=== PATIENT | female | born 1975 ===

== ENCOUNTER → 2020-03-25 13:59 | Outpatient (BNVA) | payer OTHER, SELFPAY | PROVIDERS: Visit Provider Internal Medicine Cardiovascular Disease | DX: R00.2 Palpitations (principal); I10 Essential (primary) hypertension | CPT/HCPCS: 99213 ==

== ENCOUNTER 2020-04-13 11:16 | Outpatient (REF) | payer OTHER, SELFPAY ==
[2020-04-13 13:43] LABS: Basophils Percent Auto 0.3 % (0-2); Eosinophils Absolute Auto 0.1 X10*3/uL (0.0-0.4); Eosinophils Percent Auto 1.7 % (0-4); Hematocrit 38.3 % (37-47); Hemoglobin 11.5 g/dl (12.0-16.0); Imm Gran Abs Auto 0.02 X10*3/uL (0.00-0.03); Imm Gran Pct Auto 0.3 % (0.0-0.4); Lymphocytes Absolute Auto 1.7 X10*3/uL (1.2-4.9); Lymphocytes Percent Auto 23.4 % (20-40); MANUAL DIFF FLAG NO; Mean Corpuscular Hemoglobin 23.3 pg (27.0-33.0); Mean Corpuscular Volume 77.7 fL (80-98); Mean Platelet Volume 9.8 fL (9.4-12.3); Monocytes Absolute Auto 0.5 X10*3/uL (0.1-1.2); Monocytes Percent Auto 7.3 % (2-11); Platelet Count 339 X10*3/uL (160-400); Red Blood Count 4.93 X10*6/uL (4.20-5.50); Red Cell Distribution Width 15.3 % (11.0-16.0); White Blood Count 7.4 X10*3/uL (4.8-10.8)
[2020-04-13 14:41] LABS: Alanine Aminotransferase 10 U/L (0-31); Albumin Level 4.2 g/dL (3.5-5.0); Alkaline Phosphatase 87 U/L (39-117); Anion Gap 13 (12-20); Aspartate Amino Transferase 11 U/L (5-31); Bilirubin Total 0.3 mg/dL (0.0-1.0); Blood Urea Nitrogen 10 mg/dL (9-16); C Reactive Protein 3.16 mg/dL (< or = 0.50); Calcium 9.6 mg/dL (8.4-10.2); Carbon Dioxide 28 mmol/L (22-29); Chloride 101 mmol/L (96-108); Estimated Glomerular Filt Rate > 60; Glucose Random 88 mg/dL (60-115); Potassium 4.6 mmol/l (3.3-5.1); Sodium 137 mmol/L (135-145); Total Protein 8.4 g/dL (6.5-8.0)
[2020-04-13 14:58] LABS: Erythrocyte Sedimentation Rate 43 MM/HR (0-20)
== END 2020-04-13 11:17 | disposition home or self-care (01) ==
LOC: HO.LAB 11:16
PROVIDERS: PCP Internal Medicine; Referring Provider Internal Medicine; Visit Provider Student in an Organized Health Care Education/Training Program
DX: M06.00 Rheumatoid arthritis without rheumatoid factor, unspecified site (principal); M17.0 Bilateral primary osteoarthritis of knee; Z79.899 Other long term (current) drug therapy; Z79.52 Long term (current) use of systemic steroids
CPT/HCPCS: 36415; 80053; 85025; 85652; 86140; 99214

== ENCOUNTER → 2020-04-30 14:30 | Outpatient (BNVA) | payer OTHER, SELFPAY | PROVIDERS: Visit Provider Internal Medicine Pulmonary Disease | DX: G47.33 Obstructive sleep apnea (adult) (pediatric) (principal); Z99.89 Dependence on other enabling machines and devices; E66.01 Morbid (severe) obesity due to excess calories; Z68.43 Body mass index [BMI] 50.0-59.9, adult | CPT/HCPCS: 99212 ==

== ENCOUNTER → 2020-07-02 11:15 | Outpatient (BNVA) | payer OTHER, SELFPAY | PROVIDERS: PCP Internal Medicine; Visit Provider Student in an Organized Health Care Education/Training Program | DX: Z76.89 Persons encountering health services in other specified circumstances (principal) ==

== ENCOUNTER 2020-07-12 13:52 | Outpatient (REF) | payer OTHER, SELFPAY ==
[2020-07-12 14:50] LABS: MANUAL DIFF FLAG NO
[2020-07-12 14:51] LABS: Basophils Percent Auto 0.2 % (0-2); Eosinophils Absolute Auto 0.2 X10*3/uL (0.0-0.4); Eosinophils Percent Auto 2.3 % (0-4); Hematocrit 39.2 % (37-47); Hemoglobin 12.1 g/dl (12.0-16.0); Imm Gran Abs Auto 0.04 X10*3/uL (0.00-0.03); Imm Gran Pct Auto 0.5 % (0.0-0.4); Lymphocytes Absolute Auto 2.4 X10*3/uL (1.2-4.9); Lymphocytes Percent Auto 29.5 % (20-40); Mean Corpuscular HGB Conc 30.9 g/dl (31.0-35.0); Mean Corpuscular Hemoglobin 24.4 pg (27.0-33.0); Mean Platelet Volume 9.8 fL (9.4-12.3); Monocytes Absolute Auto 0.7 X10*3/uL (0.1-1.2); Monocytes Percent Auto 8.2 % (2-11); Neutrophils Absolute Auto 4.9 X10*3/uL (2.0-8.3); Neutrophils Percent Auto 59.3 % (45-73); Platelet Count 355 X10*3/uL (160-400); Red Blood Count 4.96 X10*6/uL (4.20-5.50); Red Cell Distribution Width 15.2 % (11.0-16.0); White Blood Count 8.2 X10*3/uL (4.8-10.8)
[2020-07-12 15:12] LABS: Alanine Aminotransferase 11 U/L (0-31); Albumin Level 4.2 g/dL (3.5-5.0); Alkaline Phosphatase 101 U/L (39-117); Anion Gap 15 (12-20); Aspartate Amino Transferase 10 U/L (5-31); Bilirubin Total 0.3 mg/dL (0.0-1.0); Blood Urea Nitrogen 10 mg/dL (9-16); Calcium 9.3 mg/dL (8.4-10.2); Carbon Dioxide 28 mmol/L (22-29); Chloride 100 mmol/L (96-108); Estimated Glomerular Filt Rate > 60; Glucose Random 134 mg/dL (60-115); Potassium 4.6 mmol/l (3.3-5.1); Sodium 138 mmol/L (135-145); Total Protein 8.4 g/dL (6.5-8.0)
[2020-07-12 15:46] LABS: Erythrocyte Sedimentation Rate 39 MM/HR (0-20)
== END 2020-07-12 13:53 | disposition home or self-care (01) ==
LOC: HO.LAB 13:52
PROVIDERS: PCP Internal Medicine; Visit Provider Student in an Organized Health Care Education/Training Program
DX: M06.00 Rheumatoid arthritis without rheumatoid factor, unspecified site (principal)
CPT/HCPCS: 36415; 80053; 85025; 85652; 86140

== ENCOUNTER 2020-08-31 14:49 | Outpatient (REF) | payer OTHER, SELFPAY ==
[2020-08-31 15:57] LABS: MANUAL DIFF FLAG NO
[2020-08-31 16:07] LABS: Basophils Percent Auto 0.2 % (0-2); Eosinophils Absolute Auto 0.2 X10*3/uL (0.0-0.4); Eosinophils Percent Auto 1.9 % (0-4); Hematocrit 39.1 % (37-47); Imm Gran Abs Auto 0.03 X10*3/uL (0.00-0.03); Imm Gran Pct Auto 0.4 % (0.0-0.4); Lymphocytes Absolute Auto 2.1 X10*3/uL (1.2-4.9); Lymphocytes Percent Auto 25.9 % (20-40); Mean Corpuscular HGB Conc 30.7 g/dl (31.0-35.0); Mean Corpuscular Hemoglobin 24.3 pg (27.0-33.0); Mean Corpuscular Volume 79.3 fL (80-98); Mean Platelet Volume 9.5 fL (9.4-12.3); Monocytes Absolute Auto 0.7 X10*3/uL (0.1-1.2); Monocytes Percent Auto 7.9 % (2-11); Neutrophils Absolute Auto 5.2 X10*3/uL (2.0-8.3); Neutrophils Percent Auto 63.7 % (45-73); Platelet Count 314 X10*3/uL (160-400); Red Blood Count 4.93 X10*6/uL (4.20-5.50); Red Cell Distribution Width 15.2 % (11.0-16.0); White Blood Count 8.2 X10*3/uL (4.8-10.8)
[2020-08-31 16:21] LABS: Alanine Aminotransferase 14 U/L (0-31); Albumin Level 4.1 g/dL (3.5-5.0); Alkaline Phosphatase 86 U/L (39-117); Anion Gap 12 (12-20); Aspartate Amino Transferase 15 U/L (5-31); Bilirubin Total 0.2 mg/dL (0.0-1.0); Blood Urea Nitrogen 13 mg/dL (9-16); C Reactive Protein 2.82 mg/dL (< or = 0.50); Calcium 9.4 mg/dL (8.4-10.2); Carbon Dioxide 27 mmol/L (22-29); Chloride 102 mmol/L (96-108); Estimated Glomerular Filt Rate > 60; Glucose Random 99 mg/dL (60-115); Potassium 4.3 mmol/L (3.3-5.1); Sodium 137 mmol/L (135-145); Total Protein 8.2 g/dL (6.5-8.0)
[2020-08-31 16:54] LABS: Erythrocyte Sedimentation Rate 40 MM/HR (0-20)
[2020-09-01 07:31] LABS: Hepatitis A Antibody IgM 0.13 Index (0-0.79); ~Hepatitis A Antibody IgM Nonreactive (Nonreactive)
[2020-09-02 04:53] LABS: HBS Num1 0.33 mIU/mL (0-7.99); HBc Num1 0.07 S/CO (0.00-0.79); Hepatitis B Core Antibody Nonreactive (Nonreactive); ~Hepatitis B Surface Antibody NONREACTIVE (Nonreactive)
[2020-09-02 05:04] LABS: HBsAGNum1 0.17 S/CO (0.00-0.99); Hepatitis B Surface Antigen Negative (Negative); ~Hepatitis C Antibody Nonreactive (Nonreactive)
[2020-09-02 22:02] LABS: TS Negative Control Passed; TS Panel A 0; TS Panel B 0; TS Positive Control Passed; TSpotTB Negative (SeeBelow)
== END 2020-08-31 14:50 | disposition home or self-care (01) ==
LOC: HO.LAB 14:49
PROVIDERS: PCP Internal Medicine; Visit Provider Student in an Organized Health Care Education/Training Program
DX: M06.00 Rheumatoid arthritis without rheumatoid factor, unspecified site (principal); M17.0 Bilateral primary osteoarthritis of knee; Z79.52 Long term (current) use of systemic steroids; Z79.899 Other long term (current) drug therapy
CPT/HCPCS: 36415; 80053; 85025; 85652; 86140; 86481; 86704; 86706; 86709; 86803; 87340; 99212

== ENCOUNTER 2020-09-08 08:45 | Outpatient (REF) | payer OTHER, SELFPAY ==
[2020-09-08 09:47] LABS: MANUAL DIFF FLAG NO
[2020-09-08 09:53] LABS: Basophils Percent Auto 0.4 % (0-2); Eosinophils Absolute Auto 0.2 X10*3/uL (0.0-0.4); Eosinophils Percent Auto 3.3 % (0-4); Hematocrit 39.6 % (37-47); Hemoglobin 11.9 g/dl (12.0-16.0); Imm Gran Abs Auto 0.02 X10*3/uL (0.00-0.03); Imm Gran Pct Auto 0.4 % (0.0-0.4); Lymphocytes Absolute Auto 1.9 X10*3/uL (1.2-4.9); Lymphocytes Percent Auto 33.1 % (20-40); Mean Corpuscular HGB Conc 30.1 g/dl (31.0-35.0); Mean Corpuscular Hemoglobin 24.2 pg (27.0-33.0); Mean Corpuscular Volume 80.5 fL (80-98); Mean Platelet Volume 9.7 fL (9.4-12.3); Monocytes Absolute Auto 0.5 X10*3/uL (0.1-1.2); Monocytes Percent Auto 8.2 % (2-11); Neutrophils Absolute Auto 3.1 X10*3/uL (2.0-8.3); Neutrophils Percent Auto 54.6 % (45-73); Platelet Count 321 X10*3/uL (160-400); Red Blood Count 4.92 X10*6/uL (4.20-5.50); Red Cell Distribution Width 15.1 % (11.0-16.0); White Blood Count 5.7 X10*3/uL (4.8-10.8)
[2020-09-08 10:16] LABS: Estimated Average Glucose 128 mg/dL; Hemoglobin A1c % 6.1 %
[2020-09-08 10:24] LABS: Alanine Aminotransferase 14 U/L (0-31); Albumin Level 4.3 g/dL (3.5-5.0); Alkaline Phosphatase 82 U/L (39-117); Anion Gap 13 (12-20); Aspartate Amino Transferase 15 U/L (5-31); Bilirubin Total 0.5 mg/dL (0.0-1.0); Blood Urea Nitrogen 15 mg/dL (9-16); Carbon Dioxide 27 mmol/L (22-29); Chloride 100 mmol/L (96-108); Cholesterol 162 mg/dL; Estimated Glomerular Filt Rate > 60; Glucose Fasting 109 mg/dL (60-99); HDL Cholesterol 50 mg/dL; LDL Cholesterol Calculated 102 mg/dl; Potassium 4.1 mmol/L (3.3-5.1); Sodium 136 mmol/L (135-145); Total Protein 8.2 g/dL (6.5-8.0); Triglycerides 50 mg/dL
[2020-09-08 10:27] LABS: Creatinine Urine 138.06 mg/dL; Microalbum/Creatinine Ratio Ur 15.9 ug/mg cr
== END 2020-09-08 08:46 | disposition home or self-care (01) ==
LOC: HO.LAB 08:45
PROVIDERS: PCP Internal Medicine; Visit Provider Internal Medicine
DX: I10 Essential (primary) hypertension (principal); E11.40 Type 2 diabetes mellitus with diabetic neuropathy, unspecified; G47.33 Obstructive sleep apnea (adult) (pediatric)
CPT/HCPCS: 36415; 80053; 80061; 82043; 83036; 85025

== ENCOUNTER 2020-10-25 12:00 | Outpatient (RCR) | payer OTHER, SELFPAY ==
[2020-10-20 11:08] VITALS: BP 135/79
--- NOTE | 2020-10-20 11:55 | MHC.PT.EP ---
[facility] [place] Office [place] Office [place] Office [address] Madhuri Alvarez [address] [phone] F: [phone] F: [phone] F: [phone] F: [phone] Physical Therapy Plan of Care Date of Evaluation: Date of Surgery: NA Diagnosis: B knee OA Assessment: 45 year old female referred for B knee OA . Pt reports of having sudden onset of knee pain about 8-9 months back. On PT examination pt presented 8/10 pain in B knee, altered knee posture, impaired gait, significantly decreased B knee and hip ROM, and decreased muscle strength. She would benefit from PT to address the aforementioned impairments so as to enable her tolerance to sitting, walking and stair negotiation. Her prognosis may be limited by her body weight and B knee posture. Frequency and Duration: The patient will be seen 2/week for 5 weeks Short Term Goals: 1. Pt will have 50% decrease in pain which will enable her to sit for 30 minutes in 2 weeks. 2. Pt will demonstrate increase in B knee ROM by 20 degrees which will enable her to negotiate 1 flight of stairs in 3 weeks. 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 2.Pt will return to PLOF in 5 weeks. Treatment Plan: Modalities to reduce pain, spasms and effusion. Manual therapy to restore motion and function. Therapeutic exercise to improve strength and flexibility. Neuromuscular re-education for posture and balance. Therapeutic activities to return to functional activities of daily living. Electronically signed by: Eugenia Burks, PT, DPT Please sign and return to therapist. Thank you for your referral.
--- NOTE | 2020-11-24 15:31 | MHC.PT.DC ---
[facility] [place] Office [place] Office [place] Office [address] Madhuri Alvarez [address] [phone] F: [phone] F: [phone] F: [phone] F: [phone] Physical Therapy Discharge Report Diagnosis: B knee OA Date of Surgery: NA Date of Evaluation: 10/20/20 Date of Discharge: 11/24/20 Treatments to Date: 2 Cancellations to Date: 1 No Shows to Date: 3 Discharge Status: Visit Non-compliance Discharge Summary: Sol has cancelled 1 appointment and no showed 3. She has therefore been d/c from therapy for non compliance. Electronically signed by: Eugenia Burks PT DPT Please sign and return to therapist. Thank you for your referral.
== END 2020-11-24 15:32 | disposition other institution (70) ==
LOC: HO.PT 12:00
PROVIDERS: PCP Internal Medicine; Visit Provider Student in an Organized Health Care Education/Training Program
DX: M17.0 Bilateral primary osteoarthritis of knee (principal)
CPT/HCPCS: 97110; 97112; 97162

== ENCOUNTER → 2020-11-10 10:43 | Outpatient (BNVA) | payer OTHER, SELFPAY | PROVIDERS: PCP Internal Medicine; Visit Provider Internal Medicine Pulmonary Disease | DX: G47.33 Obstructive sleep apnea (adult) (pediatric) (principal); Z99.89 Dependence on other enabling machines and devices | CPT/HCPCS: 99212 ==

== ENCOUNTER 2021-01-08 08:01 | Outpatient (REF) | payer OTHER, SELFPAY ==
[2021-01-08 09:04] LABS: MANUAL DIFF FLAG NO
[2021-01-08 09:35] LABS: Basophils Percent Auto 0.3 % (0-2); Eosinophils Absolute Auto 0.3 X10*3/uL (0.0-0.4); Eosinophils Percent Auto 4.4 % (0-4); Hematocrit 38.1 % (37-47); Hemoglobin 11.5 g/dl (12.0-16.0); Imm Gran Abs Auto 0.02 X10*3/uL (0.00-0.03); Imm Gran Pct Auto 0.3 % (0.0-0.4); Lymphocytes Absolute Auto 1.9 X10*3/uL (1.2-4.9); Lymphocytes Percent Auto 29.9 % (20-40); Mean Corpuscular HGB Conc 30.2 g/dl (31.0-35.0); Mean Corpuscular Hemoglobin 24.7 pg (27.0-33.0); Mean Corpuscular Volume 81.9 fL (80-98); Monocytes Absolute Auto 0.6 X10*3/uL (0.1-1.2); Monocytes Percent Auto 9.5 % (2-11); Neutrophils Absolute Auto 3.6 X10*3/uL (2.0-8.3); Neutrophils Percent Auto 55.6 % (45-73); Platelet Count 296 X10*3/uL (160-400); Red Blood Count 4.65 X10*6/uL (4.20-5.50); Red Cell Distribution Width 14.9 % (11.0-16.0); White Blood Count 6.4 X10*3/uL (4.8-10.8)
[2021-01-08 10:15] LABS: Creatinine Urine 112.56 mg/dL; Microalbum/Creatinine Ratio Ur 29.3 ug/mg cr
[2021-01-08 10:30] LABS: Alanine Aminotransferase 20 U/L (0-31); Alkaline Phosphatase 83 U/L (39-117); Anion Gap 11 (12-20); Aspartate Amino Transferase 15 U/L (5-31); Bilirubin Total 0.4 mg/dL (0.0-1.0); Blood Urea Nitrogen 13 mg/dL (9-16); Calcium 9.4 mg/dL (8.4-10.2); Carbon Dioxide 26 mmol/L (22-29); Chloride 106 mmol/L (96-108); Cholesterol 162 mg/dL; Estimated Glomerular Filt Rate > 60; Glucose Fasting 117 mg/dL (60-99); HDL Cholesterol 42 mg/dL; LDL Cholesterol Calculated 109 mg/dl; Potassium 4.6 mmol/L (3.3-5.1); Sodium 138 mmol/L (135-145); Total Protein 7.9 g/dL (6.5-8.0); Triglycerides 58 mg/dL
[2021-01-12 18:12] LABS: Vitamin D 25-OH, D2 <4 ng/mL; Vitamin D 25-OH, D3 16 ng/mL; Vitamin D 25-OH, Total 16 ng/mL (30-100)
== END 2021-01-08 08:02 | disposition home or self-care (01) ==
LOC: HO.LAB 08:01
PROVIDERS: PCP Internal Medicine; Visit Provider Internal Medicine
DX: E11.9 Type 2 diabetes mellitus without complications (principal); D64.9 Anemia, unspecified; I10 Essential (primary) hypertension; E55.9 Vitamin D deficiency, unspecified
CPT/HCPCS: 36415; 80053; 80061; 82043; 82306; 85025

== ENCOUNTER → 2021-04-27 15:37 | Outpatient (BNVA) | payer OTHER, SELFPAY | PROVIDERS: PCP Internal Medicine; Referring Provider Internal Medicine; Visit Provider Internal Medicine Cardiovascular Disease ==

== ENCOUNTER 2021-04-30 09:49 | Outpatient (REF) | payer OTHER, SELFPAY ==
--- NOTE | ~2021-04-30 | MM_ITS ---
EXAMINATION: MM SCREENING DIGITAL BREAST TOMOSYNTHESIS, BILATERAL CLINICAL INFORMATION: Screening. Asymptomatic. Age 46. No prior breast imaging. The lifetime risk of breast cancer based on the Tyrer-Cuzick Model is 8%. COMPARISON: None (current study represents initial baseline exam). TECHNIQUE: Digital breast tomosynthesis is performed in both the craniocaudal and mediolateral oblique views along with computer-aided detection (CAD). Synthesized 2D images are generated from the tomosynthesis. Additional bilateral MLO views are provided. FINDINGS: There are scattered areas of fibroglandular density (ACR BI-RADS breast composition Category b). There are no significant masses, abnormal calcifications, or other abnormalities. The axilla and skin contours are unremarkable. MM/MM tomosynthesis screening BI IMPRESSION: No mammographic evidence of malignancy. ASSESSMENT: BI-RADS 2: Benign RECOMMENDATION: Routine annual mammography screening. This patient's information was entered into a reminder system with a target due date for their next mammogram.
== END 2021-04-30 09:50 | disposition home or self-care (01) ==
LOC: HO.MAMMO 09:49
PROVIDERS: Visit Provider Internal Medicine
DX: Z12.31 Encounter for screening mammogram for malignant neoplasm of breast (principal)
CPT/HCPCS: 77063; 77067

== ENCOUNTER → 2021-05-04 13:52 | Outpatient (BNVA) | payer OTHER, SELFPAY | PROVIDERS: PCP Internal Medicine; Visit Provider Internal Medicine Pulmonary Disease | DX: G47.33 Obstructive sleep apnea (adult) (pediatric) (principal); R06.00 Dyspnea, unspecified; M06.9 Rheumatoid arthritis, unspecified; Z99.89 Dependence on other enabling machines and devices | CPT/HCPCS: 99212 ==

== ENCOUNTER 2021-05-16 14:46 | Outpatient (REF) | payer OTHER, SELFPAY ==
--- NOTE | 2021-05-16 17:07 | PFT_ITS ---
INDICATION: Dyspnea. SPIROMETRY: FEV1 to FVC 94% with an FEV1 of 2.3 L which is 76% predicted and FVC of 2.44 L, which is 66% predicted. No significant response to bronchodilators noted. Maximum voluntary ventilation 76% predicted. LUNG VOLUMES: Total lung capacity 67% predicted with an expiratory reserve volume of 34% predicted. DIFFUSION CAPACITY: DLCO 80% predicted. COMPARISONS: None. INTERPRETATION: No obstructive ventilatory defect. No significant response to bronchodilators noted. There is a mild decrease in maximum voluntary ventilation secondary to likely deconditioning. Lung volumes demonstrate a mild to moderate restrictive ventilatory defect likely to do with an elevated BMI although interstitial lung conditions cannot be ruled out. The expiratory reserve volume is significantly decreased due to the elevated BMI. Diffusion capacity is within normal limits. If asthma is in the differential, methacholine challenge may be helpful in assessing for hyper-reactive airways, otherwise clinical correlation warranted. Rio Orellana MD MR/MODL / [id number]
== END 2021-05-16 14:47 | disposition home or self-care (01) ==
LOC: HO.RESP 14:46
PROVIDERS: PCP Internal Medicine; Visit Provider Internal Medicine Pulmonary Disease
DX: R60.0 Localized edema (principal)
CPT/HCPCS: 94060; 94727; 94729

== ENCOUNTER → 2021-05-26 14:55 | Outpatient (BNVA) | payer OTHER, SELFPAY | PROVIDERS: PCP Internal Medicine; Visit Provider Internal Medicine Pulmonary Disease ==

== ENCOUNTER 2021-07-16 09:14 | Outpatient (REF) | payer OTHER, SELFPAY ==
[2021-07-16 09:33] LABS: MANUAL DIFF FLAG NO
[2021-07-16 10:43] LABS: Basophils Percent Auto 0.4 % (0-2); Eosinophils Absolute Auto 0.3 X10*3/uL (0.0-0.4); Eosinophils Percent Auto 3.7 % (0-4); Hematocrit 39.1 % (37.0-47.0); Imm Gran Abs Auto 0.01 X10*3/uL (0.00-0.03); Imm Gran Pct Auto 0.1 % (0.0-0.4); Lymphocytes Absolute Auto 2.1 X10*3/uL (1.2-4.9); Lymphocytes Percent Auto 27.3 % (20-40); Mean Corpuscular HGB Conc 30.7 g/dl (31.0-35.0); Mean Corpuscular Hemoglobin 25.5 pg (27.0-33.0); Mean Platelet Volume 10.1 fL (9.4-12.3); Monocytes Absolute Auto 0.6 X10*3/uL (0.1-1.2); Neutrophils Absolute Auto 4.7 x10*3/uL (2.0-8.3); Neutrophils Percent Auto 60.5 % (45-73); Platelet Count 293 X10*3/uL (160-400); Red Blood Count 4.71 X10*6/uL (4.20-5.50); Red Cell Distribution Width 13.9 % (11.0-16.0); White Blood Count 7.8 X10*3/uL (4.8-10.8)
[2021-07-16 10:55] LABS: Alanine Aminotransferase 13 U/L (0-31); Alkaline Phosphatase 81 U/L (39-117); Anion Gap 11 (12-20); Aspartate Amino Transferase 13 U/L (5-31); Bilirubin Total 0.2 mg/dL (0.0-1.0); Blood Urea Nitrogen 12 mg/dL (9-16); Calcium 9.2 mg/dL (8.4-10.2); Carbon Dioxide 27 mmol/L (22-29); Chloride 102 mmol/L (96-108); Cholesterol 167 mg/dL; Estimated Glomerular Filt Rate > 60; Glucose Fasting 116 mg/dL (60-99); HDL Cholesterol 40 mg/dL; Iron 52 mcg/dL (30-160); LDL Cholesterol Calculated 108 mg/dl; Percent Iron Saturation 15 % (15-50); Potassium 4.3 mmol/L (3.3-5.1); Sodium 136 mmol/L (135-145); Total Iron Binding Capacity 349 mcg/dL (228-428); Triglycerides 97 mg/dL; Unsaturated Iron Binding 297 ug/dL
[2021-07-16 10:58] LABS: Microalbum/Creatinine Ratio Ur 13.2 ug/mg cr
[2021-07-20 16:21] LABS: Vitamin D 25-OH, D2 <4 ng/mL; Vitamin D 25-OH, D3 30 ng/mL; Vitamin D 25-OH, Total 30 ng/mL (30-100)
== END 2021-07-16 09:15 | disposition home or self-care (01) ==
LOC: HO.LAB 09:14
PROVIDERS: Visit Provider Internal Medicine
DX: E55.9 Vitamin D deficiency, unspecified (principal); I10 Essential (primary) hypertension; E78.5 Hyperlipidemia, unspecified; E11.9 Type 2 diabetes mellitus without complications; D64.9 Anemia, unspecified
CPT/HCPCS: 36415; 80053; 80061; 82043; 82306; 83540; 85025

== ENCOUNTER → 2021-08-09 13:17 | Outpatient (BNVA) | payer OTHER, SELFPAY | PROVIDERS: PCP Internal Medicine; Visit Provider Internal Medicine Pulmonary Disease | DX: G47.33 Obstructive sleep apnea (adult) (pediatric) (principal); J32.9 Chronic sinusitis, unspecified; J40 Bronchitis, not specified as acute or chronic; Z99.89 Dependence on other enabling machines and devices | CPT/HCPCS: 99212 ==

== ENCOUNTER 2021-09-14 09:37 | Outpatient (REF) | payer OTHER, SELFPAY ==
[2021-09-14 10:34] LABS: Appearance Urine HAZY; Color Urine YELLOW; Glucose Urine UA NEG (NEG); Leukocyte Esterase Urine 2+ (NEG); Nitrite Urine NEG (NEG); Specific Gravity - Urine 1.025 (1.005-1.025); UACC Culture Trigger YES; Urine Blood TRACE (NEG); Urine Ketones NEG (NEG); Urine Protein NEG (NEG-TRACE)
[2021-09-14 11:02] LABS: Creatinine Urine 180.31 mg/dL; Microalbum/Creatinine Ratio Ur 30.5 ug/mg cr
[2021-09-14 11:04] LABS: RBC Urine 0-2 /HPF (0); Squamous Epithelial Cell Urine 2+ /LPF; WBC Urine TNTC /HPF (0-4)
[2021-09-14 11:06] LABS: Bacteria Urine 2+ /LPF; Mucus Urine 1+ /LPF
[2021-09-14 11:07] LABS: WBC Clumps Urine NOTED
== END 2021-09-14 09:38 | disposition home or self-care (01) ==
LOC: HO.LAB 09:37
PROVIDERS: PCP Internal Medicine; Visit Provider Internal Medicine
DX: M06.00 Rheumatoid arthritis without rheumatoid factor, unspecified site (principal); M17.0 Bilateral primary osteoarthritis of knee; M25.511 Pain in right shoulder; E11.9 Type 2 diabetes mellitus without complications; Z79.899 Other long term (current) drug therapy; Z79.52 Long term (current) use of systemic steroids
CPT/HCPCS: 81001; 82043; 87086; 87088; 87186; 99212

== ENCOUNTER 2021-09-16 13:33 | Outpatient (REF) | payer OTHER, SELFPAY ==
--- NOTE | ~2021-09-16 | XR_ITS ---
EXAMINATION: XR SHOULDER, RIGHT CLINICAL INFORMATION: Rheumatoid arthritis COMPARISON: None TECHNIQUE: AP external rotation, Grashey, scapular Y, and axillary views of the right shoulder. FINDINGS: Bone alignment is normal. No fracture or dislocation is seen. The glenohumeral joint is normal. There are small osteophytes at the acromioclavicular joint. There is soft tissue calcification adjacent to the greater tuberosity. XR/XR shoulder RT min 2V IMPRESSION: Small osteophytes at the acromioclavicular joint and soft tissue calcification adjacent to the greater tuberosity.
[2021-09-16 14:29] LABS: MANUAL DIFF FLAG NO
[2021-09-16 15:01] LABS: Basophils Percent Auto 0.2 % (0-2); Eosinophils Absolute Auto 0.2 X10*3/uL (0.0-0.4); Eosinophils Percent Auto 2.4 % (0-4); Hematocrit 40.8 % (37.0-47.0); Hemoglobin 12.2 g/dl (12.0-16.0); Imm Gran Abs Auto 0.02 X10*3/uL (0.00-0.03); Imm Gran Pct Auto 0.2 % (0.0-0.4); Lymphocytes Absolute Auto 1.8 X10*3/uL (1.2-4.9); Lymphocytes Percent Auto 21.9 % (20-40); Mean Corpuscular HGB Conc 29.9 g/dl (31.0-35.0); Mean Corpuscular Hemoglobin 24.6 pg (27.0-33.0); Mean Corpuscular Volume 82.4 fL (80.0-98.0); Mean Platelet Volume 9.5 fL (9.4-12.3); Monocytes Absolute Auto 0.5 X10*3/uL (0.1-1.2); Monocytes Percent Auto 6.4 % (2-11); Neutrophils Absolute Auto 5.7 x10*3/uL (2.0-8.3); Neutrophils Percent Auto 68.9 % (45-73); Platelet Count 330 X10*3/uL (160-400); Red Blood Count 4.95 X10*6/uL (4.20-5.50); Red Cell Distribution Width 14.5 % (11.0-16.0); White Blood Count 8.3 X10*3/uL (4.8-10.8)
[2021-09-16 15:19] LABS: Alanine Aminotransferase 23 U/L (0-31); Albumin Level 4.2 g/dL (3.5-5.0); Alkaline Phosphatase 93 U/L (39-117); Anion Gap 13 (12-20); Aspartate Amino Transferase 20 U/L (5-31); Bilirubin Total 0.4 mg/dL (0.0-1.0); Blood Urea Nitrogen 11 mg/dL (9-16); C Reactive Protein 2.62 mg/dL (< or = 0.50); Calcium 9.6 mg/dL (8.4-10.2); Carbon Dioxide 28 mmol/L (22-29); Chloride 101 mmol/L (96-108); Cholesterol 151 mg/dL; Estimated Glomerular Filt Rate > 60; Glucose Random 151 mg/dL (60-115); HDL Cholesterol 46 mg/dL; Iron 40 mcg/dL (30-160); LDL Cholesterol Calculated 81 mg/dl; Percent Iron Saturation 11 % (15-50); Potassium 4.6 mmol/L (3.3-5.1); Sodium 137 mmol/L (135-145); Total Iron Binding Capacity 354 mcg/dL (228-428); Total Protein 8.4 g/dL (6.5-8.0); Triglycerides 120 mg/dL; Unsaturated Iron Binding 314 ug/dL
[2021-09-16 15:43] LABS: Erythrocyte Sedimentation Rate 34 MM/HR (0-20)
[2021-09-16 16:17] LABS: Appearance Urine CLEAR; Color Urine YELLOW; Glucose Urine UA NEG (NEG); Leukocyte Esterase Urine TRACE (NEG); Nitrite Urine NEG (NEG); Specific Gravity - Urine 1.025 (1.005-1.025); UACC Culture Trigger YES; Urine Blood NEG (NEG); Urine Ketones NEG (NEG); Urine Protein NEG (NEG-TRACE)
[2021-09-16 16:24] LABS: RBC Urine 0 /HPF (0)
[2021-09-16 16:25] LABS: Bacteria Urine 4+ /LPF; Squamous Epithelial Cell Urine 3+ /LPF
[2021-09-18 18:45] LABS: TS Negative Control Passed; TS Panel A 0; TS Panel B 4; TS Positive Control Passed; TSpotTB Negative (Negative)
[2021-09-19 04:13] LABS: HBc Num1 0.09 S/CO (0.00-0.79); HBsAGNum1 0.21 S/CO (0.00-0.99); Hepatitis B Core Antibody Nonreactive (Nonreactive); Hepatitis B Surface Antigen Negative (Negative); ~Hepatitis B Surface Antibody NONREACTIVE (Nonreactive)
[2021-09-19 04:21] LABS: ~Hepatitis C Antibody Nonreactive (Nonreactive)
[2021-09-21 05:11] LABS: Hepatitis A Antibody IgM 0.18 Index (0-0.79); ~Hepatitis A Antibody IgM Nonreactive (Nonreactive)
[2021-09-21 13:41] LABS: Vitamin D 25-OH, D2 <4 ng/mL; Vitamin D 25-OH, D3 32 ng/mL; Vitamin D 25-OH, Total 32 ng/mL (30-100)
== END 2021-09-16 13:34 | disposition home or self-care (01) ==
LOC: HO.LAB 13:33
PROVIDERS: PCP Internal Medicine; Visit Provider Nurse Practitioner Family
DX: M06.00 Rheumatoid arthritis without rheumatoid factor, unspecified site (principal); M25.511 Pain in right shoulder; D64.9 Anemia, unspecified; E55.9 Vitamin D deficiency, unspecified; E78.5 Hyperlipidemia, unspecified; E11.9 Type 2 diabetes mellitus without complications
CPT/HCPCS: 36415; 73030; 80053; 80061; 81001; 82306; 83540; 85025; 85652; 86140; 86481; 86704; 86706; 86709; 86803; 87086; 87088; 87186; 87340

== ENCOUNTER → 2021-09-22 13:55 | Outpatient (BNVA) | payer OTHER, SELFPAY | PROVIDERS: PCP Internal Medicine; Visit Provider Internal Medicine Pulmonary Disease | DX: G47.33 Obstructive sleep apnea (adult) (pediatric) (principal); Z99.89 Dependence on other enabling machines and devices; Z79.899 Other long term (current) drug therapy | CPT/HCPCS: 99212 ==

== ENCOUNTER 2021-09-27 07:48 | Outpatient (REF) | payer OTHER, SELFPAY ==
[2021-09-27 08:22] LABS: MANUAL DIFF FLAG NO
[2021-09-27 08:45] LABS: Basophils Percent Auto 0.3 % (0-2); Eosinophils Absolute Auto 0.2 X10*3/uL (0.0-0.4); Eosinophils Percent Auto 3.7 % (0-4); Hematocrit 39.2 % (37.0-47.0); Hemoglobin 12.1 g/dl (12.0-16.0); Imm Gran Abs Auto 0.02 X10*3/uL (0.00-0.03); Imm Gran Pct Auto 0.3 % (0.0-0.4); Lymphocytes Absolute Auto 1.9 X10*3/uL (1.2-4.9); Lymphocytes Percent Auto 29.9 % (20-40); Mean Corpuscular HGB Conc 30.9 g/dl (31.0-35.0); Mean Corpuscular Hemoglobin 24.9 pg (27.0-33.0); Mean Corpuscular Volume 80.8 fL (80.0-98.0); Mean Platelet Volume 9.5 fL (9.4-12.3); Monocytes Absolute Auto 0.5 X10*3/uL (0.1-1.2); Neutrophils Absolute Auto 3.6 x10*3/uL (2.0-8.3); Neutrophils Percent Auto 57.8 % (45-73); Platelet Count 295 X10*3/uL (160-400); Red Blood Count 4.85 X10*6/uL (4.20-5.50); Red Cell Distribution Width 14.6 % (11.0-16.0); White Blood Count 6.2 X10*3/uL (4.8-10.8)
[2021-09-27 09:04] LABS: Appearance Urine HAZY; Color Urine YELLOW; Glucose Urine UA NEG (NEG); Leukocyte Esterase Urine NEG (NEG); Nitrite Urine NEG (NEG); UACC Culture Trigger NO; Urine Blood TRACE (NEG); Urine Ketones NEG (NEG); Urine Protein NEG (NEG-TRACE)
[2021-09-27 09:06] LABS: Alanine Aminotransferase 20 U/L (0-31); Alkaline Phosphatase 83 U/L (39-117); Anion Gap 11 (12-20); Aspartate Amino Transferase 16 U/L (5-31); Bilirubin Total 0.4 mg/dL (0.0-1.0); Blood Urea Nitrogen 11 mg/dL (9-16); C Reactive Protein 2.61 mg/dL (< or = 0.50); Calcium 9.6 mg/dL (8.4-10.2); Carbon Dioxide 28 mmol/L (22-29); Chloride 102 mmol/L (96-108); Estimated Glomerular Filt Rate > 60; Glucose Random 132 mg/dL (60-115); Potassium 4.8 mmol/L (3.3-5.1); Sodium 136 mmol/L (135-145)
[2021-09-27 09:17] LABS: Bacteria Urine 1+ /LPF; Mucus Urine 1+ /LPF; RBC Urine 0-2 /HPF (0); Squamous Epithelial Cell Urine 2+ /LPF
[2021-09-27 09:24] LABS: Erythrocyte Sedimentation Rate 34 MM/HR (0-20)
== END 2021-09-27 07:49 | disposition home or self-care (01) ==
LOC: HO.LAB 07:48
PROVIDERS: Nurse Practitioner Family; PCP Internal Medicine; Visit Provider Internal Medicine
DX: M06.9 Rheumatoid arthritis, unspecified (principal); R30.0 Dysuria
CPT/HCPCS: 36415; 80053; 81001; 81003; 85025; 85652; 86140

== ENCOUNTER → 2021-10-04 13:27 | Outpatient (BNVA) | payer OTHER, SELFPAY | PROVIDERS: PCP Internal Medicine; Visit Provider Nurse Practitioner Family | DX: Z13.89 Encounter for screening for other disorder (principal) ==

== ENCOUNTER 2021-10-14 08:39 | Outpatient (REF) | payer OTHER, SELFPAY ==
[2021-10-14 10:24] LABS: TSH reflex Free T4 1.72 uIU/mL (0.32-4.0)
== END 2021-10-14 08:40 | disposition home or self-care (01) ==
LOC: HO.LAB 08:39
PROVIDERS: Nurse Practitioner Family; PCP Internal Medicine; Visit Provider Internal Medicine
DX: Z13.29 Encounter for screening for other suspected endocrine disorder (principal)
CPT/HCPCS: 36415; 84443

== ENCOUNTER → 2021-10-28 09:48 | Outpatient (BNVA) | payer OTHER, SELFPAY | PROVIDERS: PCP Internal Medicine; Visit Provider Nurse Practitioner Family | DX: M75.31 Calcific tendinitis of right shoulder (principal); M06.00 Rheumatoid arthritis without rheumatoid factor, unspecified site; M25.511 Pain in right shoulder; M17.0 Bilateral primary osteoarthritis of knee | CPT/HCPCS: 99202; 99212 ==

== ENCOUNTER → 2021-11-03 13:32 | Outpatient (BNVA) | payer OTHER, SELFPAY | PROVIDERS: PCP Internal Medicine; Referring Provider Internal Medicine; Visit Provider Internal Medicine Cardiovascular Disease | DX: R00.2 Palpitations (principal); I10 Essential (primary) hypertension | CPT/HCPCS: 93005; 99212 ==

== ENCOUNTER 2021-11-16 14:46 | Outpatient (REF) | payer OTHER, SELFPAY ==
--- NOTE | ~2021-11-16 | US_ITS ---
EXAMINATION: US SOFT TISSUE NECK CLINICAL INFORMATION: Localized swelling, mass and lump, neck. COMPARISON: None. TECHNIQUE: Limited imaging of the right anterior mid neck level 1-2 was performed. FINDINGS: Imaging through the right neck level 1-2 space reveals multiple small lymph nodes. The largest lymph node measures 1.1 x 1.3 x 0.6 cm and has typical appearance of a lymph node. US/US soft tiss head and/or neck IMPRESSION: Typical-appearing lymph node on ultrasound in right neck , level 1-2 space.
[2021-11-16 15:08] LABS: MANUAL DIFF FLAG NO
[2021-11-16 16:08] LABS: Basophils Percent Auto 0.3 % (0-2); Eosinophils Absolute Auto 0.2 X10*3/uL (0.0-0.4); Eosinophils Percent Auto 2.2 % (0-4); Hematocrit 42.3 % (37.0-47.0); Hemoglobin 13.1 g/dl (12.0-16.0); Imm Gran Abs Auto 0.02 X10*3/uL (0.00-0.03); Imm Gran Pct Auto 0.2 % (0.0-0.4); Lymphocytes Absolute Auto 3.3 X10*3/uL (1.2-4.9); Lymphocytes Percent Auto 36.5 % (20-40); Mean Corpuscular Hemoglobin 25.2 pg (27.0-33.0); Mean Corpuscular Volume 81.5 fL (80.0-98.0); Mean Platelet Volume 10.1 fL (9.4-12.3); Monocytes Absolute Auto 0.8 X10*3/uL (0.1-1.2); Monocytes Percent Auto 8.5 % (2-11); Neutrophils Absolute Auto 4.6 x10*3/uL (2.0-8.3); Neutrophils Percent Auto 52.3 % (45-73); Platelet Count 324 X10*3/uL (160-400); Red Blood Count 5.19 X10*6/uL (4.20-5.50); Red Cell Distribution Width 14.6 % (11.0-16.0); White Blood Count 8.9 X10*3/uL (4.8-10.8)
[2021-11-16 16:37] LABS: Alanine Aminotransferase 27 U/L (0-31); Albumin Level 4.2 g/dL (3.5-5.0); Alkaline Phosphatase 83 U/L (39-117); Anion Gap 13 (12-20); Aspartate Amino Transferase 25 U/L (5-31); Bilirubin Total 0.4 mg/dL (0.0-1.0); Blood Urea Nitrogen 9 mg/dL (9-16); C Reactive Protein 1.64 mg/dL (< or = 0.50); Calcium 9.6 mg/dL (8.4-10.2); Carbon Dioxide 25 mmol/L (22-29); Chloride 104 mmol/L (96-108); Estimated Glomerular Filt Rate > 60; Glucose Random 141 mg/dL (60-115); Potassium 4.6 mmol/L (3.3-5.1); Sodium 137 mmol/L (135-145); Total Protein 8.6 g/dL (6.5-8.0)
[2021-11-16 16:56] LABS: Erythrocyte Sedimentation Rate 21 MM/HR (0-20)
== END 2021-11-16 14:47 | disposition home or self-care (01) ==
LOC: HO.US 14:46
PROVIDERS: Absent Provider Nurse Practitioner Family; PCP Internal Medicine; Visit Provider Nurse Practitioner Family
DX: R10.2 Pelvic and perineal pain (principal)
CPT/HCPCS: 36415; 76536; 80053; 85025; 85652; 86140

== ENCOUNTER → 2021-11-29 11:28 | Outpatient (REF) | payer OTHER, SELFPAY ==
--- NOTE | 2021-11-29 11:32 | HM_ITS ---
Conclusion: 1. Patient was monitored for total of 14 days 2. Baseline was normal sinus rhythm with average heart of 84 beats per minute 3. Very rare ectopy noted 4. One hundred ten beat run of SVT, irregular, at 154 beats per minute 5. No patient reported events MTDD
== END ==
LOC: HO.CARD 11:28
PROVIDERS: Visit Provider Internal Medicine Cardiovascular Disease
DX: R00.2 Palpitations (principal)
CPT/HCPCS: 93246

== ENCOUNTER → 2021-12-09 13:45 | Outpatient (BNVA) | payer OTHER, SELFPAY | PROVIDERS: PCP Internal Medicine; Visit Provider Physician Assistant | DX: M75.31 Calcific tendinitis of right shoulder (principal) | CPT/HCPCS: 99212 ==

== ENCOUNTER 2022-01-30 08:46 | Outpatient (REF) | payer OTHER, SELFPAY ==
--- NOTE | ~2022-01-30 | XR_ITS ---
EXAMINATION: BILATERAL KNEE X-RAY CLINICAL INFORMATION: Bilateral osteoarthritis COMPARISON: Previous x-ray January 2020 TECHNIQUE: 3 views of each knee FINDINGS: Right: There is valgus angulation. There is high position of the patella and lateral tilt of patella on the sunrise view. There is severe arthritis at the lateral femoral tibial and patellofemoral joints with joint space narrowing and osteophyte formation. There is no joint effusion. Left: There is high position of the patella. Bone alignment is otherwise normal. No fracture or dislocation is seen. There is arthritis at the medial femoral tibial and patellofemoral joints with joint space narrowing and osteophyte formation. There is no joint effusion. XR/XR knee RT 3V IMPRESSION: Bilateral arthritis not appreciably changed from 2019 exam.
--- NOTE | ~2022-01-30 | XR_ITS ---
EXAMINATION: BILATERAL KNEE X-RAY CLINICAL INFORMATION: Bilateral osteoarthritis COMPARISON: Previous x-ray January 2020 TECHNIQUE: 3 views of each knee FINDINGS: Right: There is valgus angulation. There is high position of the patella and lateral tilt of patella on the sunrise view. There is severe arthritis at the lateral femoral tibial and patellofemoral joints with joint space narrowing and osteophyte formation. There is no joint effusion. Left: There is high position of the patella. Bone alignment is otherwise normal. No fracture or dislocation is seen. There is arthritis at the medial femoral tibial and patellofemoral joints with joint space narrowing and osteophyte formation. There is no joint effusion. XR/XR knee LT 3V IMPRESSION: Bilateral arthritis not appreciably changed from 2019 exam.
[2022-01-30 09:07] LABS: MANUAL DIFF FLAG NO
[2022-01-30 09:24] LABS: Basophils Percent Auto 0.4 % (0-2); Eosinophils Absolute Auto 0.2 X10*3/uL (0.0-0.4); Eosinophils Percent Auto 3.2 % (0-4); Hematocrit 39.7 % (37.0-47.0); Hemoglobin 12.3 g/dl (12.0-16.0); Imm Gran Abs Auto 0.02 X10*3/uL (0.00-0.03); Imm Gran Pct Auto 0.3 % (0.0-0.4); Lymphocytes Absolute Auto 2.2 X10*3/uL (1.2-4.9); Lymphocytes Percent Auto 31.9 % (20-40); Mean Corpuscular Hemoglobin 24.9 pg (27.0-33.0); Mean Corpuscular Volume 80.4 fL (80.0-98.0); Mean Platelet Volume 9.2 fL (9.4-12.3); Monocytes Absolute Auto 0.6 X10*3/uL (0.1-1.2); Monocytes Percent Auto 9.3 % (2-11); Neutrophils Absolute Auto 3.7 x10*3/uL (2.0-8.3); Neutrophils Percent Auto 54.9 % (45-73); Platelet Count 266 X10*3/uL (160-400); Red Blood Count 4.94 X10*6/uL (4.20-5.50); Red Cell Distribution Width 14.6 % (11.0-16.0); White Blood Count 6.8 X10*3/uL (4.8-10.8)
[2022-01-30 09:51] LABS: Alanine Aminotransferase 23 U/L (0-31); Aspartate Amino Transferase 23 U/L (5-31)
[2022-01-30 09:53] LABS: Alanine Aminotransferase 23 U/L (0-31); Alkaline Phosphatase 79 U/L (39-117); Anion Gap 15 (12-20); Aspartate Amino Transferase 24 U/L (5-31); Bilirubin Total 0.4 mg/dL (0.0-1.0); Blood Urea Nitrogen 10 mg/dL (9-16); C Reactive Protein 1.83 mg/dL (< or = 0.50); Carbon Dioxide 22 mmol/L (22-29); Chloride 104 mmol/L (96-108); Cholesterol 133 mg/dL; Estimated Glomerular Filt Rate > 60; Glucose Fasting 141 mg/dL (60-99); HDL Cholesterol 45 mg/dL; Iron 47 mcg/dL (30-160); LDL Cholesterol Calculated 69 mg/dl; Percent Iron Saturation 13 % (15-50); Potassium 4.4 mmol/L (3.3-5.1); Sodium 137 mmol/L (135-145); Total Iron Binding Capacity 355 mcg/dL (228-428); Triglycerides 96 mg/dL; Unsaturated Iron Binding 308 ug/dL
[2022-01-30 10:05] LABS: Erythrocyte Sedimentation Rate 34 MM/HR (0-20)
== END 2022-01-30 08:47 | disposition home or self-care (01) ==
LOC: HO.XRAY 08:46
PROVIDERS: Absent Provider Nurse Practitioner Family; PCP Internal Medicine; Visit Provider Internal Medicine
DX: D64.9 Anemia, unspecified (principal); E66.01 Morbid (severe) obesity due to excess calories; E78.5 Hyperlipidemia, unspecified; E55.9 Vitamin D deficiency, unspecified; M06.00 Rheumatoid arthritis without rheumatoid factor, unspecified site; M17.0 Bilateral primary osteoarthritis of knee; Z79.899 Other long term (current) drug therapy
CPT/HCPCS: 36415; 73562; 80053; 80061; 82306; 83540; 84450; 84460; 85025; 85652; 86140

== ENCOUNTER → 2022-03-03 12:29 | Outpatient (BNVA) | payer OTHER, SELFPAY | PROVIDERS: PCP Internal Medicine; Visit Provider Nurse Practitioner Family | DX: M06.00 Rheumatoid arthritis without rheumatoid factor, unspecified site (principal); R20.0 Anesthesia of skin; R20.2 Paresthesia of skin; M17.0 Bilateral primary osteoarthritis of knee; M75.31 Calcific tendinitis of right shoulder | CPT/HCPCS: 99212 ==

== ENCOUNTER 2022-03-11 17:23 | Emergency (ER) | payer OTHER, SELFPAY ==
[2022-03-11 17:36] VITALS: BP 145/85; PULSE 108; RESP 16; TEMP 36.6; O2SAT 96; BMI 54.9
--- NOTE | 2022-03-11 17:38 | ECG_ITS ---
Test Reason : ARRTHMIA Blood Pressure : / mmHG Vent. Rate : 097 BPM Atrial Rate : 097 BPM P-R Int : 164 ms QRS Dur : 076 ms QT Int : 318 ms P-R-T Axes : 019 -24 069 degrees QTc Int : 403 ms Normal sinus rhythm Nonspecific T wave abnormality Abnormal ECG No previous ECGs available Referred By: Generic ED Physician Electronically Signed By:ALEKS HANKINS
[2022-03-11 18:10] LABS: Hemoglobin 12.6 g/dl (12.0-16.0); Mean Corpuscular HGB Conc 30.7 g/dl (31.0-35.0); Mean Corpuscular Hemoglobin 24.5 pg (27.0-33.0); Mean Corpuscular Volume 79.8 fL (80.0-98.0); Mean Platelet Volume 9.5 fL (9.4-12.3); Platelet Count 298 X10*3/uL (160-400); Red Blood Count 5.14 X10*6/uL (4.20-5.50); Red Cell Distribution Width 14.4 % (11.0-16.0); White Blood Count 9.4 X10*3/uL (4.8-10.8)
[2022-03-11 18:18] LABS: D Dimer High Sensitivity 259 NG/ML
[2022-03-11 18:33] LABS: Alanine Aminotransferase 25 U/L (0-31); Albumin Level 4.1 g/dL (3.5-5.0); Alkaline Phosphatase 99 U/L (39-117); Anion Gap 17 (12-20); Aspartate Amino Transferase 34 U/L (5-31); Bilirubin Total 0.3 mg/dL (0.0-1.0); Blood Urea Nitrogen 13 mg/dL (9-16); Calcium 9.6 mg/dL (8.4-10.2); Carbon Dioxide 23 mmol/L (22-29); Chloride 101 mmol/L (96-108); Estimated Glomerular Filt Rate > 60; Glucose Random 191 mg/dL (60-115); Magnesium 1.7 mg/dL (1.6-2.6); Potassium 3.8 mmol/L (3.3-5.1); Sodium 137 mmol/L (135-145); Total Protein 8.4 g/dL (6.5-8.0)
[2022-03-11 18:40] LABS: Troponin-I High Sensitivity < 3.5 ng/L (<3.5-17.0)
== END 2022-03-11 21:44 | disposition left against medical advice (07) ==
PROVIDERS: Emergency Provider Emergency Medicine; PCP Internal Medicine
DX: R00.2 Palpitations (principal); I10 Essential (primary) hypertension; E11.9 Type 2 diabetes mellitus without complications; Z79.899 Other long term (current) drug therapy
CPT/HCPCS: 36415; 80053; 83735; 84484; 85027; 85379; 93005; 99283

== ENCOUNTER → 2022-03-23 13:00 | Outpatient (REF) | payer OTHER, SELFPAY ==
--- NOTE | 2022-03-23 13:03 | CA_ITS ---
Transthoracic Echocardiogram Patient (Last, First, Middle): Sol Brown, Gender: Female Date of : 1975 Age: 47 Procedure Date: 03/23/2022 Procedure Type: Transthoracic Echocardiogram Location: OP Height: 165.1 cm Weight: 137.44 kg BSA: 2.36 m2 Heart Rate: bpm BP: 125 / 76 mmHg Derrick Hand: TO Referring MD: Ivette CALDERON Pig Furnace Operator: Valentino Villagomez MD Symptoms: I47.1 - Supraventricular tachycardia Study Quality: Technically Difficult/Declined Contrast ECG Rhythm: Sinus Conclusions: - 1. Technically limited study 2. LV systolic function appears preserved with LVEF of greater than 50% on some views. Findings Procedure Information The quality of the study was technically difficult. The study quality is limited by patients body habitus. The patient declines contrast. Left Ventricle The left ventricle was not well visualized. Regional wall motion abnormalities can not be excluded due to suboptimal endocardial definition. Spectral Doppler is indicative of an impaired relaxation filling pattern. On some views LV systolic function appears to be greater than 50%. Wall motion abnormality cannot be ruled out Right Ventricle The right ventricle was not well visualized. Atria The left atrium was not well visualized. Interatrial shunt cannot be excluded. The right atrium was not well visualized. Aortic Valve The aortic valve was not well visualized. There is no aortic valve stenosis. Mitral Valve The mitral valve was not well visualized. There is no mitral valve stenosis. Pulmonic Valve The pulmonic valve was not well visualized. Tricuspid Valve The tricuspid valve was not well visualized. Great Vessels The aorta was not well visualized. The pulmonary artery was not well visualized. Venous The inferior vena cava was not well visualized. Pericardium/Pleural The pericardium was not well visualized. Prior Study Comparison cannot do comparison due to limited quality of the study. Measurements 2D Linear Measurements IVSd: 0.91 0.6-0.9/0.6-1.0 cm LVIDd: 3.76 3.9-5.3/4.2-5.9 cm LVIDd Index: 1.59 2.4-3.2/2.2-3.1 cm/m2 LVIDs: 2.77 2.0-3.6 cm LVPWd: 0.80 0.7-1.1 cm LA Diam: 3.60 2.7-3.8/3.0-4.0 cm LAIDs Index: 1.53 1.5-2.3 cm/m2 LV Mass: 115.30 67-162/88-224 g LV Mass Index: 48.86 43-95/49-115 g/m2 LVOT Diam: 2.10 3.0+(-)1.3 cm Mitral Valve MV Pk E: 0.97 MV PK A: 1.03 MV Decel Time: 193.00 E/A: 0.90 E'Lateral: 15.30 E'Medial: 11.50 E/E' Med: 8.50 E/E' Lat: 6.40 PHT: 56.00 MVA PHT: 3.93 Decel Baraga: 5.05 Aortic Valve AoV Pk Jose: 1.85 AoV Mn Jose: 1.13 AoV VTI: 0.34 AoV Pk Grad: 14.00 Aov Mn Grad: 6.00 ABHISHEK Cont.VTI: 2.23 LVOT LVOT Pk Jose: 1.17 LVOT Mn Jose: 0.67 LVOT VTI: 0.22 LVOT Pk Grad: 5.00 LVOT Mn Grad: 2.00 LVOT Diam: 2.10 LVOT Area: 3.46 Diastolic Function MV Pk E: 0.97 MV Pk A: 1.03 E/A: 0.90 E'Medial: 11.50 E/E' Med: 8.50 E' Laterial: 15.30 E/E' Lat: 6.40 Right Ventricle TAPSE (mm): 30.40 TVS' Jose: 15.10 Tricuspid Valve TR Pk Jose: 2.39 TR Pk Grad: 23.00 Great Vessels Aorta Sinus of Valsalva: 3.00 2.0-3.5 cm Ao Asc: 2.60 2.1-3.4 cm Updated in Other Vendor System with Status of Final Valentino Villagomez MD electronically signed on 03/24/2022 11:50:13 AM with status of Final
== END ==
LOC: HO.CARD 13:00
PROVIDERS: PCP Internal Medicine; Visit Provider Nurse Practitioner Family
DX: I47.1 Supraventricular tachycardia (principal)
CPT/HCPCS: 93306

== ENCOUNTER 2022-04-13 10:38 | Outpatient (REF) | payer OTHER, SELFPAY ==
[2022-04-13 15:34] LABS: Appearance Urine Cloudy; Color Urine Yellow; Glucose Urine UA Negative (Negative); Leukocyte Esterase Urine Moderate (2+) (Negative); Nitrite Urine Positive (Negative); PH 5.5 (5.0-9.0); Specific Gravity - Urine >= 1.030 (1.005-1.025); UMIC TRIGGER UACC YES; Urine Blood Trace (Negative); Urine Ketones Trace mg/dL (Negative); Urine Protein Trace mg/dL (Neg-Trace)
[2022-04-13 15:38] LABS: Bacteria Urine 4+ (None Seen); Hyaline Casts Urine 0-2 /LPF (0-2); UACC Culture Trigger YES; WBC Urine >50 /HPF (0-5)
[2022-04-13 16:03] LABS: Iron 52 mcg/dL (30-160); Percent Iron Saturation 15 % (15-50); Total Iron Binding Capacity 358 mcg/dL (228-428); Unsaturated Iron Binding 306 ug/dL
[2022-04-13 16:23] LABS: Ferritin 103 ng/mL (10-250)
== END 2022-04-13 10:39 | disposition home or self-care (01) ==
LOC: HO.HOSX 10:38
PROVIDERS: Absent Provider Internal Medicine; PCP Internal Medicine; Referring Provider Internal Medicine Cardiovascular Disease; Visit Provider Orthopaedic Surgery
DX: R00.2 Palpitations (principal); I10 Essential (primary) hypertension; Z79.899 Other long term (current) drug therapy; Z86.16 Personal history of COVID-19
CPT/HCPCS: 36415; 81001; 82728; 83540; 87086; 93005; 99212

== ENCOUNTER 2022-05-05 10:57 | Outpatient (REF) | payer OTHER, SELFPAY ==
--- NOTE | ~2022-05-05 | MM_ITS ---
EXAMINATION: MM SCREENING DIGITAL BREAST TOMOSYNTHESIS, BILATERAL CLINICAL INFORMATION: Screening. Asymptomatic. COMPARISON: Mammography: 04/30/2021 (baseline) TECHNIQUE: Digital breast tomosynthesis is performed in both the craniocaudal and mediolateral oblique views along with computer-aided detection (CAD). Synthesized 2D images are generated from the tomosynthesis. Additional left cleavage view and left MLO view are provided. FINDINGS: There are scattered areas of fibroglandular density (ACR BI-RADS breast composition Category b). There are no significant masses, abnormal calcifications, or other abnormalities. Parenchymal pattern is similar to baseline exam. No architectural abnormality. The axilla and skin contours are unremarkable. No significant changes. MM/MM tomosynthesis screening BI IMPRESSION: No mammographic evidence of malignancy. ASSESSMENT: BI-RADS 1: Negative RECOMMENDATION: Routine annual mammography screening. This patient's information was entered into a reminder system with a target due date for their next mammogram.
== END 2022-05-05 10:58 | disposition home or self-care (01) ==
LOC: HO.MAMMO 10:57
PROVIDERS: PCP Internal Medicine; Visit Provider Internal Medicine
DX: Z12.31 Encounter for screening mammogram for malignant neoplasm of breast (principal)
CPT/HCPCS: 77063; 77067

== ENCOUNTER 2022-05-27 10:05 | Outpatient (REF) | payer OTHER, SELFPAY ==
[2022-05-27 10:53] LABS: Appearance Urine Cloudy; Color Urine Yellow; Glucose Urine UA Negative (Negative); Leukocyte Esterase Urine Moderate (2+) (Negative); Nitrite Urine Positive (Negative); Specific Gravity - Urine 1.025 (1.005-1.025); UMIC TRIGGER UACC YES; Urine Blood Moderate (2+) (Negative); Urine Ketones Negative (Negative); Urine Protein 30 (1+) mg/dL (Neg-Trace)
[2022-05-27 10:55] LABS: Bacteria Urine 4+ (None Seen); Hyaline Casts Urine 0-2 /LPF (0-2); RBC Urine >20 /HPF (0-2); UACC Culture Trigger YES; WBC Urine >50 /HPF (0-5)
[2022-05-27 11:30] LABS: Creatinine Urine 162.23 mg/dL; Microalbum/Creatinine Ratio Ur 37.6 ug/mg cr
[2022-05-27 11:34] LABS: Alanine Aminotransferase 27 U/L (0-31); Alkaline Phosphatase 88 U/L (39-117); Anion Gap 14 (12-20); Aspartate Amino Transferase 38 U/L (5-31); Blood Urea Nitrogen 12 mg/dL (9-16); Calcium 9.3 mg/dL (8.4-10.2); Carbon Dioxide 26 mmol/L (22-29); Chloride 101 mmol/L (96-108); Cholesterol 146 mg/dL; Estimated Glomerular Filt Rate > 60; Glucose Fasting 144 mg/dL (60-99); HDL Cholesterol 44 mg/dL; LDL Cholesterol Calculated 88 mg/dl; Potassium 4.2 mmol/L (3.3-5.1); Sodium 137 mmol/L (135-145); Total Protein 8.3 g/dL (6.5-8.0); Triglycerides 70 mg/dL; Vitamin D 25-OH Total 32.9 ng/mL (>30)
[2022-05-27 11:57] LABS: Bilirubin Total 0.4 mg/dL (0.0-1.0)
== END 2022-05-27 10:06 | disposition home or self-care (01) ==
LOC: HO.LAB 10:05
PROVIDERS: Absent Provider Internal Medicine; PCP Internal Medicine; Visit Provider Nurse Practitioner Family
DX: E78.5 Hyperlipidemia, unspecified (principal); E55.9 Vitamin D deficiency, unspecified; E11.9 Type 2 diabetes mellitus without complications; I47.1 Supraventricular tachycardia
CPT/HCPCS: 36415; 80053; 80061; 81001; 82043; 82306; 87086

== ENCOUNTER → 2022-06-02 13:24 | Outpatient (BNVA) | payer OTHER, SELFPAY | PROVIDERS: PCP Internal Medicine; Visit Provider Nurse Practitioner Family | DX: M06.00 Rheumatoid arthritis without rheumatoid factor, unspecified site (principal); M17.0 Bilateral primary osteoarthritis of knee; M75.31 Calcific tendinitis of right shoulder; M79.642 Pain in left hand; M25.512 Pain in left shoulder; R20.0 Anesthesia of skin; R20.2 Paresthesia of skin | CPT/HCPCS: 99212 ==

== ENCOUNTER 2022-08-29 08:35 | Outpatient (REF) | payer OTHER, SELFPAY ==
--- NOTE | ~2022-08-29 | XR_ITS ---
EXAMINATION: XR SHOULDER, LEFT CLINICAL INFORMATION: Pain. COMPARISON: None. TECHNIQUE: AP external rotation, Grashey, scapular Y, and axillary views of the left shoulder. FINDINGS: Bony alignment and mineralization are normal. The glenohumeral joint is intact and shows minimal osteoarthritic change. The acromioclavicular and coracoclavicular intervals are normal. There is cortical irregularity of the greater tuberosity of the proximal right humerus, and a distal acromial osteophyte is seen. No abnormal soft tissue calcification or foreign body is seen. There is no left pneumothorax. XR/XR shoulder LT min 2V IMPRESSION: 1. No fracture or dislocation is seen. 2. There is minimal osteoarthritic change of the left glenohumeral joint. 3. Findings suggest possible left rotator cuff impingement; no andrea calcific tendinitis is noted.
--- NOTE | ~2022-08-29 | XR_ITS ---
EXAMINATION: XR HAND, LEFT CLINICAL INFORMATION: Pain. COMPARISON: Radiographs dated 01/29/2020. TECHNIQUE: PA, lateral, and oblique views of the left hand. FINDINGS: The bones and soft tissues are normal. No fracture. Alignment is anatomic. Joint spaces are maintained. No erosions or soft tissue calcifications. XR/XR hand LT min 3V IMPRESSION: Normal left hand.
[2022-08-29 08:57] LABS: MANUAL DIFF FLAG NO
[2022-08-29 09:39] LABS: Basophils Percent Auto 0.3 % (0-2); Eosinophils Absolute Auto 0.2 X10*3/uL (0.0-0.4); Eosinophils Percent Auto 2.5 % (0-4); Hematocrit 38.4 % (37.0-47.0); Imm Gran Abs Auto 0.02 X10*3/uL (0.00-0.03); Imm Gran Pct Auto 0.3 % (0.0-0.4); Lymphocytes Absolute Auto 2.7 X10*3/uL (1.2-4.9); Mean Corpuscular HGB Conc 31.3 g/dl (31.0-35.0); Mean Corpuscular Hemoglobin 25.5 pg (27.0-33.0); Mean Corpuscular Volume 81.5 fL (80.0-98.0); Mean Platelet Volume 9.9 fL (9.4-12.3); Monocytes Absolute Auto 0.6 X10*3/uL (0.1-1.2); Monocytes Percent Auto 8.7 % (2-11); Neutrophils Absolute Auto 3.7 x10*3/uL (2.0-8.3); Neutrophils Percent Auto 51.2 % (45-73); Platelet Count 296 X10*3/uL (160-400); Red Blood Count 4.71 X10*6/uL (4.20-5.50); Red Cell Distribution Width 15.3 % (11.0-16.0); White Blood Count 7.3 X10*3/uL (4.8-10.8)
[2022-08-29 10:08] LABS: Alanine Aminotransferase 21 U/L (0-31); Aspartate Amino Transferase 22 U/L (5-31); C Reactive Protein 2.04 mg/dL (< or = 0.50); Estimated Glomerular Filt Rate > 60
[2022-08-29 10:21] LABS: Erythrocyte Sedimentation Rate 34 MM/HR (0-20)
[2022-08-29 10:49] LABS: Appearance Urine Cloudy; Color Urine Yellow; Glucose Urine UA Negative (Negative); Leukocyte Esterase Urine Small (1+) (Negative); Nitrite Urine Positive (Negative); PH 6.5 (5.0-9.0); Specific Gravity - Urine >= 1.030 (1.005-1.025); UMIC TRIGGER UACC YES; Urine Blood Trace (Negative); Urine Ketones Negative (Negative); Urine Protein Negative (Neg-Trace)
[2022-08-29 10:55] LABS: Bacteria Urine 4+ (None Seen); Hyaline Casts Urine 0-2 /LPF (0-2); UACC Culture Trigger YES
== END 2022-08-29 08:36 | disposition home or self-care (01) ==
LOC: HO.LAB 08:35
PROVIDERS: Absent Provider Nurse Practitioner Family; PCP Internal Medicine; Visit Provider Internal Medicine
DX: M25.512 Pain in left shoulder (principal); M79.642 Pain in left hand; M06.00 Rheumatoid arthritis without rheumatoid factor, unspecified site; R30.0 Dysuria; Z79.899 Other long term (current) drug therapy
CPT/HCPCS: 36415; 73030; 73130; 81001; 82565; 84450; 84460; 85025; 85652; 86140; 87086; 87088; 87186

== ENCOUNTER → 2022-08-31 14:50 | Outpatient (BNVA) | payer OTHER, SELFPAY | PROVIDERS: PCP Internal Medicine; Referring Provider Internal Medicine; Visit Provider Internal Medicine Cardiovascular Disease | DX: R00.2 Palpitations (principal); I10 Essential (primary) hypertension; M06.00 Rheumatoid arthritis without rheumatoid factor, unspecified site; D50.9 Iron deficiency anemia, unspecified; E66.01 Morbid (severe) obesity due to excess calories; Z68.43 Body mass index [BMI] 50.0-59.9, adult; Z86.16 Personal history of COVID-19; Z79.82 Long term (current) use of aspirin; Z79.4 Long term (current) use of insulin; Z79.631 Long term (current) use of antimetabolite agent; Z79.899 Other long term (current) drug therapy | CPT/HCPCS: 99212 ==

== ENCOUNTER 2022-09-21 15:00 | Outpatient (REF) | payer OTHER, SELFPAY ==
--- NOTE | 2022-09-21 16:39 | PFT_ITS ---
Forced vital capacity 60%, FEV1 67%, FEV1/FVC ratio is 112. VHT46-74 126% and MVV is 83%. Post bronchodilator therapy, there is no change. LUNG VOLUMES: Total lung capacity 54% and residual volume 49%. Diffusion capacity 78%. CONCLUSION: The results are consistent with moderately severe restrictive pulmonary disorder. No evidence of obstructive airway disorder and no response to bronchodilator therapy. MD ALEJANDRO Mata/LITO / [id number]
== END 2022-09-21 15:01 | disposition home or self-care (01) ==
LOC: HO.RESP 15:00
PROVIDERS: Visit Provider Internal Medicine Pulmonary Disease
DX: J84.9 Interstitial pulmonary disease, unspecified (principal); M06.9 Rheumatoid arthritis, unspecified
CPT/HCPCS: 94060; 94727; 94729

== ENCOUNTER → 2022-09-22 12:55 | Outpatient (BNVA) | payer OTHER, SELFPAY | PROVIDERS: PCP Internal Medicine; Visit Provider Internal Medicine Pulmonary Disease | DX: G47.33 Obstructive sleep apnea (adult) (pediatric) (principal); E66.9 Obesity, unspecified; Z68.43 Body mass index [BMI] 50.0-59.9, adult; Z99.89 Dependence on other enabling machines and devices | CPT/HCPCS: 99212 ==

== ENCOUNTER → 2022-11-10 08:58 | Outpatient (BNVA) | payer OTHER, SELFPAY | PROVIDERS: PCP Internal Medicine; Visit Provider Nurse Practitioner Family | DX: M06.00 Rheumatoid arthritis without rheumatoid factor, unspecified site (principal); M17.0 Bilateral primary osteoarthritis of knee; M19.012 Primary osteoarthritis, left shoulder; R20.0 Anesthesia of skin; R20.2 Paresthesia of skin | CPT/HCPCS: 99212 ==

== ENCOUNTER 2022-11-17 09:24 | Outpatient (REF) | payer OTHER, SELFPAY ==
--- NOTE | ~2022-11-17 | XR_ITS ---
EXAMINATION: XR KNEES, STANDING AP BILATERAL XR KNEE, RIGHT XR KNEE, LEFT CLINICAL INFORMATION: Knee pain. COMPARISON: Bilateral knee radiographs 01/30/2022 TECHNIQUE: Technologist notes technically challenging exam tailored to patient capabilities. Bilateral standing AP view of the knees is performed. Additional views of the right knee x3 and left knee x2 and also provided. FINDINGS: Right: There is tricompartment osteoarthritis, increased medial compartment since prior imaging 2021. No appreciable suprapatellar effusion on the slightly oblique views. No lateralization patella. No bony destructive process or visible erosive changes. Left: There is tricompartment osteoarthritis greatest medial compartment, narrowing slightly increased since 2021. No erosive change or chondrocalcinosis. No visible suprapatellar effusion. No destructive process. XR/XR knee standing BI IMPRESSION: -Bilateral: Patient study limitations. Exam tailored to patient capabilities. - Right: Tricompartment osteoarthritis, increased medial compartment since prior imaging 2021. - Left: Tricompartment osteoarthritis greatest medial compartment, narrowing slightly increased since 2021.
--- NOTE | ~2022-11-17 | XR_ITS ---
EXAMINATION: XR KNEES, STANDING AP BILATERAL XR KNEE, RIGHT XR KNEE, LEFT CLINICAL INFORMATION: Knee pain. COMPARISON: Bilateral knee radiographs 01/30/2022 TECHNIQUE: Technologist notes technically challenging exam tailored to patient capabilities. Bilateral standing AP view of the knees is performed. Additional views of the right knee x3 and left knee x2 and also provided. FINDINGS: Right: There is tricompartment osteoarthritis, increased medial compartment since prior imaging 2021. No appreciable suprapatellar effusion on the slightly oblique views. No lateralization patella. No bony destructive process or visible erosive changes. Left: There is tricompartment osteoarthritis greatest medial compartment, narrowing slightly increased since 2021. No erosive change or chondrocalcinosis. No visible suprapatellar effusion. No destructive process. XR/XR knee LT 2V IMPRESSION: -Bilateral: Patient study limitations. Exam tailored to patient capabilities. - Right: Tricompartment osteoarthritis, increased medial compartment since prior imaging 2021. - Left: Tricompartment osteoarthritis greatest medial compartment, narrowing slightly increased since 2021.
--- NOTE | ~2022-11-17 | XR_ITS ---
EXAMINATION: XR KNEES, STANDING AP BILATERAL XR KNEE, RIGHT XR KNEE, LEFT CLINICAL INFORMATION: Knee pain. COMPARISON: Bilateral knee radiographs 01/30/2022 TECHNIQUE: Technologist notes technically challenging exam tailored to patient capabilities. Bilateral standing AP view of the knees is performed. Additional views of the right knee x3 and left knee x2 and also provided. FINDINGS: Right: There is tricompartment osteoarthritis, increased medial compartment since prior imaging 2021. No appreciable suprapatellar effusion on the slightly oblique views. No lateralization patella. No bony destructive process or visible erosive changes. Left: There is tricompartment osteoarthritis greatest medial compartment, narrowing slightly increased since 2021. No erosive change or chondrocalcinosis. No visible suprapatellar effusion. No destructive process. XR/XR knee RT 2V IMPRESSION: -Bilateral: Patient study limitations. Exam tailored to patient capabilities. - Right: Tricompartment osteoarthritis, increased medial compartment since prior imaging 2021. - Left: Tricompartment osteoarthritis greatest medial compartment, narrowing slightly increased since 2021.
== END 2022-11-17 09:25 | disposition home or self-care (01) ==
LOC: HO.HOSX 09:24
PROVIDERS: Visit Provider Orthopaedic Surgery
DX: M17.0 Bilateral primary osteoarthritis of knee (principal); E66.01 Morbid (severe) obesity due to excess calories; E11.9 Type 2 diabetes mellitus without complications
CPT/HCPCS: 73560; 73565; 99202

== ENCOUNTER 2022-12-05 13:00 | Outpatient (RCR) | payer OTHER, SELFPAY ==
--- NOTE | 2022-11-15 14:59 | MHC.PT.EP ---
[facility] [place] Office [place] Office [place] Office [address] Alvarez [address] [phone] F: [phone] F: [phone] F: [phone] F: [phone] Physical Therapy Plan of Care Date of Evaluation: Date of Surgery: none Diagnosis: pain in L shoulder Assessment: Patient is a 47 year old R handed female who presents with s/s consistent with L shoulder pain. She does not work and lives a fairly sedentary life watching TV. Patient past medical history includes obesity, fibromyalgia, HTN, DM, and rheumatoid arthritis. Current impairments include pain, posture, ROM, strength, activity tolerance and functional mobility. 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 Patient is motivated with good rehab potential. Skilled PT will address impairments and functional limitations in order to achieve goals. Frequency and Duration: The patient will be seen 2x/week for 5 weeks Short Term Goals: I with HEP - 2 weeks AROM flexion and scaption to 120 - 3 weeks Strenght 4-/5 grossly - 3 weeks Prison Goals: Able to lift 10# pain free - 5 weeks Strength 4/5 grossly - 5 weeks ER 60, flexion, scaption 140 AROM - 5 weeks SPADI 50/130 or better - 5 weeks Treatment Plan: Modalities to reduce pain, spasms and effusion. Manual therapy to restore motion and function. Therapeutic exercise to improve strength and flexibility. Neuromuscular re-education for posture and balance. Therapeutic activities to return to functional activities of daily living. Electronically signed by: Geovany Martinez, PT Please sign and return to therapist. Thank you for your referral.
--- NOTE | 2022-12-29 08:22 | MHC.PT.DC ---
[facility] [place] Office [place] Office [place] Office [address] Madhuri Alvarez [address] [phone] F: [phone] F: [phone] F: [phone] F: [phone] Physical Therapy Discharge Report Diagnosis: pain in L shoulder Date of Surgery: none Date of Evaluation: 11/15/22 Date of Discharge: 12/29/22 Treatments to Date: 3 Cancellations to Date: No Shows to Date: Discharge Status: Visit Non-compliance Discharge Summary: Patient came to eval and 2 follow up visits. She had multiple no shows and cancellations, DC'd due to poor compliance with facility attendance policy. Patient has an HEP to continue on own. Electronically signed by: Ava Issa PT Please sign and return to therapist. Thank you for your referral.
== END 2022-12-29 08:22 | disposition home or self-care (01) ==
LOC: HO.PTCHIC 13:00
PROVIDERS: PCP Internal Medicine; Visit Provider Nurse Practitioner Family
DX: M25.512 Pain in left shoulder (principal)
CPT/HCPCS: 97110; 97140; 97163

== ENCOUNTER 2022-12-25 08:49 | Outpatient (REF) | payer OTHER, SELFPAY | END 2022-12-25 08:50 | disposition home or self-care (01) | LOC: HO.LAB 08:49 | PROVIDERS: Absent Provider Nurse Practitioner Family; PCP Internal Medicine; Visit Provider Internal Medicine | DX: D64.9 Anemia, unspecified (principal); E78.5 Hyperlipidemia, unspecified; E11.9 Type 2 diabetes mellitus without complications; E55.9 Vitamin D deficiency, unspecified; I47.1 Supraventricular tachycardia; M06.00 Rheumatoid arthritis without rheumatoid factor, unspecified site | CPT/HCPCS: 36415; 80053; 80061; 81001; 81003; 82043; 82306; 83540; 85025; 85652; 86140; 87086; 87088; 87147; 87186 ==

== ENCOUNTER 2023-01-10 14:25 | Outpatient (AMB) | payer OTHER, SELFPAY ==
--- NOTE | 2023-01-10 14:29 | MHC.PC.OV ---
Vital Signs 01/10/23 14:33 Height 5 ft 5 in Weight 323 lb BMI 53.7 BP 130/86 Blood Pressure Location Lt brachial Position Sitting Intake Visit Reasons: Annual Exam Intake Note: Patient here for physical exam Battery Tester Field Required: No Accompanied by: Son Allergies No Known Allergies Allergy (Verified 01/10/23 14:40) Medication List - Last Reconciled 01/10/23 by Ryann Angel MD acetaminophen (Tylenol Extra Strength) 500 mg PO BID PRN adalimumab (Humira(CF) Pen) inject one - 40 mg/0.4 mL pen every 2 weeks subcut aspirin 81 mg PO DAILY 30 days blood sugar diagnostic (FreeStyle Lite Strips) Use 1 test strip once a day blood-glucose meter (FreeStyle Lite Meter kit) As directed cane As directed cholecalciferol (vitamin D3) 25 mcg PO DAILY 90 days [cock up splint wear on each wrist at night. ] diltiazem HCl 240 mg PO DAILY ferrous sulfate 325 mg PO DAILY fluticasone propionate 50 mcg/actuation (Flonase Allergy Relief) 1 spray intranasal DAILY 30 days folic acid 1 mg PO DAILY [grab bars As directed] hydrochlorothiazide 12.5 mg PO QAM 90 days hydrocortisone 1% (Anti-Itch (hydrocortisone)) 1 appl topical TID PRN 2 weeks lancets (FreeStyle Lancets) Use 1 lancet once a day losartan 100 mg PO DAILY 90 days meclizine 25 mg PO TID PRN 30 days metformin 500 mg PO BID 90 days rosuvastatin 10 mg PO BEDTIME 90 days semaglutide (Ozempic) 0.125 mg (0.2 mL) subcut QWEEK 30 days Shower Chair As directed Tobacco use date assessed: 08/29/22 Dental Screening Dental Screen Date: 01/10/23 Did you have a dental visit in the last 12 months?: Yes Did you have a dental problem in the last 6 months where you did not have access to dental care?: No Was dental information given to patient?: Patient has dentist HPI HPI Comments History of Present Illness Details This is a 47-year-old female with diabetes mellitus type 2, seronegative rheumatoid arthritis and morbid obesity that comes today accompanied by BRIDGE INSPECTOR which is her son for her physical exam. A1c within goal. Rheumatoid arthritis follow by Rheumatology and has been somewhat stable medications. She is morbidly obese with a BMI of 53.7 and would like weight management referral for weight loss surgery. Last mammogram was April 2022. Last Pap smear was over 5 years ago. Has never had a colonoscopy and is willing to do Cologuard. Needs diabetic eye exam and will be referred to Ophthalmology. [facility] Medical History (Updated 01/10/23 @ 14:54 by Ryann Angel MD) Anxiety Diabetes Fibromyalgia LARRY (generalized anxiety disorder) Hypertension Hypovitaminosis D Iron deficiency anemia [facility] methotrexate user Morbid obesity Morbid obesity due to excess calories MAXIMINO (obstructive sleep apnea) Osteoarthritis of knees, bilateral Pure hypercholesterolemia Rheumatoid arthritis Seronegative rheumatoid arthritis Super obese Thrombophlebitis Vertigo Surgical History History of History of hip surgery History of tubal ligation Family History Father Prostate cancer Mother Uterine cancer Social History Housing: Apartment Alcohol intake: never Patient Tobacco Use Status: Never used Tobacco e-Cigarette/Vaping Use: Never Used Second Hand Smoke Exposure: No service: No Current occupational status: disabled 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 Stephen French, Nai Suarez, Jayson Barajas and colleagues, with an educational tiera from [employer]. Review of Systems Const All systems reviewed & are unremarkable except as noted in HPI and below Eyes Reports no additional complaints, Denies change in vision and Denies other visual disturbances Card Denies chest pain at rest, Denies chest pain with activity, Denies edema, Denies irregular heart rhythm, Denies claudication, Denies dyspnea, Denies dyspnea on exertion, Denies orthopnea, Denies paroxysmal nocturnal dyspnea and Denies slow heart rate Resp Denies cough, Denies dyspnea and Denies dyspnea on exertion GI Denies abdominal pain, Denies change in bowel habits, Denies excessive flatus, Denies nausea and Denies vomiting Denies urinary incontinence, Denies urinary hesitancy and Denies urinary urgency Musc Denies atrophy, Denies deformity and Denies limited range of motion Physical exam (Primary Care) Vital Signs: Last Vital Signs BP 130/86 01/10/23 14:33 BMI result Body Mass Index 53.7 Tobacco/Smoking Status: Tobacco use Status Tobacco use date assessed 08/29/22 01/10/23 14:31 Patient Tobacco Use Status Never used Tobacco 01/10/23 14:31 e-Cigarette/Vaping Use Never Used 01/10/23 14:31 Thrive Assessment: Date of Thrive Assessment Date Thrive assessed 08/29/22 01/10/23 14:31 Const Orientation/consciousness: patient oriented x3 HENMT Head: Yes normal to inspection, Yes normocephalic and Yes atraumatic Ears: external ears normal Eyes General: appearance normal, both eyes and all related structures Eyelids: Yes eyelids normal Conjunctivae: conjunctivae normal Neck Neck: Yes normal visual inspection and Yes supple Resp Effort & Inspection: normal respiratory effort Auscultation: clear to auscultation bilaterally Cardio Jugular venous distension: no JVD Rate: regular rate Rhythm: regular rhythm Heart sounds: S1 normal heart sound present and S2 normal heart sound present GI Inspection: Yes normal to inspection Palpation (GI): Soft to palpation and nontender Auscultation: normal bowel sounds Skin General skin exam: no rashes or lesions noted Neuro General: patient oriented x3 and no focal motor deficits Extrem General: Yes full ROM Psych Appearance: grossly normal Results AMB Hemoglobin A1c AMB Hemoglobin A1c 6.5 % Last Edit by HEATH Evans on 01/10/23 14:40 Results Reviewed Results Reviewed: Laboratory Last Values Hgb A1c (Clinic) 6.5 % (4.0-6.0) H 01/10/23 14:28 Assessment and Plan Assessment & Plan (1) Physical exam: Code(s): Z00.00 - Encounter for general adult medical examination without abnormal findings Plan: Repeat in a year (2) Diabetes: Code(s): E11.9 - Type 2 diabetes mellitus without complications Qualifiers: Diabetes mellitus type: type 2 Diabetes mellitus emulsion coater insulin use: without [facility] use Diabetes mellitus complication status: without complication Qualified Code(s): E11.9 - Type 2 diabetes mellitus without complications Plan: Continue metformin and Ozempic. A1c goal is equal or less than 7% (3) Seronegative rheumatoid arthritis: Comment: methotrexate: 08/2019- 08/2021 dyspnea Prednisone Humira: September 2021- present Code(s): M06.00 - Rheumatoid arthritis without rheumatoid factor, unspecified site Plan: Continue Humira. Follow-up with rheumatology. (4) Morbid obesity with BMI of 50.0-59.9, adult: Code(s): E66.01 - Morbid (severe) obesity due to excess calories; Z68.43 - Body mass index [BMI] 50.0-59.9, adult Plan: Referred to weight management. BMI goal is less than 30. Orders: Orders Lipid Panel 4 Months E78.5 - Hyperlipidemia, unspecified Vitamin D 25-OH Total 4 Months E55.9 - Vitamin D deficiency, unspecified Microalbumin, Random (w Creat) 4 Months E11.9 - Type 2 diabetes mellitus without complications Comprehensive [place]. Panel Fast 4 Months E78.5 - Hyperlipidemia, unspecified AMB Hemoglobin A1c Today E11.9 - Type 2 diabetes mellitus without complications Referrals Cologuard Test Z12.11 - Encounter for screening for malignant neoplasm of colon, Z12.12 - Encounter for screening for malignant neoplasm of rectum Cologuard Test Z12.11 - Encounter for screening for malignant neoplasm of colon, Z12.12 - Encounter for screening for malignant neoplasm of rectum Medical Weight Management Referral E66.01 - Morbid (severe) obesity due to excess calories, Z68.43 - Body mass index [BMI] 50.0-59.9, adult [facility] Referral Z12.4 - Encounter for screening for malignant neoplasm of cervix Ophthalmology Referral H53.8 - Other visual disturbances Urology Referral N39.0 - Urinary tract infection, site not specified Medications: New atorvastatin 10 mg PO BEDTIME 90 tabs 1RF 90 days E78.5 - Hyperlipidemia, unspecified Discontinued rosuvastatin Discontinued Reason: Patient Completed Course 10 mg PO BEDTIME 90 days 90 tabs 1RF Coding Level of Care Code Est Pt Prev Care 40-64y(75457) Diagnoses Physical exam Z00.00 Diabetes E11.9 Diabetes mellitus type: type 2 Diabetes mellitus [facility] insulin use: without [facility] use Diabetes mellitus complication status: without complication Seronegative rheumatoid arthritis M06.00 Morbid obesity with BMI of 50.0-59.9, adult E66.01; Z68.43 Time Spent (min) 35
[2023-01-10 14:33] VITALS: BP 130/86; BMI 53.7
== END 2023-01-10 14:51 | disposition home or self-care (01) ==
PROVIDERS: PCP Internal Medicine; Visit Provider Internal Medicine
DX: Z00.00 Encounter for general adult medical examination without abnormal findings (principal); E11.9 Type 2 diabetes mellitus without complications; E66.01 Morbid (severe) obesity due to excess calories; Z68.43 Body mass index [BMI] 50.0-59.9, adult; M06.00 Rheumatoid arthritis without rheumatoid factor, unspecified site
CPT/HCPCS: 83036; 99396

== ENCOUNTER 2023-01-18 11:11 | Outpatient (AMB) | payer OTHER, SELFPAY ==
--- NOTE | 2023-01-18 11:15 | A.OFFVIS_ITS ---
Intake Vital Signs 01/18/23 11:16 Height 5 ft 5 in Weight 325 lb BMI 54.1 BP 126/86 Blood Pressure Location Rt brachial Position Sitting Respiration 16 Pulse 84 Pulse Source Pulse Oximeter Temp 97.1 F Temp Source Temporal Artery Scan Pulse Oximetry (%) 96 Oxygen Delivery Method Room Air Intake Visit Reasons: RA Iron Erector Required: Yes Iron Erector Name: simona Aparicio Allergies No Known Allergies Allergy (Verified 01/18/23 11:21) Medication List - Last Reconciled 01/18/23 by Nivia Linn MD acetaminophen (Tylenol Extra Strength) 500 mg PO BID PRN adalimumab (Humira(CF) Pen) inject one - 40 mg/0.4 mL pen every 2 weeks subcut aspirin 81 mg PO DAILY 30 days atorvastatin 10 mg PO BEDTIME 90 days blood sugar diagnostic (FreeStyle Lite Strips) Use 1 test strip once a day blood-glucose meter (FreeStyle Lite Meter kit) As directed cane As directed cholecalciferol (vitamin D3) 25 mcg PO DAILY 90 days [cock up splint wear on each wrist at night. ] diltiazem HCl 240 mg PO DAILY ferrous sulfate 325 mg PO DAILY fluticasone propionate 50 mcg/actuation (Flonase Allergy Relief) 1 spray intranasal DAILY 30 days folic acid 1 mg PO DAILY [grab bars As directed] hydrochlorothiazide 12.5 mg PO QAM 90 days hydrocortisone 1% (Anti-Itch (hydrocortisone)) 1 appl topical TID PRN 2 weeks lancets (FreeStyle Lancets) Use 1 lancet once a day losartan 100 mg PO DAILY 90 days meclizine 25 mg PO TID PRN 30 days metformin 500 mg PO BID 90 days semaglutide (Ozempic) 0.125 mg (0.2 mL) subcut QWEEK 30 days Shower Chair As directed HPI HPI Comments History of Present Illness Details 48yoF presents for follow-up of seronegative rheumatoid arthritis. Last seen by Vicky Schmid 11/14 Patient states that she feels about the same. She states that she has week and bilateral purchasing/receiving strength. She has tingling and numbness of her fingers, usually worse at night and wears bilateral wrist splints. EMG was scheduled to evaluate for carpal tunnel and this has not been completed. [facility] Medical History (Updated 01/18/23 @ 12:04 by Nivia Linn MD) Anxiety Diabetes Fibromyalgia LARRY (generalized anxiety disorder) Hypertension Hypovitaminosis D Iron deficiency anemia Morbid obesity Morbid obesity due to excess calories MAXIMINO (obstructive sleep apnea) Osteoarthritis of knees, bilateral Pure hypercholesterolemia Seronegative rheumatoid arthritis Super obese Thrombophlebitis Vertigo Surgical History History of History of hip surgery History of tubal ligation Family History Father Prostate cancer Mother Uterine cancer Social History Housing: Apartment Alcohol intake: never Patient Tobacco Use Status: Never used Tobacco e-Cigarette/Vaping Use: Never Used Second Hand Smoke Exposure: No service: No Current occupational status: disabled 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 Cognitive needs: Yes Hearing needs: No Vision needs: No Review of Systems Musc Reports numbness, Reports stiffness and Reports tingling Neuro Reports numbness and Reports tingling Physical Exam Vital Signs: Last Vital Signs Temp 97.1 F 01/18/23 11:16 Pulse 84 01/18/23 11:16 Resp 16 01/18/23 11:16 BP 126/86 01/18/23 11:16 Pulse Ox 96 01/18/23 11:16 Oxygen Delivery Method Room Air 01/18/23 11:16 BMI result Body Mass Index 54.1 Const General: cooperative, healthy appearing and comfortable Nutritional Appearance: obese morbidly obese Orientation/consciousness: patient oriented x3 Limitations: ambulation with cane HEENT Head: Yes normocephalic and Yes atraumatic Mouth: moist mucous membranes Resp Effort & Inspection: normal respiratory effort and able to speak in complete sentences Neuro General: patient oriented x3 Extrem Other: Left wrist pain with full flexion and extension Left 2nd MCP tenderness on the flexor aspect. No swelling or tenderness otherwise left hand Weak left hand purchasing/receiving strength Right wrist tenderness and pain with full flexion and extension Right hand swollen and tender 2nd through 5th MCPs. Weak purchasing/receiving strength Right elbow warmth and tenderness to palpation and pain with full flexion and extension Right 4th MTP tenderness Results Reviewed Results Reviewed: Laboratory Tests 01/30/22 08/29/22 08/29/22 09: Date of Service: 08/29/22 Procedure(s): XR shoulder LT min 2V EXAMINATION: XR SHOULDER, LEFT CLINICAL INFORMATION: Pain.? COMPARISON: None.? TECHNIQUE: AP external rotation, Grashey, scapular Y, and axillary views of the left shoulder. FINDINGS: Bony alignment and mineralization are normal. The glenohumeral joint is intact and shows minimal osteoarthritic change. The acromioclavicular and coracoclavicular intervals are normal. There is cortical irregularity of the greater tuberosity of the proximal right humerus, and a distal acromial osteophyte is seen. No abnormal soft tissue calcification or foreign body is seen. There is no left pneumothorax.? XR/XR shoulder LT min 2V IMPRESSION: ? 1. No fracture or dislocation is seen. ? 2. There is minimal osteoarthritic change of the left glenohumeral joint. ? 3. Findings suggest possible left rotator cuff impingement; no andrea calcific tendinitis is noted. Date of Service: 08/29/22 Procedure(s): XR hand LT min 3V Accession Number(s): [id number] EXAMINATION: XR HAND, LEFT CLINICAL INFORMATION: Pain.? COMPARISON: Radiographs dated 01/29/2020.? TECHNIQUE: PA, lateral, and oblique views of the left hand. FINDINGS: The bones and soft tissues are normal. No fracture. Alignment is anatomic. Joint spaces are maintained. No erosions or soft tissue calcifications.? XR/XR hand LT min 3V IMPRESSION: Normal left hand. Date of Service: 01/30/22 Procedure(s): XR knee RT 3V Accession Number(s): [id number] EXAMINATION: BILATERAL KNEE X-RAY CLINICAL INFORMATION: Bilateral osteoarthritis? COMPARISON: Previous x-ray January 2020? TECHNIQUE: 3 views of each knee? FINDINGS: Right: There is valgus angulation. There is high position of the patella and lateral tilt of patella on the sunrise view. There is severe arthritis at the lateral femoral tibial and patellofemoral joints with joint space narrowing and osteophyte formation. There is no joint effusion. Left: There is high position of the patella. Bone alignment is otherwise normal. No fracture or dislocation is seen. There is arthritis at the medial femoral tibial and patellofemoral joints with joint space narrowing and osteophyte formation. There is no joint effusion. XR/XR knee RT 3V IMPRESSION: Bilateral arthritis not appreciably changed from 2020 exam.? Assessment & Plan Assessment & Plan (1) Seronegative rheumatoid arthritis: Comment: Seronegative dx 03/2019 in [place]: 08/2019- 08/2021 dyspnea Prednisone Humira: September 2021- present Code(s): M06.00 - Rheumatoid arthritis without rheumatoid factor, unspecified site Plan: This is a 48-year-old female with seronegative rheumatoid arthritis who presents for follow-up. On exam patient has multiple swollen and tender joints. She had chronically elevated inflammatory markers. Will need to change DMARDs. Discussed risks and benefits of Actemra. Patient agreed to proceed. Will start prior authorization for Actemra (2) Numbness and tingling in both hands: Code(s): R20.0 - Anesthesia of skin; R20.2 - Paresthesia of skin Plan: Reordered nerve conduction studies to evaluate for bilateral carpal tunnel syndrome. Can continue to use bilateral wrist splints Plan I spent 26 minutes reviewing patient's chart, evaluating patient, ordering diagnostic workup, counseling patient and documenting in the chart Orders: Orders NE nerve conduction velocity Today R20.0 - Anesthesia of skin, R20.2 - Paresthesia of skin Comprehensive Met. Panel 10 Weeks M06.00 - Rheumatoid arthritis without rheumatoid factor, unspecified site C Reactive Protein 10 Weeks M06.00 - Rheumatoid arthritis without rheumatoid factor, unspecified site Complete Blood Count Auto Diff 10 Weeks M06.00 - Rheumatoid arthritis without rheumatoid factor, unspecified site Erythrocyte Sedimentation Rate 10 Weeks M06.00 - Rheumatoid arthritis without rheumatoid factor, unspecified site Hepatitis A,B,C Profile 10 Weeks Z11.59 - Encounter for screening for other viral diseases T Spot TB 10 Weeks Z11.7 - Encounter for testing for latent tuberculosis infection Coding Level of Care Code Est Pt Level 4 (58739) Diagnoses Seronegative rheumatoid arthritis M06.00 Numbness and tingling in both hands R20.0; R20.2
[2023-01-18 11:16] VITALS: BP 126/86; PULSE 84; RESP 16; TEMP 36.2; O2SAT 96; BMI 54.1
== END 2023-01-18 11:57 | disposition home or self-care (01) ==
PROVIDERS: PCP Internal Medicine; Visit Provider Student in an Organized Health Care Education/Training Program
DX: M06.00 Rheumatoid arthritis without rheumatoid factor, unspecified site (principal); R20.0 Anesthesia of skin; R20.2 Paresthesia of skin
CPT/HCPCS: 99214

== ENCOUNTER → 2023-01-18 11:11 | Outpatient (BNVA) | payer OTHER, SELFPAY | PROVIDERS: PCP Internal Medicine; Visit Provider Student in an Organized Health Care Education/Training Program | DX: M06.00 Rheumatoid arthritis without rheumatoid factor, unspecified site (principal); R20.0 Anesthesia of skin; R20.2 Paresthesia of skin; Z79.82 Long term (current) use of aspirin; Z79.899 Other long term (current) drug therapy | CPT/HCPCS: 99212 ==

== ENCOUNTER → 2023-02-01 12:54 | Outpatient (BNVA) | payer OTHER, SELFPAY | PROVIDERS: PCP Internal Medicine; Visit Provider Student in an Organized Health Care Education/Training Program ==

== ENCOUNTER 2023-02-23 13:57 | Outpatient (REF) | payer OTHER, SELFPAY | END 2023-02-23 13:58 | disposition home or self-care (01) | LOC: HO.LNP 13:57 | PROVIDERS: PCP Internal Medicine; Referring Provider Internal Medicine; Visit Provider Nurse Practitioner Family | DX: N39.0 Urinary tract infection, site not specified (principal); R30.0 Dysuria; R35.0 Frequency of micturition | CPT/HCPCS: 51798; 81003; 87086; 87147; 99202 ==

== ENCOUNTER 2023-02-23 13:57 | Outpatient (AMB) | payer OTHER, SELFPAY ==
--- NOTE | 2023-02-23 14:13 | A.OFFVIS_ITS ---
Intake Intake Visit Reasons: Urinary tract infection Intake Note: New Patient presents for initial visit urinary tract infection Urology Medication: none Blood Thinner: none PVR: 14ml's Case Reviewer Required: Yes Accompanied by: Son Allergies No Known Allergies Allergy (Verified 02/24/23 14:54) Medication List - Last Reconciled 02/24/23 by JAZMIN Castro acetaminophen (Tylenol Extra Strength) 500 mg PO BID PRN aspirin 81 mg PO DAILY 30 days atorvastatin 10 mg PO BEDTIME 90 days blood pressure monitor As directed blood sugar diagnostic (FreeStyle Lite Strips) Use 1 test strip once a day blood-glucose meter (FreeStyle Lite Meter kit) As directed cane As directed cephalexin 500 mg PO BID 10 days cholecalciferol (vitamin D3) 25 mcg PO DAILY 90 days [cock up splint wear on each wrist at night. ] diltiazem HCl 240 mg PO DAILY ferrous sulfate 325 mg PO DAILY fluticasone propionate 50 mcg/actuation (Flonase Allergy Relief) 1 spray intranasal DAILY 30 days folic acid 1 mg PO DAILY [grab bars As directed] hydrochlorothiazide 12.5 mg PO QAM 90 days hydrocortisone 1% (Anti-Itch (hydrocortisone)) 1 appl topical TID PRN 2 weeks lancets (FreeStyle Lancets) Use 1 lancet once a day losartan 100 mg PO DAILY 90 days meclizine 25 mg PO TID PRN 30 days metformin 500 mg PO BID 90 days semaglutide (Ozempic) 0.125 mg (0.184 mL) subcut QWEEK 30 days Shower Chair As directed tocilizumab (Actemra ACTPen) 162 mg (0.9 mL) subcut Q2W HPI HPI Comments History of Present Illness Details Sol is a very pleasant 48-year-old Lithuanian-speaking female patient of Dr. Madrid. She has a past medical history of anxiety, diabetes, fibromyalgia, anxiety, hypertension, iron deficiency anemia, morbid obesity, obstructive sleep apnea, hypercholesteremia, rheumatoid arthritis and vertigo. She presents to the office today as a new patient for recurrent urinary tract infections. In discussion with the patient today she reports having had over 3 urinary tract infections in over the last 6 months. She reports having had previous urinary tract infection treatment with primary care at which time referral was made to Urology for further assessment evaluation. In office urinalysis results reviewed with the patient today. PVR 14 mL. When asked she does report continuing to have her menses. Discussed at length potential causes for recurrent urinary tract infections. Discussed obtaining retroperitoneal ultrasound for further assessment evaluation. When asked she does report to be drinking plenty of water daily and denies any issues with her bowels. She currently reports dysuria and urinary frequency. However, she denies incontinence, nocturia, hematuria, foul smelling urine, changes to urinary stream, flank pain, fever, and or chills. She otherwise offers no other issues or concerns at this time. [facility] Medical History (Updated 02/24/23 @ 15:02 by Aundrea Ellison [facility]) Anxiety Diabetes Fibromyalgia LARRY (generalized anxiety disorder) Hypertension Hypovitaminosis D Iron deficiency anemia Morbid obesity Morbid obesity due to excess calories MAXIMINO (obstructive sleep apnea) Osteoarthritis of knees, bilateral Pure hypercholesterolemia Seronegative rheumatoid arthritis Super obese Thrombophlebitis Vertigo Surgical History History of History of hip surgery History of tubal ligation Family History Father Prostate cancer Mother Uterine cancer Social History Housing: Apartment Alcohol intake: never Patient Tobacco Use Status: Never used Tobacco e-Cigarette/Vaping Use: Never Used Second Hand Smoke Exposure: No service: No Current occupational status: disabled 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 Cognitive needs: Yes Hearing needs: No Vision needs: No Review of Systems Const Reports as per HPI Eyes Reports no additional complaints ENT Reports no additional complaints Card Reports as per HPI Resp Reports as per HPI GI Reports no additional complaints Reports as per HPI Musc Reports as per HPI Neuro Reports as per HPI Psych Reports as per HPI Endo Reports as per HPI Physical Exam Const General: cooperative, healthy appearing, comfortable, no acute distress, well developed, alert and awake Nutritional Appearance: obese Orientation/consciousness: patient oriented x3 Limitations: no limitations HEENT Head: Yes normal to inspection, Yes normocephalic and Yes atraumatic Ears: hearing grossly normal bilaterally Eyes General: appearance normal, both eyes and all related structures Neck Neck: Yes normal visual inspection and Yes trachea midline Chest Chest palpation & inspection: normal inspection of the chest Resp Effort & Inspection: normal respiratory effort and able to speak in complete sentences Cardio Rate: regular rate GI Inspection: Yes normal to inspection General: Yes no CVA tenderness Back/Spine/Pelvis Back: no CVA tenderness Skin General skin exam: no rashes or lesions noted Neuro General: patient oriented x3 Extrem General: Yes normal to inspection Psych Appearance: grossly normal and well kempt Mental Status: mental status grossly normal Speech and movement: Normal speech and movement present and Clear speech present Affect: normal affect Attitude: cooperative Thought process: Normal thought process present Thought content: Normal thought content present Insight: Fair insight present (Psych) Judgement: Fair judgement present (Psych) Office Procedures Post Void Residual Post Residual Void Post Void Residual (PVR): 14 [id number] Void Residual by ultrasound Results AMB Urinalysis, Automated UA Leukoctes 125 Mauro/uL Last Edit by [employer] on 02/23/23 14:33 UA Nitrite Last Edit by [employer] on 02/23/23 14:33 UA Urobilinogen 0.2 mg/dL Last Edit by [employer] on 02/23/23 14:33 UA Protein 15 mg/dL Last Edit by [email or web address] on 02/23/23 14:33 UA pH 6.0 Last Edit by [email or web address] on 02/23/23 14:33 UA Blood 200 Robert/uL Last Edit by [employer] on 02/23/23 14:33 UA Specific Mammoth 1.025 Last Edit by [email or web address] on 02/23/23 14:33 UA Ketone Last Edit by [employer] on 02/23/23 14:33 UA Bilirubin 0 mg/dL Last Edit by [email or web address] on 02/23/23 14:33 UA Glucose 0 mg/dL Last Edit by [email or web address] on 02/23/23 14:33 Results Reviewed Results Reviewed: Laboratory Last Values Urine pH (Auto) 6.0 02/23/23 14:31 Specific Mammoth (Auto) 1.025 02/23/23 14:31 Urine Protein (Auto) 15 mg/dL 02/23/23 14:31 Glucose (UA)(Auto) 0 mg/dL 02/23/23 14:31 Urine Blood (Auto) 200 Robert/uL 02/23/23 14:31 Urine Bilirubin (Auto) 0 mg/dL 02/23/23 14:31 Urine Urobilinogen (Auto) 0.2 mg/dL 02/23/23 14:31 Leukocyte Esterase (Auto) 125 Mauro/uL 02/23/23 14:31 Assessment & Plan Assessment & Plan (1) Frequent UTI: Code(s): N39.0 - Urinary tract infection, site not specified (2) Dysuria: Code(s): R30.0 - Dysuria (3) Urinary frequency: Code(s): R35.0 - Frequency of micturition Plan In office urinalysis results reviewed with the patient today; as noted above; will send for urine culture. PVR 14 mL Discussed at length potential causes for recurrent urinary tract infections. Discussed importance of managing diabetes for improvement in urinary tract infections as well as overall health and well-being. Will obtain retroperitoneal ultrasound for further assessment evaluation. Discussed near future in office cystoscopy if symptoms persist and/or worsen. Discussed UTI prevention with D mannose supplement, vitamin-C, increasing fluid intake, behavioral therapy with timed voiding, perineal hygiene and postcoital voiding, and management of constipation with stool softeners and increased fiber intake. Follow-up in 6-8 weeks with imaging to be completed prior; or sooner with any issues, concerns, and or questions. Orders: Orders US retroperitoneal comp 02/23/23 N39.0 - Urinary tract infection, site not specified Urine Culture 02/23/23 N39.0 - Urinary tract infection, site not specified AMB Urinalysis Automated 02/23/23 Z13.9 - Encounter for screening, unspecified AMB Post Void Residual by ultrasound 02/23/23 N39.0 - Urinary tract infection, site not specified Medications: New nitrofurantoin macrocrystal 100 mg PO BID 10 days 20 caps 0RF N39.0 - Urinary tract infection, site not specified Patient Instructions: The patient had an opportunity to ask questions regarding the treatment plan. All questions were answered. Physical exam, labs, and imaging were discussed and reviewed in detail. As well as risks, benefits, and discussion of treatment choices. No major barriers to understanding were identified. The patient expressed understanding and agreement with the above treatment plan. The patient was made aware they should contact our office by phone for worsening of their current condition, the appearance of new symptoms, or with any questions or concerns. Compliance is encouraged with any medications and follow up testing that is ordered. It is a privilege to be allowed the opportunity to participate in? your urological care.? Again, if you have any questions or concerns If you have any questions or concerns please do not hesitate to contact me. The office is [phone]. This note is constructed using voice recognition software. While every effort has been made to ensure accuracy local company hazmat driver errors may have been included. Yours sincerely, THEO Castro-ERNIE Coding Level of Care Code New Pt Level 4 (18703) Diagnoses Frequent UTI N39.0 Dysuria R30.0 Urinary frequency R35.0 CPT Codes Post Residual Void - PVR CPT Code: 38237-[id number] Void Residual by ultrasound ([id number])
== END 2023-02-23 15:02 | disposition home or self-care (01) ==
PROVIDERS: PCP Internal Medicine; Referring Provider Internal Medicine; Visit Provider Nurse Practitioner Family
DX: N39.0 Urinary tract infection, site not specified (principal); R30.0 Dysuria; R35.0 Frequency of micturition
CPT/HCPCS: 99204

== ENCOUNTER 2023-03-21 07:48 | Outpatient (REF) | payer OTHER, SELFPAY ==
[2023-03-21 08:03] LABS: MANUAL DIFF FLAG NO
[2023-03-21 08:45] LABS: Basophils Percent Auto 0.2 % (0-2); Eosinophils Absolute Auto 0.3 X10*3/uL (0.0-0.4); Eosinophils Percent Auto 3.1 % (0-4); Hemoglobin 11.8 g/dl (12.0-16.0); Imm Gran Abs Auto 0.02 X10*3/uL (0.00-0.03); Imm Gran Pct Auto 0.2 % (0.0-0.4); Lymphocytes Absolute Auto 2.8 X10*3/uL (1.2-4.9); Lymphocytes Percent Auto 34.9 % (20-40); Mean Corpuscular HGB Conc 31.1 g/dl (31.0-35.0); Mean Corpuscular Hemoglobin 25.2 pg (27.0-33.0); Mean Platelet Volume 9.9 fL (9.4-12.3); Monocytes Absolute Auto 0.7 X10*3/uL (0.1-1.2); Monocytes Percent Auto 8.1 % (2-11); Neutrophils Absolute Auto 4.3 x10*3/uL (2.0-8.3); Neutrophils Percent Auto 53.5 % (45-73); Platelet Count 288 X10*3/uL (160-400); Red Blood Count 4.69 X10*6/uL (4.20-5.50); Red Cell Distribution Width 15.6 % (11.0-16.0)
[2023-03-21 09:13] LABS: Alanine Aminotransferase 12 U/L (0-31); Albumin Level 3.7 g/dL (3.5-5.0); Alkaline Phosphatase 82 U/L (39-117); Anion Gap 12 (12-20); Aspartate Amino Transferase 15 U/L (5-31); Bilirubin Total 0.3 mg/dL (0.0-1.0); Blood Urea Nitrogen 11 mg/dL (9-16); C Reactive Protein 3.23 mg/dL (< or = 0.50); Calcium 9.3 mg/dL (8.4-10.2); Carbon Dioxide 25 mmol/L (22-29); Chloride 104 mmol/L (96-108); Estimated Glomerular Filt Rate > 60; Glucose Random 140 mg/dL (60-115); Potassium 4.2 mmol/L (3.3-5.1); Sodium 137 mmol/L (135-145); Total Protein 7.9 g/dL (6.5-8.0)
[2023-03-21 09:31] LABS: Erythrocyte Sedimentation Rate 34 MM/HR (0-20)
[2023-03-21 09:34] LABS: HBS Num1 0.21 mIU/mL (0-7.99); HBsAGNum1 0.34 S/CO (0.00-0.99); Hepatitis A Antibody IgM 0.16 Index (0-0.79); Hepatitis B Core Antibody Nonreactive (Nonreactive); Hepatitis B Surface Antigen Negative (Negative); ~HepC Num1 0.07 S/CO (0.00-0.79); ~Hepatitis A Antibody IgM Nonreactive (Nonreactive); ~Hepatitis B Surface Antibody NONREACTIVE (Nonreactive); ~Hepatitis C Antibody Nonreactive (Nonreactive)
[2023-03-23 16:43] LABS: TS Negative Control Passed; TS Panel A 0; TS Panel B 0; TS Positive Control Passed; TSpotTB Negative (Negative)
== END 2023-03-21 07:49 | disposition home or self-care (01) ==
LOC: HO.LAB 07:48
PROVIDERS: Absent Provider Internal Medicine; PCP Internal Medicine; Visit Provider Student in an Organized Health Care Education/Training Program
DX: M06.00 Rheumatoid arthritis without rheumatoid factor, unspecified site (principal); Z11.7 Encounter for testing for latent tuberculosis infection; Z11.59 Encounter for screening for other viral diseases
CPT/HCPCS: 36415; 80053; 85025; 85652; 86140; 86481; 86704; 86706; 86709; 86803; 87340

== ENCOUNTER 2023-03-22 13:18 | Outpatient (REF) | payer OTHER, SELFPAY ==
--- NOTE | ~2023-03-22 | US_ITS ---
EXAMINATION: US RETROPERITONEAL COMPLETE (RENAL) CLINICAL INFORMATION: Urinary tract infection, site not specified. COMPARISON: None available. TECHNIQUE: Real-time imaging of the kidneys and bladder. FINDINGS: RIGHT KIDNEY: 11.9 x 4.3 x 5.9 cm (SAG x AP x TRV). The kidney is normal in size, contour, and echogenicity. Renal cortical thickness is normal. No calculi or focal parenchymal lesions. No hydronephrosis. LEFT KIDNEY: 11.9 x 6.2 x 4.7 cm (SAG x AP x TRV). The kidney is normal in size, contour, and echogenicity. Renal cortical thickness is normal. No calculi or focal parenchymal lesions. No hydronephrosis. BLADDER: Well distended and normal. Bilateral ureteral jets are demonstrated. Prevoid bladder volume is 280 mL. Postvoid bladder volume is 20 mL. US/US retroperitoneal comp IMPRESSION: Unremarkable renal ultrasound.
== END 2023-03-22 13:19 | disposition home or self-care (01) ==
LOC: HO.US 13:18
PROVIDERS: PCP Internal Medicine; Visit Provider Nurse Practitioner Family
DX: N39.0 Urinary tract infection, site not specified (principal)
CPT/HCPCS: 76770

== ENCOUNTER 2023-03-27 14:14 | Outpatient (AMB) | payer OTHER, SELFPAY ==
--- NOTE | 2023-03-27 14:20 | MHC.OFFVIS ---
Intake Vital Signs 03/27/23 14:24 Height 5 ft 5 in Weight 321 lb 10.471 oz BMI 53.5 BP 126/64 Pulse 82 Pulse Source Pulse Oximeter Temp 97.9 F Temp Source Skin Pulse Oximetry (%) 97 Intake Visit Reasons: RA Intake Note: Pt seen today for RA follow up and test results. She was last seen on 01/18/23. Vinyl Top Installer Required: Yes Vinyl Top Installer Name: Ryann [email or web address] Accompanied by: Son Allergies No Known Allergies Allergy (Verified 03/27/23 14:33) Medication List - Last Reconciled 03/27/23 by Nivia Linn MD acetaminophen (Tylenol Extra Strength) 500 mg PO BID PRN amoxicillin 500 mg PO BID aspirin 81 mg PO DAILY 30 days atorvastatin 10 mg PO BEDTIME 90 days blood pressure monitor As directed blood sugar diagnostic (FreeStyle Lite Strips) Use 1 test strip once a day blood-glucose meter (FreeStyle Lite Meter kit) As directed cane As directed cholecalciferol (vitamin D3) 25 mcg PO DAILY 90 days [cock up splint wear on each wrist at night. ] diltiazem HCl 240 mg PO DAILY ferrous sulfate 325 mg PO DAILY fluticasone propionate 50 mcg/actuation (Flonase Allergy Relief) 1 spray intranasal DAILY 30 days folic acid 1 mg PO DAILY [grab bars As directed] hydrochlorothiazide 12.5 mg PO QAM 90 days hydrocortisone 1% (Anti-Itch (hydrocortisone)) 1 appl topical TID PRN 2 weeks lancets (FreeStyle Lancets) Use 1 lancet once a day losartan 100 mg PO DAILY 90 days meclizine 25 mg PO TID PRN 30 days metformin 500 mg PO BID 90 days semaglutide (Ozempic) 0.125 mg (0.184 mL) subcut QWEEK 30 days Shower Chair As directed tocilizumab (Actemra ACTPen) 162 mg (0.9 mL) subcut Q2W HPI HPI Comments History of Present Illness Details 48yoF presents for follow-up of seronegative rheumatoid arthritis. On Actemra 162 mg every other week Patient has been using Actemra for the last 2 months. Continues to have pain in her knees as well as her fingers and wrists. [facility] Medical History Osteoarthritis of knees, bilateral LARRY (generalized anxiety disorder) Hypovitaminosis D Pure hypercholesterolemia Morbid obesity due to excess calories Iron deficiency anemia Anxiety Super obese Vertigo Morbid obesity Seronegative rheumatoid arthritis Thrombophlebitis Fibromyalgia MAXIMINO (obstructive sleep apnea) Hypertension Diabetes Surgical History History of tubal ligation History of History of hip surgery Family History Father Prostate cancer Mother Uterine cancer Social History Housing: Apartment Alcohol intake: never Patient Tobacco Use Status: Never used Tobacco e-Cigarette/Vaping Use: Never Used Second Hand Smoke Exposure: No service: No Current occupational status: disabled 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 Cognitive needs: Yes Hearing needs: No Vision needs: No Review of Systems Musc Reports arthralgias, Reports limited range of motion, Reports numbness, Reports stiffness and Reports tingling Neuro Reports numbness and Reports tingling Physical Exam Vital Signs: Last Vital Signs Temp 97.9 F 03/27/23 14:24 Pulse 82 03/27/23 14:24 BP 126/64 03/27/23 14:24 Pulse Ox 97 03/27/23 14:24 BMI result Body Mass Index 53.5 Const General: cooperative, healthy appearing and comfortable Nutritional Appearance: obese morbidly obese Orientation/consciousness: patient oriented x3 Limitations: ambulation with cane HEENT Head: Yes normocephalic and Yes atraumatic Mouth: moist mucous membranes Resp Effort & Inspection: normal respiratory effort and able to speak in complete sentences Neuro General: patient oriented x3 Extrem Other: No left wrist tenderness, swelling or pain with flexion and extension Left 3rd MCP tenderness Weak left hand customs and border protection inspector strength Right wrist tenderness and pain with full flexion and extension Right hand swollen and tender 3rd & 5th MCPs. Weak customs and border protection inspector strength Tenderness to palpation of the 2nd and 3rd MCPs on the flexor aspect tenderness of right 3rd and 4th PIP No right elbow tenderness, swelling, warmth or pain with flexion and extension No MTP tenderness today Negative MTP squeeze test Results Reviewed Results Reviewed: Laboratory Tests Date of Service: 08/29/22 Procedure(s): XR shoulder LT min 2V EXAMINATION: XR SHOULDER, LEFT CLINICAL INFORMATION: Pain.? COMPARISON: None.? TECHNIQUE: AP external rotation, Grashey, scapular Y, and axillary views of the left shoulder. FINDINGS: Bony alignment and mineralization are normal. The glenohumeral joint is intact and shows minimal osteoarthritic change. The acromioclavicular and coracoclavicular intervals are normal. There is cortical irregularity of the greater tuberosity of the proximal right humerus, and a distal acromial osteophyte is seen. No abnormal soft tissue calcification or foreign body is seen. There is no left pneumothorax.? XR/XR shoulder LT min 2V IMPRESSION: ? 1. No fracture or dislocation is seen. ? 2. There is minimal osteoarthritic change of the left glenohumeral joint. ? 3. Findings suggest possible left rotator cuff impingement; no andrea calcific tendinitis is noted. Date of Service: 08/29/22 Procedure(s): XR hand LT min 3V Accession Number(s): [id number] EXAMINATION: XR HAND, LEFT CLINICAL INFORMATION: Pain.? COMPARISON: Radiographs dated 01/29/2020.? TECHNIQUE: PA, lateral, and oblique views of the left hand. FINDINGS: The bones and soft tissues are normal. No fracture. Alignment is anatomic. Joint spaces are maintained. No erosions or soft tissue calcifications.? XR/XR hand LT min 3V IMPRESSION: Normal left hand. Date of Service: 01/30/22 Procedure(s): XR knee RT 3V Accession Number(s): [id number] EXAMINATION: BILATERAL KNEE X-RAY CLINICAL INFORMATION: Bilateral osteoarthritis? COMPARISON: Previous x-ray January 2020? TECHNIQUE: 3 views of each knee? FINDINGS: Right: There is valgus angulation. There is high position of the patella and lateral tilt of patella on the sunrise view. There is severe arthritis at the lateral femoral tibial and patellofemoral joints with joint space narrowing and osteophyte formation. There is no joint effusion. Left: There is high position of the patella. Bone alignment is otherwise normal. No fracture or dislocation is seen. There is arthritis at the medial femoral tibial and patellofemoral joints with joint space narrowing and osteophyte formation. There is no joint effusion. XR/XR knee RT 3V IMPRESSION: Bilateral arthritis not appreciably changed from 2020 exam.? Assessment & Plan Assessment & Plan (1) Seronegative rheumatoid arthritis: Comment: Seronegative dx 03/2019 in [place]: 08/2019- 08/2021 dyspnea Prednisone Humira: September 2021- 12/2022 incomplete response Code(s): M06.00 - Rheumatoid arthritis without rheumatoid factor, unspecified site Plan: This is a 48-year-old female with seronegative rheumatoid arthritis who presents for follow-up. On Actemra 162 mg every other week. Continues to have multiple swollen and tender joints. Continues to have significantly elevated inflammatory markers. Advanced Actemra to 162 mg every week. Patient is 147 kg and qualifies for once weekly dosing Labs before next visit in 10 weeks (2) Numbness and tingling in both hands: Code(s): R20.0 - Anesthesia of skin; R20.2 - Paresthesia of skin Plan: EMG/NCV scheduled for April 12. Can continue to use bilateral wrist splints Plan I spent 26 minutes reviewing patient's chart, evaluating patient, ordering diagnostic workup, counseling patient and documenting in the chart Orders: Orders C Reactive Protein 10 Weeks M06.00 - Rheumatoid arthritis without rheumatoid factor, unspecified site Erythrocyte Sedimentation Rate 10 Weeks M06.00 - Rheumatoid arthritis without rheumatoid factor, unspecified site Complete Blood Count Auto Diff 10 Weeks M06.00 - Rheumatoid arthritis without rheumatoid factor, unspecified site Comprehensive Met. Panel 10 Weeks M06.00 - Rheumatoid arthritis without rheumatoid factor, unspecified site Medications: Changed From tocilizumab (Actemra ACTPen) 162 mg (0.9 mL) subcut Q2W 1.8 mL 2RF To Actemra ACTPen (tocilizumab) 162 mg (0.9 mL) subcut QWEEK 3.6 mL 2RF NS Coding Level of Care Code Est Pt Level 4 (58009) Diagnoses Seronegative rheumatoid arthritis M06.00 Numbness and tingling in both hands R20.0; R20.2
[2023-03-27 14:24] VITALS: BP 126/64; PULSE 82; TEMP 36.6; O2SAT 97; BMI 53.5
== END 2023-03-27 14:48 | disposition home or self-care (01) ==
PROVIDERS: PCP Internal Medicine; Visit Provider Student in an Organized Health Care Education/Training Program
DX: M06.00 Rheumatoid arthritis without rheumatoid factor, unspecified site (principal); R20.0 Anesthesia of skin; R20.2 Paresthesia of skin
CPT/HCPCS: 99214

== ENCOUNTER → 2023-03-27 14:14 | Outpatient (BNVA) | payer OTHER, SELFPAY | PROVIDERS: PCP Internal Medicine; Visit Provider Student in an Organized Health Care Education/Training Program | DX: M06.00 Rheumatoid arthritis without rheumatoid factor, unspecified site (principal); R20.0 Anesthesia of skin; R20.2 Paresthesia of skin; Z79.899 Other long term (current) drug therapy | CPT/HCPCS: 99212 ==

== ENCOUNTER 2023-04-04 11:57 | Outpatient (AMB) | payer OTHER, SELFPAY ==
--- NOTE | 2023-04-04 12:17 | MHC.OFFVIS ---
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 Accompanied by: Son Allergies No Known Allergies Allergy (Verified 04/04/23 14:24) Medication List - Last Reconciled 04/04/23 by THEO Castro-ERNIE acetaminophen (Tylenol Extra Strength) 500 mg PO BID PRN Actemra ACTPen (tocilizumab) 162 mg (0.9 mL) subcut QWEEK NS amoxicillin 500 mg PO BID aspirin 81 mg PO DAILY 30 days atorvastatin 10 mg PO BEDTIME 90 days blood pressure monitor As directed blood sugar diagnostic (FreeStyle Lite Strips) Use 1 test strip once a day blood-glucose meter (FreeStyle Lite Meter kit) As directed cane As directed cholecalciferol (vitamin D3) 25 mcg PO DAILY 90 days [cock up splint wear on each wrist at night. ] diltiazem HCl 240 mg PO DAILY ferrous sulfate 325 mg PO DAILY fluticasone propionate 50 mcg/actuation (Flonase Allergy Relief) 1 spray intranasal DAILY 30 days folic acid 1 mg PO DAILY [grab bars As directed] hydrochlorothiazide 12.5 mg PO QAM 90 days hydrocortisone 1% (Anti-Itch (hydrocortisone)) 1 appl topical TID PRN 2 weeks lancets (FreeStyle Lancets) Use 1 lancet once a day losartan 100 mg PO DAILY 90 days meclizine 25 mg PO TID PRN 30 days metformin 500 mg PO BID 90 days mirabegron ER (Myrbetriq) 25 mg PO DAILY 30 days semaglutide (Ozempic) 0.125 mg (0.184 mL) subcut QWEEK 30 days Shower Chair As directed HPI HPI Comments History of Present Illness Details Sol is a very pleasant 48-year-old Czech-speaking female patient of Dr. Madrid. She has a past medical history of anxiety, diabetes, fibromyalgia, anxiety, hypertension, iron deficiency anemia, morbid obesity, obstructive sleep apnea, hypercholesteremia, rheumatoid arthritis and vertigo. She presents to the office today for a follow up. Of note, patient was seen approximately 1 month ago as a new patient for recurrent urinary tract infections at which time a retroperitoneal ultrasound was ordered for further assessment evaluation. These results were reviewed with the patient today. Bilateral kidneys with no calculi, lesions, and or hydronephrosis noted. The bladder is well distended and normal. Bilateral ureteral jets are demonstrated. Pre void bladder room is approximately 280 mL. Postvoid bladder volume is approximately 20 mL. In discussion with the patient today she reports having finished antibiotic therapy since her last office visit. She reports dysuria has since subsided. She does however continue to report urinary frequency and urgency with episodes of incontinence if not near a bathroom. In office urinalysis results reviewed with the patient today. PVR 14 mL. She otherwise denies nocturia, hematuria, foul smelling urine, changes to urinary stream, flank pain, fever, and or chills. She otherwise offers no other issues or concerns at this time. [facility] Medical History Osteoarthritis of knees, bilateral LARRY (generalized anxiety disorder) Hypovitaminosis D Pure hypercholesterolemia Morbid obesity due to excess calories Iron deficiency anemia Anxiety Super obese Vertigo Morbid obesity Seronegative rheumatoid arthritis Thrombophlebitis Fibromyalgia MAXIMINO (obstructive sleep apnea) Hypertension Diabetes Surgical History History of tubal ligation History of History of hip surgery Family History Father Prostate cancer Mother Uterine cancer Social History Housing: Apartment Alcohol intake: never Patient Tobacco Use Status: Never used Tobacco e-Cigarette/Vaping Use: Never Used Second Hand Smoke Exposure: No service: No Current occupational status: disabled 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 Cognitive needs: Yes Hearing needs: No Vision needs: No Review of Systems Const Reports as per HPI Eyes Reports no additional complaints ENT Reports no additional complaints Card Reports as per HPI Resp Reports as per HPI GI Reports no additional complaints Reports as per HPI Musc Reports as per HPI Neuro Reports as per HPI Psych Reports as per HPI Endo Reports as per HPI Physical Exam Const General: cooperative, healthy appearing, comfortable, no acute distress, well developed, alert and awake Nutritional Appearance: obese Orientation/consciousness: patient oriented x3 Limitations: no limitations HEENT Head: Yes normal to inspection, Yes normocephalic and Yes atraumatic Ears: hearing grossly normal bilaterally Eyes General: appearance normal, both eyes and all related structures Neck Neck: Yes normal visual inspection and Yes trachea midline Chest Chest palpation & inspection: normal inspection of the chest Resp Effort & Inspection: normal respiratory effort and able to speak in complete sentences Cardio Rate: regular rate GI Inspection: Yes normal to inspection General: Yes no CVA tenderness Back/Spine/Pelvis Back: no CVA tenderness Skin General skin exam: no rashes or lesions noted Neuro General: patient oriented x3 Extrem General: Yes normal to inspection Psych Appearance: grossly normal and well kempt Mental Status: mental status grossly normal Speech and movement: Normal speech and movement present and Clear speech present Affect: normal affect Attitude: cooperative Thought process: Normal thought process present Thought content: Normal thought content present Insight: Fair insight present (Psych) Judgement: Fair judgement present (Psych) Office Procedures Post Void Residual Post Residual Void Post Void Residual (PVR): 14 [id number] Void Residual by ultrasound Results AMB Urinalysis, Automated UA Leukoctes 70 Mauro/uL Last Edit by [facility] on 04/04/23 12:28 UA Nitrite Negative Last Edit by [facility] on 04/04/23 12:28 UA Urobilinogen 0.2 mg/dL Last Edit by [facility] on 04/04/23 12:28 UA Protein 0 mg/dL Last Edit by [facility] on 04/04/23 12:28 UA pH 6.0 Last Edit by [facility] on 04/04/23 12:28 UA Blood 10 Robert/uL Last Edit by [facility] on 04/04/23 12:28 UA Specific [place] 1.015 Last Edit by [facility] on 04/04/23 12:28 UA Ketone Negative Last Edit by [facility] on 04/04/23 12:28 UA Bilirubin 0 mg/dL Last Edit by [facility] on 04/04/23 12:28 UA Glucose 0 mg/dL Last Edit by [facility] on 04/04/23 12:28 Results Reviewed Results Reviewed: Laboratory Last Values Urine pH (Auto) 6.0 04/04/23 12:20 Specific [place] (Auto) 1.015 04/04/23 12:20 Urine Protein (Auto) 0 mg/dL 04/04/23 12:20 Glucose (UA)(Auto) 0 mg/dL 04/04/23 12:20 Urine Ketones (Auto) Negative 04/04/23 12:20 Urine Blood (Auto) 10 Robert/uL 04/04/23 12:20 Urine Nitrite (Auto) Negative 04/04/23 12:20 Urine Bilirubin (Auto) 0 mg/dL 04/04/23 12:20 Urine Urobilinogen (Auto) 0.2 mg/dL 04/04/23 12:20 Leukocyte Esterase (Auto) 70 Mauro/uL 04/04/23 12:20 Date of Service: 03/22/23 EXAMINATION: US RETROPERITONEAL COMPLETE (RENAL) FINDINGS: RIGHT KIDNEY: 11.9 x 4.3 x 5.9 cm (SAG x AP x TRV). The kidney is normal in size, contour, and echogenicity. Renal cortical thickness is normal. No calculi or focal parenchymal lesions. No hydronephrosis. LEFT KIDNEY: 11.9 x 6.2 x 4.7 cm (SAG x AP x TRV). The kidney is normal in size, contour, and echogenicity. Renal cortical thickness is normal. No calculi or focal parenchymal lesions. No hydronephrosis. BLADDER: Well distended and normal. Bilateral ureteral jets are demonstrated. Prevoid bladder volume is 280 mL. Postvoid bladder volume is 20 mL. IMPRESSION: Unremarkable renal ultrasound. Assessment & Plan Assessment & Plan (1) Urinary frequency: Code(s): R35.0 - Frequency of micturition (2) Dysuria: Code(s): R30.0 - Dysuria (3) Mixed incontinence urge and stress: Code(s): N39.46 - Mixed incontinence Plan In office urinalysis results reviewed with the patient today; as noted above. PVR 14 mL. Recent retroperitoneal ultrasound results reviewed with the patient; as noted above. Discussed at length potential causes for urinary frequency and mixed incontinence that the patient is experiencing. Discussed importance of managing diabetes and sleep apnea for improvement in lower urinary tract symptoms as well as overall health and well-being. Start Myrbetriq 25 mg daily as discussed and prescribed. Discussed pelvic floor therapy. Discussed bladder triggers/irritants. Discussed UTI prevention with D mannose supplement, vitamin-C, increasing fluid intake, behavioral therapy with timed voiding, perineal hygiene and postcoital voiding, and management of constipation with stool softeners and increased fiber intake. Follow-up in 6 weeks with PVR; or sooner with any issues, concerns, and or questions. Orders: Orders AMB Post Void Residual by ultrasound Today N39.0 - Urinary tract infection, site not specified AMB Urinalysis Automated Today Z13.9 - Encounter for screening, unspecified Medications: New mirabegron ER (Myrbetriq) 25 mg PO DAILY 30 days 30 tabs 1RF N30.10 - Interstitial cystitis (chronic) without hematuria, N32.81 - Overactive bladder, R35.1 - Nocturia, R39.15 - Urgency of urination Patient Instructions: The patient had an opportunity to ask questions regarding the treatment plan. All questions were answered. Physical exam, labs, and imaging were discussed and reviewed in detail. As well as risks, benefits, and discussion of treatment choices. No major barriers to understanding were identified. The patient expressed understanding and agreement with the above treatment plan. The patient was made aware they should contact our office by phone for worsening of their current condition, the appearance of new symptoms, or with any questions or concerns. Compliance is encouraged with any medications and follow up testing that is ordered. It is a privilege to be allowed the opportunity to participate in? your urological care.? Again, if you have any questions or concerns If you have any questions or concerns please do not hesitate to contact me. The office is [phone]. This note is constructed using voice recognition software. While every effort has been made to ensure accuracy aquatics manager errors may have been included. Yours sincerely, JAZMIN Castro Coding Level of Care Code Est Pt Level 4 (78037) Diagnoses Urinary frequency R35.0 Dysuria R30.0 Mixed incontinence urge and stress N39.46 CPT Codes Post Residual Void - PVR CPT Code: 26433-Gqqi Void Residual by ultrasound ([id number])
== END 2023-04-04 12:42 | disposition home or self-care (01) ==
PROVIDERS: PCP Internal Medicine; Visit Provider Nurse Practitioner Family
DX: R35.0 Frequency of micturition (principal); R30.0 Dysuria; N39.46 Mixed incontinence; Z13.9 Encounter for screening, unspecified
CPT/HCPCS: 99214

== ENCOUNTER → 2023-04-04 11:57 | Outpatient (BNVA) | payer OTHER, SELFPAY | PROVIDERS: PCP Internal Medicine; Visit Provider Nurse Practitioner Family | DX: N39.0 Urinary tract infection, site not specified (principal); R30.0 Dysuria; N39.46 Mixed incontinence | CPT/HCPCS: 51798; 81003; 99212 ==

== ENCOUNTER 2023-04-09 08:41 | Outpatient (AMB) | payer OTHER, SELFPAY ==
[2023-04-09 08:57] VITALS: BP 126/80; PULSE 74; BMI 53.9
--- NOTE | 2023-04-09 08:57 | A.OFFVIS_ITS ---
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 Tool Repair Technician Name: Steve house Therapy Teacher: Therapy Teacher Present Accompanied by: Spouse Allergies No Known Allergies Allergy (Verified 04/04/23 14:24) Medication List - Last Reconciled 04/09/23 by Dane Coates MD acetaminophen (Tylenol Extra Strength) 500 mg PO BID PRN Actemra ACTPen (tocilizumab) 162 mg (0.9 mL) subcut QWEEK NS amoxicillin 500 mg PO BID aspirin 81 mg PO DAILY 30 days atorvastatin 10 mg PO BEDTIME 90 days blood pressure monitor As directed blood sugar diagnostic (FreeStyle Lite Strips) Use 1 test strip once a day blood-glucose meter (FreeStyle Lite Meter kit) As directed cane As directed cholecalciferol (vitamin D3) 25 mcg PO DAILY 90 days [cock up splint wear on each wrist at night. ] diltiazem HCl 240 mg PO DAILY ferrous sulfate 325 mg PO DAILY fluticasone propionate 50 mcg/actuation (Flonase Allergy Relief) 1 spray intranasal DAILY 30 days folic acid 1 mg PO DAILY [grab bars As directed] hydrochlorothiazide 12.5 mg PO QAM 90 days hydrocortisone 1% (Anti-Itch (hydrocortisone)) 1 appl topical TID PRN 2 weeks lancets (FreeStyle Lancets) Use 1 lancet once a day losartan 100 mg PO DAILY 90 days meclizine 25 mg PO TID PRN 30 days metformin 500 mg PO BID 90 days mirabegron ER (Myrbetriq) 25 mg PO DAILY 30 days semaglutide (Ozempic) 0.125 mg (0.184 mL) subcut QWEEK 30 days Shower Chair As directed HPI HPI Comments History of Present Illness Details Pleasant 48 year female who is here for follow-up. She has background history of hypertension and palpitations. Previously she had Holter monitoring which showed 1 run of SVT. She has been on diltiazem knee, hydrochlorothiazide and losartan. Blood pressure control is good. She is returning and is complaining of palpitations. These episodes are happening once a week at least. She is saying she gets palpitations and gets dizzy and these episodes can last all day. She is saying usually this happens on days when she is very anxious. [facility] Medical History Osteoarthritis of knees, bilateral LARRY (generalized anxiety disorder) Hypovitaminosis D Pure hypercholesterolemia Morbid obesity due to excess calories Iron deficiency anemia Anxiety Super obese Vertigo Morbid obesity Seronegative rheumatoid arthritis Thrombophlebitis Fibromyalgia MAXIMINO (obstructive sleep apnea) Hypertension Diabetes Surgical History History of tubal ligation History of History of hip surgery Family History Father Prostate cancer Mother Uterine cancer Social History Housing: Apartment Alcohol intake: never Patient Tobacco Use Status: Never used Tobacco e-Cigarette/Vaping Use: Never Used Second Hand Smoke Exposure: No service: No Current occupational status: disabled 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 Cognitive needs: Yes Hearing needs: No Vision needs: No Review of Systems Const Denies chills, Denies fatigue, Denies fever(s), Denies frequent falls, Denies weakness, Denies weight gain and Denies weight loss ENT Denies dizziness Card Denies chest pain, Denies leg edema, Denies lightheadedness, Denies palpitations, Denies dyspnea, Denies dyspnea on exertion, Denies orthopnea and Denies other (loss of consciousness) Resp Denies cough, Denies dyspnea and Denies dyspnea on exertion GI Denies hematochezia and Denies change in stool character Musc Denies abnormal gait, Denies muscle weakness, Denies numbness, Denies radiating pain into limb and Denies tingling Neuro Denies abnormal gait, Denies dizziness, Denies frequent falls, Denies numbness, Denies tingling and Denies weakness Endo Denies fatigue and Denies palpitations Physical Exam Vital Signs: Last Vital Signs Pulse 74 04/09/23 08:57 BP 126/80 04/09/23 08:57 BMI result Body Mass Index 53.9 GENERAL APPEARANCE: in no acute distress, overweight. NECK/THYROID: no carotid bruit, no jugular venous distention. SKIN: no suspicious lesions, warm and dry. HEART: no murmurs, regular rate and rhythm, S1, S2 normal. LUNGS: clear to auscultation bilaterally. ABDOMEN: normal, bowel sounds present, soft, nontender, nondistended. EXTREMITIES: no clubbing, cyanosis, or edema. PERIPHERAL PULSES: equal. NEUROLOGIC: nonfocal, alert and oriented. PSYCH: mood/affect full range. Office Procedures EKG Details: Normal sinus rhythm 74 beats per minute, normal ECG, QTC 397. [id number], Complete Assessment & Plan Assessment & Plan (1) Palpitations: Code(s): R00.2 - Palpitations (2) Hypertension: Code(s): I10 - Essential (primary) hypertension Qualifiers: Hypertension type: essential hypertension Qualified Code(s): I10 - Essential (primary) hypertension Plan Pleasant 48 year female who is here for follow-up. She has hypertension and blood pressure is well controlled on the current regimen. She should continue same medications. She is complaining of palpitations. Previously she had Holter monitoring which showed 1 run of SVT. She is complaining of more frequent episodes up to once a week. We will do a 2 week Holter monitor. Follow-up in 3 months. Thank you for allowing me to participate in the care of your patient. Please feel free to contact me if you have any questions. Orders: Orders ECG 14 day holter monitor Today R00.2 - Palpitations Coding Level of Care Code Est Pt Level 3 (17781) Diagnoses Palpitations R00.2 Essential hypertension I10 Hypertension type: essential hypertension CPT Codes EKG - CPT: 02194-[id number], Complete ([id number])
== END 2023-04-09 09:20 | disposition home or self-care (01) ==
PROVIDERS: PCP Internal Medicine; Visit Provider Internal Medicine Cardiovascular Disease
DX: R00.2 Palpitations (principal); I10 Essential (primary) hypertension
CPT/HCPCS: 93010; 99213

== ENCOUNTER → 2023-04-09 08:41 | Outpatient (BNVA) | payer OTHER, SELFPAY | PROVIDERS: PCP Internal Medicine; Visit Provider Internal Medicine Cardiovascular Disease | DX: R00.2 Palpitations (principal); I10 Essential (primary) hypertension | CPT/HCPCS: 93005; 99212 ==

== ENCOUNTER 2023-04-12 13:34 | Outpatient (REF) | payer OTHER, SELFPAY ==
--- NOTE | 2023-04-12 13:36 | EMG_ITS ---
Chief complaint: Bilateral hand numbness Reason for referral: Evaluate for Carpal Tunnel Syndrome Referred by: Dr. Linn Procedure done: Bilateral upper extremities NCS Precautions and/or limitations: None The limb temperature was monitored continuously and remained between 32-36 degrees C during the performance of the NCS. Nerve Conduction Studies Anti Sensory Summary Table ?Stim Site NR Onset (ms) Norm Onset (ms) Peak (ms) Norm Peak (ms) O-P Amp (?V) Norm O-P Amp Site1 Site2 Delta-0 (ms) Dist (cm) Jose (m/s) Norm Jose (m/s) Left Median Anti Sensory (2nd Digit) Wrist ? 4.3 5.0 <3.6 14.2 >10 Wrist 2nd Digit 4.3 14.0 33 Right Median Anti Sensory (2nd Digit) Wrist NR <3.6 >10 Wrist 2nd Digit 14.0 Right Radial Anti Sensory (Thumb) Forearm ? 1.7 2.1 <3.1 15.0 Forearm Thumb 1.7 0.0 Left Ulnar Anti Sensory (5th Digit) Wrist ? 1.8 3.0 <3.7 16.2 >15.0 Wrist 5th Digit 1.8 14.0 78 Right Ulnar Anti Sensory (5th Digit) Wrist ? 0.5 3.2 <3.7 35.3 >15.0 Wrist 5th Digit 0.5 14.0 280 Motor Summary Table ?Stim Site NR Onset (ms) Norm Onset (ms) O-P Amp (mV) Norm O-P Amp iAmp (mV) Amp (1st) (%) Site1 Site2 Delta-0 (ms) Dist (cm) Jose (m/s) Norm Jose (m/s) Left Median Motor (Abd Poll Brev) Wrist ? 4.8 <3.9 9.5 >4.5 11.5 100.0 Elbow Wrist 3.7 21.0 57 >45 Elbow ? 8.5 8.8 10.6 92.6 Right Median Motor (Abd Poll Brev) Wrist ? 5.2 <3.9 6.6 >4.5 7.6 100.0 Elbow Wrist 3.2 20.0 63 >45 Elbow ? 8.4 6.4 7.5 97.0 Left Ulnar Motor (Abd Dig Minimi) Wrist ? 2.6 <3.0 7.3 >5 9.4 100.0 B Elbow Wrist 2.6 17.0 65 >45 B Elbow ? 5.2 8.4 10.5 115.1 A Elbow B Elbow 1.5 10.0 67 >45 A Elbow ? 6.7 7.2 9.5 98.6 Right Ulnar Motor (Abd Dig Minimi) Wrist ? 2.5 <3.0 5.1 >5 6.0 100.0 B Elbow Wrist 2.7 18.5 69 >45 B Elbow ? 5.2 8.2 9.8 160.8 A Elbow B Elbow 1.2 10.0 83 >45 A Elbow ? 6.4 8.2 9.9 160.8 EMG ?Side Muscle Nerve Root Ins Act Fibs Psw Amp Dur Poly Recrt Int Pat Comment Right 1stDorInt Ulnar C8-T1 Nml Nml Nml Nml Nml 0 Nml Complete Right FlexCarRad Median C6-7 Nml Nml Nml Nml Nml 0 Nml Complete Right Biceps Musculocut C5-6 Nml Nml Nml Nml Nml 0 Nml Complete Right Triceps Radial C6-7-8 Nml Nml Nml Nml Nml 0 Nml Complete Right Deltoid Axillary C5-6 Nml Nml Nml Nml Nml 0 Nml Complete Left 1stDorInt Ulnar C8-T1 Nml Nml Nml Nml Nml 0 Nml Complete Left FlexCarRad Median C6-7 Nml Nml Nml Nml Nml 0 Nml Complete Left Biceps Musculocut C5-6 Nml Nml Nml Nml Nml 0 Nml Complete Left Triceps Radial C6-7-8 Nml Nml Nml Nml Nml 0 Nml Complete Left Deltoid Axillary C5-6 Nml Nml Nml Nml Nml 0 Nml Complete FINDINGS: Bilateral median motor nerves showed prolonged distal latency, normal amplitude and normal conduction velocity. Right median sensory nerve showed absent response. Left median sensory nerve showed prolonged peak latency. All other nerves tested were within normal. Concentric needle EMG was performed in selected muscles of the bilateral upper extremities. Study did not reveal signs of electric abnormalities as shown in the table below. IMPRESSION: 1. This is an abnormal study. 2. There is electrodiagnostic evidence for bilateral moderate-severe median neuropathy at the wrist, consistent with carpal tunnel syndrome. 3. There is no electrodiagnostic evidence for ulnar neuropathy, brachial plexopathy, or cervical radiculopathy. Thank you for your kind referral. Caryl Calloway MD, ARLENE Board Certified, [place] [employer] and [employer] (ABPMR) Board Certified, [place] [employer] Electrodiagnostic [employer] (ABEM) CODIN 64097 x 2 MTDD
== END 2023-04-12 13:35 | disposition home or self-care (01) ==
LOC: HO.NEURO 13:34
PROVIDERS: PCP Internal Medicine; Visit Provider Student in an Organized Health Care Education/Training Program
DX: R20.0 Anesthesia of skin (principal); R20.2 Paresthesia of skin
CPT/HCPCS: 95886; 95911

== ENCOUNTER → 2023-04-12 13:36 | Outpatient (BNV) | payer OTHER, SELFPAY | PROVIDERS: PCP Internal Medicine; Visit Provider Physical Medicine & Rehabilitation | DX: G56.13 Other lesions of median nerve, bilateral upper limbs (principal); G56.03 Carpal tunnel syndrome, bilateral upper limbs | CPT/HCPCS: 95886; 95911 ==

== ENCOUNTER → 2023-05-10 15:45 | Outpatient (BNV) | payer OTHER, SELFPAY | PROVIDERS: PCP Internal Medicine; Visit Provider Radiology Diagnostic Radiology | DX: Z12.31 Encounter for screening mammogram for malignant neoplasm of breast (principal) | CPT/HCPCS: 77063; 77067 ==

== ENCOUNTER 2023-05-10 15:49 | Outpatient (REF) | payer OTHER, SELFPAY | END 2023-05-10 15:50 | disposition home or self-care (01) | LOC: HO.MAMMO 15:49 | PROVIDERS: PCP Internal Medicine; Visit Provider Internal Medicine | DX: Z12.31 Encounter for screening mammogram for malignant neoplasm of breast (principal) | CPT/HCPCS: 77063; 77067 ==

== ENCOUNTER 2023-05-14 09:24 | Outpatient (AMB) | payer OTHER, SELFPAY ==
--- NOTE | 2023-05-14 09:40 | MHC.OFFVIS ---
Intake Intake Visit Reasons: 6 weeks/ PVR Intake Note: Patient presents for follow up visit urinary tract infection Urology Medication: myrbetriq Blood Thinner: aspirin PVR: 45ml's Track Service Person Required: Yes Accompanied by: Son Allergies No Known Allergies Allergy (Verified 05/14/23 20:01) Medication List - Last Reconciled 05/14/23 by THEO Castro-ERNIE acetaminophen (Tylenol Extra Strength) 500 mg PO BID PRN Actemra ACTPen (tocilizumab) 162 mg (0.9 mL) subcut QWEEK NS aspirin 81 mg PO DAILY 30 days atorvastatin 10 mg PO BEDTIME 90 days blood pressure monitor As directed blood sugar diagnostic (FreeStyle Lite Strips) Use 1 test strip once a day blood-glucose meter (FreeStyle Lite Meter kit) As directed cane As directed cholecalciferol (vitamin D3) 25 mcg PO DAILY 90 days [cock up splint wear on each wrist at night. ] diltiazem HCl 240 mg PO DAILY ferrous sulfate 325 mg PO DAILY fluticasone propionate 50 mcg/actuation (Flonase Allergy Relief) 1 spray intranasal DAILY 30 days folic acid 1 mg PO DAILY [grab bars As directed] hydrochlorothiazide 12.5 mg PO QAM 90 days hydrocortisone 1% (Anti-Itch (hydrocortisone)) 1 appl topical TID PRN 2 weeks lancets (FreeStyle Lancets) Use 1 lancet once a day losartan 100 mg PO DAILY 90 days meclizine 25 mg PO TID PRN 30 days metformin 500 mg PO BID 90 days semaglutide (Ozempic) 0.125 mg (0.184 mL) subcut QWEEK 30 days Shower Chair As directed solifenacin (Vesicare) 5 mg PO DAILY 30 days HPI HPI Comments History of Present Illness Details Sol is a very pleasant 48-year-old Portuguese-speaking female patient of Dr. Madrid. She has a past medical history of anxiety, diabetes, fibromyalgia, anxiety, hypertension, iron deficiency anemia, morbid obesity, obstructive sleep apnea, hypercholesteremia, rheumatoid arthritis and vertigo. She presents to the office today for a follow up of her lower urinary tract symptoms. Of note, patient was seen approximately 6 weeks ago at which time she was started on Myrbetriq 25 mg daily. In discussion with the patient today she reports noting improvement in lower urinary tract symptoms however feels it causes abdominal pain so she had been taking every other day. Discussed, stress, and educated on importance of taking medications as prescribed. Previous workup has included a retroperitoneal ultrasound that noted bilateral kidneys with no calculi, lesions, and or hydronephrosis noted. The bladder is well distended and normal. Bilateral ureteral jets are demonstrated. Pre void bladder room is approximately 280 mL. Postvoid bladder volume is approximately 20 mL. She does however continue to report urinary frequency and urgency with episodes of incontinence if not near a bathroom. In office urinalysis results reviewed with the patient today. PVR 45 mL. She otherwise denies nocturia, hematuria, foul smelling urine, changes to urinary stream, flank pain, fever, and or chills. She otherwise offers no other issues or concerns at this time. [facility] Medical History Osteoarthritis of knees, bilateral LARRY (generalized anxiety disorder) Hypovitaminosis D Pure hypercholesterolemia Morbid obesity due to excess calories Iron deficiency anemia Anxiety Super obese Vertigo Morbid obesity Seronegative rheumatoid arthritis Thrombophlebitis Fibromyalgia MAXIMINO (obstructive sleep apnea) Hypertension Diabetes Surgical History History of tubal ligation History of History of hip surgery Family History Father Prostate cancer Mother Uterine cancer Social History Housing: Apartment Alcohol intake: never Patient Tobacco Use Status: Never used Tobacco e-Cigarette/Vaping Use: Never Used Second Hand Smoke Exposure: No service: No Current occupational status: disabled 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 Cognitive needs: Yes Hearing needs: No Vision needs: No Review of Systems Const Reports as per HPI Eyes Reports no additional complaints ENT Reports no additional complaints Card Reports as per HPI Resp Reports as per HPI GI Reports no additional complaints Reports as per HPI Musc Reports as per HPI Neuro Reports as per HPI Psych Reports as per HPI Endo Reports as per HPI Physical Exam Const General: cooperative, healthy appearing, comfortable, no acute distress, well developed, alert and awake Nutritional Appearance: obese Orientation/consciousness: patient oriented x3 Limitations: no limitations HEENT Head: Yes normal to inspection, Yes normocephalic and Yes atraumatic Ears: hearing grossly normal bilaterally Eyes General: appearance normal, both eyes and all related structures Neck Neck: Yes normal visual inspection and Yes trachea midline Chest Chest palpation & inspection: normal inspection of the chest Resp Effort & Inspection: normal respiratory effort and able to speak in complete sentences Cardio Rate: regular rate GI Inspection: Yes normal to inspection General: Yes no CVA tenderness Back/Spine/Pelvis Back: no CVA tenderness Skin General skin exam: no rashes or lesions noted Neuro General: patient oriented x3 Extrem General: Yes normal to inspection Psych Appearance: grossly normal and well kempt Mental Status: mental status grossly normal Speech and movement: Normal speech and movement present and Clear speech present Affect: normal affect Attitude: cooperative Thought process: Normal thought process present Thought content: Normal thought content present Insight: Fair insight present (Psych) Judgement: Fair judgement present (Psych) Office Procedures Post Void Residual Post Residual Void Post Void Residual (PVR): 45 [id number] Void Residual by ultrasound Results AMB Urinalysis, Automated UA Leukoctes 125 Mauro/uL Last Edit by [employer] on 05/14/23 09:58 UA Nitrite Negative Last Edit by [employer] on 05/14/23 09:58 UA Urobilinogen 0.2 mg/dL Last Edit by [employer] on 05/14/23 09:58 UA Protein 15 mg/dL Last Edit by [employer] on 05/14/23 09:58 UA pH 6.0 Last Edit by [employer] on 05/14/23 09:58 UA Blood 25 Robert/uL Last Edit by [employer] on 05/14/23 09:58 UA Specific [place] 1.030 Last Edit by [employer] on 05/14/23 09:58 UA Ketone Negative Last Edit by [employer] on 05/14/23 09:58 UA Bilirubin 0 mg/dL Last Edit by [employer] on 05/14/23 09:58 UA Glucose 0 mg/dL Last Edit by [employer] on 05/14/23 09:58 Results Reviewed Results Reviewed: Laboratory Last Values Urine pH (Auto) 6.0 05/14/23 09:47 Specific [place] (Auto) 1.030 05/14/23 09:47 Urine Protein (Auto) 15 mg/dL 05/14/23 09:47 Glucose (UA)(Auto) 0 mg/dL 05/14/23 09:47 Urine Ketones (Auto) Negative 05/14/23 09:47 Urine Blood (Auto) 25 Robert/uL 05/14/23 09:47 Urine Nitrite (Auto) Negative 05/14/23 09:47 Urine Bilirubin (Auto) 0 mg/dL 05/14/23 09:47 Urine Urobilinogen (Auto) 0.2 mg/dL 05/14/23 09:47 Leukocyte Esterase (Auto) 125 Mauro/uL 05/14/23 09:47 Assessment & Plan Assessment & Plan (1) Urinary frequency: Code(s): R35.0 - Frequency of micturition (2) Mixed incontinence urge and stress: Code(s): N39.46 - Mixed incontinence (3) Dysuria: Code(s): R30.0 - Dysuria Plan In office urinalysis results reviewed with the patient today; as noted above. PVR 45 mLs. Discussed at length potential causes for urinary frequency and mixed incontinence that the patient is experiencing. Discussed importance of managing diabetes and sleep apnea for improvement in lower urinary tract symptoms as well as overall health and well-being. Stop Myrbetriq 25 mg daily Start Vesicare 5mg daily as discussed and prescribed. Discussed pelvic floor therapy. Discussed bladder triggers/irritants. Discussed UTI prevention with D mannose supplement, vitamin-C, increasing fluid intake, behavioral therapy with timed voiding, perineal hygiene and postcoital voiding, and management of constipation with stool softeners and increased fiber intake. Follow-up in 6 weeks with PVR; or sooner with any issues, concerns, and or questions. Orders: Orders AMB Urinalysis Automated Today Z13.9 - Encounter for screening, unspecified AMB Post Void Residual by ultrasound Today N39.0 - Urinary tract infection, site not specified Medications: New solifenacin (Vesicare) 5 mg PO DAILY 30 days 30 tabs 2RF Discontinued mirabegron ER (Myrbetriq) Discontinued Reason: Doctor's Order 25 mg PO DAILY 30 days 30 tabs 1RF N30.10 - Interstitial cystitis (chronic) without hematuria, N32.81 - Overactive bladder, R35.1 - Nocturia, R39.15 - Urgency of urination Coding Level of Care Code Est Pt Level 4 (58124) Diagnoses Urinary frequency R35.0 Mixed incontinence urge and stress N39.46 Dysuria R30.0 CPT Codes Post Residual Void - PVR CPT Code: [id number] Void Residual by ultrasound ([id number])
== END 2023-05-14 10:07 | disposition home or self-care (01) ==
PROVIDERS: PCP Internal Medicine; Visit Provider Nurse Practitioner Family
DX: R35.0 Frequency of micturition (principal); N39.46 Mixed incontinence; R30.0 Dysuria; Z13.9 Encounter for screening, unspecified
CPT/HCPCS: 99214

== ENCOUNTER → 2023-05-14 09:24 | Outpatient (BNVA) | payer OTHER, SELFPAY | PROVIDERS: PCP Internal Medicine; Visit Provider Nurse Practitioner Family | DX: R30.0 Dysuria (principal); R35.0 Frequency of micturition; N39.46 Mixed incontinence | CPT/HCPCS: 51798; 81003; 99212 ==

== ENCOUNTER → 2023-05-25 13:35 | Outpatient (REF) | payer OTHER, SELFPAY ==
--- NOTE | 2023-05-25 13:37 | HM_ITS ---
Conclusion: 1. Patient was monitored for total period of 14 days 2. Baseline was normal sinus rhythm with average heart of 76 beats per minute 3. No significant pauses or arrhythmias noted 4. Patient reported multiple events with symptoms of palpitations that correlated with either normal sinus rhythm with sinus tachycardia. MTDD
== END ==
LOC: HO.CARD 13:35
PROVIDERS: PCP Internal Medicine; Visit Provider Internal Medicine Cardiovascular Disease
DX: R00.2 Palpitations (principal)
CPT/HCPCS: 93246

== ENCOUNTER → 2023-05-25 13:37 | Outpatient (BNV) | payer OTHER, SELFPAY | PROVIDERS: PCP Internal Medicine; Visit Provider Internal Medicine Cardiovascular Disease | DX: R00.2 Palpitations (principal) | CPT/HCPCS: 93248 ==

== ENCOUNTER 2023-06-09 08:34 | Outpatient (REF) | payer OTHER, SELFPAY ==
[2023-06-09 09:17] LABS: MANUAL DIFF FLAG NO
[2023-06-09 10:19] LABS: Basophils Percent Auto 0.3 % (0-2); Eosinophils Absolute Auto 0.3 X10*3/uL (0.0-0.4); Eosinophils Percent Auto 3.7 % (0-4); Hematocrit 41.3 % (37.0-47.0); Imm Gran Abs Auto 0.02 X10*3/uL (0.00-0.03); Imm Gran Pct Auto 0.3 % (0.0-0.4); Lymphocytes Absolute Auto 2.7 X10*3/uL (1.2-4.9); Lymphocytes Percent Auto 36.7 % (20-40); Mean Corpuscular HGB Conc 31.5 g/dl (31.0-35.0); Mean Corpuscular Hemoglobin 25.9 pg (27.0-33.0); Mean Corpuscular Volume 82.3 fL (80.0-98.0); Mean Platelet Volume 10.1 fL (9.4-12.3); Monocytes Absolute Auto 0.6 X10*3/uL (0.1-1.2); Monocytes Percent Auto 8.3 % (2-11); Neutrophils Absolute Auto 3.7 x10*3/uL (2.0-8.3); Neutrophils Percent Auto 50.7 % (45-73); Platelet Count 268 X10*3/uL (160-400); Red Blood Count 5.02 X10*6/uL (4.20-5.50); Red Cell Distribution Width 15.4 % (11.0-16.0); White Blood Count 7.3 X10*3/uL (4.8-10.8)
[2023-06-09 10:51] LABS: Alanine Aminotransferase 24 U/L (0-31); Albumin Level 4.1 g/dL (3.5-5.0); Alkaline Phosphatase 55 U/L (39-117); Anion Gap 12 (12-20); Aspartate Amino Transferase 19 U/L (5-31); Bilirubin Total 0.4 mg/dL (0.0-1.0); Blood Urea Nitrogen 16 mg/dL (9-16); C Reactive Protein 0.12 mg/dL (< or = 0.50); Calcium 9.1 mg/dL (8.4-10.2); Carbon Dioxide 23 mmol/L (22-29); Chloride 108 mmol/L (96-108); Cholesterol 165 mg/dL (<200); Estimated Glomerular Filt Rate > 60; Glucose Fasting 103 mg/dL (60-99); Glucose Random 103 mg/dL (60-115); HDL Cholesterol 45 mg/dL (>40); LDL Cholesterol Calculated 105 mg/dL (<100); Potassium 4.2 mmol/L (3.3-5.1); Sodium 139 mmol/L (135-145); Total Protein 7.9 g/dL (6.5-8.0); Triglycerides 75 mg/dL (<150)
[2023-06-09 10:57] LABS: Erythrocyte Sedimentation Rate 3 MM/HR (0-20)
[2023-06-09 11:48] LABS: Appearance Urine Cloudy; Color Urine Yellow; Glucose Urine UA Negative (Negative); Leukocyte Esterase Urine Moderate (2+) (Negative); Nitrite Urine Positive (Negative); PH 5.5 (5.0-9.0); Specific Gravity - Urine 1.025 (1.005-1.025); UMIC TRIGGER UACC YES; Urine Blood Large (3+) (Negative); Urine Ketones Negative (Negative); Urine Protein Trace mg/dL (Neg-Trace)
[2023-06-09 11:52] LABS: Bacteria Urine 4+ (None Seen); Hyaline Casts Urine 0-2 /LPF (0-2); RBC Urine >20 /HPF (0-2); UACC Culture Trigger YES; WBC Urine >50 /HPF (0-5)
[2023-06-09 12:07] LABS: Creatinine Urine 181.21 mg/dL; Microalbum/Creatinine Ratio Ur 33.1 ug/mg cr (<30)
== END 2023-06-09 08:35 | disposition home or self-care (01) ==
LOC: HO.LAB 08:34
PROVIDERS: Absent Provider Internal Medicine; PCP Internal Medicine; Visit Provider Student in an Organized Health Care Education/Training Program
DX: E11.9 Type 2 diabetes mellitus without complications (principal); D64.9 Anemia, unspecified; E78.5 Hyperlipidemia, unspecified; E55.9 Vitamin D deficiency, unspecified; M06.00 Rheumatoid arthritis without rheumatoid factor, unspecified site; R30.0 Dysuria
CPT/HCPCS: 36415; 80053; 80061; 81001; 82043; 82306; 82570; 85025; 85652; 86140; 87086; 87088; 87186

== ENCOUNTER 2023-06-12 13:39 | Outpatient (AMB) | payer OTHER, SELFPAY ==
--- NOTE | 2023-06-12 13:39 | A.OFFVIS_ITS ---
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 Irregular Bleeding Information Interpreted: clinical only Drying Machine Tender: Drying Machine Tender Present Allergies No Known Allergies Allergy (Verified 06/12/23 13:53) Medication List - Last Reconciled 06/12/23 by Imani Harris CNM acetaminophen (Tylenol Extra Strength) 500 mg PO BID PRN Actemra ACTPen (tocilizumab) 162 mg (0.9 mL) subcut QWEEK NS aspirin 81 mg PO DAILY 30 days atorvastatin 10 mg PO BEDTIME 90 days blood pressure monitor As directed blood sugar diagnostic (FreeStyle Lite Strips) Use 1 test strip once a day blood-glucose meter (FreeStyle Lite Meter kit) As directed cane As directed cholecalciferol (vitamin D3) 25 mcg PO DAILY 90 days [cock up splint wear on each wrist at night. ] diltiazem HCl 240 mg PO DAILY ferrous sulfate 325 mg PO DAILY fluticasone propionate 50 mcg/actuation (Flonase Allergy Relief) 1 spray intranasal DAILY 30 days folic acid 1 mg PO DAILY [grab bars As directed] hydrochlorothiazide 12.5 mg PO QAM 90 days hydrocortisone 1% (Anti-Itch (hydrocortisone)) 1 appl topical TID PRN 2 weeks lancets (FreeStyle Lancets) Use 1 lancet once a day losartan 100 mg PO DAILY 90 days meclizine 25 mg PO TID PRN 30 days nitrofurantoin macrocrystal 100 mg PO BID 7 days semaglutide (Ozempic) 0.125 mg (0.184 mL) subcut QWEEK 30 days Shower Chair As directed solifenacin (Vesicare) 5 mg PO DAILY 30 days Is last menstrual period known: Yes Last menstrual period: 06/10/23 Do you need a note to return to daycare/school/sports/work: No HPI 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 She also has had several referrals for Pap smears / annual exams. She tells me she has lots of health problems including diabetes high blood pressure and rheumatoid arthritis. She had a broken hip 15 years ago and has had pins placed in it and she cannot move her right hip because of that she has not had a pelvic exam since way before then she says her last pelvic exam and Pap smear was over 20 years ago when she had her youngest son and that was in [place]. She says that her periods have become heavier in the last year and last year she had 1 period where she did not have a period with 3 months and thought she was in menopause but then they started coming back sometimes to come at the beginning of the month and sometimes at the end of the month for the most part they come every month she gave me the dates of the last few menstrual periods they typically last 5-6 days in our heaviest on the and 3rd day she had periods as follows 02/03/2023, 03/01/2023, 04/02/2023, and then she skipped all of April and did not get a period until this past Sunday06/10/2023 and it is very heavy today and she does not want to have a pelvic exam because she is uncomfortable with having an exam with her. Additionally she does not actually think that she can have a pelvic exam because of her hip problems she has not been able to open her legs it is her right leg out to the side since she fell and broke it.. She states she never had an abnormal Pap smear in her years of having Pap smears before that. She also tells me she had her for her son because she could not open her legs at delivery either.. She said she has not been sexually active for about 4 years. She was accompanied to the office by her son who is her [employer] but who waited outside the room for the discussion of periods She says she recently started on a new medication per urology to help her with her urination which was very small amounts and it does seem to be helping her. She says she is on multiple medications for all her medical problems and including 8 different pills a day and 2 injections 1 of which chooses Ozempic which she says is helping her more than the metformin ever did and she is trying to get her diabetes under control. [facility] Medical History (Updated 06/12/23 @ 14:48 by Imani Harris CNM) Osteoarthritis of knees, bilateral LARRY (generalized anxiety disorder) Hypovitaminosis D Pure hypercholesterolemia Morbid obesity due to excess calories Iron deficiency anemia Anxiety Super obese Vertigo Morbid obesity Seronegative rheumatoid arthritis Thrombophlebitis Fibromyalgia MAXIMINO (obstructive sleep apnea) Hypertension Diabetes Surgical History (Updated 06/12/23 @ 14:41 by Imani Harris CNM) History of tubal ligation History of History of hip surgery Family History Father Prostate cancer Mother Uterine cancer Social History Housing: Apartment Alcohol intake: never Patient Tobacco Use Status: Never used Tobacco e-Cigarette/Vaping Use: Never Used Second Hand Smoke Exposure: No service: No Current occupational status: disabled 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 Assessment & Plan Assessment & Plan (1) Morbid obesity with BMI of 50.0-59.9, adult: Code(s): E66.01 - Morbid (severe) obesity due to excess calories; Z68.43 - Body mass index [BMI] 50.0-59.9, adult (2) Diabetes: Code(s): E11.9 - Type 2 diabetes mellitus without complications Qualifiers: Diabetes mellitus type: type 2 Diabetes mellitus termite control representative insulin use: without termite control representative use Diabetes mellitus complication status: without complication Qualified Code(s): E11.9 - Type 2 diabetes mellitus without complications (3) Screening for cervical cancer: Comment: Patient informs me she has not had a Pap for 20 years and does not think she will be able to open her legs for a pelvic exam. Discussed and will schedule annual exam and attempt Pap after pelvic ultrasound, will need large exam table Code(s): Z12.4 - Encounter for screening for malignant neoplasm of cervix (4) History of hip surgery: Code(s): Z98.890 - Other specified postprocedural states (5) History of irregular menstrual cycles: Code(s): Z87.42 - Personal history of other diseases of the female genital tract Plan Discussed her history so far as she shared as above. I recommend that she really does need to try an help with the exam as far as she is able and we will schedule a pelvic ultrasound to check the lining of her uterus just because of her missed menses in April and the previous missed menses last year. We will schedule a pelvic exam and annual exam after that and review all and attempt to do a Pap smear and pelvic exam it will need to be scheduled in her room that has flexibility and a large exam table. We will review all and take it from there after the attempt at the exam. I suggested she try in also work at home on trying to relax her muscles a little bit so she has improved mobility and baby able to tolerate a pelvic exam better than she fears. Feels she is doing very well on the Ozempic and that that is helping her to lose some weight finally. Orders: Orders US pelvic and transvaginal Today E11.9 - Type 2 diabetes mellitus without complications, E66.01 - Morbid (severe) obesity due to excess calories, Z12.4 - Encounter for screening for malignant neoplasm of cervix, Z68.43 - Body mass index [BMI] 50.0-59.9, adult, Z87.42 - Personal history of other diseases of the female genital tract, Z98.890 - Other specified postprocedural states Coding Level of Care Code New Pt Level 3 (07925) Diagnoses Morbid obesity with BMI of 50.0-59.9, adult E66.01; Z68.43 Type 2 diabetes mellitus without complication, without long-term current use of insulin E11.9 Diabetes mellitus type: type 2 Diabetes mellitus alf insulin use: without termite control representative use Diabetes mellitus complication status: without complication Screening for cervical cancer Z12.4 History of hip surgery Z98.890 History of irregular menstrual cycles Z87.42
[2023-06-12 13:50] VITALS: BP 136/78; BMI 53.9
== END 2023-06-12 14:33 | disposition home or self-care (01) ==
LOC: HO.HWSM 13:39
PROVIDERS: PCP Internal Medicine; Visit Provider Advanced Practice Midwife
DX: E66.01 Morbid (severe) obesity due to excess calories (principal); Z68.43 Body mass index [BMI] 50.0-59.9, adult; E11.9 Type 2 diabetes mellitus without complications; Z12.4 Encounter for screening for malignant neoplasm of cervix; Z98.890 Other specified postprocedural states; Z87.42 Personal history of other diseases of the female genital tract
CPT/HCPCS: 99203

== ENCOUNTER → 2023-06-12 13:39 | Outpatient (BNVA) | payer OTHER, SELFPAY | PROVIDERS: PCP Internal Medicine; Visit Provider Advanced Practice Midwife | DX: Z12.4 Encounter for screening for malignant neoplasm of cervix (principal); E11.9 Type 2 diabetes mellitus without complications; E66.01 Morbid (severe) obesity due to excess calories; Z98.890 Other specified postprocedural states; Z87.42 Personal history of other diseases of the female genital tract; Z68.43 Body mass index [BMI] 50.0-59.9, adult | CPT/HCPCS: 99202 ==

== ENCOUNTER 2023-06-14 13:48 | Outpatient (AMB) | payer OTHER, SELFPAY ==
--- NOTE | 2023-06-14 13:55 | A.OFFVIS_ITS ---
Intake Vital Signs 06/14/23 14:01 Height 5 ft 5 in Weight 319 lb 14.252 oz BMI 53.2 BP 128/72 Blood Pressure Location Rt radial Position Sitting Pulse 88 Pulse Source Pulse Oximeter Temp 97.4 F Temp Source Skin Pulse Oximetry (%) 96 Oxygen Delivery Method Room Air Intake Visit Reasons: RA Intake Note: Pt last seen 03/27/23 presents today for follow up and test results. 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 Drum Drier Operator Name: gerda [id number] Information Interpreted: clinical only Accompanied by: Significant Other Allergies No Known Allergies Allergy (Verified 06/14/23 13:55) Medication List - Last Reconciled 06/14/23 by Nivia Linn MD acetaminophen (Tylenol Extra Strength) 500 mg PO BID PRN Actemra ACTPen (tocilizumab) 162 mg (0.9 mL) subcut QWEEK NS aspirin 81 mg PO DAILY 30 days atorvastatin 10 mg PO BEDTIME 90 days blood pressure monitor As directed blood sugar diagnostic (FreeStyle Lite Strips) Use 1 test strip once a day blood-glucose meter (FreeStyle Lite Meter kit) As directed cane As directed cholecalciferol (vitamin D3) 25 mcg PO DAILY 90 days [cock up splint wear on each wrist at night. ] diltiazem HCl 240 mg PO DAILY ferrous sulfate 325 mg PO DAILY fluticasone propionate 50 mcg/actuation (Flonase Allergy Relief) 1 spray intranasal DAILY 30 days folic acid 1 mg PO DAILY [grab bars As directed] hydrochlorothiazide 12.5 mg PO QAM 90 days hydrocortisone 1% (Anti-Itch (hydrocortisone)) 1 appl topical TID PRN 2 weeks lancets (FreeStyle Lancets) Use 1 lancet once a day losartan 100 mg PO DAILY 90 days meclizine 25 mg PO TID PRN 30 days nitrofurantoin macrocrystal 100 mg PO BID 7 days semaglutide (Ozempic) 0.125 mg (0.184 mL) subcut QWEEK 30 days Shower Chair As directed solifenacin (Vesicare) 5 mg PO DAILY 30 days HPI HPI Comments History of Present Illness Details 48yoF presents for follow-up of seronega tive rheumatoid arthritis. On Actemra 162 mg every week Patient states that she was doing well overall until about 3 days ago when she started having severe left wrist pain radiating towards her left forearm, elbow all the way to her shoulder. She denies any trauma or overuse. She has not been sick recently. [facility] Medical History Osteoarthritis of knees, bilateral LARRY (generalized anxiety disorder) Hypovitaminosis D Pure hypercholesterolemia Morbid obesity due to excess calories Iron deficiency anemia Anxiety Super obese Vertigo Morbid obesity Seronegative rheumatoid arthritis Thrombophlebitis Fibromyalgia MAXIMINO (obstructive sleep apnea) Hypertension Diabetes Surgical History History of tubal ligation History of History of hip surgery Family History Father Prostate cancer Mother Uterine cancer Social History Housing: Apartment Alcohol intake: never Patient Tobacco Use Status: Never used Tobacco e-Cigarette/Vaping Use: Never Used Second Hand Smoke Exposure: No service: No Current occupational status: disabled 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 Cognitive needs: Yes Hearing needs: No Vision needs: No Female Reproductive History Menstrual Age of Menarche: 16 Review of Systems [facility] Reports arthralgias, Reports limited range of motion and Reports stiffness Physical Exam Vital Signs: Last Vital Signs Temp 97.4 F 06/14/23 14:01 Pulse 88 06/14/23 14:01 BP 128/72 06/14/23 14:01 Pulse Ox 96 06/14/23 14:01 Oxygen Delivery Method Room Air 06/14/23 14:01 BMI result Body Mass Index 53.2 Const General: cooperative, healthy appearing and comfortable Nutritional Appearance: obese morbidly obese Orientation/consciousness: patient oriented x3 Limitations: ambulation with cane HEENT Head: Yes normocephalic and Yes atraumatic Mouth: moist mucous membranes Resp Effort & Inspection: normal respiratory effort and able to speak in complete sentences Neuro General: patient oriented x3 Extrem Other: No active synovitis right upper extremity No swollen joints, much improved 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 COMPARISON: None.? TECHNIQUE: AP external rotation, Grashey, scapular Y, and axillary views of the left shoulder. FINDINGS: Bony alignment and mineralization are normal. The glenohumeral joint is intact and shows minimal osteoarthritic change. The acromioclavicular and coracoclavicular intervals are normal. There is cortical irregularity of the greater tuberosity of the proximal right humerus, and a distal acromial osteophyte is seen. No abnormal soft tissue calcification or foreign body is seen. There is no left pneumothorax.? XR/XR shoulder LT min 2V IMPRESSION: ? 1. No fracture or dislocation is seen. ? 2. There is minimal osteoarthritic change of the left glenohumeral joint. ? 3. Findings suggest possible left rotator cuff impingement; no andrea calcific tendinitis is noted. Date of Service: 08/29/22 Procedure(s): XR hand LT min 3V Accession Number(s): [id number] EXAMINATION: XR HAND, LEFT CLINICAL INFORMATION: Pain.? COMPARISON: Radiographs dated 01/29/2020.? TECHNIQUE: PA, lateral, and oblique views of the left hand. FINDINGS: The bones and soft tissues are normal. No fracture. Alignment is anatomic. Joint spaces are maintained. No erosions or soft tissue calcifications.? XR/XR hand LT min 3V IMPRESSION: Normal left hand. Date of Service: 01/30/22 Procedure(s): XR knee RT 3V Accession Number(s): [id number] EXAMINATION: BILATERAL KNEE X-RAY CLINICAL INFORMATION: Bilateral osteoarthritis? COMPARISON: Previous x-ray January 2020? TECHNIQUE: 3 views of each knee? FINDINGS: Right: There is valgus angulation. There is high position of the patella and lateral tilt of patella on the sunrise view. There is severe arthritis at the lateral femoral tibial and patellofemoral joints with joint space narrowing and osteophyte formation. There is no joint effusion. Left: There is high position of the patella. Bone alignment is otherwise normal. No fracture or dislocation is seen. There is arthritis at the medial femoral tibial and patellofemoral joints with joint space narrowing and osteophyte formation. There is no joint effusion. XR/XR knee RT 3V IMPRESSION: Bilateral arthritis not appreciably changed from 2020 exam.? Assessment & Plan Assessment & Plan (1) Seronegative rheumatoid arthritis: Comment: Seronegative dx 03/2019 in [place] MTX: 08/2019- 08/2021 dyspnea Prednisone Humira: September 2021- 12/2022 incomplete response Actemra 01/2023 partially effective advanced to weekly 03/2023 effective Code(s): M06.00 - Rheumatoid arthritis without rheumatoid factor, unspecified site Plan: This is a 48-year-old female with seronegative rheumatoid arthritis who presents for follow-up. On Actemra 162 mg weekly. Patient is doing much better overall with normalization of inflammatory markers however 3 days ago she started having a flare-up affecting her left wrist and the entire left upper extremity. Will start prednisone taper for relief Continue Actemra 162 mg weekly Labs before next visit in 3 months (2) Numbness and tingling in both hands: Code(s): R20.0 - Anesthesia of skin; R20.2 - Paresthesia of skin Plan: EMG/NCV show bilateral moderate to severe carpal tunnel syndrome. Continue wearing wrist splints. She has an appointment with hand surgeon soon Plan I spent 26 minutes reviewing patient's chart, evaluating patient, ordering diagnostic workup, counseling patient and documenting in the chart Orders: Orders Complete Blood Count Auto Diff 3 Months M06.00 - Rheumatoid arthritis without rheumatoid factor, unspecified site Comprehensive Met. Panel 3 Months M06.00 - Rheumatoid arthritis without rheumatoid factor, unspecified site C Reactive Protein 3 Months M06.00 - Rheumatoid arthritis without rheumatoid factor, unspecified site Erythrocyte Sedimentation Rate 3 Months M06.00 - Rheumatoid arthritis without rheumatoid factor, unspecified site Medications: New prednisone Take 3 tabs daily for 1 week then 2 tabs daily for 1 week then 1 tab daily for 1 week then stop 42 tabs 0RF Coding Level of Care Code Est Pt Level 4 (86413) Diagnoses Seronegative rheumatoid arthritis M06.00 Numbness and tingling in both hands R20.0; R20.2
[2023-06-14 14:01] VITALS: BP 128/72; PULSE 88; TEMP 36.3; O2SAT 96; BMI 53.2
== END 2023-06-14 14:35 | disposition home or self-care (01) ==
PROVIDERS: PCP Internal Medicine; Visit Provider Student in an Organized Health Care Education/Training Program
DX: M06.00 Rheumatoid arthritis without rheumatoid factor, unspecified site (principal); R20.0 Anesthesia of skin; R20.2 Paresthesia of skin
CPT/HCPCS: 99214

== ENCOUNTER → 2023-06-14 13:48 | Outpatient (BNVA) | payer OTHER, SELFPAY | PROVIDERS: PCP Internal Medicine; Visit Provider Student in an Organized Health Care Education/Training Program | DX: M06.00 Rheumatoid arthritis without rheumatoid factor, unspecified site (principal); R20.0 Anesthesia of skin; R20.2 Paresthesia of skin | CPT/HCPCS: 99212 ==

== ENCOUNTER 2023-06-20 13:56 | Outpatient (AMB) | payer OTHER, SELFPAY ==
--- NOTE | 2023-06-20 06:35 | MHC.OFFVIS ---
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 EMG done with Dr. Mathias showed bilateral moderate-severe median neuropathy at the wrist, consistent with carpal tunnel syndrome Allergies No Known Allergies Allergy (Verified 06/20/23 14:04) Medication List - Last Reconciled 06/20/23 by Perfecto Castaneda PA-C acetaminophen (Tylenol Extra Strength) 500 mg PO BID PRN Actemra ACTPen (tocilizumab) 162 mg (0.9 mL) subcut QWEEK NS aspirin 81 mg PO DAILY 30 days atorvastatin 10 mg PO BEDTIME 90 days blood pressure monitor As directed blood sugar diagnostic (FreeStyle Lite Strips) Use 1 test strip once a day blood-glucose meter (FreeStyle Lite Meter kit) As directed cane As directed cholecalciferol (vitamin D3) 25 mcg PO DAILY 90 days [cock up splint wear on each wrist at night. ] diltiazem HCl 240 mg PO DAILY ferrous sulfate 325 mg PO DAILY fluticasone propionate 50 mcg/actuation (Flonase Allergy Relief) 1 spray intranasal DAILY 30 days folic acid 1 mg PO DAILY [grab bars As directed] hydrochlorothiazide 12.5 mg PO QAM 90 days hydrocortisone 1% (Anti-Itch (hydrocortisone)) 1 appl topical TID PRN 2 weeks lancets (FreeStyle Lancets) Use 1 lancet once a day losartan 100 mg PO DAILY 90 days meclizine 25 mg PO TID PRN 30 days nitrofurantoin macrocrystal 100 mg PO BID 7 days prednisone Take 3 tabs daily for 1 week then 2 tabs daily for 1 week then 1 tab daily for 1 week then stop semaglutide (Ozempic) 0.125 mg (0.184 mL) subcut QWEEK 30 days Shower Chair As directed solifenacin (Vesicare) 5 mg PO DAILY 30 days HPI BLUE PRINTS TRIMMER- B/L CTS EMG Done HPI Details 48-year-old female who presents to the office today for evaluation of bilateral hand 7 months. She states she has pain, numbness and tingling in her bilateral wrist which is worse on her right hand. Her pain is aggravated at night. She also c/o frequently dropping objects and she has difficulty with grabbing items. She was seen by Dr. Mathias where an EMG study was performed. [facility] Medical History Osteoarthritis of knees, bilateral LARRY (generalized anxiety disorder) Hypovitaminosis D Pure hypercholesterolemia Morbid obesity due to excess calories Iron deficiency anemia Anxiety Super obese Vertigo Morbid obesity Seronegative rheumatoid arthritis Thrombophlebitis Fibromyalgia MAXIMINO (obstructive sleep apnea) Hypertension Diabetes Surgical History History of tubal ligation History of History of hip surgery Family History Father Prostate cancer Mother Uterine cancer Social History Housing: Apartment Alcohol intake: never Patient Tobacco Use Status: Never used Tobacco e-Cigarette/Vaping Use: Never Used Second Hand Smoke Exposure: No service: No Current occupational status: disabled 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 Cognitive needs: Yes Hearing needs: No Vision needs: No Female Reproductive History Menstrual Age of Menarche: 16 Review of Systems Const All systems reviewed & are unremarkable except as noted in HPI and below Physical Exam Vital Signs: BMI result Body Mass Index 53.1 Const General: cooperative, healthy appearing, comfortable, no acute distress, well developed and alert Orientation/consciousness: patient oriented x3 HEENT Head: Yes normal to inspection, Yes normocephalic and Yes atraumatic Eyes General: appearance normal, both eyes and all related structures Resp Effort & Inspection: normal respiratory effort and able to speak in complete sentences Cardio Rate: regular rate Peripheral pulses: Peripheral pulses 2+ throughout GI Palpation (GI): Soft to palpation Skin Lesions: no lesions Rashes: no rashes Neuro General: patient oriented x3 Extrem Other: Bilateral wrist: Normal to inspection. Tenderness over the carpal canal. Numbness and tingling over the median nerve distribution of the right hand. Able to make a full fist and fully extend all fingers. Positive Tinel's on the right . Results Reviewed Results Reviewed: EMG 04/12/23 IMPRESSION: 1. This is an abnormal study. 2. There is electrodiagnostic evidence for bilateral moderate-severe median neuropathy at the wrist, consistent with carpal tunnel syndrome. 3. There is no electrodiagnostic evidence for ulnar neuropathy, brachial plexopathy, or cervical radiculopathy. Assessment & Plan Assessment & Plan (1) Carpal tunnel syndrome, bilateral: Code(s): G56.03 - Carpal tunnel syndrome, bilateral upper limbs Plan She was fit a for bilateral Velcro wrist splint which she will wear at night. I did explain the extent of her EMG findings with her and the options available which include surgical intervention. She is going to discuss this with her family and contact the office if she would like to proceed with CTR with Dr. Vazquez. She would like to perform the surgery on the right hand before the left. Patient Instructions: Scribed for Perfecto Castaneda PA-C, by Nir Ulrich medical device assembler, on 06/20/2023 at 2:00 PM EST. I, Perfecto Castaneda PA-C, have personally reviewed and agree with the information entered by the scribe. Coding Level of Care Code Est Pt Level 3 (72118) Diagnoses Carpal tunnel syndrome, bilateral G56.03
[2023-06-20 14:02] VITALS: BMI 53.1
== END 2023-06-20 14:38 | disposition home or self-care (01) ==
PROVIDERS: PCP Internal Medicine; Visit Provider Physician Assistant
DX: G56.03 Carpal tunnel syndrome, bilateral upper limbs (principal)
CPT/HCPCS: 99213

== ENCOUNTER → 2023-06-20 13:56 | Outpatient (BNVA) | payer OTHER, SELFPAY | PROVIDERS: PCP Internal Medicine; Visit Provider Physician Assistant | DX: G56.03 Carpal tunnel syndrome, bilateral upper limbs (principal) | CPT/HCPCS: 99212 ==

== ENCOUNTER 2023-06-28 13:38 | Outpatient (AMB) | payer OTHER, SELFPAY ==
--- NOTE | 2023-06-28 13:49 | MHC.OFFVIS ---
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 Required: Yes Accompanied by: Son Allergies No Known Allergies Allergy (Verified 06/28/23 14:38) Medication List - Last Reconciled 06/28/23 by THEO Castro-ERNIE acetaminophen (Tylenol Extra Strength) 500 mg PO BID PRN Actemra ACTPen (tocilizumab) 162 mg (0.9 mL) subcut QWEEK NS aspirin 81 mg PO DAILY 30 days atorvastatin 10 mg PO BEDTIME 90 days blood pressure monitor As directed blood sugar diagnostic (FreeStyle Lite Strips) Use 1 test strip once a day blood-glucose meter (FreeStyle Lite Meter kit) As directed cane As directed cholecalciferol (vitamin D3) 25 mcg PO DAILY 90 days [cock up splint wear on each wrist at night. ] diltiazem HCl 240 mg PO DAILY ferrous sulfate 325 mg PO DAILY fluticasone propionate 50 mcg/actuation (Flonase Allergy Relief) 1 spray intranasal DAILY 30 days folic acid 1 mg PO DAILY [grab bars As directed] hydrochlorothiazide 12.5 mg PO QAM 90 days hydrocortisone 1% (Anti-Itch (hydrocortisone)) 1 appl topical TID PRN 2 weeks lancets (FreeStyle Lancets) Use 1 lancet once a day losartan 100 mg PO DAILY 90 days meclizine 25 mg PO TID PRN 30 days nitrofurantoin macrocrystal 100 mg PO BID 7 days prednisone Take 3 tabs daily for 1 week then 2 tabs daily for 1 week then 1 tab daily for 1 week then stop semaglutide (Ozempic) 0.125 mg (0.184 mL) subcut QWEEK 30 days Shower Chair As directed solifenacin (Vesicare) 5 mg PO DAILY 30 days HPI HPI Comments History of Present Illness Details Sol is a very pleasant 48-year-old Nigerien-speaking female patient of Dr. Madrid who was accompanied by her child at today's office visit. She has a past medical history of anxiety, diabetes, fibromyalgia, anxiety, hypertension, iron deficiency anemia, morbid obesity, obstructive sleep apnea, hypercholesteremia, rheumatoid arthritis and vertigo. She presents to the office today for a follow up of her lower urinary tract symptoms. Of note, patient was seen approximately 6 weeks ago at which time she was started on low-dose VESIcare 5 mg daily for mixed urinary incontinence she has been experiencing. In discussion with the patient today she reports having follow-up with her PCP for UTI like symptoms at which time she was noted to have a urinary tract infection and has since completed antibiotic therapy. In office urinalysis results today with 2+ leukocytes positive nitrates. When asked patient reports to have been compliant and completed antibiotic therapy as prescribed by PCP. Discussed further workup with microgen testing. When asked she does report noting dysuria and at times foul-smelling urine. She had previously trialed Myrbetriq however did not find this helpful as she had been experiencing abdominal pain when taking Myrbetriq. Previous workup has included a retroperitoneal ultrasound noting bilateral kidneys with no calculi, lesions, and or hydronephrosis noted. The bladder is well distended and normal. Bilateral ureteral jets are demonstrated. Pre void bladder room is approximately 280 mL. Postvoid bladder volume is approximately 20 mL. She does however continue to report urinary frequency and urgency with episodes of incontinence if not near a bathroom. PVR 0 mL. She otherwise denies nocturia, hematuria, foul smelling urine, changes to urinary stream, flank pain, fever, and or chills. She otherwise offers no other issues or concerns at this time. [facility] Medical History (Reviewed 06/28/23 @ 20:50 by Aundrea Ellison [facility]) Osteoarthritis of knees, bilateral LARRY (generalized anxiety disorder) Hypovitaminosis D Pure hypercholesterolemia Morbid obesity due to excess calories Iron deficiency anemia Anxiety Super obese Vertigo Morbid obesity Seronegative rheumatoid arthritis Thrombophlebitis Fibromyalgia MAXIMINO (obstructive sleep apnea) Hypertension Diabetes Surgical History History of tubal ligation History of History of hip surgery Family History Father Prostate cancer Mother Uterine cancer Social History Housing: Apartment Alcohol intake: never Patient Tobacco Use Status: Never used Tobacco e-Cigarette/Vaping Use: Never Used Second Hand Smoke Exposure: No service: No Current occupational status: disabled 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 Cognitive needs: Yes Hearing needs: No Vision needs: No Female Reproductive History Menstrual Age of Menarche: 16 Review of Systems Const Reports as per HPI Eyes Reports no additional complaints ENT Reports no additional complaints Card Reports as per HPI Resp Reports as per HPI GI Reports no additional complaints Reports as per HPI Musc Reports as per HPI Neuro Reports as per HPI Psych Reports as per HPI Endo Reports as per HPI Physical Exam Const General: cooperative, healthy appearing, comfortable, no acute distress, well developed, alert and awake Nutritional Appearance: obese Orientation/consciousness: patient oriented x3 Limitations: no limitations HEENT Head: Yes normal to inspection, Yes normocephalic and Yes atraumatic Ears: hearing grossly normal bilaterally Eyes General: appearance normal, both eyes and all related structures Neck Neck: Yes normal visual inspection and Yes trachea midline Chest Chest palpation & inspection: normal inspection of the chest Resp Effort & Inspection: normal respiratory effort and able to speak in complete sentences Cardio Rate: regular rate GI Inspection: Yes normal to inspection General: Yes no CVA tenderness Back/Spine/Pelvis Back: no CVA tenderness Skin General skin exam: no rashes or lesions noted Neuro General: patient oriented x3 Extrem General: Yes normal to inspection Psych Appearance: grossly normal and well kempt Mental Status: mental status grossly normal Speech and movement: Normal speech and movement present and Clear speech present Affect: normal affect Attitude: cooperative Thought process: Normal thought process present Thought content: Normal thought content present Insight: Fair insight present (Psych) Judgement: Fair judgement present (Psych) Office Procedures Post Void Residual Post Residual Void Post Void Residual (PVR): 0 [id number] Void Residual by ultrasound Results AMB Urinalysis, Automated UA Leukoctes 125 Mauro/uL Last Edit by Heaven Ware on 06/28/23 14:13 UA Nitrite Positive Last Edit by Entelosalbina Ware on 06/28/23 14:13 UA Urobilinogen 0.2 mg/dL Last Edit by Entelosalbina Ware on 06/28/23 14:13 UA Protein 0 mg/dL Last Edit by Entelosalbina Ware on 06/28/23 14:13 UA pH 6.0 Last Edit by [email or web address] Second Showcasealbina Ware on 06/28/23 14:13 UA Blood 25 Robert/uL Last Edit by [email or web address] Second Showcasealbina Ware on 06/28/23 14:13 UA Specific Sherwood 1.020 Last Edit by Heaven Ware on 06/28/23 14:13 UA Ketone Negative Last Edit by Heaven Ware on 06/28/23 14:13 UA Bilirubin 0 mg/dL Last Edit by Heaven Ware on 06/28/23 14:13 UA Glucose 0 mg/dL Last Edit by Heaven Ware on 06/28/23 14:13 Results Reviewed Results Reviewed: Laboratory Last Values Urine pH (Auto) 6.0 06/28/23 14:05 Specific Sherwood (Auto) 1.020 06/28/23 14:05 Urine Protein (Auto) 0 mg/dL 06/28/23 14:05 Glucose (UA)(Auto) 0 mg/dL 06/28/23 14:05 Urine Ketones (Auto) Negative 06/28/23 14:05 Urine Blood (Auto) 25 Robert/uL 06/28/23 14:05 Urine Nitrite (Auto) Positive 06/28/23 14:05 Urine Bilirubin (Auto) 0 mg/dL 06/28/23 14:05 Urine Urobilinogen (Auto) 0.2 mg/dL 06/28/23 14:05 Leukocyte Esterase (Auto) 125 Mauro/uL 06/28/23 14:05 Assessment & Plan Assessment & Plan (1) Urinary frequency: Code(s): R35.0 - Frequency of micturition (2) Mixed incontinence urge and stress: Code(s): N39.46 - Mixed incontinence (3) Dysuria: Code(s): R30.0 - Dysuria Plan In office urinalysis results reviewed with the patient today; as noted above; will send for microgen testing;will treat once results are received. PVR 0 mLs. Discussed at length potential causes for urinary frequency and mixed incontinence that the patient is experiencing. Discussed importance of managing diabetes and sleep apnea for improvement in lower urinary tract symptoms as well as overall health and well-being. Continue Vesicare 5mg daily as discussed and prescribed. Discussed pelvic floor therapy. Discussed bladder triggers/irritants. Discussed possible near future in office cystoscopy and or urodynamics for further assessment evaluation Discussed UTI prevention with D mannose supplement, vitamin-C, increasing fluid intake, behavioral therapy with timed voiding, perineal hygiene and postcoital voiding, and management of constipation with stool softeners and increased fiber intake. Follow-up in one month with PVR; or sooner with any issues, concerns, and or questions. Orders: Orders AMB Urinalysis Automated Today Z13.9 - Encounter for screening, unspecified AMB Post Void Residual by ultrasound Today N39.0 - Urinary tract infection, site not specified Patient Instructions: The patient had an opportunity to ask questions regarding the treatment plan. All questions were answered. Physical exam, labs, and imaging were discussed and reviewed in detail. As well as risks, benefits, and discussion of treatment choices. No major barriers to understanding were identified. The patient expressed understanding and agreement with the above treatment plan. The patient was made aware they should contact our office by phone for worsening of their current condition, the appearance of new symptoms, or with any questions or concerns. Compliance is encouraged with any medications and follow up testing that is ordered. It is a privilege to be allowed the opportunity to participate in? your urological care.? Again, if you have any questions or concerns If you have any questions or concerns please do not hesitate to contact me. The office is [phone]. This note is constructed using voice recognition software. While every effort has been made to ensure accuracy room designer errors may have been included. Yours sincerely, JAZMIN Castro Coding Level of Care Code Est Pt Level 4 (02830) Diagnoses Urinary frequency R35.0 Mixed incontinence urge and stress N39.46 Dysuria R30.0 CPT Codes Post Residual Void - PVR CPT Code: 84156-Opct Void Residual by ultrasound ([id number])
== END 2023-06-28 14:37 | disposition home or self-care (01) ==
PROVIDERS: PCP Internal Medicine; Visit Provider Nurse Practitioner Family
DX: R35.0 Frequency of micturition (principal); N39.46 Mixed incontinence; R30.0 Dysuria
CPT/HCPCS: 99214

== ENCOUNTER → 2023-06-28 13:38 | Outpatient (BNVA) | payer OTHER, SELFPAY | PROVIDERS: PCP Internal Medicine; Visit Provider Nurse Practitioner Family | DX: R35.0 Frequency of micturition (principal); N39.46 Mixed incontinence; R30.0 Dysuria | CPT/HCPCS: 51798; 81003; 99212 ==

== ENCOUNTER 2023-07-07 11:05 | Emergency (ER) | payer OTHER, SELFPAY ==
--- NOTE | ~2023-07-07 | XR_ITS ---
EXAMINATION: XR CHEST CLINICAL INFORMATION: Cough COMPARISON: None available. TECHNIQUE: 2 views of the chest were obtained. FINDINGS: Bilateral low lung volumes. Streaky opacities of the bilateral lung bases, left greater than right may reflect atelectasis versus evolving infectious/inflammatory etiology. No pneumothorax. Trachea is midline. Cardiac mediastinal silhouette is not enlarged. No large pleural effusion. Osseous structures are intact. Soft tissues are unremarkable. XR/XR chest 2V IMPRESSION: 1. Bilateral low lung volumes. 2. Streaky opacities of the bilateral lung bases, left greater than right may reflect atelectasis versus evolving infectious/inflammatory etiology.
[2023-07-07 11:36] VITALS: BP 150/67; PULSE 91; RESP 22; TEMP 36.8; O2SAT 94; BMI 53.9
--- NOTE | 2023-07-07 11:38 | ED.GENADULT ---
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 No fevers, chills, chest pain, shortness of breath, vomiting, diarrhea, abdominal pain, skin rash. and son have similar symptoms. Negative COVID test at home. Related Data Home Medications Medication Instructions Recorded Confirmed acetaminophen 500 mg tablet 500 mg PO BID PRN 09/14/21 06/20/23 (Tylenol Extra Strength) Previous Rx's Medication Instructions Recorded cane #1 ea 07/02/20 grab bars #1 ea 11/29/20 Shower Chair #1 ea 12/07/20 blood-glucose meter (FreeStyle #1 ea 12/08/21 Lite Meter kit) hydrocortisone 1 % topical cream 1 appl topical TID PRN skin 12/08/21 (Anti-Itch (hydrocortisone)) irritation 2 weeks #28.4 grams lancets 28 gauge (FreeStyle #100 ea 12/08/21 Lancets) cock up splint #2 ea 01/12/22 diltiazem HCl 240 mg 240 mg PO DAILY #90 caps 08/23/22 capsule,extended release 24 hr hydrochlorothiazide 12.5 mg tablet 12.5 mg PO QAM 90 days #90 tabs 09/13/22 blood sugar diagnostic (FreeStyle #100 ea 10/18/22 Lite Strips) semaglutide 0.25 mg or 0.5 mg (2 0.125 mg (0.184 mL) subcut QWEEK 11/24/22 mg/3 mL) subcutaneous pen injector 30 days #1 mL (Ozempic) folic acid 1 mg tablet 1 mg PO DAILY #90 tabs 01/26/23 atorvastatin 10 mg tablet 10 mg PO BEDTIME 90 days #90 tabs 02/19/23 blood pressure monitor #1 ea 02/19/23 meclizine 25 mg tablet 25 mg PO TID PRN dizziness 30 days 05/12/23 #90 tabs solifenacin 5 mg tablet (Vesicare) 5 mg PO DAILY 30 days #30 tabs 05/14/23 ferrous sulfate 325 mg (65 mg 325 mg PO DAILY #30 tabs 05/29/23 iron) tablet nitrofurantoin macrocrystal 100 mg 100 mg PO BID 7 days #14 caps 06/10/23 capsule prednisone 5 mg tablet See Rx Instructions PO .COMPLEX 06/14/23 #42 tabs Actemra ACTPen 162 mg/0.9 mL 162 mg (0.9 mL) subcut QWEEK #3.6 06/20/23 subcutaneous pen injector mL (tocilizumab) cholecalciferol (vitamin D3) 25 25 mcg PO DAILY 90 days #90 caps 06/26/23 mcg (1,000 unit) capsule fluticasone propionate 50 1 spray intranasal DAILY 30 days 06/26/23 mcg/actuation nasal #16 grams spray,suspension (Flonase Allergy Relief) losartan 100 mg tablet 100 mg PO DAILY 90 days #90 tabs 06/26/23 aspirin 81 mg tablet,delayed 81 mg PO DAILY 30 days #30 tabs 07/02/23 release sulfamethoxazole 800 1 tab PO BID 10 days #20 tabs 07/03/23 mg-trimethoprim 160 mg tablet (Bactrim DS) levofloxacin 750 mg tablet 750 mg PO DAILY 10 days #10 tabs 07/04/23 azithromycin 250 mg tablet See Rx Instructions PO .COMPLEX #6 07/07/23 tabs benzonatate 200 mg capsule 200 mg PO TID PRN cough #20 caps 07/07/23 Allergies Allergy/AdvReac Type Severity Reaction Status Date / Time No Known Allergies Allergy Verified 07/07/23 11:35 Review of Systems Review of Systems: Yes all other systems are reviewed and are negative Constitutional: Constitutional: Reports no additional constitutional complaints, Denies body ache(s), Denies chills, Denies fever(s), Denies headache(s) and Denies weakness Eyes: Eyes: Reports no additional eye complaints and Denies change in vision ENT: Reports system reviewed and no additional complaints, except as documented, Denies dizziness, Reports otalgia, Denies headache(s), Denies nasal congestion, Denies nasal discharge, Denies neck pain and Reports sinus pressure Cardiovascular: Cardiovascular: Reports no additional cardiovascular complaints, Denies chest pain, Denies leg edema and Denies dyspnea Respiratory: Respiratory: Reports no additional respiratory complaints, Reports cough and Denies dyspnea Gastrointestinal: Gastrointestinal: Reports no additional gastrointestinal complaints, Denies abdominal pain, Denies diarrhea, Denies nausea and Denies vomiting Genitourinary: Genitourinary: Reports no additional female genitourinary complaints and Denies urinary incontinence Musculoskeletal: Musculoskeletal: Reports no additional musculoskeletal complaints, Denies back pain, Denies arthralgias, Denies joint swelling, Denies neck pain, Denies numbness and Denies tingling Integumentary/Breasts: Skin/Breast: Reports system reviewed and no additional complaints, except as docu and Denies rash Neurologic: Reports system reviewed and no additional complaints, except as documented, Denies Abnormal speech present, Denies dizziness, Denies headache(s), Denies numbness, Denies tingling and Denies weakness PMFSH Past Medical History Attestation statement: The following information was validated with the patient. Source: old records reviewed and nursing notes reviewed Onset Date is defined in the Problem List Problems that require an onset date and time if occurred within 24 hrs of arrival to the ED Aortic Dissection and Rupture; Neurologic impairment; Cardiopulmonary Arrest; Endotracheal Intubation; Insertion or Replacement of Mechanical Circulatory Assist Device Medical History Osteoarthritis of knees, bilateral LARRY (generalized anxiety disorder) Hypovitaminosis D Pure hypercholesterolemia Morbid obesity due to excess calories Iron deficiency anemia Anxiety Super obese Vertigo Morbid obesity Seronegative rheumatoid arthritis Thrombophlebitis Fibromyalgia MAXIMINO (obstructive sleep apnea) Hypertension Diabetes Surgical History History of tubal ligation History of History of hip surgery Family History Family History Father Prostate cancer Mother Uterine cancer Social History Social History Housing: Apartment Alcohol intake: never Patient Tobacco Use Status: Never used Tobacco e-Cigarette/Vaping Use: Never Used Second Hand Smoke Exposure: No Advance Directives: No Advance Directives Information Provided: No service: No Current occupational status: disabled 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 Cognitive needs: Yes Hearing needs: No Vision needs: No Physical Exam ED Vital Signs: Vital Signs - 24 hr 07/07/23 11:36 Temperature 98.2 F Pulse Rate 91 Respiratory Rate 22 H Blood Pressure 150/67 H Pulse Oximetry 94 Oxygen Delivery Method Room Air BMI result Body Mass Index 53.9 Const General: cooperative, healthy appearing, comfortable and no acute distress Orientation/consciousness: patient oriented x3 Limitations: no limitations HENMT Head: Yes normal to inspection Ears: hearing grossly normal bilaterally and TM's normal bilaterally General nose exam: Normal external nose present Face and sinus: Yes normal facial exam Mouth: Normal oral and palatal mucosa present Throat: Yes posterior oropharynx normal, Yes tonsils normal and Yes uvula midline Eyes General: appearance normal, both eyes and all related structures Pupils: Equal, round and reactive pupils present Neck Neck: Yes normal visual inspection, Yes full ROM, Yes no lymphadenopathy and Yes no meningeal signs Chest Chest palpation & inspection: normal inspection of the chest Resp Effort & Inspection: normal respiratory effort Auscultation: clear to auscultation bilaterally Cardio Rate: regular rate Rhythm: regular rhythm Peripheral pulses: Peripheral pulses 2+ throughout GI Inspection: Yes normal to inspection Palpation (GI): Soft to palpation and nontender Auscultation: normal bowel sounds Back/Spine/Pelvis Thoracic/Lumbar Spine: thoracic and lumbar spine normal to inspection Skin General skin exam: no rashes or lesions noted Neuro General: patient oriented x3, no meningeal signs, no focal motor deficits and normal sensation to monofilament Cranial nerves: Yes Equal, round and reactive pupils present Cognition (Neuro): normal cognition Speech: No Abnormal speech present Gait exam (Neuro): Normal gait present Motor exam (neuro): 5/5 motor strength present throughout Extrem General: Yes normal to inspection, Yes no pedal edema and Yes no calf tenderness Course Course Course Narrative: This is an RME: Additional HPI, ROS, PE not included below will be deferred to primary provider. This is a 48-year-old female, with a hx of HLD, diabetes, MAXIMINO, HTN, cardiac arrythmia, presenting to the ER with complaints of body aches, sore throat, BNL ear pain, cough, chest pain which only occurs with cough. Also diagnosed with UTI yesterday, did not start ABX. Plan: Viral swabs, CXR Reevaluation(s) Reevaluation #1: COVID screen is positive. Chest x-ray shows potentially evolving pneumonia. Patient is not hypoxic. We did ambulate her around the department with oxygen saturations greater than 95%. I will initiate her on oral antibiotic and prescribe a cough suppressant. Reviewed worrisome signs and symptoms of when to return to the emergency room. Comfortable plan for discharge home. Medical Decision Making Medical Decision Making [facility] Narrative: 48 yo female with history of HTN, DM, asthma here with complaints of sore throat, bilateral ear pain, cough with white sputum and chest tightness since yesterday. No fevers, chills, chest pain, shortness of breath, vomiting, diarrhea, abdominal pain, skin rash. and son have similar symptoms. Negative COVID test at home. Exam benign. LS CTA. VSS Will send viral testing, obtain CXR Differential Diagnosis Differential Diagnoses: The differential diagnosis associated with the presentation includes viral syndrome, influenza low concern for PNA/PE Admission/Observation Consideration of admission/observation: Escalation of care including admission/observation considered Covid +. no hypoxia or tachypnea to suggest need for supplemental oxygen and or admission Lab Data [facility] Lab Attestation statement: I reviewed the patient's lab results. Labs: Lab Results 07/07/23 Range/Units 12:10 COVID-19 (MAE) Positive A (Negative) COVID-19 Clin Com See Note Influenza Type A (EMILE) Negative (Negative) Influenza Type B (EMILE) Negative (Negative) Influenza A & B Note See Note S. pyogenes GrpA EMILE Negative (Negative) Independent Interpretation I performed an independent interpretation of an: Plain X-Ray Interpretation: I independently reviewed the x-ray and agree with the rad report Radiology Impression Discussion of test interpretation with radiology: I have reviewed the radiologist's reading. Radiologist Impression: [address] [address] XRay Report Signed Patient: Sol Brown MR#: [id number] : 1975 Acct:[id number] Age/Sex: 48 / F ADM Date: 07/07/23 Loc: HO.ED Attending Dr: Ordering Physician: Marylou South Date of Service: 07/07/23 Procedure(s): XR chest 2V Accession Number(s): [id number] cc: Marylou South; Ryann Guzmán MD~ EXAMINATION: XR CHEST CLINICAL INFORMATION: Cough COMPARISON: None available. TECHNIQUE: 2 views of the chest were obtained. FINDINGS: Bilateral low lung volumes. Streaky opacities of the bilateral lung bases, left greater than right may reflect atelectasis versus evolving infectious/inflammatory etiology. No pneumothorax. Trachea is midline. Cardiac mediastinal silhouette is not enlarged. No large pleural effusion. Osseous structures are intact. Soft tissues are unremarkable. XR/XR chest 2V IMPRESSION: 1. Bilateral low lung volumes. 2. Streaky opacities of the bilateral lung bases, left greater than right may reflect atelectasis versus evolving infectious/inflammatory etiology. Independent Historian Clinical information obtained from an independent historian. History obtained from or confirmed by: Spouse Prescription Management I considered prescription management with: Antiviral and Antibiotic +med interactions with paxlovid-discussed this with potential side effects and patient and decided to hold Discharge Plan Discharge Clinical Impression: COVID-19 Patient Disposition: Home, Self-Care Instructions: COVID-19 (Coronavirus Disease 2019) (ED) Additional Instructions: Testing for flu is negative. Alternate motrin and tylenol for pain or fever. Increase fluids, rest. Return for worsening symptoms. Chest x-ray shows an early pneumonia so we are starting you on an antibiotic. Quarantine for 5 days then mask up for an additional 5 days. Las pruebas de gripe son negativas. Alterne motrin y tylenol para el dolor o la fiebre. Aumentar l?quidos, descansar. Regrese si los s?ntomas empeoran. La radiograf?a de t?rax muestra robbin neumon?a temprana, por lo que comenzaremos con un antibi?stas. Ponga en cuarentena brent 5 d?as y luego use mascarilla brent 5 d?as m?s. Prescriptions: New azithromycin 250 mg tablet See Rx Instructions .ROUTE .COMPLEX Qty: 6 0RF Rx Instructions: For 250 mg dose pack: take 500 mg today (day 1), then 250 mg for 4 days (days 2-5) benzonatate 200 mg capsule 200 mg PO TID PRN (Reason: cough) Qty: 20 0RF No Action (DME) grab bars See Rx Instructions .Route .MEDSUPPLY Qty: 1 0RF Rx Instructions: As directed (DME) Shower Chair Misc See Rx Instructions .ROUTE .MEDSUPPLY Qty: 1 0RF Rx Instructions: As directed diltiazem HCl 240 mg capsule,extended release 24hr 240 mg PO DAILY Qty: 90 1RF hydrochlorothiazide 12.5 mg tablet 12.5 mg PO QAM 90 Days Qty: 90 3RF (DME) FreeStyle Lite Strips Strip See Rx Instructions .Route Qty: 100 3RF Rx Instructions: Use 1 test strip once a day Ozempic 0.25 mg or 0.5 mg (2 mg/3 mL) pen injector 0.125 mg subcut QWEEK 30 Days Qty: 1 6RF folic acid 1 mg tablet 1 mg PO DAILY Qty: 90 1RF atorvastatin 10 mg tablet 10 mg PO BEDTIME 90 Days Qty: 90 1RF (DME) blood pressure monitor Kit See Rx Instructions .Route Qty: 1 0RF Rx Instructions: As directed meclizine 25 mg tablet 25 mg PO TID PRN (Reason: dizziness) 30 Days Qty: 90 1RF ferrous sulfate 325 mg (65 mg iron) tablet 325 mg PO DAILY Qty: 30 3RF nitrofurantoin macrocrystal 100 mg capsule 100 mg PO BID 7 Days Qty: 14 0RF Rx Instructions: must administer with a meal/food Actemra ACTPen 162 mg/0.9 mL pen injector 162 mg subcut QWEEK Qty: 3.6 2RF cholecalciferol (vitamin D3) 25 mcg (1,000 unit) capsule 25 mcg PO DAILY 90 Days Qty: 90 1RF losartan 100 mg tablet 100 mg PO DAILY 90 Days Qty: 90 3RF fluticasone propionate [Flonase Allergy Relief] 50 mcg/actuation spray,suspension 1 spray intranasal DAILY 30 Days Qty: 16 3RF Rx Instructions: administer into each nostril aspirin 81 mg tablet,delayed release (DR/EC) 81 mg PO DAILY 30 Days Qty: 30 11RF sulfamethoxazole-trimethoprim [Bactrim DS] 800-160 mg tablet 1 tab PO BID 10 Days Qty: 20 0RF levofloxacin 750 mg tablet 750 mg PO DAILY 10 Days Qty: 10 0RF (DME) blood-glucose meter [FreeStyle Lite Meter] Kit See Rx Instructions .Route Qty: 1 0RF Rx Instructions: As directed (DME) lancets [FreeStyle Lancets] 28 gauge misc See Rx Instructions .Route Qty: 100 3RF Rx Instructions: Use 1 lancet once a day hydrocortisone [Anti-Itch (HC)] 1 % cream 1 appl topical TID PRN (Reason: skin irritation) 14 Days Qty: 28.4 1RF (DME) cane Device See Rx Instructions .ROUTE .MEDSUPPLY Qty: 1 0RF Rx Instructions: As directed acetaminophen [Tylenol Extra Strength] 500 mg tablet 500 mg PO BID PRN (DME) cock up splint See Rx Instructions .Route .MEDSUPPLY Qty: 2 0RF Rx Instructions: wear on each wrist at night. prednisone 5 mg tablet See Rx Instructions PO .COMPLEX Qty: 42 0RF Rx Instructions: Take 3 tabs daily for 1 week then 2 tabs daily for 1 week then 1 tab daily for 1 week then stop solifenacin [Vesicare] 5 mg tablet 5 mg PO DAILY 30 Days Qty: 30 2RF Referrals: Ryann Guzmán MD [Primary Care Provider] - 1 week Print Language: German
[2023-07-07 12:25] LABS: COVID-19 Test Positive (Negative); IDNOW Serial# 152EDE1D
[2023-07-07 12:27] LABS: IDNOW Serial# 08D9AD1C; Strep A Nucleic Acid Negative (Negative)
[2023-07-07 12:36] LABS: IDNOW Serial# 9DB6401D; Influenza A Negative (Negative); Influenza B2 Negative (Negative)
--- NOTE | 2023-07-07 13:09 | PC.NURSE ---
this nurse ambulated pt through department pt SpO2 95-98% [employer] Pascucci aware.
== END 2023-07-07 14:01 | disposition home or self-care (01) ==
PROVIDERS: Physician Assistant Medical; Emergency Provider Emergency Medicine; PCP Internal Medicine
DX: U07.1 COVID-19 (principal); J02.9 Acute pharyngitis, unspecified
CPT/HCPCS: 71046; 87502; 87635; 87651; 99283

== ENCOUNTER 2023-07-16 15:04 | Outpatient (AMB) | payer OTHER, SELFPAY ==
[2023-07-16 15:12] VITALS: BP 120/72; BMI 52.7
--- NOTE | 2023-07-16 15:12 | MHC.PC.OV ---
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 Required: No Accompanied by: Son Allergies No Known Allergies Allergy (Verified 07/16/23 15:39) Medication List - Last Reconciled 07/16/23 by Ryann Angel MD acetaminophen (Tylenol Extra Strength) 500 mg PO BID PRN Actemra ACTPen (tocilizumab) 162 mg (0.9 mL) subcut QWEEK NS aspirin 81 mg PO DAILY 30 days atorvastatin 10 mg PO BEDTIME 90 days blood pressure monitor As directed blood sugar diagnostic (FreeStyle Lite Strips) Use 1 test strip once a day blood-glucose meter (FreeStyle Lite Meter kit) As directed cane As directed cholecalciferol (vitamin D3) 25 mcg PO DAILY 90 days [cock up splint wear on each wrist at night. ] diltiazem HCl 240 mg PO DAILY ferrous sulfate 325 mg PO DAILY fluticasone propionate 50 mcg/actuation (Flonase Allergy Relief) 1 spray intranasal DAILY 30 days folic acid 1 mg PO DAILY [grab bars As directed] hydrochlorothiazide 12.5 mg PO QAM 90 days hydrocortisone 1% (Anti-Itch (hydrocortisone)) 1 appl topical TID PRN 2 weeks lancets (FreeStyle Lancets) Use 1 lancet once a day levofloxacin 750 mg PO DAILY 10 days losartan 100 mg PO DAILY 90 days meclizine 25 mg PO TID PRN 30 days semaglutide (Ozempic) 0.125 mg (0.184 mL) subcut QWEEK 30 days Shower Chair As directed solifenacin (Vesicare) 5 mg PO DAILY 30 days sulfamethoxazole-trimethoprim 800-160 mg (Bactrim DS) 1 tab PO BID 10 days Tobacco use date assessed: 07/16/23 Dental Screening Dental Screen Date: 07/16/23 Did you have a dental visit in the last 12 months?: Yes Did you have a dental problem in the last 6 months where you did not have access to dental care?: No Was dental information given to patient?: Patient has dentist HPI HPI Comments History of Present Illness Details This is a 48-year-old female with diabetes mellitus type 2, hypertension, hyperlipidemia, morbid obesity with BMI of 52.8 and rheumatoid arthritis comes today for follow-up on her conditions. A1c within goal. Blood pressure stable. LDL not on goal and I will increase statin. She is morbidly obese with a BMI of 52.8 and has lost weight with Ozempic. Rheumatoid arthritis is follow by Rheumatology and has been stable with medications. No chest pain or shortness of breath. [facility] Medical History (Updated 07/16/23 @ 16:36 by Ryann Angel MD) SVT (supraventricular tachycardia) Osteoarthritis of knees, bilateral LARRY (generalized anxiety disorder) Hypovitaminosis D Pure hypercholesterolemia Morbid obesity due to excess calories Iron deficiency anemia Anxiety Super obese Vertigo Morbid obesity Seronegative rheumatoid arthritis Thrombophlebitis Fibromyalgia MAXIMINO (obstructive sleep apnea) Hypertension Diabetes Surgical History History of tubal ligation History of History of hip surgery Family History Father Prostate cancer Mother Uterine cancer Social History Housing: Apartment Alcohol intake: never Patient Tobacco Use Status: Never used Tobacco e-Cigarette/Vaping Use: Never Used Second Hand Smoke Exposure: No service: No Current occupational status: disabled 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 1. Little interest or pleasure in doing things: nearly every day 2. Feeling down, depressed, or hopeless: several days 3. Trouble falling or staying asleep, or sleeping too much: nearly every day 4. Feeling tired or having little energy: more than half the days 5. Poor appetite or overeating: several days 6. Feeling bad about yourself - or that you are a failure or have let yourself or your family down: several days 7. Trouble concentrating on things, such as reading the newspaper or watching television: several days 8. Moving or speaking so slowly that other people could have noticed. Or the opposite - being so fidgety or restless that you have been moving around a lot more than usual: more than half the days 9. Thoughts that you would be better off or of hurting yourself in some way: not at all Total score: 14 Depression Screening Interpretation: Positive (no suicidal thoughts) Depression Screening Follow-up: Existing condition and In treatment Depression Screening Done: Yes 07719 - PHQ-9 Billing: Yes Source: Developed by Drs. Stephen French, Nai Suarez, Jayson Barajas and colleagues, with an educational tiera from [employer]. Thrive Questionnaire Date Thrive assessed: 07/16/23 I am a: Patient What is your living situation today?: I have a steady place to live Within the past 12 months, did the food you bought not last and you didn't have the money to get more?: Never true Within the past 12 months, did you worry whether your food would run out before you got money to buy more?: Never true Do you have trouble paying for medicines?: No Do you have trouble getting transportation to medical appointments?: No Do you have trouble paying your heating and electricity bill?: No Do you have trouble taking care of your child, family member or friend?: No Do you have trouble with day-to-day activities such as bathing, preparing meals, shopping, managing finances, etc.?: No Are you currently unemployed and looking for a job?: No Are you interested in more education?: No Please select the resources that you would like help with: None Currently or been in a relationship where the following occur: no concerns reported THRIVE Score: 0 AUDIT C Alcohol Use Questionnaire (AUDIT-C) 1. How often do you have a drink containing alcohol?: Never Total Score: 0 LARRY-7 AMB Questionnaire LARRY-7 Date LARRY - 7 assessed: 07/16/23 Feeling nervous, anxious, or on edge: 3 = Nearly every day Not being able to stop or control worryin = Several days Worrying too much about different things: 2 = More than half the days Trouble relaxin = Nearly every day Being so restless that it is hard to sit still: 2 = More than half the days Becoming easily annoyed or irritable: 2 = More than half the days Feeling afraid as if something awful might happen: 2 = More than half the days Total LARRY-7 score (0-4 normal; 5-9 mild; 10-14 moderate; 15-21 severe): 15 Source: Developed by Drs. Stephen French, Nai Suarez, Jayson Barajas and colleagues, with an educational tiera from [employer]. LARRY-7 Assessment Billing LARRY-7 Assessment Tool: LARRY-7 Assessment 22423 Review of Systems Const All systems reviewed & are unremarkable except as noted in HPI and below Eyes Reports no additional complaints, Denies change in vision and Denies other visual disturbances Card Denies chest pain at rest, Denies chest pain with activity, Denies edema, Denies irregular heart rhythm, Denies claudication, Denies dyspnea, Denies dyspnea on exertion, Denies orthopnea, Denies paroxysmal nocturnal dyspnea and Denies slow heart rate Resp Denies cough, Denies dyspnea and Denies dyspnea on exertion GI Denies abdominal pain, Denies change in bowel habits, Denies excessive flatus, Denies nausea and Denies vomiting Denies urinary incontinence, Denies urinary hesitancy and Denies urinary urgency Musc Denies abnormal gait, Denies atrophy, Denies deformity and Denies limited range of motion Skin/Breast Denies bleeding lesions, Denies changing lesions and Denies rash Neuro Denies abnormal gait, Denies behavioral changes and Denies lack of coordination Psych Denies behavioral changes Physical exam (Primary Care) Vital Signs: Last Vital Signs BP 120/72 07/16/23 15:12 BMI result Body Mass Index 52.7 Tobacco/Smoking Status: Tobacco use Status Tobacco use date assessed 07/16/23 07/16/23 15:23 Patient Tobacco Use Status Never used Tobacco 07/16/23 15:23 e-Cigarette/Vaping Use Never Used 07/16/23 15:23 PHQ-9: PHQ-9 Score PHQ-9: Total score 14 07/16/23 15:56 Depression Screening Interpretation: Positive (no suicidal thoughts) Depression Screening Follow-up: Existing condition and In treatment Thrive Assessment: Date of Thrive Assessment Date Thrive assessed 07/16/23 07/16/23 15:23 Currently or been in a relationship where the following occur: no concerns reported Eyes General: appearance normal, both eyes and all related structures Eyelids: Yes eyelids normal Conjunctivae: conjunctivae normal Neck Neck: Yes normal visual inspection and Yes supple Resp Effort & Inspection: normal respiratory effort Auscultation: clear to auscultation bilaterally Cardio Jugular venous distension: no JVD Rate: regular rate Rhythm: regular rhythm Heart sounds: S1 normal heart sound present and S2 normal heart sound present Extrem General: Yes full ROM Office Procedures Flu Questionnaire Does the patient have a severe egg allergy?: No Results AMB Hemoglobin A1c AMB Hemoglobin A1c 6.3 % Last Edit by HEATH Evans on 07/16/23 15:25 Immunizations flu vacc [id number] 6mos up(PF) 60 mcg(15 mcgx4)/0.5 mL IM syringe Performing Provider: Ryann Angel MD [facility] Documented (not given) by: HEATH Evans on 07/16/23 15:24 Reason Not Given: Patient Refused Results Reviewed Results Reviewed: Laboratory Last Values Hgb A1c (Clinic) 6.3 % (4.0-6.0) H 07/16/23 15:23 Assessment and Plan Assessment & Plan (1) Pneumonia: Code(s): J18.9 - Pneumonia, unspecified organism (2) Seronegative rheumatoid arthritis: Comment: Seronegative dx 03/2019 in [place]: 08/2019- 08/2021 dyspnea Prednisone Humira: September 2021- 12/2022 incomplete response Actemra 01/2023 partially effective advanced to weekly 03/2023 effective Code(s): M06.00 - Rheumatoid arthritis without rheumatoid factor, unspecified site Plan: Continue Actemra. Follow-up with rheumatology. 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 A1c goal is equal or less than 7%. (4) Hypertension: Code(s): I10 - Essential (primary) hypertension Qualifiers: Hypertension type: essential hypertension Qualified Code(s): I10 - Essential (primary) hypertension Plan: Continue hydrochlorothiazide and losartan. Blood pressure goal is equal or less than 130/80. (5) Morbid obesity with BMI of 50.0-59.9, adult: Code(s): E66.01 - Morbid (severe) obesity due to excess calories; Z68.43 - Body mass index [BMI] 50.0-59.9, adult Plan: Advised to diet and exercise. BMI goal is less than 30. (6) Hyperlipidemia LDL goal <70: Code(s): E78.5 - Hyperlipidemia, unspecified Plan: Increase statins. LDL goal is less than 70. Orders: Orders AMB Hemoglobin A1c Today E11.9 - Type 2 diabetes mellitus without complications Influenza [id number] Immunization Today Z23 - Encounter for immunization XR chest 2V Today J18.9 - Pneumonia, unspecified organism Referrals Ophthalmology Referral E11.9 - Type 2 diabetes mellitus without complications Medications: New atorvastatin 20 mg PO BEDTIME 90 days 90 tabs 1RF Discontinued atorvastatin Discontinued Reason: Patient Completed Course 10 mg PO BEDTIME 90 days 90 tabs 1RF E78.5 - Hyperlipidemia, unspecified cholecalciferol (vitamin D3) Discontinued Reason: Patient Completed Course 25 mcg PO DAILY 90 days 90 caps 1RF Coding Level of Care Code Est Pt Level 4 (40366) Diagnoses Pneumonia J18.9 Seronegative rheumatoid arthritis M06.00 Type 2 diabetes mellitus without complication, without long-term current use of insulin E11.9 Diabetes mellitus type: type 2 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
== END 2023-07-16 15:51 | disposition home or self-care (01) ==
PROVIDERS: PCP Internal Medicine; Visit Provider Internal Medicine
DX: E11.9 Type 2 diabetes mellitus without complications (principal); M06.00 Rheumatoid arthritis without rheumatoid factor, unspecified site; E66.01 Morbid (severe) obesity due to excess calories; Z68.43 Body mass index [BMI] 50.0-59.9, adult; E78.5 Hyperlipidemia, unspecified; Z23 Encounter for immunization
CPT/HCPCS: 83036; 99214

== ENCOUNTER 2023-08-01 13:38 | Outpatient (AMB) | payer OTHER, SELFPAY ==
--- NOTE | 2023-08-01 13:44 | A.OFFVIS_ITS ---
Intake Intake Visit Reasons: 1m/PVR Intake Note: Patient presents for follow up Dysuria, Frequency, Incontinence Urology Medications: Vesicare Blood Thinner: Aspirin PVR: 0ml's Sandwich Machine Operator Required: Yes Sandwich Machine Operator Name: RUPALI GALVANGAYATRIJunito Accompanied by: Son Allergies No Known Allergies Allergy (Verified 08/01/23 14:15) Medication List - Last Reconciled 08/01/23 by THEO Castro-ERNIE acetaminophen (Tylenol Extra Strength) 500 mg PO BID PRN Actemra ACTPen (tocilizumab) 162 mg (0.9 mL) subcut QWEEK NS aspirin 81 mg PO DAILY 30 days atorvastatin 20 mg PO BEDTIME 90 days blood pressure monitor As directed blood sugar diagnostic (FreeStyle Lite Strips) Use 1 test strip once a day blood-glucose meter (FreeStyle Lite Meter kit) As directed cane As directed [cock up splint wear on each wrist at night. ] diltiazem HCl 240 mg PO DAILY ferrous sulfate 325 mg PO DAILY fluticasone propionate 50 mcg/actuation (Flonase Allergy Relief) 1 spray intranasal DAILY 30 days folic acid 1 mg PO DAILY [grab bars As directed] hydrochlorothiazide 12.5 mg PO QAM 90 days hydrocortisone 1% (Anti-Itch (hydrocortisone)) 1 appl topical TID PRN 2 weeks lancets (FreeStyle Lancets) Use 1 lancet once a day losartan 100 mg PO DAILY 90 days meclizine 25 mg PO TID PRN 30 days semaglutide (Ozempic) 0.125 mg (0.184 mL) subcut QWEEK 30 days Shower Chair As directed solifenacin (Vesicare) 5 mg PO DAILY 30 days HPI HPI Comments History of Present Illness Details Sol is a very pleasant 48-year-old Portuguese-speaking female patient of Dr. Madrid who was accompanied by her child at today's office visit. She has a past medical history of anxiety, diabetes, fibromyalgia, anxiety, hypertension, iron deficiency anemia, morbid obesity, obstructive sleep apnea, hypercholesteremia, rheumatoid arthritis and vertigo. She presents to the office today for a follow up of her lower urinary tract symptoms and recent urinary tract infection. Of note, patient was seen approximately 1 month ago at which time she has since completed treatment for a urinary tract infection noted on microgen. In discussion with the patient today she reports significant improvement in lower urinary tract symptoms. She reports feeling VESIcare has been helpful however has been experiencing dry mouth. She discusses recently having COVID. Discussed trial of different medication given patient is reporting dry mouth. However, she does not feel dry mouth is bothersome and would like to continue with VESIcare. Discussed common side effects of urological medications. She discusses her upcoming trip to [place] and following up with orthopedics in September for upcoming carpal tunnel surgery. In office urinalysis results reviewed with the patient today. PVR 0 mL. When asked she denies any bothersome urinary issues or concerns. She denies any UTI like symptoms. Previous workup has included a retroperitoneal ultrasound noting bilateral kidneys with no calculi, lesions, and or hydronephrosis noted. The bladder is well distended and normal. Bilateral ureteral jets are demonstrated. Pre void bladder room is approximately 280 mL. Postvoid bladder volume is approximately 20 mL. Of note, patient has previously trialed Myrbetriq however felt this caused her GI upset. She otherwise offers no other issues or concerns at this time. [facility] Medical History SVT (supraventricular tachycardia) Osteoarthritis of knees, bilateral LARRY (generalized anxiety disorder) Hypovitaminosis D Pure hypercholesterolemia Morbid obesity due to excess calories Iron deficiency anemia Anxiety Super obese Vertigo Morbid obesity Seronegative rheumatoid arthritis Thrombophlebitis Fibromyalgia MAXIMINO (obstructive sleep apnea) Hypertension Diabetes Surgical History History of tubal ligation History of History of hip surgery Family History Father Prostate cancer Mother Uterine cancer Social History Housing: Apartment Alcohol intake: never Patient Tobacco Use Status: Never used Tobacco e-Cigarette/Vaping Use: Never Used Second Hand Smoke Exposure: No service: No Current occupational status: disabled 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 Cognitive needs: Yes Hearing needs: No Vision needs: No Female Reproductive History Menstrual Age of Menarche: 16 Review of Systems Const Reports as per HPI Eyes Reports no additional complaints ENT Reports no additional complaints Card Reports as per HPI Resp Reports as per HPI GI Reports no additional complaints Reports as per HPI Musc Reports as per HPI Neuro Reports as per HPI Psych Reports as per HPI Endo Reports as per HPI Physical Exam Const General: cooperative, healthy appearing, comfortable, no acute distress, well developed, alert and awake Nutritional Appearance: obese Orientation/consciousness: patient oriented x3 Limitations: no limitations HEENT Head: Yes normal to inspection, Yes normocephalic and Yes atraumatic Ears: hearing grossly normal bilaterally Eyes General: appearance normal, both eyes and all related structures Neck Neck: Yes normal visual inspection and Yes trachea midline Chest Chest palpation & inspection: normal inspection of the chest Resp Effort & Inspection: normal respiratory effort and able to speak in complete sentences Cardio Rate: regular rate GI Inspection: Yes normal to inspection General: Yes no CVA tenderness Back/Spine/Pelvis Back: no CVA tenderness Skin General skin exam: no rashes or lesions noted Neuro General: patient oriented x3 Extrem General: Yes normal to inspection Psych Appearance: grossly normal and well kempt Mental Status: mental status grossly normal Speech and movement: Normal speech and movement present and Clear speech present Affect: normal affect Attitude: cooperative Thought process: Normal thought process present Thought content: Normal thought content present Insight: Fair insight present (Psych) Judgement: Fair judgement present (Psych) Office Procedures Post Void Residual Post Residual Void Post Void Residual (PVR): 0 27760-[id number] Void Residual by ultrasound Results AMB Urinalysis, Automated UA Leukoctes 15 Mauro/uL Last Edit by [employer] Chaz on 08/01/23 14:01 UA Nitrite Negative Last Edit by [employer] Chaz on 08/01/23 14:01 UA Urobilinogen 0.2 mg/dL Last Edit by [employer] Chaz on 08/01/23 14:01 UA Protein 15 mg/dL Last Edit by [employer] on 08/01/23 14:01 UA pH 6.0 Last Edit by [employer] Chaz on 08/01/23 14:01 UA Blood 10 Robert/uL Last Edit by [employer] Ware on 08/01/23 14:01 UA Specific [place] 1.030 Last Edit by [employer] on 08/01/23 14:01 UA Ketone Negative Last Edit by [employer] Chaz on 08/01/23 14:01 UA Bilirubin 0 mg/dL Last Edit by Heaven Ware on 08/01/23 14:01 UA Glucose 0 mg/dL Last Edit by Heaven Ware on 08/01/23 14:01 Results Reviewed Results Reviewed: Laboratory Last Values Urine pH (Auto) 6.0 08/01/23 13:50 Specific [place] (Auto) 1.030 08/01/23 13:50 Urine Protein (Auto) 15 mg/dL 08/01/23 13:50 Glucose (UA)(Auto) 0 mg/dL 08/01/23 13:50 Urine Ketones (Auto) Negative 08/01/23 13:50 Urine Blood (Auto) 10 Robert/uL 08/01/23 13:50 Urine Nitrite (Auto) Negative 08/01/23 13:50 Urine Bilirubin (Auto) 0 mg/dL 08/01/23 13:50 Urine Urobilinogen (Auto) 0.2 mg/dL 08/01/23 13:50 Leukocyte Esterase (Auto) 15 Mauro/uL 08/01/23 13:50 Assessment & Plan Assessment & Plan (1) Mixed incontinence urge and stress: Code(s): N39.46 - Mixed incontinence (2) Urinary frequency: Code(s): R35.0 - Frequency of micturition Plan In office urinalysis results reviewed with the patient today; as noted above. PVR 0 mL. Patient reports be happy with current voiding parameters on 5 mg of VESIcare; will continue. Discussed further treatment options given patient reporting dry mouth with VESIcare however she does not find this bothersome. She currently denies any bothersome urinary issues or concerns. Discussed UTI prevention with D mannose supplement, vitamin-C, increasing fluid intake, behavioral therapy with timed voiding, perineal hygiene and postcoital voiding, and management of constipation with stool softeners and increased fiber intake. Follow-up in 3 months with PVR; or sooner with any issues, concerns, and or questions. Orders: Orders AMB Urinalysis Automated Today Z13.9 - Encounter for screening, unspecified AMB Post Void Residual by ultrasound Today R35.0 - Frequency of micturition Patient Instructions: The patient had an opportunity to ask questions regarding the treatment plan. All questions were answered. Physical exam, labs, and imaging were discussed and reviewed in detail. As well as risks, benefits, and discussion of treatment choices. No major barriers to understanding were identified. The patient expressed understanding and agreement with the above treatment plan. The patient was made aware they should contact our office by phone for worsening of their current condition, the appearance of new symptoms, or with any questions or concerns. Compliance is encouraged with any medications and follow up testing that is ordered. It is a privilege to be allowed the opportunity to participate in? your urological care.? Again, if you have any questions or concerns If you have any questions or concerns please do not hesitate to contact me. The office is [phone]. This note is constructed using voice recognition software. While every effort has been made to ensure accuracy plant sprayer errors may have been included. Yours sincerely, THEO Castro-ERNIE Coding Level of Care Code Est Pt Level 3 (97068) Diagnoses Mixed incontinence urge and stress N39.46 Urinary frequency R35.0 CPT Codes Post Residual Void - PVR CPT Code: 71103-Dspk Void Residual by ultrasound ([id number])
== END 2023-08-01 14:24 | disposition home or self-care (01) ==
PROVIDERS: PCP Internal Medicine; Visit Provider Nurse Practitioner Family
DX: N39.46 Mixed incontinence (principal); R35.0 Frequency of micturition; Z13.9 Encounter for screening, unspecified
CPT/HCPCS: 99213

== ENCOUNTER → 2023-08-01 13:38 | Outpatient (BNVA) | payer OTHER, SELFPAY | PROVIDERS: PCP Internal Medicine; Visit Provider Nurse Practitioner Family | DX: N39.46 Mixed incontinence (principal); R35.0 Frequency of micturition | CPT/HCPCS: 51798; 81003; 99212 ==

== ENCOUNTER 2023-08-08 13:14 | Outpatient (AMB) | payer OTHER, SELFPAY ==
--- NOTE | 2023-08-08 13:18 | MHC.OFFVIS ---
Intake Vital Signs 08/08/23 13:20 Height 5 ft 5 in Weight 329 lb 9.457 oz BMI 54.8 BP 138/77 Blood Pressure Location Rt radial Position Sitting Pulse 84 Pulse Source Doppler Pulse Oximetry (%) 97 Oxygen Delivery Method Room Air Intake Visit Reasons: maximino Lining Maker Hand Required: Yes Lining Maker Hand Name: Jeaneth Milton Rojas Allergies No Known Allergies Allergy (Verified 08/08/23 13:22) HPI maximino HPI Details 48-year-old lady with underlying morbid obesity followed for severe obstructive sleep apnea.? She continues to CPAP with excellent control of her underlying sleep apnea symptoms.? Patient is no longer on methotrexate for underlying rheumatoid arthritis.? She did have COVID approximately 1 months prior and after that she complains of sinusitis and feeling like phlegm gets stuck in her throat. [facility] Medical History SVT (supraventricular tachycardia) Osteoarthritis of knees, bilateral LARRY (generalized anxiety disorder) Hypovitaminosis D Pure hypercholesterolemia Morbid obesity due to excess calories Iron deficiency anemia Anxiety Super obese Vertigo Morbid obesity Seronegative rheumatoid arthritis Thrombophlebitis Fibromyalgia MAXIMINO (obstructive sleep apnea) Hypertension Diabetes Surgical History History of tubal ligation History of History of hip surgery Family History Father Prostate cancer Mother Uterine cancer Social History Housing: Apartment Alcohol intake: never Patient Tobacco Use Status: Never used Tobacco e-Cigarette/Vaping Use: Never Used Second Hand Smoke Exposure: No service: No Current occupational status: disabled 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 Cognitive needs: Yes Hearing needs: No Vision needs: No Female Reproductive History Menstrual Age of Menarche: 16 Review of Systems Const Denies daytime sleepiness, Denies excessive sweating, Denies fatigue, Denies fever(s), Denies lethargy, Denies malaise, Denies night sweats, Denies snoring and Denies weight loss Eyes Denies blurry vision and Denies itchy eyes ENT Reports nasal congestion, Reports post nasal drip, Denies sinus pain, Denies sinus pressure and Denies other ( Thrush) Card Denies chest pain, Denies pedal edema, Denies dyspnea, Denies orthopnea and Denies paroxysmal nocturnal dyspnea Resp Denies cough, Denies hemoptysis, Denies excessive phlegm production, Denies dyspnea, Denies snoring and Denies wheezing GI Denies abdominal pain and Denies heartburn Musc Denies myalgias, Denies arthralgias and Denies joint swelling Skin/Breast Denies rash Neuro Denies memory loss and Denies seizure-like activity Psych Denies abnormal sleep pattern, Denies anxiety and Denies memory loss Endo Denies excessive sweating, Denies fatigue and Denies heat intolerance Boni/Lymph Denies easy bruising Aller/Immun Denies itchy eyes, Denies seasonal rhinorrhea and Denies wheezing Physical Exam Vital Signs: Last Vital Signs Pulse 84 08/08/23 13:20 BP 138/77 08/08/23 13:20 Pulse Ox 97 08/08/23 13:20 Oxygen Delivery Method Room Air 08/08/23 13:20 BMI result Body Mass Index 54.8 Const General: no acute distress and alert Nutritional Appearance: obese Orientation/consciousness: Other orientation findings ( oriented) HEENT Head: Yes atraumatic Eyes General: appearance normal, both eyes and all related structures Sclerae: sclerae normal EOM: EOMs intact bilaterally Neck Neck: Yes supple Lymphatic: no lymphadenopathy noted Resp Effort & Inspection: normal respiratory effort and no use of accessory muscles Auscultation: clear to auscultation bilaterally Cardio Rate: regular rate Rhythm: regular rhythm Heart sounds: no gallops, no murmurs and no rubs Skin General skin exam: other ( warm) Extrem General: No clubbing, No cyanosis and No edema Assessment & Plan Assessment & Plan (1) MAXIMINO on CPAP: Code(s): G47.33 - Obstructive sleep apnea (adult) (pediatric); Z99.89 - Dependence on other enabling machines and devices Plan: Therapy and compliance report reviewed - patient is benefitting from and is compliant with noninvasive positive pressure ventilation treatment, using it greater than 70% of the time, more than 4 hours per night. Continue current CPAP therapy. (2) Sinusitis: Code(s): J32.9 - Chronic sinusitis, unspecified Plan: Subacute sinusitis, will with a course of doxycycline. Medications: New doxycycline monohydrate 100 mg PO BID 20 caps 0RF guaifenesin ER 600 mg PO BID 10 days 20 tabs 0RF Coding Level of Care Code Est Pt Level 4 (92163) Diagnoses MAXIMINO on CPAP G47.33; Z99.89 Sinusitis J32.9
[2023-08-08 13:20] VITALS: BP 138/77; PULSE 84; O2SAT 97; BMI 54.8
== END 2023-08-08 13:42 | disposition home or self-care (01) ==
PROVIDERS: PCP Internal Medicine; Visit Provider Internal Medicine Pulmonary Disease
DX: G47.33 Obstructive sleep apnea (adult) (pediatric) (principal); Z99.89 Dependence on other enabling machines and devices; J32.9 Chronic sinusitis, unspecified
CPT/HCPCS: 99214

== ENCOUNTER → 2023-08-08 13:14 | Outpatient (BNVA) | payer OTHER, SELFPAY | PROVIDERS: PCP Internal Medicine; Visit Provider Internal Medicine Pulmonary Disease | DX: G47.33 Obstructive sleep apnea (adult) (pediatric) (principal); J32.9 Chronic sinusitis, unspecified; Z99.89 Dependence on other enabling machines and devices | CPT/HCPCS: 99212 ==

== ENCOUNTER 2023-08-17 12:44 | Outpatient (REF) | payer OTHER, SELFPAY ==
--- NOTE | ~2023-08-17 | XR_ITS ---
EXAMINATION: XR CHEST CLINICAL INFORMATION: Pneumonia of unspecified organism. COMPARISON: Chest radiograph of 07/07/2023. TECHNIQUE: 2 views of the chest were obtained. FINDINGS: Lung volumes are low. There is no gross pneumothorax. Heart size is normal. No gross pleural effusion. Interval decrease of previously identified bilateral bibasilar streaky opacities felt to represent atelectasis versus developing inflammatory/infectious process. Mild degenerative changes in the thoracic spine. XR/XR chest 2V IMPRESSION: Interval decrease of previously identified bilateral bibasilar streaky opacities felt to represent atelectasis versus developing inflammatory/infectious process.
--- NOTE | ~2023-08-17 | US_ITS ---
EXAMINATION: US PELVIS CLINICAL INFORMATION: Last menstrual period 08/15/2023, irregular menses. COMPARISON: None available. TECHNIQUE: Limited visualization due to bowel gas and body habitus. Per police or patrol park officer, the patient stated that she has a overactive bladder and was unable to optimally fill her bladder. Patient declined transvaginal ultrasound images. Transabdominal ultrasound images of the pelvis were obtained, limited due to underfilled bladder. FINDINGS: The uterus measures 9.8 x 4.7 x 5.8 cm. No discrete fibroids. No significant free fluid. The endometrium is poorly visualized, but imaged short segment of endometrium may measure approximately 6 mm. Bilateral ovaries were poorly visualized. Right ovary measures 2.4 x 1.9 x 1.7 cm, volume 3.9 mL. Left ovary measures 2.0 x 1.8 x 1.2 cm, volume 2.3 mL. US/US pelvic complete IMPRESSION: No discrete fibroids. No significant free fluid. The endometrium is poorly visualized, but imaged short segment of endometrium may measure approximately 6 mm. Bilateral ovaries were poorly visualized. Severely limited visualization as detailed above. Correlation with clinical exam recommended to determine further management.
== END 2023-08-17 12:45 | disposition home or self-care (01) ==
LOC: HO.US 12:44
PROVIDERS: Absent Provider Internal Medicine; PCP Internal Medicine; Visit Provider Advanced Practice Midwife
DX: J18.9 Pneumonia, unspecified organism (principal); Z12.4 Encounter for screening for malignant neoplasm of cervix; N92.6 Irregular menstruation, unspecified; E11.9 Type 2 diabetes mellitus without complications; E66.01 Morbid (severe) obesity due to excess calories; Z68.43 Body mass index [BMI] 50.0-59.9, adult; Z87.42 Personal history of other diseases of the female genital tract; Z98.890 Other specified postprocedural states
CPT/HCPCS: 71046; 76856

== ENCOUNTER 2023-08-29 13:55 | Outpatient (AMB) | payer OTHER, SELFPAY ==
[2023-08-29 13:56] VITALS: BP 122/74; PULSE 96; O2SAT 96; BMI 54.7
--- NOTE | 2023-08-29 13:56 | A.OFFVIS_ITS ---
Intake Vital Signs 08/29/23 13:56 Height 5 ft 5 in Weight 328 lb 7.82 oz BMI 54.7 BP 122/74 Blood Pressure Location Rt radial Position Sitting Pulse 96 Pulse Source Doppler Pulse Oximetry (%) 96 Oxygen Delivery Method Room Air Intake Visit Reasons: MAXIMINO/sick Spiral Tube Winder Helper Required: Yes Spiral Tube Winder Helper Name: Jeaneth Rojas Allergies doxycycline Adverse Reaction (Mild, Verified 08/29/23 14:28) Palpitations HPI MAXIMINO/sick HPI Details 48-year-old lady with underlying morbid obesity followed for severe obstructive sleep apnea.? She continues to CPAP with excellent control of her underlying sleep apnea symptoms.? Patient is no longer on methotrexate for underlying rheumatoid arthritis.? Patient had a recent x-ray but primary care that is essentially normal. She able to take doxycycline as it gave her palpitations. She does complain of dry cough. [facility] Medical History SVT (supraventricular tachycardia) Osteoarthritis of knees, bilateral LARRY (generalized anxiety disorder) Hypovitaminosis D Pure hypercholesterolemia Morbid obesity due to excess calories Iron deficiency anemia Anxiety Super obese Vertigo Morbid obesity Seronegative rheumatoid arthritis Thrombophlebitis Fibromyalgia MAXIMINO (obstructive sleep apnea) Hypertension Diabetes Surgical History History of tubal ligation History of History of hip surgery Family History Father Prostate cancer Mother Uterine cancer Social History Housing: Apartment Alcohol intake: never Patient Tobacco Use Status: Never used Tobacco e-Cigarette/Vaping Use: Never Used Second Hand Smoke Exposure: No service: No Current occupational status: disabled 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 Cognitive needs: Yes Hearing needs: No Vision needs: No Female Reproductive History Menstrual Age of Menarche: 16 Review of Systems Const Denies daytime sleepiness, Denies excessive sweating, Denies fatigue, Denies fever(s), Denies lethargy, Denies malaise, Denies night sweats, Denies snoring and Denies weight loss Eyes Denies blurry vision and Denies itchy eyes ENT Denies nasal congestion, Denies post nasal drip, Denies sinus pain, Denies sinus pressure and Denies other ( Thrush) Card Denies chest pain, Denies pedal edema, Denies dyspnea, Denies orthopnea and Denies paroxysmal nocturnal dyspnea Resp Reports cough, Denies hemoptysis, Denies excessive phlegm production, Denies dyspnea, Denies snoring and Denies wheezing GI Denies abdominal pain and Denies heartburn Musc Denies myalgias, Denies arthralgias and Denies joint swelling Skin/Breast Denies rash Neuro Denies memory loss and Denies seizure-like activity Psych Denies abnormal sleep pattern, Denies anxiety and Denies memory loss Endo Denies excessive sweating, Denies fatigue and Denies heat intolerance Boni/Lymph Denies easy bruising Aller/Immun Denies itchy eyes, Denies seasonal rhinorrhea and Denies wheezing Physical Exam Vital Signs: Last Vital Signs Pulse 96 08/29/23 13:56 BP 122/74 08/29/23 13:56 Pulse Ox 96 08/29/23 13:56 Oxygen Delivery Method Room Air 08/29/23 13:56 BMI result Body Mass Index 54.7 Const General: no acute distress and alert Nutritional Appearance: not obese Orientation/consciousness: Other orientation findings ( oriented) HEENT Head: Yes atraumatic Eyes General: appearance normal, both eyes and all related structures Sclerae: sclerae normal EOM: EOMs intact bilaterally Neck Neck: Yes supple Lymphatic: no lymphadenopathy noted Resp Effort & Inspection: normal respiratory effort and no use of accessory muscles Auscultation: clear to auscultation bilaterally Cardio Rate: regular rate Rhythm: regular rhythm Heart sounds: no gallops, no murmurs and no rubs Skin General skin exam: other ( warm) Extrem General: No clubbing, No cyanosis and No edema Assessment & Plan Assessment & Plan (1) Bronchitis: Code(s): J40 - Bronchitis, not specified as acute or chronic Plan: Chest x-ray reviewed, no evidence of underlying pneumonia. Will treat bronchitic symptoms with a course of azithromycin. (2) MAXIMINO on CPAP: Code(s): G47.33 - Obstructive sleep apnea (adult) (pediatric); Z99.89 - Dependence on other enabling machines and devices Plan: Well controlled on CPAP therapy. Continue CPAP therapy. Medications: New azithromycin For 250 mg dose pack: take 500 mg today (day 1), then 250 mg for 4 days (days 2-5) PO 6 tabs 0RF Discontinued doxycycline monohydrate Discontinued Reason: Doctor's Order 100 mg PO BID 20 caps 0RF Coding Level of Care Code Est Pt Level 4 (43132) Diagnoses Bronchitis J40 MAXIMINO on CPAP G47.33; Z99.89
== END 2023-08-29 14:11 | disposition home or self-care (01) ==
PROVIDERS: PCP Internal Medicine; Visit Provider Internal Medicine Pulmonary Disease
DX: J40 Bronchitis, not specified as acute or chronic (principal); G47.33 Obstructive sleep apnea (adult) (pediatric); Z99.89 Dependence on other enabling machines and devices
CPT/HCPCS: 99214

== ENCOUNTER → 2023-08-29 13:55 | Outpatient (BNVA) | payer OTHER, SELFPAY | PROVIDERS: PCP Internal Medicine; Visit Provider Internal Medicine Pulmonary Disease | DX: G47.33 Obstructive sleep apnea (adult) (pediatric) (principal); J40 Bronchitis, not specified as acute or chronic; Z99.89 Dependence on other enabling machines and devices | CPT/HCPCS: 99212 ==

== ENCOUNTER 2023-09-05 10:42 | Outpatient (AMB) | payer OTHER, SELFPAY ==
[2023-09-05 10:55] VITALS: BP 120/70; PULSE 84; BMI 54.5
--- NOTE | 2023-09-05 10:55 | MHC.OFFVIS ---
Intake Vital Signs 09/05/23 10:55 Height 5 ft 5 in Weight 327 lb 9.71 oz BMI 54.5 BP 120/70 Blood Pressure Location Lt radial Position Sitting Pulse 84 Pulse Source Pulse Oximeter Intake Visit Reasons: r/s 3 mos f/u holter Intake Note: pt its her for a f/up Holter/ pt states that she its doing fine. Professor Of Theatre Required: Yes Professor Of Theatre Name: [id number] Accompanied by: Significant Other Allergies doxycycline Adverse Reaction (Mild, Verified 08/29/23 14:28) Palpitations Medication List - Last Reconciled 09/05/23 by Dane Coates MD acetaminophen (Tylenol Extra Strength) 500 mg PO BID PRN Actemra ACTPen (tocilizumab) 162 mg (0.9 mL) subcut QWEEK NS aspirin 81 mg PO DAILY 30 days atorvastatin 20 mg PO BEDTIME 90 days azithromycin For 250 mg dose pack: take 500 mg today (day 1), then 250 mg for 4 days (days 2-5) PO blood pressure monitor As directed blood sugar diagnostic (FreeStyle Lite Strips) Use 1 test strip once a day blood-glucose meter (FreeStyle Lite Meter kit) As directed cane As directed cholecalciferol (vitamin D3) 25 mcg PO DAILY [cock up splint wear on each wrist at night. ] diltiazem HCl 240 mg PO DAILY ferrous sulfate 325 mg PO DAILY fluticasone propionate 50 mcg/actuation (Flonase Allergy Relief) 1 spray intranasal DAILY 30 days folic acid 1 mg PO DAILY [grab bars As directed] guaifenesin ER 600 mg PO BID 10 days hydrochlorothiazide 12.5 mg PO QAM 90 days lancets (FreeStyle Lancets) Use 1 lancet once a day losartan 100 mg PO DAILY 90 days meclizine 25 mg PO TID PRN 30 days semaglutide (Ozempic) 0.125 mg (0.184 mL) subcut QWEEK 30 days Shower Chair As directed solifenacin (Vesicare) 5 mg PO DAILY 90 days HPI HPI Comments History of Present Illness Details Pleasant 48 year female who is here for follow-up. She has background history of hypertension and palpitations. Previously she had Holter monitoring which showed 1 run of SVT. She has been on diltiazem, hydrochlorothiazide and losartan. Blood pressure control is good. She is returning and is complaining of palpitations. These episodes are happening once a week at least. She is saying she gets palpitations and gets dizzy and these episodes can last all day. She is saying usually this happens on days when she is very anxious. 09/22/2023: She returns for follow-up. She was seen in March 2023 and was referred for Holter monitoring because she was again complaining of significant palpitations. She wore Holter monitor for 2 weeks and no significant arrhythmia was noticed. She documented symptoms and was in sinus rhythm/sinus tachycardia when she has symptoms. She is saying she had pneumonia recently and had palpitations during treatment. I have reassured her that it is quite normal to develop palpitations/tachycardia during infections. [facility] Medical History SVT (supraventricular tachycardia) Osteoarthritis of knees, bilateral LARRY (generalized anxiety disorder) Hypovitaminosis D Pure hypercholesterolemia Morbid obesity due to excess calories Iron deficiency anemia Anxiety Super obese Vertigo Morbid obesity Seronegative rheumatoid arthritis Thrombophlebitis Fibromyalgia MAXIMINO (obstructive sleep apnea) Hypertension Diabetes Surgical History History of tubal ligation History of History of hip surgery Family History Father Prostate cancer Mother Uterine cancer Social History Housing: Apartment Alcohol intake: never Patient Tobacco Use Status: Never used Tobacco e-Cigarette/Vaping Use: Never Used Second Hand Smoke Exposure: No service: No Current occupational status: disabled 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 Cognitive needs: Yes Hearing needs: No Vision needs: No Female Reproductive History Menstrual Age of Menarche: 16 Review of Systems Const Denies chills, Denies fatigue, Denies fever(s), Denies frequent falls, Denies weakness, Denies weight gain and Denies weight loss ENT Denies dizziness Card Denies chest pain, Denies leg edema, Denies lightheadedness, Denies palpitations, Denies dyspnea and Denies dyspnea on exertion Resp Denies cough, Denies dyspnea and Denies dyspnea on exertion GI Denies hematochezia Musc Denies abnormal gait, Denies muscle weakness, Denies numbness, Denies radiating pain into limb and Denies tingling Neuro Denies abnormal gait, Denies dizziness, Denies frequent falls, Denies numbness, Denies tingling and Denies weakness Endo Denies fatigue and Denies palpitations Physical Exam Vital Signs: Last Vital Signs Pulse 84 09/05/23 10:55 BP 120/70 09/05/23 10:55 BMI result Body Mass Index 54.5 GENERAL APPEARANCE: in no acute distress, overweight. NECK/THYROID: no carotid bruit, no jugular venous distention. SKIN: no suspicious lesions, warm and dry. HEART: no murmurs, regular rate and rhythm, S1, S2 normal. LUNGS: clear to auscultation bilaterally. ABDOMEN: normal, bowel sounds present, soft, nontender, nondistended. EXTREMITIES: no clubbing, cyanosis, or edema. PERIPHERAL PULSES: equal. NEUROLOGIC: nonfocal, alert and oriented. PSYCH: mood/affect full range. Assessment & Plan Assessment & Plan (1) Hypertension: Code(s): I10 - Essential (primary) hypertension Qualifiers: Hypertension type: essential hypertension Qualified Code(s): I10 - Essential (primary) hypertension (2) Palpitations: Code(s): R00.2 - Palpitations Plan Pleasant 48-year-old female who is here for follow-up. She has morbid obesity. She also has sleep apnea and uses CPAP. She has been seen for hypertension and palpitations. Blood pressure is well controlled. For palpitations she had Holter monitoring in the past and has not shown any significant arrhythmia. She is in sinus rhythm when she gets symptoms. Symptoms are likely due to anxiety/stress. Other possibility can be that she had history of iron-deficiency anemia. Hemoglobin should be monitor closely. She is stable from cardiovascular point of view currently. She will see us back in 6-9 months. Thank you for allowing me to participate in the care of your patient. Please feel free to contact me if you have any questions. Coding Level of Care Code Est Pt Level 4 (68140) Diagnoses Essential hypertension I10 Hypertension type: essential hypertension Palpitations R00.2
== END 2023-09-05 11:22 | disposition home or self-care (01) ==
PROVIDERS: PCP Internal Medicine; Visit Provider Internal Medicine Cardiovascular Disease
DX: I10 Essential (primary) hypertension (principal); R00.2 Palpitations
CPT/HCPCS: 99214

== ENCOUNTER → 2023-09-05 10:42 | Outpatient (BNVA) | payer OTHER, SELFPAY | PROVIDERS: PCP Internal Medicine; Visit Provider Internal Medicine Cardiovascular Disease | DX: I10 Essential (primary) hypertension (principal); R00.2 Palpitations | CPT/HCPCS: 99212 ==

== ENCOUNTER 2023-09-14 14:17 | Outpatient (AMB) | payer OTHER, SELFPAY ==
--- NOTE | 2023-09-14 14:26 | MHC.OFFWIV ---
Intake Vital Signs 09/14/23 14:33 Height 5 ft 5 in BP 122/74 Blood Pressure Location Rt brachial Position Sitting Pulse 82 Pulse Source Pulse Oximeter Temp 97.9 F Temp Source Oral Pulse Oximetry (%) 98 Oxygen Delivery Method Room Air Intake Visit Reasons: EP LT eye Itchy, swelling Intake Note: pt is here for left eye itchy and swelling Patient Tobacco Use Status: Never used Tobacco Allergies doxycycline Adverse Reaction (Mild, Verified 09/14/23 14:34) Palpitations HPI EP LT eye Itchy, swelling HPI Details This is a 48 year old patient who presents today with left upper and lower eyelid swelling since this morning. States she woke up with crusty eye discharge and swollen lids. Denies any trauma or irritation to eye. Denies any vision changes or photophobia. Denies known exposure to contacts with similar symptoms. [facility] Medical History SVT (supraventricular tachycardia) Osteoarthritis of knees, bilateral LARRY (generalized anxiety disorder) Hypovitaminosis D Pure hypercholesterolemia Morbid obesity due to excess calories Iron deficiency anemia Anxiety Super obese Vertigo Morbid obesity Seronegative rheumatoid arthritis Thrombophlebitis Fibromyalgia MAXIMINO (obstructive sleep apnea) Hypertension Diabetes Surgical History History of tubal ligation History of History of hip surgery Family History Father Prostate cancer Mother Uterine cancer Social History Housing: Apartment Alcohol intake: never Patient Tobacco Use Status: Never used Tobacco e-Cigarette/Vaping Use: Never Used Second Hand Smoke Exposure: No service: No Current occupational status: disabled 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 Cognitive needs: Yes Hearing needs: No Vision needs: No Female Reproductive History Menstrual Age of Menarche: 16 Review of Systems Const All systems reviewed & are unremarkable except as noted in HPI and below Physical Exam Vital Signs: Last Vital Signs Temp 97.9 F 09/14/23 14:33 Pulse 82 09/14/23 14:33 BP 122/74 09/14/23 14:33 Pulse Ox 98 09/14/23 14:33 Oxygen Delivery Method Room Air 09/14/23 14:33 Const General: cooperative and no acute distress Nutritional Appearance: obese HEENT Head: Yes normal to inspection Ears: hearing grossly normal bilaterally Eyes Alignment and Position: alignment normal Eyelids: Yes eyelid abnormality (left lid swelling upper>lower) Conjunctivae: conjunctival abnormal left conjunctival injection diffuse Pupils: Equal, round and reactive pupils present and Pupil accommodation reflex normal EOM: EOMs intact bilaterally Direct Ophthalmoscopy: normal light reflex and no photophobia Resp Effort & Inspection: normal respiratory effort Auscultation: clear to auscultation bilaterally Cardio Palpation: normal PMI Rate: regular rate Rhythm: regular rhythm Skin General skin exam: no rashes or lesions noted Neuro Cranial nerves: Yes Equal, round and reactive pupils present Extrem General: Yes capillary refill normal Psych Appearance: grossly normal Mental Status: mental status grossly normal Speech and movement: Normal speech and movement present Assessment & Plan Assessment & Plan (1) Blepharitis of both upper and lower eyelid of left eye: Code(s): H01.00B - Unspecified blepharitis left eye, upper and lower eyelids Qualifiers: Blepharitis type: unspecified type Qualified Code(s): H01.00B - Unspecified blepharitis left eye, upper and lower eyelids Plan: Will start on erythromycin ointment. Reviewed proper use of this as well as indications and possible s/e. Advised good hand hygeine and also using warm compresses as needed for comfort and discharge removal. If she develops any worsening symptoms or does not improve with treatment she should return to the clinic for further evaluation. She and son present at visit verbalize understanding and agrees to plan. Medications: New erythromycin Apply 0.5 inch to lower lid of left eye 4 times daily for 5 days 1 appl ophthalmic (eye) QID 5 days 3.5 grams 1RF H01.00B - Unspecified blepharitis left eye, upper and lower eyelids Coding Level of Care Code Est Pt Level 3 (40643) Diagnoses Blepharitis of both upper and lower eyelid of left eye, unspecified type H01.00B Blepharitis type: unspecified type
[2023-09-14 14:33] VITALS: BP 122/74; PULSE 82; TEMP 36.6; O2SAT 98
== END 2023-09-14 15:00 | disposition home or self-care (01) ==
PROVIDERS: PCP Internal Medicine; Visit Provider Nurse Practitioner Family
DX: H01.00B Unspecified blepharitis left eye, upper and lower eyelids (principal)
CPT/HCPCS: 99213

== ENCOUNTER 2023-09-17 08:09 | Outpatient (REF) | payer OTHER, SELFPAY ==
[2023-09-17 08:20] LABS: MANUAL DIFF FLAG NO
[2023-09-17 09:20] LABS: Basophils Percent Auto 0.3 % (0-2); Eosinophils Absolute Auto 0.3 X10*3/uL (0.0-0.4); Eosinophils Percent Auto 4.1 % (0-4); Hemoglobin 12.8 g/dl (12.0-16.0); Imm Gran Abs Auto 0.02 X10*3/uL (0.00-0.03); Imm Gran Pct Auto 0.3 % (0.0-0.4); Lymphocytes Absolute Auto 2.6 X10*3/uL (1.2-4.9); Lymphocytes Percent Auto 36.4 % (20-40); Mean Corpuscular HGB Conc 31.2 g/dl (31.0-35.0); Mean Corpuscular Hemoglobin 26.8 pg (27.0-33.0); Mean Platelet Volume 10.1 fL (9.4-12.3); Monocytes Absolute Auto 0.5 X10*3/uL (0.1-1.2); Monocytes Percent Auto 7.4 % (2-11); Neutrophils Absolute Auto 3.7 x10*3/uL (2.0-8.3); Neutrophils Percent Auto 51.5 % (45-73); Platelet Count 260 X10*3/uL (160-400); Red Blood Count 4.77 X10*6/uL (4.20-5.50); Red Cell Distribution Width 13.3 % (11.0-16.0); White Blood Count 7.2 X10*3/uL (4.8-10.8)
[2023-09-17 10:03] LABS: Erythrocyte Sedimentation Rate 7 MM/HR (0-20)
[2023-09-17 10:08] LABS: Alanine Aminotransferase 23 U/L (0-31); Albumin Level 4.1 g/dL (3.5-5.0); Alkaline Phosphatase 66 U/L (39-117); Anion Gap 10 (12-20); Aspartate Amino Transferase 18 U/L (5-31); Bilirubin Total 0.4 mg/dL (0.0-1.0); Blood Urea Nitrogen 12 mg/dL (9-16); C Reactive Protein 0.63 mg/dL (< or = 0.50); Calcium 9.2 mg/dL (8.4-10.2); Carbon Dioxide 26 mmol/L (22-29); Chloride 105 mmol/L (96-108); Estimated Glomerular Filt Rate > 60; Glucose Random 133 mg/dL (60-115); Potassium 3.9 mmol/L (3.3-5.1); Sodium 137 mmol/L (135-145); Total Protein 7.9 g/dL (6.5-8.0)
== END 2023-09-17 08:10 | disposition home or self-care (01) ==
LOC: HO.LAB 08:09
PROVIDERS: Visit Provider Student in an Organized Health Care Education/Training Program
DX: M06.00 Rheumatoid arthritis without rheumatoid factor, unspecified site (principal); M25.511 Pain in right shoulder
CPT/HCPCS: 36415; 80053; 85025; 85652; 86140

== ENCOUNTER 2023-09-18 13:37 | Outpatient (AMB) | payer OTHER, SELFPAY ==
[2023-09-18 13:42] VITALS: BP 128/62; PULSE 76; O2SAT 98; BMI 54.4
--- NOTE | 2023-09-18 13:42 | MHC.OFFVIS ---
Intake Vital Signs 09/18/23 13:42 Height 5 ft 5 in Weight 326 lb 15.128 oz BMI 54.4 BP 128/62 Blood Pressure Location Rt radial Position Sitting Pulse 76 Pulse Source Pulse Oximeter Pulse Oximetry (%) 98 Oxygen Delivery Method Room Air Intake Visit Reasons: RA/CM Intake Note: Patient last seen 06/14/23 presents today for follow up and test results. Pharmaceutical Plant Operator Required: Yes Pharmaceutical Plant Operator Name: Sylvain [id number] Information Interpreted: clinical only Accompanied by: Son Allergies doxycycline Adverse Reaction (Mild, Verified 09/18/23 13:46) Palpitations Medication List - Last Reconciled 09/18/23 by Nivia Linn MD acetaminophen (Tylenol Extra Strength) 500 mg PO BID PRN Actemra ACTPen (tocilizumab) 162 mg (0.9 mL) subcut QWEEK NS aspirin 81 mg PO DAILY 30 days atorvastatin 20 mg PO BEDTIME 90 days blood pressure monitor As directed blood sugar diagnostic (FreeStyle Lite Strips) Use 1 test strip once a day blood-glucose meter (FreeStyle Lite Meter kit) As directed cane As directed cholecalciferol (vitamin D3) 25 mcg PO DAILY [cock up splint wear on each wrist at night. ] diltiazem HCl 240 mg PO DAILY erythromycin 1 appl ophthalmic (eye) QID 5 days ferrous sulfate 325 mg PO DAILY fluticasone propionate 50 mcg/actuation (Flonase Allergy Relief) 1 spray intranasal DAILY 30 days folic acid 1 mg PO DAILY [grab bars As directed] hydrochlorothiazide 12.5 mg PO QAM 90 days lancets (FreeStyle Lancets) Use 1 lancet once a day losartan 100 mg PO DAILY 90 days meclizine 25 mg PO TID PRN 30 days semaglutide (Ozempic) 0.125 mg (0.184 mL) subcut QWEEK 30 days Shower Chair As directed solifenacin (Vesicare) 5 mg PO DAILY 90 days HPI HPI Comments History of Present Illness Details 48yoF presents for follow-up of seronegative rheumatoid arthritis. On Actemra 162 mg every week She is doing fairly well. She continues to have bilateral knee pain. She also has pain in her left elbow. She denies any pain or swelling in her hands. She was evaluated by hand surgery and carpal tunnel release was discussed. She will be going to [place] soon, when she is back, she will contact Hand surgery. [facility] Medical History SVT (supraventricular tachycardia) Osteoarthritis of knees, bilateral LARRY (generalized anxiety disorder) Hypovitaminosis D Pure hypercholesterolemia Morbid obesity due to excess calories Iron deficiency anemia Anxiety Super obese Vertigo Morbid obesity Seronegative rheumatoid arthritis Thrombophlebitis Fibromyalgia MAXIMINO (obstructive sleep apnea) Hypertension Diabetes Surgical History History of tubal ligation History of History of hip surgery Family History Father Prostate cancer Mother Uterine cancer Social History Housing: Apartment Alcohol intake: never Patient Tobacco Use Status: Never used Tobacco e-Cigarette/Vaping Use: Never Used Second Hand Smoke Exposure: No service: No Current occupational status: disabled 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 Cognitive needs: Yes Hearing needs: No Vision needs: No Female Reproductive History Menstrual Age of Menarche: 16 Review of Systems Musc Reports arthralgias, Reports limited range of motion and Reports stiffness Physical Exam Vital Signs: Last Vital Signs Pulse 76 09/18/23 13:42 BP 128/62 09/18/23 13:42 Pulse Ox 98 09/18/23 13:42 Oxygen Delivery Method Room Air 09/18/23 13:42 BMI result Body Mass Index 54.4 Const General: cooperative, healthy appearing and comfortable Nutritional Appearance: obese morbidly obese Orientation/consciousness: patient oriented x3 Limitations: ambulation with cane HEENT Head: Yes normocephalic and Yes atraumatic Resp Effort & Inspection: normal respiratory effort and able to speak in complete sentences Neuro General: patient oriented x3 Extrem Other: No active synovitis right upper extremity No swollen joints, 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 COMPARISON: None.? TECHNIQUE: AP external rotation, Grashey, scapular Y, and axillary views of the left shoulder. FINDINGS: Bony alignment and mineralization are normal. The glenohumeral joint is intact and shows minimal osteoarthritic change. The acromioclavicular and coracoclavicular intervals are normal. There is cortical irregularity of the greater tuberosity of the proximal right humerus, and a distal acromial osteophyte is seen. No abnormal soft tissue calcification or foreign body is seen. There is no left pneumothorax.? XR/XR shoulder LT min 2V IMPRESSION: ? 1. No fracture or dislocation is seen. ? 2. There is minimal osteoarthritic change of the left glenohumeral joint. ? 3. Findings suggest possible left rotator cuff impingement; no andrea calcific tendinitis is noted. Date of Service: 08/29/22 Procedure(s): XR hand LT min 3V Accession Number(s): [id number] EXAMINATION: XR HAND, LEFT CLINICAL INFORMATION: Pain.? COMPARISON: Radiographs dated 01/29/2020.? TECHNIQUE: PA, lateral, and oblique views of the left hand. FINDINGS: The bones and soft tissues are normal. No fracture. Alignment is anatomic. Joint spaces are maintained. No erosions or soft tissue calcifications.? XR/XR hand LT min 3V IMPRESSION: Normal left hand. Date of Service: 01/30/22 Procedure(s): XR knee RT 3V Accession Number(s): [id number] EXAMINATION: BILATERAL KNEE X-RAY CLINICAL INFORMATION: Bilateral osteoarthritis? COMPARISON: Previous x-ray January 2020? TECHNIQUE: 3 views of each knee? FINDINGS: Right: There is valgus angulation. There is high position of the patella and lateral tilt of patella on the sunrise view. There is severe arthritis at the lateral femoral tibial and patellofemoral joints with joint space narrowing and osteophyte formation. There is no joint effusion. Left: There is high position of the patella. Bone alignment is otherwise normal. No fracture or dislocation is seen. There is arthritis at the medial femoral tibial and patellofemoral joints with joint space narrowing and osteophyte formation. There is no joint effusion. XR/XR knee RT 3V IMPRESSION: Bilateral arthritis not appreciably changed from 2020 exam.? Assessment & Plan Assessment & Plan (1) Seronegative rheumatoid arthritis: Comment: Seronegative dx 03/2019 in [place] MTX: 08/2019- 08/2021 dyspnea Prednisone Humira: September 2021- 12/2022 incomplete response Actemra 01/2023 partially effective advanced to weekly 03/2023 effective Code(s): M06.00 - Rheumatoid arthritis without rheumatoid factor, unspecified site Plan: This is a 48-year-old female with seronegative rheumatoid arthritis who presents for follow-up. On Actemra 162 mg weekly. Doing very well overall. There are no swollen joints on exam. Inflammatory markers significantly improved overall. Her symptoms today are likely due to left tennis elbow. I provided patient with a printout of home exercises Continue Actemra 162 mg weekly Labs before next visit in 3 months (2) Numbness and tingling in both hands: Code(s): R20.0 - Anesthesia of skin; R20.2 - Paresthesia of skin Plan: EMG/NCV show bilateral moderate to severe carpal tunnel syndrome. Continue wearing wrist splints. Evaluated by hand surgery, she is considering doing right carpal tunnel release, followed by left Plan I spent 26 minutes reviewing patient's chart, evaluating patient, ordering diagnostic workup, counseling patient and documenting in the chart Orders: Orders C Reactive Protein 3 Years M06.00 - Rheumatoid arthritis without rheumatoid factor, unspecified site Complete Blood Count Auto Diff 3 Months M06.00 - Rheumatoid arthritis without rheumatoid factor, unspecified site Comprehensive Met. Panel 3 Months M06.00 - Rheumatoid arthritis without rheumatoid factor, unspecified site Erythrocyte Sedimentation Rate 3 Months M06.00 - Rheumatoid arthritis without rheumatoid factor, unspecified site Coding Level of Care Code Est Pt Level 4 (05424) Diagnoses Seronegative rheumatoid arthritis M06.00 Numbness and tingling in both hands R20.0; R20.2
== END 2023-09-18 14:09 | disposition home or self-care (01) ==
PROVIDERS: PCP Internal Medicine; Visit Provider Student in an Organized Health Care Education/Training Program
DX: M06.00 Rheumatoid arthritis without rheumatoid factor, unspecified site (principal); R20.0 Anesthesia of skin; R20.2 Paresthesia of skin
CPT/HCPCS: 99214

== ENCOUNTER → 2023-09-18 13:37 | Outpatient (BNVA) | payer OTHER, SELFPAY | PROVIDERS: PCP Internal Medicine; Visit Provider Student in an Organized Health Care Education/Training Program | DX: M06.00 Rheumatoid arthritis without rheumatoid factor, unspecified site (principal); R20.0 Anesthesia of skin; R20.2 Paresthesia of skin; M25.561 Pain in right knee; M25.562 Pain in left knee; M25.522 Pain in left elbow | CPT/HCPCS: 99212 ==

== ENCOUNTER 2023-10-29 13:31 | Outpatient (AMB) | payer OTHER, SELFPAY ==
--- NOTE | 2023-10-29 13:42 | A.OFFVIS_ITS ---
Intake Visit Reasons: 3m/PVR Intake Note: Patient presents for follow up Dysuria, Frequency, Incontinence Urology Medications: Vesicare Blood Thinner: Aspirin PVR: Autocad Designer Required: Yes Autocad Designer Name: RUPALI HANLEY Accompanied by: Son Allergies doxycycline Adverse Reaction (Mild, Verified 10/29/23 20:31) Palpitations Medication List - Last Reconciled 10/29/23 by THEO Castro-ERNIE acetaminophen (Tylenol Extra Strength) 500 mg PO BID PRN Actemra ACTPen (tocilizumab) 162 mg (0.9 mL) subcut QWEEK NS aspirin 81 mg PO DAILY 30 days atorvastatin 20 mg PO BEDTIME 90 days blood pressure monitor As directed blood sugar diagnostic (FreeStyle Lite Strips) Use 1 test strip once a day blood-glucose meter (FreeStyle Lite Meter kit) As directed cane As directed cholecalciferol (vitamin D3) 25 mcg PO DAILY [cock up splint wear on each wrist at night. ] diltiazem HCl CD 240 mg PO DAILY erythromycin 1 appl ophthalmic (eye) QID 5 days ferrous sulfate 325 mg PO DAILY fluticasone propionate 50 mcg/actuation (Flonase Allergy Relief) 1 spray intranasal DAILY 30 days folic acid 1 mg PO DAILY [grab bars As directed] hydrochlorothiazide 12.5 mg PO QAM 90 days lancets (FreeStyle Lancets) Use 1 lancet once a day losartan 100 mg PO DAILY 90 days meclizine 25 mg PO TID PRN 30 days semaglutide (Ozempic) 0.125 mg (0.184 mL) subcut QWEEK 30 days Shower Chair As directed solifenacin (Vesicare) 5 mg PO DAILY 90 days HPI Comments Details: Sol is a 48-year-old Slovak-speaking female patient of Dr. Madrid who was accompanied by her child at today's office visit. She has a past medical history of anxiety, diabetes, fibromyalgia, anxiety, hypertension, iron deficiency anemia, morbid obesity, obstructive sleep apnea, hypercholesteremia, rheumatoid arthritis and vertigo. She presents to the office today for a follow up of her lower urinary tract symptoms and recent urinary tract infection. In discussion with the patient today she reports having experienced gross hematuria over the last 3 weeks however was recently away in [place] and was awaiting arrival back home for further assessment evaluation. In office urinalysis results reviewed with the patient today 3+ microscopic hematuria noted. She does report having a history of abnormal menses and had followed up with insurance territory manager at which time a pelvic ultrasound was ordered and performed. However, she does not feel blood is coming from her vaginal space. She reports noting gross hematuria. She also reports noting bladder pressure and dysuria. She otherwise denies urinary urgency, urinary frequency, incontinence, nocturia, foul smelling urine, changes to urinary stream, flank pain, fever, and or chills. Previous workup has included a retroperitoneal ultrasound February 2023 that noted bilateral kidneys with no calculi, lesions, and or hydronephrosis noted. The bladder is well distended and normal. Bilateral ureteral jets are demonstrated. Pre void bladder room is approximately 280 mL. Postvoid bladder volume is approximately 20 mL. When asked she denies any previous nicotine dependence and or workplace chemical exposure. Discussed reasons for blood in the urine may include but are not limited to kidney stones, cancer in the urinary tract, kidney stone disease or inflammatory conditions of the urinary tract. I have discussed workup to include cystoscopy evaluation. She otherwise offers no other issues or concerns at this time. [facility] Medical History SVT (supraventricular tachycardia) Osteoarthritis of knees, bilateral LARRY (generalized anxiety disorder) Hypovitaminosis D Pure hypercholesterolemia Morbid obesity due to excess calories Iron deficiency anemia Anxiety Super obese Vertigo Morbid obesity Seronegative rheumatoid arthritis Thrombophlebitis Fibromyalgia MAXIMINO (obstructive sleep apnea) Hypertension Diabetes Surgical History History of tubal ligation History of History of hip surgery Family History Father Prostate cancer Mother Uterine cancer Social History Housing: Apartment Alcohol intake: never Patient Tobacco Use Status: Never used Tobacco e-Cigarette/Vaping Use: Never Used Second Hand Smoke Exposure: No service: No Current occupational status: disabled 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 Cognitive needs: Yes Hearing needs: No Vision needs: No Female Reproductive History Menstrual Age of Menarche: 16 Review of Systems Const Reports as per HPI Eyes Reports no additional complaints ENT Reports no additional complaints Card Reports as per HPI Resp Reports as per [facility] GI Reports no additional complaints Reports as per [facility] Musc Reports as per [facility] Neuro Reports as per [facility] Psych Reports as per [facility] Endo Reports as per [facility] Physical Exam Const General: cooperative, healthy appearing, comfortable, no acute distress, well developed, alert and awake Nutritional Appearance: obese Orientation/consciousness: patient oriented x3 Limitations: no limitations HEENT Head: Yes normal to inspection, Yes normocephalic and Yes atraumatic Ears: hearing grossly normal bilaterally Eyes General: appearance normal, both eyes and all related structures Neck Neck: Yes normal visual inspection and Yes trachea midline Chest Chest palpation & inspection: normal inspection of the chest Resp Effort & Inspection: normal respiratory effort and able to speak in complete sentences Cardio Rate: regular rate GI Inspection: Yes normal to inspection General: Yes no CVA tenderness Back/Spine/Pelvis Back: no CVA tenderness Skin General skin exam: no rashes or lesions noted Neuro General: patient oriented x3 Extrem General: Yes normal to inspection Psych Appearance: grossly normal and well kempt Mental Status: mental status grossly normal Speech and movement: Normal speech and movement present and Clear speech present Affect: normal affect Attitude: cooperative Thought process: Normal thought process present Thought content: Normal thought content present Insight: Fair insight present (Psych) Judgement: Fair judgement present (Psych) Office Procedures Post Void Residual Post Residual Void Post Void Residual (PVR): 0 70630-[id number] Void Residual by ultrasound Results AMB Urinalysis, Automated UA Leukoctes 15 Mauro/uL Last Edit by [employer] on 10/29/23 14:11 UA Nitrite Last Edit by [employer] on 10/29/23 14:11 UA Urobilinogen 0.2 mg/dL Last Edit by [employer] on 10/29/23 14:11 UA Protein 30 mg/dL Last Edit by [employer] on 10/29/23 14:11 UA pH 6.0 Last Edit by [employer] on 10/29/23 14:11 UA Blood 200 Robert/uL Last Edit by [employer] on 10/29/23 14:11 UA Specific [employer] 1.025 Last Edit by [employer] on 10/29/23 14:11 UA Ketone Last Edit by [employer] on 10/29/23 14:11 UA Bilirubin 0 mg/dL Last Edit by [employer] on 10/29/23 14:11 UA Glucose 0 mg/dL Last Edit by [employer] on 10/29/23 14:11 Results Reviewed Results Reviewed: Laboratory Last Values Urine pH (Auto) 6.0 10/29/23 13:49 Specific [employer] (Auto) 1.025 10/29/23 13:49 Urine Protein (Auto) 30 mg/dL 10/29/23 13:49 Glucose (UA)(Auto) 0 mg/dL 10/29/23 13:49 Urine Blood (Auto) 200 Robert/uL 10/29/23 13:49 Urine Bilirubin (Auto) 0 mg/dL 10/29/23 13:49 Urine Urobilinogen (Auto) 0.2 mg/dL 10/29/23 13:49 Leukocyte Esterase (Auto) 15 Mauro/uL 10/29/23 13:49 Assessment & Plan Assessment & Plan (1) Gross hematuria: Code(s): R31.0 - Gross hematuria Category: Medical (2) Dysuria: Code(s): R30.0 - Dysuria Category: Medical (3) Sensation of pressure in bladder area: Code(s): R39.89 - Other symptoms and signs involving the genitourinary system Category: Medical Plan In office urinalysis results reviewed with the patient today; as noted above; will send for urine cytology. Discussed at length potential causes for gross hematuria; discussed further workup with CT urogram and in office cystoscopy; risks and benefits of thesed interventions were discussed All questions were answered. Will obtain CT urogram for further assessment evaluation. BUN and creatinine ordered for imaging. Will schedule for in office cystoscopy once imaging and labs are completed; or sooner with any issues, concerns, and or questions. Orders: Orders AMB Post Void Residual by ultrasound Today N39.46 - Mixed incontinence CT urogram Today R31.0 - Gross hematuria Creatinine Today R31.0 - Gross hematuria Blood Urea Nitrogen Today R31.0 - Gross hematuria Urine Cytology Today R31.0 - Gross hematuria AMB Urinalysis Automated Today Z13.9 - Encounter for screening, unspecified Patient Instructions: The patient had an opportunity to ask questions regarding the treatment plan. All questions were answered. Physical exam, labs, and imaging were discussed and reviewed in detail. As well as risks, benefits, and discussion of treatment choices. No major barriers to understanding were identified. The patient expressed understanding and agreement with the above treatment plan. The patient was made aware they should contact our office by phone for worsening of their current condition, the appearance of new symptoms, or with any questions or concerns. Compliance is encouraged with any medications and follow up testing that is ordered. It is a privilege to be allowed the opportunity to participate in? your urological care.? Again, if you have any questions or concerns If you have any questions or concerns please do not hesitate to contact me. The office is [phone]. This note is constructed using voice recognition software. While every effort has been made to ensure accuracy roll grinder operator errors may have been included. Yours sincerely, JAZMIN Castro Coding Level of Care Code Est Pt Level 3 (48258) Diagnoses Gross hematuria R31.0 Dysuria R30.0 Sensation of pressure in bladder area R39.89 CPT Codes Post Residual Void - PVR CPT Code: 37335-[id number] Void Residual by ultrasound ([id number])
== END 2023-10-29 14:33 | disposition home or self-care (01) ==
PROVIDERS: PCP Internal Medicine; Visit Provider Nurse Practitioner Family
DX: R31.0 Gross hematuria (principal); R30.0 Dysuria; R39.89 Other symptoms and signs involving the genitourinary system
CPT/HCPCS: 99213

== ENCOUNTER 2023-10-29 13:31 | Outpatient (REF) | payer OTHER, SELFPAY ==
[2023-10-29 16:48] LABS: Urine Cytology See Pathology rpt
== END 2023-10-29 13:32 | disposition home or self-care (01) ==
LOC: HO.LNP 13:31
PROVIDERS: PCP Internal Medicine; Visit Provider Nurse Practitioner Family
DX: R31.0 Gross hematuria (principal); R30.0 Dysuria; R35.0 Frequency of micturition; R39.89 Other symptoms and signs involving the genitourinary system; N39.46 Mixed incontinence; Z87.440 Personal history of urinary (tract) infections; Z79.899 Other long term (current) drug therapy
CPT/HCPCS: 51798; 81003; 88112; 99212

== ENCOUNTER 2023-11-12 08:13 | Outpatient (REF) | payer OTHER, SELFPAY ==
[2023-11-12 09:50] LABS: Blood Urea Nitrogen 13 mg/dL (9-16); Estimated Glomerular Filt Rate > 60
== END 2023-11-12 08:14 | disposition home or self-care (01) ==
LOC: HO.LAB 08:13
PROVIDERS: Nurse Practitioner Family; PCP Internal Medicine; Visit Provider Student in an Organized Health Care Education/Training Program
DX: R31.0 Gross hematuria (principal)
CPT/HCPCS: 36415; 82565; 84520

== ENCOUNTER 2023-11-15 10:23 | Outpatient (AMB) | payer OTHER, SELFPAY ==
[2023-11-15 10:26] VITALS: BP 112/76; BMI 55.2
--- NOTE | 2023-11-15 10:26 | MHC.PC.OV ---
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: No Accompanied by: Self / Same As Patient Allergies doxycycline Adverse Reaction (Mild, Verified 11/15/23 10:46) Palpitations Medication List - Last Reconciled 11/15/23 by Ryann Angel MD acetaminophen (Tylenol Extra Strength) 500 mg PO BID PRN Actemra ACTPen (tocilizumab) 162 mg (0.9 mL) subcut QWEEK NS aspirin 81 mg PO DAILY 30 days atorvastatin 20 mg PO BEDTIME 90 days blood pressure monitor As directed blood sugar diagnostic (FreeStyle Lite Strips) Use 1 test strip once a day blood-glucose meter (FreeStyle Lite Meter kit) As directed cane As directed cholecalciferol (vitamin D3) 25 mcg PO DAILY [cock up splint wear on each wrist at night. ] diltiazem HCl CD 240 mg PO DAILY ferrous sulfate 325 mg PO DAILY fluticasone propionate 50 mcg/actuation (Flonase Allergy Relief) 1 spray intranasal DAILY 30 days folic acid 1 mg PO DAILY [grab bars As directed] hydrochlorothiazide 12.5 mg PO QAM 90 days lancets (FreeStyle Lancets) Use 1 lancet once a day losartan 100 mg PO DAILY 90 days meclizine 25 mg PO TID PRN 30 days semaglutide (Ozempic) 0.125 mg (0.184 mL) subcut QWEEK 30 days Shower Chair As directed solifenacin (Vesicare) 5 mg PO DAILY 90 days Tobacco use date assessed: 07/16/23 Dental Screening Dental Screen Date: 07/16/23 HPI HPI Comments History of Present Illness Details This is a 48-year-old female with diabetes mellitus type 2 without long-term current use of insulin, hypertension, hyperlipidemia, morbid obesity and rheumatoid arthritis that comes today for follow-up on her conditions. A1c within goal. Blood pressure stable. Lipid panel will be order and her LDL goal should be less than 70. She is morbidly obese with a BMI of 55.2 and was advised to do diet and exercise to reach BMI goal less than 30. Declines weight loss surgery now. She walks with a cane due to bilateral knee osteoarthritis and still have loss of balance. Patient will benefit from a walker. No chest pain or shortness on breath. [facility] Medical History (Updated 11/15/23 @ 11:32 by Ryann Angel MD) SVT (supraventricular tachycardia) Osteoarthritis of knees, bilateral LARRY (generalized anxiety disorder) Hypovitaminosis D Pure hypercholesterolemia Morbid obesity due to excess calories Iron deficiency anemia Anxiety Super obese Vertigo Morbid obesity Seronegative rheumatoid arthritis Thrombophlebitis Fibromyalgia MAXIMINO (obstructive sleep apnea) Hypertension Diabetes Surgical History History of tubal ligation History of History of hip surgery Family History Father Prostate cancer Mother Uterine cancer Social History Housing: Apartment Alcohol intake: never Patient Tobacco Use Status: Never used Tobacco e-Cigarette/Vaping Use: Never Used Second Hand Smoke Exposure: No service: No Current occupational status: disabled 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 Stephen French, Nai Suarez, Jayson Barajas and colleagues, with an educational tiera from [employer]. Review of Systems Const All systems reviewed & are unremarkable except as noted in HPI and below Eyes Reports no additional complaints, Denies change in vision and Denies other visual disturbances Card Denies chest pain at rest, Denies chest pain with activity, Denies edema, Denies irregular heart rhythm, Denies claudication, Denies dyspnea, Denies dyspnea on exertion, Denies orthopnea, Denies paroxysmal nocturnal dyspnea and Denies slow heart rate Resp Denies cough, Denies dyspnea and Denies dyspnea on exertion Musc Reports arthralgias and Reports muscle weakness Physical exam (Primary Care) Vital Signs: Last Vital Signs BP 112/76 11/15/23 10:26 BMI result Body Mass Index 55.2 BMI Assessment/Plan discussion: High BMI High, discussed plan: lifestyle, weight reduction, dietary and physical activity Tobacco/Smoking Status: Tobacco use Status Tobacco use date assessed 07/16/23 11/15/23 10:35 Patient Tobacco Use Status Never used Tobacco 11/15/23 10:35 e-Cigarette/Vaping Use Never Used 11/15/23 10:35 Thrive Assessment: Date of Thrive Assessment Date Thrive assessed 07/16/23 11/15/23 10:35 Const Limitations: ambulation with cane Resp Effort & Inspection: normal respiratory effort Auscultation: clear to auscultation bilaterally Cardio Jugular venous distension: no JVD Rate: regular rate Rhythm: regular rhythm Heart sounds: S1 normal heart sound present and S2 normal heart sound present GI Inspection: Yes normal to inspection Palpation (GI): Soft to palpation and nontender Auscultation: normal bowel sounds Skin General skin exam: no rashes or lesions noted Neuro General: no focal motor deficits Extrem General: Yes full ROM Results AMB Hemoglobin A1c AMB Hemoglobin A1c 6.7 % Last Edit by HEATH Evans on 11/15/23 10:37 Results Reviewed Results Reviewed: Laboratory Last Values Hgb A1c (Clinic) 6.7 % (4.0-6.0) H 11/15/23 10:25 Assessment and Plan Assessment & Plan (1) Seronegative rheumatoid arthritis: Comment: Seronegative dx 03/2019 in [place]: 08/2019- 08/2021 dyspnea Prednisone Humira: September 2021- 12/2022 incomplete response Actemra 01/2023 partially effective advanced to weekly 03/2023 effective Code(s): M06.00 - Rheumatoid arthritis without rheumatoid factor, unspecified site Plan: Continue Actemra. Follow-up with rheumatology. (2) Morbid obesity with BMI of 50.0-59.9, adult: Code(s): E66.01 - Morbid (severe) obesity due to excess calories; Z68.43 - Body mass index [BMI] 50.0-59.9, adult Plan: Start diet and exercise. BMI goal is less than 30. (3) Hyperlipidemia LDL goal <70: Code(s): E78.5 - Hyperlipidemia, unspecified Plan: Continue statins. LDL goal is less than 70. (4) Essential hypertension: Code(s): I10 - Essential (primary) hypertension Plan: Continue hydrochlorothiazide and diltiazem. Blood pressure goal is equal or less than 130/80. Continue losartan. (5) Type 2 diabetes mellitus, without long-term current use of insulin: Code(s): E11.9 - Type 2 diabetes mellitus without complications Plan: Increase Ozempic. A1c goal is equal or less than 7%. Orders: Orders AMB Hemoglobin A1c Today E11.9 - Type 2 diabetes mellitus without complications Lipid Panel Today E78.5 - Hyperlipidemia, unspecified Microalbumin, Random (w Creat) Today E11.9 - Type 2 diabetes mellitus without complications IRON PROFILE Today D64.9 - Anemia, unspecified Comprehensive [place]. Panel Fast Today E78.5 - Hyperlipidemia, unspecified Vitamin D 25-OH Total Today E55.9 - Vitamin D deficiency, unspecified Complete Blood Count Auto Diff Today D64.9 - Anemia, unspecified Referrals TRAFFIC OPERATIONS ENGINEER Referral N92.6 - Irregular menstruation, unspecified Medications: New semaglutide (Ozempic) 1 mg (0.75 mL) subcut QWEEK 3 mL 3RF 4 weeks alprazolam Take 1 to 2 tabs 30 to 45 minutes before study 1 mg (2 x 0.5 mg) PO DAILY 2 tabs 0RF 1 day walker As directed 1 ea 0RF M17.0 - Bilateral primary osteoarthritis of knee Discontinued semaglutide (Ozempic) Discontinued Reason: Patient Completed Course 0.125 mg (0.184 mL) subcut QWEEK 30 days 1 mL 6RF E11.9 - Type 2 diabetes mellitus without complications Coding Level of Care Code Est Pt Level 4 (60897) Diagnoses Seronegative rheumatoid arthritis M06.00 Morbid obesity with BMI of 50.0-59.9, adult E66.01; Z68.43 Hyperlipidemia LDL goal <70 E78.5 Essential hypertension I10 Type 2 diabetes mellitus, without long-term current use of insulin E11.9 Time Spent (min) 23
== END 2023-11-15 10:58 | disposition home or self-care (01) ==
PROVIDERS: PCP Internal Medicine; Visit Provider Internal Medicine
DX: E11.69 Type 2 diabetes mellitus with other specified complication (principal); M06.00 Rheumatoid arthritis without rheumatoid factor, unspecified site; E66.01 Morbid (severe) obesity due to excess calories; Z68.43 Body mass index [BMI] 50.0-59.9, adult; E78.5 Hyperlipidemia, unspecified; I10 Essential (primary) hypertension
CPT/HCPCS: 83036; 99214

== ENCOUNTER 2023-11-26 08:06 | Outpatient (REF) | payer OTHER, SELFPAY ==
[2023-11-26 08:25] LABS: MANUAL DIFF FLAG NO
[2023-11-26 08:37] LABS: Basophils Percent Auto 0.6 % (0-2); Eosinophils Absolute Auto 0.4 X10*3/uL (0.0-0.4); Eosinophils Percent Auto 5.6 % (0-4); Hematocrit 42.2 % (37.0-47.0); Hemoglobin 13.6 g/dl (12.0-16.0); Imm Gran Abs Auto 0.01 X10*3/uL (0.00-0.03); Imm Gran Pct Auto 0.2 % (0.0-0.4); Lymphocytes Absolute Auto 2.6 X10*3/uL (1.2-4.9); Lymphocytes Percent Auto 39.7 % (20-40); Mean Corpuscular HGB Conc 32.2 g/dl (31.0-35.0); Mean Corpuscular Hemoglobin 27.4 pg (27.0-33.0); Mean Corpuscular Volume 85.1 fL (80.0-98.0); Mean Platelet Volume 9.8 fL (9.4-12.3); Monocytes Absolute Auto 0.6 X10*3/uL (0.1-1.2); Monocytes Percent Auto 9.2 % (2-11); Neutrophils Percent Auto 44.7 % (45-73); Platelet Count 207 X10*3/uL (160-400); Red Blood Count 4.96 X10*6/uL (4.20-5.50); White Blood Count 6.6 X10*3/uL (4.8-10.8)
[2023-11-26 09:41] LABS: Alanine Aminotransferase 65 U/L (0-31); Albumin Level 4.1 g/dL (3.5-5.0); Alkaline Phosphatase 57 U/L (39-117); Anion Gap 14 (12-20); Aspartate Amino Transferase 45 U/L (5-31); Bilirubin Total 0.4 mg/dL (0.0-1.0); Blood Urea Nitrogen 18 mg/dL (9-16); Calcium 9.6 mg/dL (8.4-10.2); Carbon Dioxide 21 mmol/L (22-29); Chloride 107 mmol/L (96-108); Cholesterol 155 mg/dL (<200); Estimated Glomerular Filt Rate > 60; Glucose Fasting 129 mg/dL (60-99); HDL Cholesterol 43 mg/dL (>40); Iron 81 mcg/dL (30-160); LDL Cholesterol Calculated 89 mg/dL (<100); Percent Iron Saturation 27 % (15-50); Potassium 4.6 mmol/L (3.3-5.1); Sodium 137 mmol/L (135-145); Total Iron Binding Capacity 299 mcg/dL (228-428); Total Protein 7.8 g/dL (6.5-8.0); Triglycerides 116 mg/dL (<150); Unsaturated Iron Binding 218 ug/dL
[2023-11-26 09:57] LABS: Vitamin D 25-OH Total 29.7 ng/mL (>30)
[2023-11-26 10:19] LABS: Appearance Urine Cloudy; Color Urine Yellow; Glucose Urine UA Negative (Negative); Leukocyte Esterase Urine Moderate (2+) (Negative); Nitrite Urine Negative (Negative); PH 5.5 (5.0-9.0); Specific Gravity - Urine 1.025 (1.005-1.025); UMIC TRIGGER UACC YES; Urine Blood Small (1+) (Negative); Urine Ketones Negative (Negative); Urine Protein Negative (Neg-Trace)
[2023-11-26 11:03] LABS: Creatinine Urine 144.94 mg/dL
[2023-11-26 11:18] LABS: Bacteria Urine 4+ (None Seen); Hyaline Casts Urine 0-2 /LPF (0-2); UACC Culture Trigger YES; WBC Urine >50 /HPF (0-5)
== END 2023-11-26 08:07 | disposition home or self-care (01) ==
LOC: HO.LAB 08:06
PROVIDERS: PCP Internal Medicine; Visit Provider Internal Medicine
DX: E55.9 Vitamin D deficiency, unspecified (principal); E11.9 Type 2 diabetes mellitus without complications; E78.5 Hyperlipidemia, unspecified; D64.9 Anemia, unspecified
CPT/HCPCS: 36415; 80053; 80061; 81001; 81003; 82043; 82306; 82570; 83540; 85025; 87086; 87088; 87186

== ENCOUNTER 2023-12-15 08:58 | Outpatient (REF) | payer OTHER, SELFPAY ==
[2023-12-15 09:39] LABS: MANUAL DIFF FLAG NO
[2023-12-15 09:51] LABS: Basophils Percent Auto 0.5 % (0-2); Eosinophils Absolute Auto 0.3 X10*3/uL (0.0-0.4); Eosinophils Percent Auto 3.8 % (0-4); Hematocrit 41.9 % (37.0-47.0); Hemoglobin 13.7 g/dl (12.0-16.0); Imm Gran Abs Auto 0.02 X10*3/uL (0.00-0.03); Imm Gran Pct Auto 0.3 % (0.0-0.4); Lymphocytes Absolute Auto 2.2 X10*3/uL (1.2-4.9); Lymphocytes Percent Auto 32.9 % (20-40); Mean Corpuscular HGB Conc 32.7 g/dl (31.0-35.0); Mean Corpuscular Hemoglobin 27.5 pg (27.0-33.0); Mean Platelet Volume 9.9 fL (9.4-12.3); Monocytes Absolute Auto 0.7 X10*3/uL (0.1-1.2); Monocytes Percent Auto 10.9 % (2-11); Neutrophils Absolute Auto 3.4 x10*3/uL (2.0-8.3); Neutrophils Percent Auto 51.6 % (45-73); Platelet Count 212 X10*3/uL (160-400); Red Blood Count 4.99 X10*6/uL (4.20-5.50); Red Cell Distribution Width 13.6 % (11.0-16.0); White Blood Count 6.5 X10*3/uL (4.8-10.8)
[2023-12-15 10:34] LABS: Appearance Urine Cloudy; Color Urine Dark Yellow; Glucose Urine UA Negative (Negative); Leukocyte Esterase Urine Moderate (2+) (Negative); Nitrite Urine Positive (Negative); PH 5.5 (5.0-9.0); Specific Gravity - Urine >= 1.030 (1.005-1.025); UMIC TRIGGER UACC YES; Urine Blood Moderate (2+) (Negative); Urine Ketones Negative (Negative); Urine Protein Trace mg/dL (Neg-Trace)
[2023-12-15 10:39] LABS: Bacteria Urine 4+ (None Seen); Hyaline Casts Urine 0-2 /LPF (0-2); UACC Culture Trigger YES; WBC Urine >50 /HPF (0-5)
[2023-12-15 10:40] LABS: Alanine Aminotransferase 70 U/L (0-31); Albumin Level 4.2 g/dL (3.5-5.0); Alkaline Phosphatase 59 U/L (39-117); Anion Gap 12 (12-20); Aspartate Amino Transferase 49 U/L (5-31); Bilirubin Total 0.4 mg/dL (0.0-1.0); Blood Urea Nitrogen 17 mg/dL (9-16); C Reactive Protein 0.15 mg/dL (< or = 0.50); Calcium 9.6 mg/dL (8.4-10.2); Carbon Dioxide 24 mmol/L (22-29); Chloride 105 mmol/L (96-108); Estimated Glomerular Filt Rate > 60; Glucose Random 114 mg/dL (60-115); Potassium 4.3 mmol/L (3.3-5.1); Sodium 137 mmol/L (135-145); Total Protein 8.1 g/dL (6.5-8.0)
[2023-12-15 11:20] LABS: Erythrocyte Sedimentation Rate 3 MM/HR (0-20)
== END 2023-12-15 08:59 | disposition home or self-care (01) ==
LOC: HO.LAB 08:58
PROVIDERS: PCP Internal Medicine; Visit Provider Student in an Organized Health Care Education/Training Program
DX: M06.00 Rheumatoid arthritis without rheumatoid factor, unspecified site (principal); R30.0 Dysuria; R82.90 Unspecified abnormal findings in urine
CPT/HCPCS: 36415; 80053; 81001; 81003; 85025; 85652; 86140; 87086; 87088; 87186

== ENCOUNTER 2023-12-17 10:24 | Outpatient (AMB) | payer OTHER, SELFPAY ==
--- NOTE | 2023-12-17 10:36 | MHC.OFFVIS ---
Intake Visit Reasons: cysto/CT/labs Intake Note: Patient is Present for Cystoscopy Urology Med:Solienacin Antibiotic Allergy:doxycline Blood Thinner:asprin URO- G Disposable Cystoscope lot:[id number] exp:[id number] Wedding Day Coordinator Required: Yes Wedding Day Coordinator Language: Uzbek Allergies doxycycline Adverse Reaction (Mild, Verified 12/19/23 13:35) Palpitations HPI Comments Details: 12/17/2023--here for office cystoscopy. Seen last in the office by nurse practitioner Ashley Ellison 11/15/2023. CT urogram pending December 25. Recurrent UTIs currently on Macrobid. Cystoscopy findings mild erythematous changes consistent with cystitis no suspicious bladder lesions visualized Review of chart: 11/15/2023--This is a 48-year-old female with diabetes mellitus type 2 without long-term current use of insulin, hypertension, hyperlipidemia, morbid obesity and rheumatoid arthritis that comes today for follow-up on her conditions. A1c within goal. Blood pressure stable. Lipid panel will be order and her LDL goal should be less than 70. She is morbidly obese with a BMI of 55.2 and was advised to do diet and exercise to reach BMI goal less than 30. Declines weight loss surgery now. She walks with a cane due to bilateral knee osteoarthritis and still have loss of balance. Patient will benefit from a walker. No chest pain or shortness on breath. [facility] Medical History SVT (supraventricular tachycardia) Osteoarthritis of knees, bilateral LARRY (generalized anxiety disorder) Hypovitaminosis D Pure hypercholesterolemia Morbid obesity due to excess calories Iron deficiency anemia Anxiety Super obese Vertigo Morbid obesity Seronegative rheumatoid arthritis Thrombophlebitis Fibromyalgia MAXIMINO (obstructive sleep apnea) Hypertension Diabetes Surgical History History of tubal ligation History of History of hip surgery Family History Father Prostate cancer Mother Uterine cancer Social History Housing: Apartment Alcohol intake: never Patient Tobacco Use Status: Never used Tobacco e-Cigarette/Vaping Use: Never Used Second Hand Smoke Exposure: No service: No Current occupational status: disabled 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 Information consent for procedure given to the patient. Discussed technical aspects, risks, benefits and alternatives in full. Addressed all of the patient's questions and concerns regarding the procedure. The patient demonstrated knowledge and understanding. They wish to proceed with this procedure. Preparation The patient was prepped in the usual manner. A polisher apprentice was present and in the room. Genitalia was prepped with betadine solution in a sterile manner. Lidocaine Jelly 2% was placed into the urethra and 16Fr flexible Olympus cystoscope was inserted into the meatus after adequate lubrication. Procedure Time out per protocol performed. Bladder Inspection Bladder Inspection: The bladder was inspected in its entirety with utilization retroflexion displaying: Tumor(s): No suspicious bladder lesion seen Trabeculation: NA Mucosal Erthema: Erythematous bullous changes consistent with cystitis Orifices: normal shape and position Urethra: normal Cystoscopy findings: Erythematous changes consistent with cystitis, no suspicious bladder lesions visualized [id number] DISPOSABLE SCOPE URO-G FLEXIBLE SCOPE Procedure code (CPT) selection complete Office Meds lidocaine HCl 2 % mucosal jelly in applicator Performing Provider: lEizabeth Cruz MD Performing Location: [facility] Administered by: Gray Ventura LPN on 12/17/23 10:48 Dose Route Admin Location Dispensed Lot Number Expiration Date ND Document Control Coordinator 10 mL intra-urethral 20 mL naproxen 500 mg tablet Performing Provider: Elizabeth Cruz MD Performing Location: [facility] Administered by: Gray Ventura LPN on 12/17/23 10:48 Dose Route Admin Location Dispensed Lot Number Expiration Date ND Document Control Coordinator 500 mg PO 1 tab ciprofloxacin HCl 500 mg tablet Performing Provider: Elizabeth Cruz MD Performing Location: [facility] Administered by: Gray Ventura LPN on 12/17/23 10:48 Dose Route Admin Location Dispensed Lot Number Expiration Date ND Document Control Coordinator 500 mg PO 1 tab Results AMB Urinalysis, Automated UA Leukoctes 70 Mauro/uL Last Edit by HEATH Madison on 12/17/23 10:57 UA Nitrite Negative Last Edit by Jeaneth Willis, RMA on 12/17/23 10:57 UA Urobilinogen 0.2 mg/dL Last Edit by Jeaneth Willis, RMA on 12/17/23 10:57 UA Protein 30 mg/dL Last Edit by Jeaneth Willis, RMA on 12/17/23 10:57 UA pH 5.5 Last Edit by Jeaneth Willis, RMA on 12/17/23 10:57 UA Blood 200 Robert/uL Last Edit by Jeaneth Willis, RMA on 12/17/23 10:57 UA Specific [place] 1.025 Last Edit by Jeaneth Willis, RMA on 12/17/23 10:57 UA Ketone Positive Last Edit by Jeaneth Willis, A on 12/17/23 10:57 UA Bilirubin 0 mg/dL Last Edit by Jeaneth Willis, RMA on 12/17/23 10:57 UA Glucose 0 mg/dL Last Edit by Jeaneth Willis, A on 12/17/23 10:57 Results Reviewed Results Reviewed: Laboratory Last Values Urine pH (Auto) 5.5 12/17/23 10:44 Specific [place] (Auto) 1.025 12/17/23 10:44 Urine Protein (Auto) 30 mg/dL 12/17/23 10:44 Glucose (UA)(Auto) 0 mg/dL 12/17/23 10:44 Urine Ketones (Auto) Positive 12/17/23 10:44 Urine Blood (Auto) 200 Robert/uL 12/17/23 10:44 Urine Nitrite (Auto) Negative 12/17/23 10:44 Urine Bilirubin (Auto) 0 mg/dL 12/17/23 10:44 Urine Urobilinogen (Auto) 0.2 mg/dL 12/17/23 10:44 Leukocyte Esterase (Auto) 70 Mauro/uL 12/17/23 10:44 Assessment & Plan Assessment & Plan (1) Gross hematuria: Code(s): R31.0 - Gross hematuria Category: Medical (2) Dysuria: Code(s): R30.0 - Dysuria Category: Medical (3) Sensation of pressure in bladder area: Code(s): R39.89 - Other symptoms and signs involving the genitourinary system Category: Medical (4) Cystitis: Code(s): N30.90 - Cystitis, unspecified without hematuria Category: Medical Plan Cystoscopy today, mild inflammatory changes consistent with cystitis, no suspicious lesions visualized CT pending Orders: Orders AMB Urinalysis Automated 12/17/23 Z13.9 - Encounter for screening, unspecified AMB Cystoscopy 12/17/23 R31.0 - Gross hematuria Patient Instructions: The patient had an opportunity to ask questions regarding treatment plan. The patient expressed understanding and agreement with the above treatment plan. The patient is aware they should contact our office by phone for worsening of their current condition or the appearance of new symptoms. Compliance is encouraged with any medications and followup testing that is ordered. It is a privilege to be allowed the opportunity to participate in the urologic care of your patient. If you have any questions or concerns regarding treatment for the above conditions please do not hesitate to contact me. The office telephone contact is [phone]. This note is constructed in part using voice recognition software. While every effort has been made to ensure accuracy spike machine operator errors may have been included. Yours sincerely, Elizabeth Cruz MD Coding Level of Care Code Procedure Only Diagnoses Gross hematuria R31.0 Dysuria R30.0 Sensation of pressure in bladder area R39.89 Cystitis N30.90 CPT Codes Cystoscopy - CPT: [id number] ([id number])
== END 2023-12-17 11:35 | disposition home or self-care (01) ==
PROVIDERS: PCP Internal Medicine; Visit Provider Urology
DX: R31.0 Gross hematuria (principal); R30.0 Dysuria; R39.89 Other symptoms and signs involving the genitourinary system; N30.90 Cystitis, unspecified without hematuria
CPT/HCPCS: 52000

== ENCOUNTER → 2023-12-17 10:24 | Outpatient (BNVA) | payer OTHER, SELFPAY | PROVIDERS: PCP Internal Medicine; Visit Provider Urology | DX: N30.90 Cystitis, unspecified without hematuria (principal); R39.89 Other symptoms and signs involving the genitourinary system; R31.0 Gross hematuria; R30.0 Dysuria | CPT/HCPCS: 52000; 81003 ==

== ENCOUNTER 2023-12-19 13:00 | Outpatient (AMB) | payer OTHER, SELFPAY ==
--- NOTE | 2023-12-19 13:20 | A.OFFVIS_ITS ---
Vital Signs 12/19/23 13:24 Height 5 ft 5 in Weight 326 lb 4.546 oz BMI 54.3 BP 126/68 Blood Pressure Location Rt brachial Position Sitting Pulse 92 Pulse Source Pulse Oximeter Pulse Oximetry (%) 95 Oxygen Delivery Method Room Air Intake Visit Reasons: RA/cm Intake Note: Pt seen today for RA follow up. Reports same pains. Watch Repair Technician Required: Yes Watch Repair Technician Name: Juli Woodall Accompanied by: Son Allergies doxycycline Adverse Reaction (Mild, Verified 12/19/23 13:35) Palpitations Medication List - Last Reconciled 12/19/23 by Nivia iLnn MD acetaminophen (Tylenol Extra Strength) 500 mg PO BID PRN Actemra ACTPen (tocilizumab) 162 mg (0.9 mL) subcut QWEEK NS alprazolam 1 mg (2 x 0.5 mg) PO DAILY 1 day aspirin 81 mg PO DAILY 30 days atorvastatin 20 mg PO BEDTIME 90 days blood pressure monitor As directed blood sugar diagnostic (FreeStyle Lite Strips) Use 1 test strip once a day blood-glucose meter (FreeStyle Lite Meter kit) As directed cane As directed cholecalciferol (vitamin D3) (Vitamin D3) 25 mcg PO DAILY 90 days [cock up splint wear on each wrist at night. ] diltiazem HCl CD 240 mg PO DAILY ferrous sulfate 325 mg PO DAILY fluticasone propionate 50 mcg/actuation (Flonase Allergy Relief) 1 spray intranasal DAILY 30 days folic acid 1 mg PO DAILY [grab bars As directed] hydrochlorothiazide 12.5 mg PO QAM 90 days lancets (FreeStyle Lancets) Use 1 lancet once a day losartan 100 mg PO DAILY 90 days meclizine 25 mg PO TID PRN 30 days nitrofurantoin macrocrystal 100 mg PO BID 7 days semaglutide (Ozempic) 1 mg (0.75 mL) subcut QWEEK 4 weeks Shower Chair As directed solifenacin (Vesicare) 5 mg PO DAILY 90 days walker As directed HPI Comments Details: 48yoF presents for follow-up of seronegative rheumatoid arthritis. On Actemra 162 mg every week She is doing fairly well. He has some pain the left side of her neck travel all the way down to her left hand. She is doing fairly well otherwise. [facility] Medical History SVT (supraventricular tachycardia) Osteoarthritis of knees, bilateral LARRY (generalized anxiety disorder) Hypovitaminosis D Pure hypercholesterolemia Morbid obesity due to excess calories Iron deficiency anemia Anxiety Super obese Vertigo Morbid obesity Seronegative rheumatoid arthritis Thrombophlebitis Fibromyalgia MAXIMINO (obstructive sleep apnea) Hypertension Diabetes Surgical History History of tubal ligation History of History of hip surgery Family History Father Prostate cancer Mother Uterine cancer Social History Housing: Apartment Alcohol intake: never Patient Tobacco Use Status: Never used Tobacco e-Cigarette/Vaping Use: Never Used Second Hand Smoke Exposure: No service: No Current occupational status: disabled 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 Cognitive needs: Yes Hearing needs: No Vision needs: No Female Reproductive History Menstrual Age of Menarche: 16 Review of Systems Musc Reports arthralgias, Reports limited range of motion and Reports stiffness Physical Exam Vital Signs: Last Vital Signs Pulse 92 12/19/23 13:24 BP 126/68 12/19/23 13:24 Pulse Ox 95 12/19/23 13:24 Oxygen Delivery Method Room Air 12/19/23 13:24 BMI result Body Mass Index 54.3 Const General: cooperative, healthy appearing and comfortable Nutritional Appearance: obese morbidly obese Orientation/consciousness: patient oriented x3 Limitations: ambulation with cane HEENT Head: Yes normocephalic and Yes atraumatic Resp Effort & Inspection: normal respiratory effort and able to speak in complete sentences Neuro General: patient oriented x3 Extrem Other: No active synovitis right upper extremity No swollen joints, almost normal right hand seasoning mixer strength, normal range of motion of wrists, fingers, elbows, right shoulder Left wrist tenderness and pain with flexion-extension Negative Spurling's test bilaterally Negative resisted wrist extensor test bilaterally Results Reviewed Results Reviewed: Laboratory Tests Date of Service: 08/29/22 Procedure(s): XR shoulder LT min 2V EXAMINATION: XR SHOULDER, LEFT CLINICAL INFORMATION: Pain.? COMPARISON: None.? TECHNIQUE: AP external rotation, Grashey, scapular Y, and axillary views of the left shoulder. FINDINGS: Bony alignment and mineralization are normal. The glenohumeral joint is intact and shows minimal osteoarthritic change. The acromioclavicular and coracoclavicular intervals are normal. There is cortical irregularity of the greater tuberosity of the proximal right humerus, and a distal acromial osteophyte is seen. No abnormal soft tissue calcification or foreign body is seen. There is no left pneumothorax.? XR/XR shoulder LT min 2V IMPRESSION: ? 1. No fracture or dislocation is seen. ? 2. There is minimal osteoarthritic change of the left glenohumeral joint. ? 3. Findings suggest possible left rotator cuff impingement; no andrea calcific tendinitis is noted. Date of Service: 08/29/22 Procedure(s): XR hand LT min 3V Accession Number(s): [id number] EXAMINATION: XR HAND, LEFT CLINICAL INFORMATION: Pain.? COMPARISON: Radiographs dated 01/29/2020.? TECHNIQUE: PA, lateral, and oblique views of the left hand. FINDINGS: The bones and soft tissues are normal. No fracture. Alignment is anatomic. Joint spaces are maintained. No erosions or soft tissue calcifications.? XR/XR hand LT min 3V IMPRESSION: Normal left hand. Date of Service: 01/30/22 Procedure(s): XR knee RT 3V Accession Number(s): [id number] EXAMINATION: BILATERAL KNEE X-RAY CLINICAL INFORMATION: Bilateral osteoarthritis? COMPARISON: Previous x-ray January 2020? TECHNIQUE: 3 views of each knee? FINDINGS: Right: There is valgus angulation. There is high position of the patella and lateral tilt of patella on the sunrise view. There is severe arthritis at the lateral femoral tibial and patellofemoral joints with joint space narrowing and osteophyte formation. There is no joint effusion. Left: There is high position of the patella. Bone alignment is otherwise normal. No fracture or dislocation is seen. There is arthritis at the medial femoral tibial and patellofemoral joints with joint space narrowing and osteophyte formation. There is no joint effusion. XR/XR knee RT 3V IMPRESSION: Bilateral arthritis not appreciably changed from 2020 exam.? Assessment & Plan Assessment & Plan (1) Seronegative rheumatoid arthritis: Comment: Seronegative dx 03/2019 in [place]: 08/2019- 08/2021 dyspnea Prednisone Humira: September 2021- 12/2022 incomplete response Actemra 01/2023 partially effective advanced to weekly 03/2023 effective Code(s): M06.00 - Rheumatoid arthritis without rheumatoid factor, unspecified site Category: Medical Plan: This is a 48-year-old female with seronegative rheumatoid arthritis who presents for follow-up. On Actemra 162 mg weekly. Doing quite well overall. However recent labs have showed some transaminitis, it is unclear whether it is related to Actemra. Hold Actemra for 1 month and repeat blood work. Follow-up in 3 months (2) Numbness and tingling in both hands: Code(s): R20.0 - Anesthesia of skin; R20.2 - Paresthesia of skin Category: Medical Plan: EMG/NCV show bilateral moderate to severe carpal tunnel syndrome. Continue wearing wrist splints. Evaluated by hand surgery, she is considering doing right carpal tunnel release, followed by left (3) Elevated transaminase level: Code(s): R74.01 - Elevation of levels of liver transaminase levels Category: Medical Plan: Unclear cause, will hold Actemra for now. Repeat blood work in a month Patient denies alcohol consumption. Will check further labs. Check liver elastography Plan I spent 26 minutes reviewing patient's chart, evaluating patient, ordering diagnostic workup, counseling patient and documenting in the chart Orders: Orders Complete Blood Count Auto Diff 1 Month M06.9 - Rheumatoid arthritis, unspecified, R74.01 - Elevation of levels of liver transaminase levels Comprehensive Met. Panel 1 Month M06.9 - Rheumatoid arthritis, unspecified, R74.01 - Elevation of levels of liver transaminase levels C Reactive Protein 1 Month M06.9 - Rheumatoid arthritis, unspecified, R74.01 - Elevation of levels of liver transaminase levels Creatine Kinase Total 1 Month M06.9 - Rheumatoid arthritis, unspecified, R74.01 - Elevation of levels of liver transaminase levels US abdomen lipscomb w elastography Today R74.01 - Elevation of levels of liver transaminase levels Erythrocyte Sedimentation Rate 1 Month M06.9 - Rheumatoid arthritis, unspecified, R74.01 - Elevation of levels of liver transaminase levels Lactate Dehydrogenase 1 Month M06.9 - Rheumatoid arthritis, unspecified, R74.01 - Elevation of levels of liver transaminase levels Gamma Glutamyl Transpeptidase 1 Month M06.9 - Rheumatoid arthritis, unspecified, R74.01 - Elevation of levels of liver transaminase levels Coding Level of Care Code Est Pt Level 4 (86265) Diagnoses Seronegative rheumatoid arthritis M06.00 Numbness and tingling in both hands R20.0; R20.2 Elevated transaminase level R74.01
[2023-12-19 13:24] VITALS: BP 126/68; PULSE 92; O2SAT 95; BMI 54.3
== END 2023-12-19 14:01 | disposition home or self-care (01) ==
PROVIDERS: PCP Internal Medicine; Visit Provider Student in an Organized Health Care Education/Training Program
DX: M06.00 Rheumatoid arthritis without rheumatoid factor, unspecified site (principal); R20.0 Anesthesia of skin; R20.2 Paresthesia of skin; R74.01 Elevation of levels of liver transaminase levels
CPT/HCPCS: 99214

== ENCOUNTER → 2023-12-19 13:00 | Outpatient (BNVA) | payer OTHER, SELFPAY | PROVIDERS: PCP Internal Medicine; Visit Provider Student in an Organized Health Care Education/Training Program | DX: M06.00 Rheumatoid arthritis without rheumatoid factor, unspecified site (principal); M79.7 Fibromyalgia; R74.01 Elevation of levels of liver transaminase levels; R20.0 Anesthesia of skin; R20.2 Paresthesia of skin | CPT/HCPCS: 99212 ==

== ENCOUNTER 2023-12-26 07:33 | Outpatient (REF) | payer OTHER, SELFPAY ==
--- NOTE | ~2023-12-26 | CT_ITS ---
EXAMINATION: CT ABDOMEN AND PELVIS WITHOUT AND WITH CONTRAST CLINICAL INFORMATION: Gross hematuria COMPARISON: Renal ultrasound 03/22/2023 TECHNIQUE: Noncontrast CT of the abdomen and pelvis is performed followed by split bolus contrast-enhanced images using 85 mL Omnipaque 350 contrast.? Postcontrast imaging is performed during the combined nephrogram and excretion phase. Sagittal and coronal reformatted images were obtained on the technologist's workstation for both the precontrast and postcontrast phases. This CT examination was performed using dose optimization techniques as appropriate, variously including the following: *Automated exposure control *Adjustment of mA and/or kV according to patient size (this includes techniques or standardized protocols for targeted exams where dose is matched to indication/reason for exam; i.e. extremities or head) *Use of iterative reconstruction technique DLP: 1777 mGy-cm FINDINGS: LUNG BASES: Unremarkable. ABDOMINAL AND PELVIC WALL: Unremarkable. LIVER AND BILIARY TREE: Hypoattenuating hepatic parenchyma compatible with hepatic steatosis. A 1 cm hypervascular lesion in the right hepatic lobe, 8:27 incompletely characterized, recommend correlation with contrast enhanced MR abdomen. Liver is enlarged measuring 21.1 cm in span. GALLBLADDER: Status post cholecystectomy. PANCREAS: Unremarkable. SPLEEN: Unremarkable. ADRENAL GLANDS: Unremarkable. KIDNEYS AND URETERS: Long segments of the ureters were nonopacified limiting assessment for any intraluminal filling defect. No hydronephrosis or nephrolithiasis. No suspicious renal mass. GASTROINTESTINAL TRACT: Colonic diverticulosis without evidence of diverticulitis. No findings to suggest appendicitis. VASCULAR: Unremarkable. LYMPH NODES/PERITONEUM: No lymphadenopathy. FREE FLUID: None. BLADDER: Unremarkable. PELVIC VISCERA: Nabothian cysts in the cervix. OSSEOUS STRUCTURES: Partially imaged cerclage wire about the greater trochanter on the right. CT/CT urogram IMPRESSION: 1. No findings to explain symptoms of hematuria however along segments of the ureters were nonopacified limiting assessment for any intraluminal filling defect. 2. A 1 cm hypervascular lesion in the right hepatic lobe incompletely characterized, recommend correlation with contrast enhanced MR abdomen. 3. Hepatomegaly and hepatic steatosis.
[2023-12-26] MEDS: iohexoL 350 MG/ML 75 ML INFUS..BTL 85 ML IV (10:48)
== END 2023-12-26 07:34 | disposition home or self-care (01) ==
LOC: HO.CT 07:33
PROVIDERS: PCP Internal Medicine; Visit Provider Nurse Practitioner Family
DX: R31.0 Gross hematuria (principal)
CPT/HCPCS: 74178; Q9967

== ENCOUNTER 2024-01-07 08:37 | Outpatient (REF) | payer OTHER, SELFPAY ==
--- NOTE | ~2024-01-07 | US_ITS ---
EXAMINATION: US ABDOMEN LIMITED WITH LIVER ELASTOGRAPHY CLINICAL INFORMATION: Elevated transaminase. COMPARISON: CT urogram 12/26/2023. TECHNIQUE: Real-time imaging of the abdominal viscera. Noninvasive ultrasound liver fibrosis assessment is performed using Genia ElastPQ point quantification shear wave elastography (2D-SWE) with a C5-2 MHz transducer. Multiple elastography samples are obtained. FINDINGS: PANCREAS: The visualized portions of the pancreas are unremarkable but a large portion of the gland is obscured by bowel gas. LIVER: The liver is enlarged measuring 21.5 cm in greatest length with increased echogenicity consistent with hepatic steatosis. No focal lesion or intrahepatic biliary duct dilatation. The 1 cm hypervascular lesion in the right lobe of the liver seen at the time of the prior CT urogram is not identified on this exam. Hepatic MRI was recommended at that time. The right lobe measures 21.5 cm in length. The left lobe measures 14.2 cm in length. Portal flow is towards the liver (hepatopetal). Shear wave liver elastography median stiffness is 1.70 m/s (reference: normal median stiffness is 1.3 m/s or less). IQR/median stiffness to assess sampling precision is 0.08 (reference: good quality data set is IQR/median stiffness of 0.15 or less). GALLBLADDER: Status post cholecystectomy. COMMON BILE DUCT: Normal in caliber measuring 0.5 cm in diameter. RIGHT KIDNEY: . No hydronephrosis. No renal calculi or focal parenchymal lesions. The kidney measures 11.1 cm in maximum dimension. FREE FLUID: None. US/US abdomen lipscomb w elastography IMPRESSION: 1. Enlarged fatty liver. 2. Liver elastography: Measurements are suggestive of compensated advanced chronic liver disease but need further test for confirmation. 3. Liver mass seen on the CT urogram not identified on this exam. Prior recommendation still stands. REFERENCE: Society of Radiologists in Ultrasound Liver Stiffness Thresholds (2020): LIVER STIFFNESS THRESHOLDS: *Liver Stiffness equal or less than 1.3 m/s: High probability of being normal. *Liver Stiffness less than 1.7 m/s: In the absence of other known clinical signs, rules out compensated advanced chronic liver disease. *Liver Stiffness 1.7-2.1 m/s: Suggestive of compensated advanced chronic liver disease but need further test for confirmation. *Liver Stiffness over 2.1 m/s: Rules in compensated advanced chronic liver disease. *Liver Stiffness over 2.4 m/s: Suggestive of clinically significant portal hypertension. QUALITY OF DATA SET: *IQR/Median value equal or less than 0.15 implies a quality data set. *IQR/Median value over 0.15 implies a poor quality data set. SIGNIFICANT CHANGE FROM PRIOR EXAM: Significant change if liver stiffness measurement is 10% or greater from prior exam. OTHER CONSIDERATIONS: The stage of liver fibrosis may be overestimated in the setting of acute hepatitis, liver inflammation, elevated liver function tests, hepatic vascular congestion, obstructive cholestasis, non-fasting state, and infiltrative diseases such as amyloidosis and lymphoma. In some patients with NAFLD, the liver stiffness thresholds for compensated advanced chronic liver disease may be lower. In causes other than viral hepatitis and NAFLD, liver stiffness thresholds are not well established.
== END 2024-01-07 08:38 | disposition home or self-care (01) ==
LOC: HO.US 08:37
PROVIDERS: PCP Internal Medicine; Visit Provider Student in an Organized Health Care Education/Training Program
DX: R74.01 Elevation of levels of liver transaminase levels (principal)
CPT/HCPCS: 76705; 76981

== ENCOUNTER 2024-01-21 08:25 | Outpatient (REF) | payer OTHER, SELFPAY ==
[2024-01-21 08:46] LABS: MANUAL DIFF FLAG NO
[2024-01-21 09:20] LABS: Basophils Percent Auto 0.4 % (0-2); Eosinophils Absolute Auto 0.2 X10*3/uL (0.0-0.4); Eosinophils Percent Auto 2.6 % (0-4); Hematocrit 38.4 % (37.0-47.0); Hemoglobin 12.2 g/dl (12.0-16.0); Imm Gran Abs Auto 0.03 X10*3/uL (0.00-0.03); Imm Gran Pct Auto 0.4 % (0.0-0.4); Lymphocytes Absolute Auto 2.6 X10*3/uL (1.2-4.9); Lymphocytes Percent Auto 33.1 % (20-40); Mean Corpuscular HGB Conc 31.8 g/dl (31.0-35.0); Mean Corpuscular Hemoglobin 27.2 pg (27.0-33.0); Mean Corpuscular Volume 85.7 fL (80.0-98.0); Mean Platelet Volume 9.8 fL (9.4-12.3); Monocytes Absolute Auto 0.7 X10*3/uL (0.1-1.2); Neutrophils Absolute Auto 4.2 x10*3/uL (2.0-8.3); Neutrophils Percent Auto 54.5 % (45-73); Platelet Count 303 X10*3/uL (160-400); Red Blood Count 4.48 X10*6/uL (4.20-5.50); White Blood Count 7.8 X10*3/uL (4.8-10.8)
[2024-01-21 10:01] LABS: Erythrocyte Sedimentation Rate 40 MM/HR (0-20)
[2024-01-21 10:24] LABS: Alanine Aminotransferase 38 U/L (0-31); Albumin Level 3.9 g/dL (3.5-5.0); Alkaline Phosphatase 75 U/L (39-117); Anion Gap 12 (12-20); Aspartate Amino Transferase 31 U/L (5-31); Bilirubin Total 0.3 mg/dL (0.0-1.0); Blood Urea Nitrogen 15 mg/dL (9-16); C Reactive Protein 2.97 mg/dL (< or = 0.50); Calcium 9.6 mg/dL (8.4-10.2); Carbon Dioxide 26 mmol/L (22-29); Chloride 105 mmol/L (96-108); Estimated Glomerular Filt Rate > 60; Gamma Glutamyl Transpeptidase 31 U/L (7-33); Glucose Random 118 mg/dL (60-115); Lactate Dehydrogenase 176 U/L (122-220); Potassium 4.7 mmol/L (3.3-5.1); Sodium 138 mmol/L (135-145)
== END 2024-01-21 08:26 | disposition home or self-care (01) ==
LOC: HO.LAB 08:25
PROVIDERS: PCP Internal Medicine; Visit Provider Student in an Organized Health Care Education/Training Program
DX: R74.01 Elevation of levels of liver transaminase levels (principal); M06.9 Rheumatoid arthritis, unspecified
CPT/HCPCS: 36415; 80053; 82550; 82977; 83615; 85025; 85652; 86140

== ENCOUNTER 2024-01-22 13:36 | Outpatient (AMB) | payer OTHER, SELFPAY ==
--- NOTE | 2024-01-22 13:46 | MHC.PC.OV ---
Vital Signs 01/22/24 13:47 Height 5 ft 5 in Weight 329 lb BMI 54.7 BP 112/70 Blood Pressure Location Lt brachial Position Sitting Intake Visit Reasons: pe Intake Note: Patient here for a physical exam Reel Tender Required: No Accompanied by: Son Allergies doxycycline Adverse Reaction (Mild, Verified 01/22/24 14:07) Palpitations Medication List - Last Reconciled 01/22/24 by Ryann Angel MD acetaminophen (Tylenol Extra Strength) 500 mg PO BID PRN Actemra ACTPen (tocilizumab) 162 mg (0.9 mL) subcut QWEEK NS alprazolam 1 mg (2 x 0.5 mg) PO DAILY 1 day aspirin 81 mg PO DAILY 30 days atorvastatin 20 mg PO BEDTIME 90 days blood pressure monitor As directed blood sugar diagnostic (FreeStyle Lite Strips) Use 1 test strip once a day blood-glucose meter (FreeStyle Lite Meter kit) As directed cane As directed cholecalciferol (vitamin D3) (Vitamin D3) 25 mcg PO DAILY 90 days [cock up splint wear on each wrist at night. ] diltiazem HCl CD 240 mg PO DAILY ferrous sulfate 325 mg PO DAILY fluticasone propionate 50 mcg/actuation (Flonase Allergy Relief) 1 spray intranasal DAILY 30 days folic acid 1 mg PO DAILY [grab bars As directed] hydrochlorothiazide 12.5 mg PO QAM 90 days lancets (FreeStyle Lancets) Use 1 lancet once a day losartan 100 mg PO DAILY 90 days meclizine 25 mg PO TID PRN 30 days semaglutide (Ozempic) 1 mg (0.75 mL) subcut QWEEK 4 weeks Shower Chair As directed solifenacin (Vesicare) 5 mg PO DAILY 90 days walker heavy duty rollator Tobacco use date assessed: 07/16/23 Dental Screening Dental Screen Date: 07/16/23 HPI HPI Comments History of Present Illness Details This is a 49-year-old female with diabetes mellitus type 2 and rheumatoid arthritis that comes for her physical exam. Last A1c was within goal. Rheumatoid arthritis is follow by Rheumatology. Diabetic eye exam was done recently. Mammogram done less than a year ago. Has not had a Pap smear in 21 years. Will be referred to OBGYN for Pap smear. Had Cologuard 2022 and was normal. She is morbidly obese with a BMI of 54.7 and is afraid of weight loss surgery. On Ozempic already. Would like to see flash designer. Walks with a cane for gait stability but still unstable and will benefit from wheelchair for long distances. [facility] Medical History (Updated 01/22/24 @ 15:35 by Ryann Angel MD) Rheumatoid arthritis SVT (supraventricular tachycardia) Osteoarthritis of knees, bilateral LARRY (generalized anxiety disorder) Hypovitaminosis D Pure hypercholesterolemia Morbid obesity due to excess calories Iron deficiency anemia Anxiety Super obese Vertigo Morbid obesity Seronegative rheumatoid arthritis Thrombophlebitis Fibromyalgia MAXIMINO (obstructive sleep apnea) Hypertension Diabetes Surgical History History of tubal ligation History of History of hip surgery Family History Father Prostate cancer Mother Uterine cancer Social History Housing: Apartment Alcohol intake: never Patient Tobacco Use Status: Never used Tobacco e-Cigarette/Vaping Use: Never Used Second Hand Smoke Exposure: No service: No Current occupational status: disabled 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 Stephen French, Nai Suarez, Jayson Barajas and colleagues, with an educational tiera from [employer]. Review of Systems Const All systems reviewed & are unremarkable except as noted in HPI and below Card Denies chest pain at rest, Denies chest pain with activity, Denies edema, Denies irregular heart rhythm, Denies claudication, Denies dyspnea, Denies dyspnea on exertion, Denies orthopnea, Denies paroxysmal nocturnal dyspnea and Denies slow heart rate Resp Denies cough, Denies dyspnea and Denies dyspnea on exertion GI Denies abdominal pain, Denies change in bowel habits, Denies excessive flatus, Denies nausea and Denies vomiting Neuro Denies behavioral changes and Denies lack of coordination Psych Denies behavioral changes Physical exam (Primary Care) Vital Signs: Last Vital Signs BP 112/70 01/22/24 13:47 BMI result Body Mass Index 54.7 BMI Assessment/Plan discussion: High BMI High, discussed plan: lifestyle, weight reduction, dietary and physical activity Tobacco/Smoking Status: Tobacco use Status Tobacco use date assessed 07/16/23 01/22/24 13:52 Patient Tobacco Use Status Never used Tobacco 01/22/24 13:52 e-Cigarette/Vaping Use Never Used 01/22/24 13:52 Thrive Assessment: Date of Thrive Assessment Date Thrive assessed 07/16/23 01/22/24 13:52 HENMT Head: Yes normal to inspection, Yes normocephalic and Yes atraumatic Ears: external ears normal Eyes General: appearance normal, both eyes and all related structures Eyelids: Yes eyelids normal Conjunctivae: conjunctivae normal Neck Neck: Yes normal visual inspection and Yes supple Resp Effort & Inspection: normal respiratory effort Auscultation: clear to auscultation bilaterally Cardio Jugular venous distension: no JVD Rate: regular rate Rhythm: regular rhythm Heart sounds: S1 normal heart sound present and S2 normal heart sound present GI Inspection: Yes normal to inspection Palpation (GI): Soft to palpation and nontender Auscultation: normal bowel sounds Skin General skin exam: no rashes or lesions noted Neuro General: no focal motor deficits Extrem General: Yes full ROM Psych Appearance: grossly normal Assessment and Plan Assessment & Plan (1) Physical exam: Code(s): Z00.00 - Encounter for general adult medical examination without abnormal findings Plan: Repeat in a year. (2) Type 2 diabetes mellitus, without long-term current use of insulin: Code(s): E11.9 - Type 2 diabetes mellitus without complications Plan: Continue Ozempic and Jardiance. A1c goal is equal or less than 7%. (3) Morbid obesity with BMI of 50.0-59.9, adult: Code(s): E66.01 - Morbid (severe) obesity due to excess calories; Z68.43 - Body mass index [BMI] 50.0-59.9, adult Plan: Referred to flash designer. (4) Seronegative rheumatoid arthritis: Comment: Seronegative dx 03/2019 in [place]: 08/2019- 08/2021 dyspnea Prednisone Humira: September 2021- 12/2022 incomplete response Actemra 01/2023 partially effective advanced to weekly 03/2023 effective Code(s): M06.00 - Rheumatoid arthritis without rheumatoid factor, unspecified site Plan: Follow-up with rheumatology. Orders: Orders Lipid Panel 4 Months E78.5 - Hyperlipidemia, unspecified Comprehensive [place]. Panel Fast 4 Months E11.9 - Type 2 diabetes mellitus without complications Microalbumin, Random (w Creat) 4 Months E11.9 - Type 2 diabetes mellitus without complications Referrals Nutrition/Dietitian Referral E11.9 - Type 2 diabetes mellitus without complications DATA WAREHOUSE ARCHITECT Referral Z12.4 - Encounter for screening for malignant neoplasm of cervix Medications: New [wheelchair heavy duty] As directed 1 ea 0RF E66.01 - Morbid (severe) obesity due to excess calories, M17.0 - Bilateral primary osteoarthritis of knee, Z68.43 - Body mass index [BMI] 50.0-59.9, adult Changed From ferrous sulfate 325 mg PO DAILY 30 tabs 1RF To ferrous sulfate 325 mg PO .once a week 4 tabs 6RF 30 days Coding Level of Care Code Est Pt Level 3 (72218) Est Pt Prev Care 40-64y(23181) Diagnoses Physical exam Z00.00 Type 2 diabetes mellitus, without long-term current use of insulin E11.9 Morbid obesity with BMI of 50.0-59.9, adult E66.01; Z68.43 Seronegative rheumatoid arthritis M06.00 Time Spent (min) 32
[2024-01-22 13:47] VITALS: BP 112/70; BMI 54.7
== END 2024-01-22 14:31 | disposition home or self-care (01) ==
PROVIDERS: PCP Internal Medicine; Visit Provider Internal Medicine
DX: Z00.00 Encounter for general adult medical examination without abnormal findings (principal); E11.9 Type 2 diabetes mellitus without complications; E66.01 Morbid (severe) obesity due to excess calories; Z68.43 Body mass index [BMI] 50.0-59.9, adult
CPT/HCPCS: 99396

== ENCOUNTER 2024-01-30 14:38 | Outpatient (AMB) | payer OTHER, SELFPAY ==
--- NOTE | 2024-01-30 14:41 | MHC.OFFVIS ---
Intake Visit Reasons: 2m/CT(set) Intake Note: Patient presents for 2m follow up/CT Urology Medications:NONE Blood Thinner: Aspirin ALLERGIES: DOXYCYCLINE Milk Receiver Tank Truck Required: Yes Milk Receiver Tank Truck Name: RUPALI GALVANJUANIS Accompanied by: Son Allergies tocilizumab [From Actemra] Adverse Reaction (Intermediate, Verified 01/30/24 15:10) Transaminitis doxycycline Adverse Reaction (Mild, Verified 01/30/24 15:10) Palpitations Medication List - Last Reconciled 01/30/24 by JAZMIN Castro acetaminophen (Tylenol Extra Strength) 500 mg PO BID PRN alprazolam 1 mg (2 x 0.5 mg) PO DAILY 1 day aspirin 81 mg PO DAILY 30 days atorvastatin 20 mg PO BEDTIME 90 days blood pressure monitor As directed blood sugar diagnostic (FreeStyle Lite Strips) Use 1 test strip once a day blood-glucose meter (FreeStyle Lite Meter kit) As directed cane As directed cholecalciferol (vitamin D3) (Vitamin D3) 25 mcg PO DAILY 90 days [cock up splint wear on each wrist at night. ] diltiazem HCl CD 240 mg PO DAILY ferrous sulfate 325 mg PO .once a week 30 days fluticasone propionate 50 mcg/actuation (Flonase Allergy Relief) 1 spray intranasal DAILY 30 days folic acid 1 mg PO DAILY [grab bars As directed] hydrochlorothiazide 12.5 mg PO QAM 90 days lancets (FreeStyle Lancets) Use 1 lancet once a day losartan 100 mg PO DAILY 90 days meclizine 25 mg PO TID PRN 30 days Orencia ClickJect (abatacept) 125 mg subcut QWEEK NS semaglutide (Ozempic) 1 mg (0.75 mL) subcut QWEEK 4 weeks Shower Chair As directed solifenacin (Vesicare) 5 mg PO DAILY 90 days walker heavy duty rollator [wheelchair heavy duty As directed] HPI Comments Details: Sol is a 49-year-old Korean-speaking female patient of Dr. Madrid who was accompanied by her child at today's office visit. She has a past medical history of anxiety, diabetes, fibromyalgia, anxiety, hypertension, iron deficiency anemia, morbid obesity, obstructive sleep apnea, hypercholesteremia, rheumatoid arthritis and vertigo. She presents to the office today for a follow up of her lower urinary tract symptoms and recent urinary tract infection. Of note, during last office visit approximately 2 months ago patient underwent in office cystoscopy with Dr. Gunnar Camilo at which time findings noted mild erythematous changes consistent with cystitis no suspicious bladder lesions visualized changes consistent with cystitis. Recent CT results reviewed with the patient today. Bilateral kidneys with no hydronephrosis or nephrolithiasis. No suspicious renal mass. The bladder is unremarkable. No findings to explain symptoms of hematuria. A 1 cm hypervascular lesion of the right hepatic lobe noted. In discussion with the patient today she reports having followed up with rheumatology and believes previous injection she was given for her fibromyalgia had been causing lower urinary tract symptoms because this has been discontinued and she has had no bothersome urinary issues or concerns. She also reports having followed up regarding hepatic lesion and underwent ultrasound and rheumatology is following up regarding this issue. She denies urinary urgency, urinary frequency, incontinence, nocturia, hematuria, dysuria, foul smelling urine, changes to urinary stream, flank pain, fever, and or chills. She is happy with her current voiding parameters. She otherwise offers no other issues or concerns at this time. 11/15 Urine: Negative for high-grade urothelial carcinoma. [facility] Medical History Rheumatoid arthritis SVT (supraventricular tachycardia) Osteoarthritis of knees, bilateral LARRY (generalized anxiety disorder) Hypovitaminosis D Pure hypercholesterolemia Morbid obesity due to excess calories Iron deficiency anemia Anxiety Super obese Vertigo Morbid obesity Seronegative rheumatoid arthritis Thrombophlebitis Fibromyalgia MAXIMINO (obstructive sleep apnea) Hypertension Diabetes Surgical History History of tubal ligation History of History of hip surgery Family History Father Prostate cancer Mother Uterine cancer Social History Housing: Apartment Alcohol intake: never Patient Tobacco Use Status: Never used Tobacco e-Cigarette/Vaping Use: Never Used Second Hand Smoke Exposure: No service: No Current occupational status: disabled 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 Cognitive needs: Yes Hearing needs: No Vision needs: No Female Reproductive History Menstrual Age of Menarche: 16 Review of Systems Const Reports as per [facility] Eyes Reports no additional complaints ENT Reports no additional complaints Card Reports as per [facility] Resp Reports as per [facility] GI Reports no additional complaints Reports as per [facility] Musc Reports as per [facility] Neuro Reports as per [facility] Psych Reports as per [facility] Endo Reports as per [facility] Physical Exam Const General: cooperative, healthy appearing, comfortable, no acute distress, well developed, alert and awake Nutritional Appearance: obese Orientation/consciousness: patient oriented x3 Limitations: no limitations HEENT Head: Yes normal to inspection, Yes normocephalic and Yes atraumatic Ears: hearing grossly normal bilaterally Eyes General: appearance normal, both eyes and all related structures Neck Neck: Yes normal visual inspection and Yes trachea midline Chest Chest palpation & inspection: normal inspection of the chest Resp Effort & Inspection: normal respiratory effort and able to speak in complete sentences Cardio Rate: regular rate GI Inspection: Yes normal to inspection General: Yes no CVA tenderness Back/Spine/Pelvis Back: no CVA tenderness Skin General skin exam: no rashes or lesions noted Neuro General: patient oriented x3 Extrem General: Yes normal to inspection Psych Appearance: grossly normal and well kempt Mental Status: mental status grossly normal Speech and movement: Normal speech and movement present and Clear speech present Affect: normal affect Attitude: cooperative Thought process: Normal thought process present Thought content: Normal thought content present Insight: Fair insight present (Psych) Judgement: Fair judgement present (Psych) Results AMB Urinalysis, Automated UA Leukoctes 125 Mauro/uL Last Edit by EDI Terry on 01/30/24 14:55 UA Nitrite Negative Last Edit by EDI Terry on 01/30/24 14:55 UA Urobilinogen 0.2 mg/dL Last Edit by EDI Terry on 01/30/24 14:55 UA Protein 15 mg/dL Last Edit by EDI Terry on 01/30/24 14:55 UA pH 8.0 Last Edit by EDI Terry on 01/30/24 14:55 UA Blood 200 Robert/uL Last Edit by EDI Terry on 01/30/24 14:55 UA Specific [place] 1.005 Last Edit by EDI Terry on 01/30/24 14:55 UA Ketone Negative Last Edit by EDI Terry on 01/30/24 14:55 UA Bilirubin 0 mg/dL Last Edit by EDI Terry on 01/30/24 14:55 UA Glucose 0 mg/dL Last Edit by EDI Terry on 01/30/24 14:55 Results Reviewed Results Reviewed: Laboratory Last Values Urine pH (Auto) 8.0 01/30/24 14:54 Specific [place] (Auto) 1.005 01/30/24 14:54 Urine Protein (Auto) 15 mg/dL 01/30/24 14:54 Glucose (UA)(Auto) 0 mg/dL 01/30/24 14:54 Urine Ketones (Auto) Negative 01/30/24 14:54 Urine Blood (Auto) 200 Robert/uL 01/30/24 14:54 Urine Nitrite (Auto) Negative 01/30/24 14:54 Urine Bilirubin (Auto) 0 mg/dL 01/30/24 14:54 Urine Urobilinogen (Auto) 0.2 mg/dL 01/30/24 14:54 Leukocyte Esterase (Auto) 125 Mauro/uL 01/30/24 14:54 Date of Service: 12/26/23 EXAMINATION: CT ABDOMEN AND PELVIS WITHOUT AND WITH CONTRAST FINDINGS: LUNG BASES: Unremarkable. ABDOMINAL AND PELVIC WALL: Unremarkable. LIVER AND BILIARY TREE: Hypoattenuating hepatic parenchyma compatible with hepatic steatosis. A 1 cm hypervascular lesion in the right hepatic lobe, 8:27 incompletely characterized, recommend correlation with contrast enhanced MR abdomen. Liver is enlarged measuring 21.1 cm in span. GALLBLADDER: Status post cholecystectomy. PANCREAS: Unremarkable. SPLEEN: Unremarkable. ADRENAL GLANDS: Unremarkable. KIDNEYS AND URETERS: Long segments of the ureters were nonopacified limiting assessment for any intraluminal filling defect. No hydronephrosis or nephrolithiasis. No suspicious renal mass. GASTROINTESTINAL TRACT: Colonic diverticulosis without evidence of diverticulitis. No findings to suggest appendicitis. VASCULAR: Unremarkable. LYMPH NODES/PERITONEUM: No lymphadenopathy. FREE FLUID: None. BLADDER: Unremarkable. PELVIC VISCERA: Nabothian cysts in the cervix. OSSEOUS STRUCTURES: Partially imaged cerclage wire about the greater trochanter on the right. CT/CT urogram IMPRESSION: 1. No findings to explain symptoms of hematuria however along segments of the ureters were nonopacified limiting assessment for any intraluminal filling defect. 2. A 1 cm hypervascular lesion in the right hepatic lobe incompletely characterized, recommend correlation with contrast enhanced MR abdomen. 3. Hepatomegaly and hepatic steatosis. Assessment & Plan Assessment & Plan (1) Cystitis: Code(s): N30.90 - Cystitis, unspecified without hematuria Category: Medical (2) Sensation of pressure in bladder area: Code(s): R39.89 - Other symptoms and signs involving the genitourinary system Category: Medical (3) Gross hematuria: Code(s): R31.0 - Gross hematuria Category: Medical (4) Mixed incontinence urge and stress: Code(s): N39.46 - Mixed incontinence Category: Medical (5) Frequent UTI: Code(s): N39.0 - Urinary tract infection, site not specified Category: Medical Plan In office urinalysis results reviewed with the patient today; as noted above. Recent CT results reviewed with the patient today; as noted above. Patient currently denies any bothersome urinary issues or concerns. She reports be happy with current voiding parameters. Discussed bladder triggers/irritants. Discussed, educated, and stressed the importance of adequate hydration regards to cystitis as well as overall health and well-being. Continue to follow-up with Rheumatology Follow-up in 6 months with [facility]; or sooner with any issues, concerns, and or questions. Orders: Orders AMB Urinalysis Automated Today Z13.9 - Encounter for screening, unspecified Patient Instructions: The patient had an opportunity to ask questions regarding the treatment plan. All questions were answered. Physical exam, labs, and imaging were discussed and reviewed in detail. As well as risks, benefits, and discussion of treatment choices. No major barriers to understanding were identified. The patient expressed understanding and agreement with the above treatment plan. The patient was made aware they should contact our office by phone for worsening of their current condition, the appearance of new symptoms, or with any questions or concerns. Compliance is encouraged with any medications and follow up testing that is ordered. It is a privilege to be allowed the opportunity to participate in? your urological care.? Again, if you have any questions or concerns If you have any questions or concerns please do not hesitate to contact me. The office is [phone]. This note is constructed using voice recognition software. While every effort has been made to ensure accuracy assistant associate full professor errors may have been included. Yours sincerely, THEO Castro-BC Coding Level of Care Code Est Pt Level 3 (33734) Complex EM visit Add On G2211 Diagnoses Cystitis N30.90 Sensation of pressure in bladder area R39.89 Gross hematuria R31.0 Mixed incontinence urge and stress N39.46 Frequent UTI N39.0
== END 2024-01-30 15:03 | disposition home or self-care (01) ==
PROVIDERS: PCP Internal Medicine; Visit Provider Nurse Practitioner Family
DX: N30.90 Cystitis, unspecified without hematuria (principal); R39.89 Other symptoms and signs involving the genitourinary system; R31.0 Gross hematuria; N39.46 Mixed incontinence; N39.0 Urinary tract infection, site not specified; Z13.9 Encounter for screening, unspecified
CPT/HCPCS: 99213; G2211

== ENCOUNTER → 2024-01-30 14:38 | Outpatient (BNVA) | payer OTHER, SELFPAY | PROVIDERS: PCP Internal Medicine; Visit Provider Nurse Practitioner Family | DX: N30.90 Cystitis, unspecified without hematuria (principal); N39.0 Urinary tract infection, site not specified; N39.46 Mixed incontinence; R39.89 Other symptoms and signs involving the genitourinary system; R31.0 Gross hematuria | CPT/HCPCS: 81003; 99212 ==

== ENCOUNTER 2024-03-03 12:28 | Outpatient (AMB) | payer OTHER, SELFPAY ==
--- NOTE | 2024-03-03 12:34 | A.OFFVIS_ITS ---
VS Expanded 03/03/24 12:37 03/05/24 10:17 Height 5 ft 5 in 5 ft 5 in Weight 326 lb 15.128 oz 327 lb BMI 54.4 54.4 Intake Visit Reasons: T2DM/LVM Allergies tocilizumab [From Actemra] Adverse Reaction (Intermediate, Verified 01/30/24 15:10) Transaminitis doxycycline Adverse Reaction (Mild, Verified 01/30/24 15:10) Palpitations Nutrition Presentation Details: Pt presents for MNT for T2DM . Pt was referred by Dr. Madrid Pt reports interest iin working on diet modification for weight loss. Pt is accompanied by LIQUID CHLORINE OPERATOR during this appt food frequency fruits 0-1/d vegetables: 3 x/wk dairy: 4+ servings/d fish 0-1/wk, starches > 30 serving/d fluids: water, coffee, juice, smoothies, soups fried foods air fryer eating out 2-3 times/wk physical activity: uses stairs at home etoh/smoking denies BS Monitoring Most Recent Diabetes Results: Microalb/Creat Ratio 11.0 ug/mg cr (<30) 11/26/23 Cholesterol 155 mg/dL (<200) 11/26/23 HDL Cholesterol 43 mg/dL (>40) 11/26/23 Triglycerides 116 mg/dL (<150) 11/26/23 Creatinine 0.73 mg/dL (0.5-1.4) 01/21/24 Blood Urea Nitrogen 15 mg/dL (9-16) 01/21/24 Sodium 138 mmol/L (135-145) 01/21/24 Potassium 4.7 mmol/L (3.3-5.1) 01/21/24 Chloride 105 mmol/L (96-108) 01/21/24 Carbon Dioxide 26 mmol/L (22-29) 01/21/24 Calcium 9.6 mg/dL (8.4-10.2) 01/21/24 AST 31 U/L (5-31) 01/21/24 ALT 38 U/L (0-31) H 01/21/24 Total Protein 8.0 g/dL (6.5-8.0) 01/21/24 Albumin 3.9 g/dL (3.5-5.0) 01/21/24 OCC-Zygihlu-Qt.Jeor Equation Height: 5 ft 5 in Weight: 327 lb Resting Metabolic Rate: 2116.48 Calculated Activity Level: Sedentary Calories Needed to Maintain Weight: 2539.78 Diagnosis Nutrition problem #1: food nutri know defi As related to (etiology) #1: diagnosis As evidenced by (sign/symptom) #1: knowledge deficit of diet [facility], [facility] Medical History Rheumatoid arthritis SVT (supraventricular tachycardia) Osteoarthritis of knees, bilateral LARRY (generalized anxiety disorder) Hypovitaminosis D Pure hypercholesterolemia Morbid obesity due to excess calories Iron deficiency anemia Anxiety Super obese Vertigo Morbid obesity Seronegative rheumatoid arthritis Thrombophlebitis Fibromyalgia MAXIMINO (obstructive sleep apnea) Hypertension Diabetes Surgical History History of tubal ligation History of History of hip surgery Family History Father Prostate cancer Mother Uterine cancer Social History Housing: Apartment Alcohol intake: never Patient Tobacco Use Status: Never used Tobacco e-Cigarette/Vaping Use: Never Used Second Hand Smoke Exposure: No service: No Current occupational status: disabled 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 Cognitive needs: Yes Hearing needs: No Vision needs: No Female Reproductive History Menstrual Age of Menarche: 16 Assessment & Plan Assessment & Plan (1) Type 2 diabetes mellitus, without long-term current use of insulin: Code(s): E11.9 - Type 2 diabetes mellitus without complications Category: Medical Plan: Wt: 149 Kg ( 02/2024 ) Est kcal needs as per MSJ: 2500 (40% carb, 30% protein/fat) Est fluid needs as per 30 ml/d: 4500 Est prot per day as per 1 g/kg bw: 149 Recommend fiber intake : 8-10 g per day and gradually increase to 25-28 g per day for women and 35-38 g for men or as tolerated Recommend sodium intake per day : less than 2300 mg Educated patient on: ( R = reviewed V = verbalizes understanding N/R = needs review N/A = not applicable * Food sources of carbohydrate, adequate serving sizes and its role in various health conditions: R * Differences between complex carbohydrates a simple carbohydrates, role of fiber in diet: R * Lean protein sources of foods: R V NR * Differences between types of fats and role in diet (mono on saturated fat fatty acids, saturated fatty acids, trans fats): R V N/R * Food sources of sodium in salt and healthy modifications for heart health in kidney health: R V R/V * Vitamins and minerals: R V N/R * Healthy plate method concept: R * Physical activity: Benefits a precaution: R V N/R * Hypoglycemia protocol (rule of 15): R V N/R * Dietary prevention of Hyperglycemia: R Patient Instructions: Work on reducing total carbs to less than 80 at meal , 3 meals per day Reduce snack to 2 a day consisting of 0-20 g carbs see meal ideas as reference practice mindful eating , choosing low sugar beverages (water, herb/fruit infused water, diluted juices with water ) Coding Level of Care Code Nutr Indiv Intake (55123) Diagnoses Type 2 diabetes mellitus, without long-term current use of insulin E11.9 Time Spent (min) 35
[2024-03-03 12:37] VITALS: BMI 54.4
[2024-03-05 10:17] VITALS: BMI 54.4
== END 2024-03-03 13:29 | disposition home or self-care (01) ==
PROVIDERS: PCP Internal Medicine; Visit Provider Dietitian, Registered
DX: E11.9 Type 2 diabetes mellitus without complications (principal)

== ENCOUNTER → 2024-03-03 12:28 | Outpatient (BNVA) | payer OTHER, SELFPAY | PROVIDERS: PCP Internal Medicine; Visit Provider Dietitian, Registered | DX: E66.01 Morbid (severe) obesity due to excess calories (principal); E11.9 Type 2 diabetes mellitus without complications; Z71.3 Dietary counseling and surveillance; Z68.43 Body mass index [BMI] 50.0-59.9, adult | CPT/HCPCS: 97802 ==

== ENCOUNTER 2024-03-18 07:07 | Outpatient (REF) | payer OTHER, SELFPAY ==
[2024-03-18 07:16] LABS: MANUAL DIFF FLAG NO
[2024-03-18 07:45] LABS: Basophils Percent Auto 0.4 % (0-2); Eosinophils Absolute Auto 0.2 X10*3/uL (0.0-0.4); Eosinophils Percent Auto 2.2 % (0-4); Hematocrit 38.6 % (37.0-47.0); Imm Gran Abs Auto 0.02 X10*3/uL (0.00-0.03); Imm Gran Pct Auto 0.3 % (0.0-0.4); Lymphocytes Absolute Auto 3.2 X10*3/uL (1.2-4.9); Lymphocytes Percent Auto 40.8 % (20-40); Mean Corpuscular HGB Conc 31.1 g/dl (31.0-35.0); Mean Corpuscular Hemoglobin 25.6 pg (27.0-33.0); Mean Corpuscular Volume 82.5 fL (80.0-98.0); Mean Platelet Volume 9.9 fL (9.4-12.3); Monocytes Absolute Auto 0.7 X10*3/uL (0.1-1.2); Monocytes Percent Auto 8.3 % (2-11); Neutrophils Absolute Auto 3.8 x10*3/uL (2.0-8.3); Platelet Count 298 X10*3/uL (160-400); Red Blood Count 4.68 X10*6/uL (4.20-5.50); Red Cell Distribution Width 13.1 % (11.0-16.0); White Blood Count 7.8 X10*3/uL (4.8-10.8)
[2024-03-18 08:25] LABS: Erythrocyte Sedimentation Rate 42 MM/HR (0-20)
[2024-03-18 08:31] LABS: Alanine Aminotransferase 16 U/L (0-31); Alkaline Phosphatase 73 U/L (39-117); Anion Gap 11 (12-20); Aspartate Amino Transferase 18 U/L (5-31); Bilirubin Total 0.4 mg/dL (0.0-1.0); Blood Urea Nitrogen 13 mg/dL (9-16); C Reactive Protein 2.59 mg/dL (< or = 0.50); Calcium 9.6 mg/dL (8.4-10.2); Carbon Dioxide 27 mmol/L (22-29); Chloride 105 mmol/L (96-108); Estimated Glomerular Filt Rate > 60; Glucose Random 130 mg/dL (60-115); Sodium 139 mmol/L (135-145); Total Protein 8.2 g/dL (6.5-8.0)
== END 2024-03-18 07:08 | disposition home or self-care (01) ==
LOC: HO.LAB 07:07
PROVIDERS: PCP Internal Medicine; Visit Provider Student in an Organized Health Care Education/Training Program
DX: M06.00 Rheumatoid arthritis without rheumatoid factor, unspecified site (principal)
CPT/HCPCS: 36415; 80053; 85025; 85652; 86140

== ENCOUNTER 2024-03-20 14:08 | Outpatient (AMB) | payer OTHER, SELFPAY ==
--- NOTE | 2024-03-20 14:10 | MHC.OFFVIS ---
Vital Signs 03/20/24 14:15 Height 5 ft 5 in Weight 322 lb 8.58 oz BMI 53.7 BP 112/72 Blood Pressure Location Rt brachial Position Sitting Pulse 94 Pulse Source Pulse Oximeter Pulse Oximetry (%) 98 Oxygen Delivery Method Room Air Intake Visit Reasons: RA Intake Note: Patient presents for RA. Passementerie Worker Required: Yes Passementerie Worker Language: Student Records Specialist Services: Passementerie Worker Present Passementerie Worker Name: [id number] Information Interpreted: non-clinical & clinical Trim Line Worker: Trim Line Worker Present Accompanied by: Son Allergies tocilizumab [From Actemra] Adverse Reaction (Intermediate, Verified 03/20/24 14:14) Transaminitis doxycycline Adverse Reaction (Mild, Verified 03/20/24 14:14) Palpitations Medication List - Last Reconciled 03/20/24 by Nivia Linn MD acetaminophen (Tylenol Extra Strength) 500 mg PO BID PRN alprazolam 1 mg (2 x 0.5 mg) PO DAILY 1 day amoxicillin 500 mg PO BID 5 days aspirin 81 mg PO DAILY 30 days atorvastatin 20 mg PO BEDTIME 90 days azithromycin take 500 mg today (day 1), then 250 mg for 4 days (days 2-5) PO blood pressure monitor As directed blood sugar diagnostic (FreeStyle Lite Strips) Use 1 test strip once a day blood-glucose meter (FreeStyle Lite Meter kit) As directed cane As directed cholecalciferol (vitamin D3) (Vitamin D3) 25 mcg PO DAILY 90 days [cock up splint wear on each wrist at night. ] diltiazem HCl CD 240 mg PO DAILY ferrous sulfate 325 mg PO .once a week 30 days fluticasone propionate 50 mcg/actuation (Flonase Allergy Relief) 1 spray intranasal DAILY 30 days folic acid 1 mg PO DAILY [grab bars As directed] hydrochlorothiazide 12.5 mg PO QAM 90 days lancets (FreeStyle Lancets) Use 1 lancet once a day losartan 100 mg PO DAILY 90 days meclizine 25 mg PO TID PRN 30 days Orencia ClickJect (abatacept) 125 mg subcut QWEEK NS semaglutide (Ozempic) 1 mg (0.75 mL) subcut QWEEK 4 weeks Shower Chair As directed solifenacin (Vesicare) 5 mg PO DAILY 90 days walker heavy duty rollator [wheelchair heavy duty As directed] HPI Comments Details: 49yoF presents for follow-up of seronegative rheumatoid arthritis. She took Orencia about 3 times. She states that she had headaches, hypertension and palpitations, the headaches lasted for 3 weeks, she also had palpitations. Her last dose was 2 weeks ago. She states that her joints are doing well. FORMERLY [facility], [facility] Medical History Rheumatoid arthritis SVT (supraventricular tachycardia) Osteoarthritis of knees, bilateral LARRY (generalized anxiety disorder) Hypovitaminosis D Pure hypercholesterolemia Morbid obesity due to excess calories Iron deficiency anemia Anxiety Super obese Vertigo Morbid obesity Seronegative rheumatoid arthritis Thrombophlebitis Fibromyalgia MAXIMINO (obstructive sleep apnea) Hypertension Diabetes Surgical History History of tubal ligation History of History of hip surgery Family History Father Prostate cancer Mother Uterine cancer Social History Housing: Apartment Alcohol intake: never Patient Tobacco Use Status: Never used Tobacco e-Cigarette/Vaping Use: Never Used Second Hand Smoke Exposure: No service: No Current occupational status: disabled 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 Cognitive needs: Yes Hearing needs: No Vision needs: No Female Reproductive History Menstrual Age of Menarche: 16 Review of Systems Musc Denies arthralgias, Denies joint swelling and Denies stiffness Physical Exam Vital Signs: Last Vital Signs Pulse 94 03/20/24 14:15 BP 112/72 03/20/24 14:15 Pulse Ox 98 03/20/24 14:15 Oxygen Delivery Method Room Air 03/20/24 14:15 BMI result Body Mass Index 53.7 Const General: cooperative, healthy appearing and comfortable Nutritional Appearance: obese morbidly obese Orientation/consciousness: patient oriented x3 Limitations: ambulation with cane HEENT Head: Yes normocephalic and Yes atraumatic Resp Effort & Inspection: normal respiratory effort and able to speak in complete sentences Neuro General: patient oriented x3 Extrem Other: No active synovitis today Completely normal bilateral hand assistant brand 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 COMPARISON: None.? TECHNIQUE: AP external rotation, Grashey, scapular Y, and axillary views of the left shoulder. FINDINGS: Bony alignment and mineralization are normal. The glenohumeral joint is intact and shows minimal osteoarthritic change. The acromioclavicular and coracoclavicular intervals are normal. There is cortical irregularity of the greater tuberosity of the proximal right humerus, and a distal acromial osteophyte is seen. No abnormal soft tissue calcification or foreign body is seen. There is no left pneumothorax.? XR/XR shoulder LT min 2V IMPRESSION: ? 1. No fracture or dislocation is seen. ? 2. There is minimal osteoarthritic change of the left glenohumeral joint. ? 3. Findings suggest possible left rotator cuff impingement; no andrea calcific tendinitis is noted. Date of Service: 08/29/22 Procedure(s): XR hand LT min 3V Accession Number(s): [id number] EXAMINATION: XR HAND, LEFT CLINICAL INFORMATION: Pain.? COMPARISON: Radiographs dated 01/29/2020.? TECHNIQUE: PA, lateral, and oblique views of the left hand. FINDINGS: The bones and soft tissues are normal. No fracture. Alignment is anatomic. Joint spaces are maintained. No erosions or soft tissue calcifications.? XR/XR hand LT min 3V IMPRESSION: Normal left hand. Date of Service: 01/30/22 Procedure(s): XR knee RT 3V Accession Number(s): [id number] EXAMINATION: BILATERAL KNEE X-RAY CLINICAL INFORMATION: Bilateral osteoarthritis? COMPARISON: Previous x-ray January 2020? TECHNIQUE: 3 views of each knee? FINDINGS: Right: There is valgus angulation. There is high position of the patella and lateral tilt of patella on the sunrise view. There is severe arthritis at the lateral femoral tibial and patellofemoral joints with joint space narrowing and osteophyte formation. There is no joint effusion. Left: There is high position of the patella. Bone alignment is otherwise normal. No fracture or dislocation is seen. There is arthritis at the medial femoral tibial and patellofemoral joints with joint space narrowing and osteophyte formation. There is no joint effusion. XR/XR knee RT 3V IMPRESSION: Bilateral arthritis not appreciably changed from 2020 exam.? Assessment & Plan Assessment & Plan (1) Seronegative rheumatoid arthritis: Comment: Seronegative dx 03/2019 in [place]: 08/2019- 08/2021 dyspnea Prednisone Humira: September 2021- 12/2022 incomplete response Actemra 01/2023 partially effective advanced to weekly 03/2023 effective DC 12/2023 d.t transminitis Orencia 01/2024 Code(s): M06.00 - Rheumatoid arthritis without rheumatoid factor, unspecified site Category: Medical Plan: This is a 49-year-old female with seronegative rheumatoid arthritis who presents for follow-up. Patient took Orencia 125 mg weekly x3 doses and stopped it 2 weeks ago due to headaches, hypertension, palpitations. On exam however there is no active synovitis. Her transaminitis resolved. Discussed with patient that her body may take some time to get used to tolerate Orencia, it looks like in his quite effective. Advised patient to restart Orencia, do the injection every other week, if she has recurrent side effects. We will have to switch her to a different DMARD. BARTOLO inhibitors would likely be relatively contraindicated as patient had an unprovoked thrombophlebitis of her left thigh that was treated with Coumadin. She stopped Coumadin 5 years ago and she is on aspirin now. She remains morbidly obese and remains at risk of recurrent thrombo embolic events. I think the next step would be to switch to TNF inhibitor infusions such as Simponi Aria if she can not tolerate Orencia injection Labs before next visit in 3 months (2) Elevated transaminase level: Code(s): R74.01 - Elevation of levels of liver transaminase levels Category: Medical Plan: Resolved after Actemra was discontinued Liver Elastography consistent with fatty liver (3) High risk medication use: Code(s): Z79.899 - Other half-way (current) drug therapy Category: Medical Plan: Side effects of Orencia were discussed with the patient in detail including increased risk of infection, demyelinating disease, reactivation of latent TB, possible increased risk of solid and skin tumors. Patient fully aware. Advised patient to seek medical care AGUSTIN if patient has an infection and advised patient to stop the medication until the infection is resolved. Plan I spent 26 minutes reviewing patient's chart, evaluating patient, ordering diagnostic workup, counseling patient and documenting in the chart Orders: Orders Comprehensive Met. Panel 3 Months M06.00 - Rheumatoid arthritis without rheumatoid factor, unspecified site Complete Blood Count Auto Diff 3 Months M06.00 - Rheumatoid arthritis without rheumatoid factor, unspecified site C Reactive Protein 3 Months M06.00 - Rheumatoid arthritis without rheumatoid factor, unspecified site Erythrocyte Sedimentation Rate 3 Months M06.00 - Rheumatoid arthritis without rheumatoid factor, unspecified site Medications: Refilled Orencia ClickJect (abatacept) 125 mg subcut QWEEK 4 mL 2RF NS Coding Level of Care Code Est Pt Level 4 (08201) Diagnoses Seronegative rheumatoid arthritis M06.00 Elevated transaminase level R74.01 High risk medication use Z79.899
[2024-03-20 14:15] VITALS: BP 112/72; PULSE 94; O2SAT 98; BMI 53.7
== END 2024-03-20 14:41 | disposition home or self-care (01) ==
PROVIDERS: PCP Internal Medicine; Visit Provider Student in an Organized Health Care Education/Training Program
DX: M06.00 Rheumatoid arthritis without rheumatoid factor, unspecified site (principal); R74.01 Elevation of levels of liver transaminase levels; Z79.899 Other long term (current) drug therapy
CPT/HCPCS: 99214

== ENCOUNTER → 2024-03-20 14:08 | Outpatient (BNVA) | payer OTHER, SELFPAY | PROVIDERS: PCP Internal Medicine; Visit Provider Student in an Organized Health Care Education/Training Program | DX: M06.00 Rheumatoid arthritis without rheumatoid factor, unspecified site (principal); R74.01 Elevation of levels of liver transaminase levels; R51.9 Headache, unspecified; Z79.899 Other long term (current) drug therapy | CPT/HCPCS: 99212 ==

== ENCOUNTER 2024-03-24 14:06 | Outpatient (AMB) | payer OTHER, SELFPAY ==
--- NOTE | 2024-03-24 13:30 | A.OFFVIS_ITS ---
Vital Signs 03/24/24 14:08 Height 5 ft 5 in Weight 317 lb 7.45 oz BMI 52.8 BP 114/68 Blood Pressure Location Rt radial Position Sitting Pulse 101 H Pulse Source Pulse Oximeter Pulse Oximetry (%) 96 Oxygen Delivery Method Room Air Intake Visit Reasons: productive cough/wheeze Project Administrative Assistant Required: Yes Project Administrative Assistant Language: Actuarial Associate Services: Project Administrative Assistant Present (Lora JOE) Project Administrative Assistant Name: Lora JOE Allergies tocilizumab [From Actemra] Adverse Reaction (Intermediate, Verified 03/24/24 14:12) Transaminitis doxycycline Adverse Reaction (Mild, Verified 03/24/24 14:12) Palpitations HPI HPI productive cough/wheeze: Details: Sol is a pleasant 48-year-old female, never smoker, with underlying morbid obesity, severe obstructive sleep apnea on CPAP and rheumatoid arthritis.?She is under the care of Dr. Eden and presents today for an acute visit. She reports a productive cough with yellow mucous, wheezing and chest tightness that started Sunday. On Sunday she felt feverish and chills, no documented fever. She also reports son with similar symptoms. COVID negative on home test x 3. PFSH Medical History Rheumatoid arthritis SVT (supraventricular tachycardia) Osteoarthritis of knees, bilateral LARRY (generalized anxiety disorder) Hypovitaminosis D Pure hypercholesterolemia Morbid obesity due to excess calories Iron deficiency anemia Anxiety Super obese Vertigo Morbid obesity Seronegative rheumatoid arthritis Thrombophlebitis Fibromyalgia MAXIMINO (obstructive sleep apnea) Hypertension Diabetes Surgical History History of tubal ligation History of History of hip surgery Family History Father Prostate cancer Mother Uterine cancer Social History Housing: Apartment Alcohol intake: never Patient Tobacco Use Status: Never used Tobacco e-Cigarette/Vaping Use: Never Used Second Hand Smoke Exposure: No service: No Current occupational status: disabled 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 Cognitive needs: Yes Hearing needs: No Vision needs: No Female Reproductive History Menstrual Age of Menarche: 16 Review of Systems Const Denies excessive sweating, Denies headache(s) and Denies night sweats Eyes Denies dry eyes, Denies irritation and Denies itchy eyes ENT Reports Normal hearing present, Denies headache(s), Denies nasal congestion, Denies nasal discharge, Denies post nasal drip and Denies sore throat Card Denies chest pain, Denies chest pain at rest, Denies chest pain with activity, Denies claudication, Denies leg edema, Denies orthopnea and Denies paroxysmal nocturnal dyspnea Resp Denies pain on inspiration, Denies pain with cough and Denies stridor Musc Denies myalgias Neuro Reports Normal hearing present and Denies headache(s) Endo Denies excessive sweating Boni/Lymph Denies lymphadenopathy Aller/Immun Denies itchy eyes and Denies seasonal rhinorrhea Physical Exam Vital Signs: Last Vital Signs Pulse 101 H 03/24/24 14:08 BP 114/68 03/24/24 14:08 Pulse Ox 96 03/24/24 14:08 Oxygen Delivery Method Room Air 03/24/24 14:08 BMI result Body Mass Index 52.8 Const General: cooperative, healthy appearing, comfortable, no acute distress, well de veloped and alert Nutritional Appearance: obese Orientation/consciousness: patient oriented x3 Limitations: no limitations HEENT Head: Yes normal to inspection, Yes normocephalic and Yes atraumatic Ears: hearing grossly normal bilaterally and external ears normal Eyes General: appearance normal, both eyes and all related structures Eyelids: Yes eyelids normal Sclerae: sclerae normal EOM: EOMs intact bilaterally Neck Neck: Yes normal visual inspection and Yes no lymphadenopathy Lymphatic: no lymphadenopathy noted Chest Chest palpation & inspection: normal inspection of the chest Resp Effort & Inspection: normal respiratory effort, able to speak in complete sentences, no audible wheezes, no cough, no stridor, not tachypneic, no tripod positioning and no use of accessory muscles Auscultation: clear to auscultation bilaterally Cardio Jugular venous distension: no JVD Rate: regular rate Rhythm: regular rhythm Skin Other: warm, dry General skin exam: no rashes or lesions noted Neuro General: patient oriented x3 Cranial nerves: Yes Normal hearing present Cognition (Neuro): normal cognition Gait exam (Neuro): Normal gait present Extrem General: Yes normal to inspection, Yes capillary refill normal, Yes no clubbing, cyanosis or edema and Yes no pedal edema Psych Appearance: grossly normal and well kempt Speech and movement: Normal speech and movement present and Clear speech present Affect: normal affect Attitude: cooperative Thought process: Normal thought process present Thought content: Normal thought content present Insight: Good insight present (Psych) Judgement: Good judgement present (Psych) Assessment & Plan Assessment & Plan (1) Bronchitis: Code(s): J40 - Bronchitis, not specified as acute or chronic Category: Medical Plan Will treat bronchitic symptoms with zpak. She is aware to call if no improvement, will order CXR at that time. All questions were answered and patient is in agreement of plan. Will follow up in Dr. Eden for regularly scheduled appointment or sooner if needed. Medications: Refilled azithromycin take 500 mg today (day 1), then 250 mg for 4 days (days 2-5) PO 6 tabs 0RF Coding Level of Care Code Est Pt Level 3 (70189) Diagnoses Bronchitis J40
[2024-03-24 14:08] VITALS: BP 114/68; PULSE 101; O2SAT 96; BMI 52.8
== END 2024-03-24 14:31 | disposition home or self-care (01) ==
PROVIDERS: PCP Internal Medicine; Visit Provider Nurse Practitioner Family
DX: J40 Bronchitis, not specified as acute or chronic (principal)
CPT/HCPCS: 99213

== ENCOUNTER → 2024-03-24 14:06 | Outpatient (BNVA) | payer OTHER, SELFPAY | PROVIDERS: PCP Internal Medicine; Visit Provider Nurse Practitioner Family | DX: J40 Bronchitis, not specified as acute or chronic (principal) | CPT/HCPCS: 99212 ==

== ENCOUNTER 2024-04-14 12:19 | Outpatient (AMB) | payer OTHER, SELFPAY ==
[2024-04-14 12:35] VITALS: BMI 53.3
--- NOTE | 2024-04-14 12:35 | A.OFFVIS_ITS ---
VS Expanded 04/14/24 12:35 Height 5 ft 5 in Weight 320 lb 8.834 oz BMI 53.3 Intake Visit Reasons: T2DM Allergies tocilizumab [From Actemra] Adverse Reaction (Intermediate, Verified 03/24/24 14:12) Transaminitis doxycycline Adverse Reaction (Mild, Verified 03/24/24 14:12) Palpitations Nutrition Presentation Details: Pt presents for MNT f/u for T2DM. Pt presents with during this appt Pt reports BG in the 90s the majority of the time , reports doing well. Becomes nervous with reducing on sugars/carbs intake Physical activity: as able , has stairs at home BS Monitoring Most Recent Diabetes Results: Creatinine 0.64 mg/dL (0.5-1.4) 03/18/24 Blood Urea Nitrogen 13 mg/dL (9-16) 03/18/24 Sodium 139 mmol/L (135-145) 03/18/24 Potassium 4.0 mmol/L (3.3-5.1) 03/18/24 Chloride 105 mmol/L (96-108) 03/18/24 Carbon Dioxide 27 mmol/L (22-29) 03/18/24 Calcium 9.6 mg/dL (8.4-10.2) 03/18/24 AST 18 U/L (5-31) 03/18/24 ALT 16 U/L (0-31) 03/18/24 Total Protein 8.2 g/dL (6.5-8.0) H 03/18/24 Albumin 4.0 g/dL (3.5-5.0) 03/18/24 [facility] Medical History Rheumatoid arthritis SVT (supraventricular tachycardia) Osteoarthritis of knees, bilateral LARRY (generalized anxiety disorder) Hypovitaminosis D Pure hypercholesterolemia Morbid obesity due to excess calories Iron deficiency anemia Anxiety Super obese Vertigo Morbid obesity Seronegative rheumatoid arthritis Thrombophlebitis Fibromyalgia MAXIMINO (obstructive sleep apnea) Hypertension Diabetes Surgical History History of tubal ligation History of History of hip surgery Family History Father Prostate cancer Mother Uterine cancer Social History (Reviewed 03/24/24 @ 14:12 by EUNICE [place] Housing: Apartment Alcohol intake: never Patient Tobacco Use Status: Never used Tobacco e-Cigarette/Vaping Use: Never Used Second Hand Smoke Exposure: No service: No Current occupational status: disabled 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 Cognitive needs: Yes Hearing needs: No Vision needs: No Female Reproductive History Menstrual Age of Menarche: 16 Assessment & Plan Assessment & Plan (1) Type 2 diabetes mellitus, without long-term current use of insulin: Code(s): E11.9 - Type 2 diabetes mellitus without complications Category: Medical Plan: Wt: 149 Kg ( 02/2024 ), 146 kg (04/17) Est kcal needs as per MSJ: 2500 (40% carb, 30% protein/fat) Est fluid needs as per 30 ml/d: 4400 Est prot per day as per 1 g/kg bw: 149 Recommend fiber intake : 8-10 g per day and gradually increase to 25-28 g per day for women and 35-38 g for men or as tolerated Recommend sodium intake per day : less than 2300 mg Educated patient on: ( R = reviewed V = verbalizes understanding N/R = needs review N/A = not applicable * Food sources of carbohydrate, adequate serving sizes and its role in various health conditions: R * Differences between complex carbohydrates a simple carbohydrates, role of fiber in diet: R * Lean protein sources of foods: R V NR * Differences between types of fats and role in diet (mono on saturated fat fa tty acids, saturated fatty acids, trans fats): R * Food sources of sodium in salt and healthy modifications for heart health in kidney health: R V R/V * Vitamins and minerals: R V N/R * Healthy plate method concept: R * Physical activity: Benefits a precaution: R V N/R * Hypoglycemia protocol (rule of 15): R V N/R * Dietary prevention of Hyperglycemia: R Patient Instructions: Continue working on meal planning , reducing total carbs to 80 g or less per meal (3 meals/day) and 0-20 g carbs as snack (2-3 /day) as established Choose lower fat cooking methods Keep hydrated by having water with meals (herb/fruit infused flavors) Coding Level of Care Code Nutr Indiv Subseq (80845) Diagnoses Type 2 diabetes mellitus, without long-term current use of insulin E11.9 Time Spent (min) 30
== END 2024-04-14 13:12 | disposition home or self-care (01) ==
PROVIDERS: PCP Internal Medicine; Visit Provider Dietitian, Registered
DX: E11.9 Type 2 diabetes mellitus without complications (principal)

== ENCOUNTER → 2024-04-14 12:19 | Outpatient (BNVA) | payer OTHER, SELFPAY | PROVIDERS: PCP Internal Medicine; Visit Provider Dietitian, Registered | DX: E11.9 Type 2 diabetes mellitus without complications (principal) | CPT/HCPCS: 97803 ==

== ENCOUNTER 2024-05-21 08:43 | Outpatient (REF) | payer OTHER, SELFPAY ==
--- NOTE | ~2024-05-21 | MM_ITS ---
EXAMINATION: MM SCREENING DIGITAL BREAST TOMOSYNTHESIS, BILATERAL CLINICAL INFORMATION: Screening. Asymptomatic. COMPARISON: Mammography: Comparison is made with available priors TECHNIQUE: Digital breast mammography with tomosynthesis is performed in both the craniocaudal and mediolateral oblique views along with computer-aided detection (CAD). FINDINGS: There are scattered areas of fibroglandular density (ACR BI-RADS breast composition Category b). There are no significant masses, abnormal calcifications, or other abnormalities. MM/MM tomosynthesis screening BI IMPRESSION: No mammographic evidence of malignancy. ASSESSMENT: BI-RADS BI-RADS 1 - Negative RECOMMENDATION: Routine annual mammography screening. 1 year F/U This examination should not preclude the clinical evaluation of a suspicious palpable abnormality. This patient's information was entered into a reminder system with a target due date for their next mammogram. Electronically signed by: [place] Jeronimo DO 05/30/2024 09:11 AM ADOLPH
== END 2024-05-21 08:44 | disposition home or self-care (01) ==
LOC: HO.MAMMO 08:43
PROVIDERS: PCP Internal Medicine; Visit Provider Internal Medicine
DX: Z12.31 Encounter for screening mammogram for malignant neoplasm of breast (principal)
CPT/HCPCS: 77063; 77067

== ENCOUNTER → 2024-05-21 09:15 | Outpatient (BNV) | payer OTHER, SELFPAY | PROVIDERS: PCP Internal Medicine; Visit Provider Internal Medicine | DX: Z12.31 Encounter for screening mammogram for malignant neoplasm of breast (principal) | CPT/HCPCS: 77063; 77067 ==

== ENCOUNTER 2024-05-26 13:28 | Outpatient (AMB) | payer OTHER, SELFPAY ==
[2024-05-26 13:31] VITALS: BMI 53.6
--- NOTE | 2024-05-26 13:31 | A.OFFVIS_ITS ---
VS Expanded 05/26/24 13:31 Height 5 ft 5 in Weight 322 lb 5.053 oz BMI 53.6 Intake Visit Reasons: T2DM/CONFIRMED Allergies abatacept [From Orencia] Adverse Reaction (Severe, Verified 05/27/24 08:37) Palpitations tocilizumab [From Actemra] Adverse Reaction (Intermediate, Verified 05/27/24 08:04) Transaminitis doxycycline Adverse Reaction (Mild, Verified 05/27/24 08:04) Palpitations Nutrition Presentation Details: Pt presents for MNT f/u for obesity Pt reports inflammation related to arthritis , has pending appt with [facility] for evaluation Pt c/o increased hunger/appetite while working on reducing portion sizes Has multiple food dislikes but trying various food combinations BS Monitoring Most Recent Diabetes Results: Creatinine 0.64 mg/dL (0.5-1.4) 03/18/24 Blood Urea Nitrogen 13 mg/dL (9-16) 03/18/24 Sodium 139 mmol/L (135-145) 03/18/24 Potassium 4.0 mmol/L (3.3-5.1) 03/18/24 Chloride 105 mmol/L (96-108) 03/18/24 Carbon Dioxide 27 mmol/L (22-29) 03/18/24 Calcium 9.6 mg/dL (8.4-10.2) 03/18/24 AST 18 U/L (5-31) 03/18/24 ALT 16 U/L (0-31) 03/18/24 Total Protein 8.2 g/dL (6.5-8.0) H 03/18/24 Albumin 4.0 g/dL (3.5-5.0) 03/18/24 [facility] History Rheumatoid arthritis SVT (supraventricular tachycardia) Osteoarthritis of knees, bilateral LARRY (generalized anxiety disorder) Hypovitaminosis D Pure hypercholesterolemia Morbid obesity due to excess calories Iron deficiency anemia Anxiety Super obese Vertigo Morbid obesity Seronegative rheumatoid arthritis Thrombophlebitis Fibromyalgia MAXIMINO (obstructive sleep apnea) Hypertension Diabetes Surgical History History of tubal ligation History of History of hip surgery Family History Father Prostate cancer Mother Uterine cancer Social History Housing: Apartment Alcohol intake: never Patient Tobacco Use Status: Never used Tobacco e-Cigarette/Vaping Use: Never Used Second Hand Smoke Exposure: No service: No Current occupational status: disabled 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 Cognitive needs: Yes Hearing needs: No Vision needs: No Female Reproductive History Menstrual Age of Menarche: 16 Assessment & Plan Assessment & Plan (1) Type 2 diabetes mellitus, without long-term current use of insulin: Code(s): E11.9 - Type 2 diabetes mellitus without complications Category: Medical Plan: Wt: 149 Kg ( 02/2024 ), 146 kg (04/17), 06/17 Est kcal needs as per MSJ: 2500 (40% carb, 30% protein/fat) Est fluid needs as per 30 ml/d: 4400 Est prot per day as per 1 g/kg bw: 149 Recommend fiber intake : 8-10 g per day and gradually increase to 25-28 g per day for women and 35-38 g for men or as tolerated Recommend sodium intake per day : less than 2300 mg Educated patient on: ( R = reviewed V = verbalizes understanding N/R = needs review N/A = not applicable * Food sources of carbohydrate, adequate serving sizes and its role in various health conditions: R * Differences between complex carbohydrates a simple carbohydrates, role of fiber in diet: R * Lean protein sources of foods: R V NR * Differences between types of fats and role in diet (mono on saturated fat fatty acids, saturated fatty acids, trans fats): R * Food sources of sodium in salt and healthy modifications for heart health in kidney health: R * Vitamins and minerals: R V N/R * Healthy plate method concept: R * Physical activity: Benefits a precaution: R V N/R * Hypoglycemia protocol (rule of 15): R V N/R * Dietary prevention of Hyperglycemia: R Patient Instructions: Have 1 meal replacement per day Continue working on reducing amount of fats (butter, luevano, gravies,visible fats as example) keep a food record an bring to next appt Coding Level of Care Code Nutr Indiv Subseq (80145) Diagnoses Type 2 diabetes mellitus, without long-term current use of insulin E11.9 Time Spent (min) 30
== END 2024-05-26 14:34 | disposition home or self-care (01) ==
PROVIDERS: PCP Internal Medicine; Visit Provider Dietitian, Registered
DX: E11.9 Type 2 diabetes mellitus without complications (principal)

== ENCOUNTER → 2024-05-26 13:28 | Outpatient (BNVA) | payer OTHER, SELFPAY | PROVIDERS: PCP Internal Medicine; Visit Provider Dietitian, Registered | DX: E11.9 Type 2 diabetes mellitus without complications (principal); E66.01 Morbid (severe) obesity due to excess calories; Z68.43 Body mass index [BMI] 50.0-59.9, adult; Z71.3 Dietary counseling and surveillance | CPT/HCPCS: 97803 ==

== ENCOUNTER 2024-05-27 07:55 | Outpatient (AMB) | payer OTHER, SELFPAY ==
--- NOTE | 2024-05-27 07:59 | A.OFFVIS_ITS ---
Vital Signs 05/27/24 08:04 Height 5 ft 5 in Weight 322 lb 15.635 oz BMI 53.7 BP 112/70 Blood Pressure Location Lt radial Position Sitting Pulse 79 Pulse Source Pulse Oximeter Pulse Oximetry (%) 98 Oxygen Delivery Method Simple Mask Intake Visit Reasons: RA Intake Note: Patient presents for RA. Territory Sales Professional Required: Yes Territory Sales Professional Language: Contract Agent Services: Territory Sales Professional Present Territory Sales Professional Name: Ran #[id number] Information Interpreted: non-clinical & clinical Allergies abatacept [From Orencia] Adverse Reaction (Severe, Verified 05/27/24 08:37) Palpitations tocilizumab [From Actemra] Adverse Reaction (Intermediate, Verified 05/27/24 08:04) Transaminitis doxycycline Adverse Reaction (Mild, Verified 05/27/24 08:04) Palpitations Medication List - Last Reconciled 05/27/24 by Nivia Linn MD acetaminophen (Tylenol Extra Strength) 500 mg PO BID PRN alprazolam 1 mg (2 x 0.5 mg) PO DAILY 1 day amoxicillin 500 mg PO BID 5 days aspirin 81 mg PO DAILY 30 days atorvastatin 20 mg PO BEDTIME 90 days azithromycin take 500 mg today (day 1), then 250 mg for 4 days (days 2-5) PO blood pressure monitor As directed blood sugar diagnostic (FreeStyle Lite Strips) Use 1 test strip once a day blood-glucose meter (FreeStyle Lite Meter kit) As directed cane As directed cholecalciferol (vitamin D3) (Vitamin D3) 25 mcg PO DAILY 90 days [cock up splint wear on each wrist at night. ] diltiazem HCl CD 240 mg PO DAILY ferrous sulfate 325 mg PO .once a week 30 days fluticasone propionate 50 mcg/actuation (Flonase Allergy Relief) 1 spray in tranasal DAILY 30 days folic acid 1 mg PO DAILY [grab bars As directed] hydrochlorothiazide 12.5 mg PO QAM 90 days lancets (FreeStyle Lancets) Use 1 lancet once a day losartan 100 mg PO DAILY 90 days meclizine 25 mg PO TID PRN 30 days Orencia ClickJect (abatacept) 125 mg subcut QWEEK NS semaglutide (Ozempic) 1 mg (0.75 mL) subcut QWEEK 4 weeks Shower Chair As directed solifenacin (Vesicare) 5 mg PO DAILY 90 days walker heavy duty rollator [wheelchair heavy duty As directed] HPI Comments Details: 49yoF presents for follow-up of seronegative rheumatoid arthritis. She self- discontinued Orencia last month. She could not tolerate it due to headaches, palpitations. Obviously her RA has not been well controlled. She has pain and swelling and stiffness of her hands, wrists, shoulders, right knee. [facility] Medical History Rheumatoid arthritis SVT (supraventricular tachycardia) Osteoarthritis of knees, bilateral LARRY (generalized anxiety disorder) Hypovitaminosis D Pure hypercholesterolemia Morbid obesity due to excess calories Iron deficiency anemia Anxiety Super obese Vertigo Morbid obesity Seronegative rheumatoid arthritis Thrombophlebitis Fibromyalgia MAXIMINO (obstructive sleep apnea) Hypertension Diabetes Surgical History History of tubal ligation History of History of hip surgery Family History Father Prostate cancer Mother Uterine cancer Social History Housing: Apartment Alcohol intake: never Patient Tobacco Use Status: Never used Tobacco e-Cigarette/Vaping Use: Never Used Second Hand Smoke Exposure: No service: No Current occupational status: disabled 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 Cognitive needs: Yes Hearing needs: No Vision needs: No Female Reproductive History Menstrual Age of Menarche: 16 Review of Systems [facility] Reports arthralgias, Reports joint swelling and Reports stiffness Physical Exam Vital Signs: Last Vital Signs Pulse 79 05/27/24 08:04 BP 112/70 05/27/24 08:04 Pulse Ox 98 05/27/24 08:04 Oxygen Delivery Method Simple Mask 05/27/24 08:04 BMI result Body Mass Index 53.7 Const General: cooperative, healthy appearing and comfortable Nutritional Appearance: obese morbidly obese Orientation/consciousness: patient oriented x3 Limitations: ambulation with cane HEENT Head: Yes normocephalic and Yes atraumatic Resp Effort & Inspection: normal respiratory effort and able to speak in complete sentences Neuro General: patient oriented x3 Extrem Other: Bilateral wrist tenderness and pain with flexion and extension Mild puffiness of the MCPs bilaterally Multiple tender MCPs and PIP is bilaterally Bilateral shoulder pain and stiffness with full abduction Right knee pain with flexion and extension Assessment & Plan Assessment & Plan (1) Seronegative rheumatoid arthritis: Comment: Seronegative dx 03/2019 in [place]: 08/2019- 08/2021 dyspnea Prednisone Humira: September 2021- 12/2022 incomplete response Actemra 01/2023 partially effective advanced to weekly 03/2023 effective DC 12/2023 d.t transminitis Orencia 01/2024 DC 04/2024 could not be tolerated Code(s): M06.00 - Rheumatoid arthritis without rheumatoid factor, unspecified site Category: Medical Plan: This is a 49-year-old female with seronegative rheumatoid arthritis who presents for follow-up. Patient could not tolerate Orencia due to headaches, palpitations, she stopped it about a month ago. On exam she has active synovitis. We will need to switch DMARDs. Discussed risks and benefits of Orencia infusions. Patient agreed to proceed. I will start prior authorization for Orencia infusions Labs before next visit in 3 months (2) Elevated transaminase level: Code(s): R74.01 - Elevation of levels of liver transaminase levels Category: Medical Plan: Resolved after Actemra was discontinued Liver Elastography consistent with fatty liver (3) High risk medication use: Code(s): Z79.899 - Other terminal operator (current) drug therapy Category: Medical Plan: Side effects o Simponi were discussed with the patient in detail including increased risk of infection, demyelinating disease, reactivation of latent TB, possible increased risk of solid and skin tumors. Patient fully aware. Advised patient to seek medical care AGUSTIN if patient has an infection and advised patient to stop the medication until the infection is resolved. Plan I spent 26 minutes reviewing patient's chart, evaluating patient, ordering diagnostic workup, counseling patient and documenting in the chart Orders: Orders Complete Blood Count Auto Diff 3 Months M06.00 - Rheumatoid arthritis without rheumatoid factor, unspecified site C Reactive Protein 3 Months M06.00 - Rheumatoid arthritis without rheumatoid factor, unspecified site Hepatitis A,B,C Profile 3 Months Z11.59 - Encounter for screening for other viral diseases T Spot TB 3 Months Z11.7 - Encounter for testing for latent tuberculosis infection Comprehensive Met. Panel 3 Months M06.00 - Rheumatoid arthritis without rhe umatoid factor, unspecified site Erythrocyte Sedimentation Rate 3 Months M06.00 - Rheumatoid arthritis without rheumatoid factor, unspecified site Referrals Infusion Center Notification M06.00 - Rheumatoid arthritis without rheumatoid factor, unspecified site Medications: Discontinued Orencia ClickJect (abatacept) Discontinued Reason: Doctor's Order 125 mg subcut QWEEK 4 mL 2RF NS Coding Level of Care Code Est Pt Level 4 (23605) Complex EM visit Add On G2211 Diagnoses Seronegative rheumatoid arthritis M06.00 Elevated transaminase level R74.01 High risk medication use Z79.899
[2024-05-27 08:04] VITALS: BP 112/70; PULSE 79; O2SAT 98; BMI 53.7
== END 2024-05-27 08:44 | disposition home or self-care (01) ==
PROVIDERS: PCP Internal Medicine; Visit Provider Student in an Organized Health Care Education/Training Program
DX: M06.00 Rheumatoid arthritis without rheumatoid factor, unspecified site (principal); R74.01 Elevation of levels of liver transaminase levels; Z79.899 Other long term (current) drug therapy
CPT/HCPCS: 99214; G2211

== ENCOUNTER → 2024-05-27 07:55 | Outpatient (BNVA) | payer OTHER, SELFPAY | PROVIDERS: PCP Internal Medicine; Visit Provider Student in an Organized Health Care Education/Training Program | DX: M06.00 Rheumatoid arthritis without rheumatoid factor, unspecified site (principal); R74.01 Elevation of levels of liver transaminase levels; Z79.899 Other long term (current) drug therapy | CPT/HCPCS: 99212 ==

== ENCOUNTER 2024-05-31 08:37 | Outpatient (REF) | payer OTHER, SELFPAY ==
[2024-05-31 09:11] LABS: MANUAL DIFF FLAG NO
[2024-05-31 10:20] LABS: Basophils Percent Auto 0.6 % (0-2); Eosinophils Absolute Auto 0.2 X10*3/uL (0.0-0.4); Eosinophils Percent Auto 3.1 % (0-4); Hematocrit 35.7 % (37.0-47.0); Hemoglobin 10.9 g/dl (12.0-16.0); Imm Gran Abs Auto 0.05 X10*3/uL (0.00-0.03); Imm Gran Pct Auto 0.8 % (0.0-0.4); Lymphocytes Absolute Auto 1.9 X10*3/uL (1.2-4.9); Mean Corpuscular HGB Conc 30.5 g/dl (31.0-35.0); Mean Corpuscular Hemoglobin 23.9 pg (27.0-33.0); Mean Corpuscular Volume 78.1 fL (80.0-98.0); Mean Platelet Volume 9.8 fL (9.4-12.3); Monocytes Absolute Auto 0.5 X10*3/uL (0.1-1.2); Neutrophils Absolute Auto 3.7 x10*3/uL (2.0-8.3); Neutrophils Percent Auto 58.5 % (45-73); Platelet Count 318 X10*3/uL (160-400); Red Blood Count 4.57 X10*6/uL (4.20-5.50); Red Cell Distribution Width 14.6 % (11.0-16.0); White Blood Count 6.4 X10*3/uL (4.8-10.8)
[2024-05-31 10:51] LABS: Appearance Urine Cloudy; Color Urine Yellow; Glucose Urine UA Negative (Negative); Leukocyte Esterase Urine Moderate (2+) (Negative); Nitrite Urine Positive (Negative); Specific Gravity - Urine >= 1.030 (1.005-1.025); UMIC TRIGGER UACC YES; Urine Blood Negative (Negative); Urine Ketones Negative (Negative); Urine Protein Negative (Neg-Trace)
[2024-05-31 10:57] LABS: Bacteria Urine 4+ (None Seen); Hyaline Casts Urine 0-2 /LPF (0-2); RBC Urine 0-2 /HPF (0-2); UACC Culture Trigger YES; WBC Urine >50 /HPF (0-5)
[2024-05-31 11:05] LABS: Alanine Aminotransferase 14 U/L (0-31); Albumin Level 3.8 g/dL (3.5-5.0); Alkaline Phosphatase 86 U/L (39-117); Anion Gap 11 (12-20); Aspartate Amino Transferase 23 U/L (5-31); Bilirubin Total 0.3 mg/dL (0.0-1.0); Blood Urea Nitrogen 15 mg/dL (9-16); C Reactive Protein 2.12 mg/dL (< or = 0.50); Calcium 9.3 mg/dL (8.4-10.2); Carbon Dioxide 25 mmol/L (22-29); Chloride 106 mmol/L (96-108); Cholesterol 125 mg/dL (<200); Estimated Glomerular Filt Rate > 60; Glucose Fasting 113 mg/dL (60-99); HDL Cholesterol 42 mg/dL (>40); LDL Cholesterol Calculated 73 mg/dL (<100); Potassium 4.1 mmol/L (3.3-5.1); Sodium 138 mmol/L (135-145); Total Protein 8.1 g/dL (6.5-8.0); Triglycerides 54 mg/dL (<150)
[2024-05-31 11:12] LABS: Erythrocyte Sedimentation Rate 51 MM/HR (0-20)
[2024-05-31 12:01] LABS: Creatinine Urine 156.43 mg/dL; Microalbum/Creatinine Ratio Ur 12.1 ug/mg cr (<30)
== END 2024-05-31 08:38 | disposition home or self-care (01) ==
LOC: HO.LAB 08:37
PROVIDERS: Absent Provider Student in an Organized Health Care Education/Training Program; PCP Internal Medicine; Visit Provider Internal Medicine
DX: M06.00 Rheumatoid arthritis without rheumatoid factor, unspecified site (principal); E78.5 Hyperlipidemia, unspecified; E11.9 Type 2 diabetes mellitus without complications
CPT/HCPCS: 36415; 80053; 80061; 81001; 82043; 82570; 85025; 85652; 86140; 87086; 87088; 87186

== ENCOUNTER 2024-06-02 10:46 | Outpatient (REF) | payer OTHER, SELFPAY ==
[2024-06-02 12:37] LABS: HBS Num1 1.17 mIU/mL (0-7.99); HBc Num1 0.08 S/CO (0.00-0.79); HBsAGNum1 0.39 S/CO (0.00-0.99); Hepatitis A Antibody IgM 0.22 Index (0-0.79); Hepatitis B Core Antibody Nonreactive (Nonreactive); Hepatitis B Surface Antigen Negative (Negative); ~HepC Num1 0.11 S/CO (0.00-0.79); ~Hepatitis A Antibody IgM Nonreactive (Nonreactive); ~Hepatitis B Surface Antibody NONREACTIVE (Nonreactive); ~Hepatitis C Antibody Nonreactive (Nonreactive)
== END 2024-06-02 10:47 | disposition home or self-care (01) ==
LOC: HO.LAB 10:46
PROVIDERS: PCP Internal Medicine; Visit Provider Student in an Organized Health Care Education/Training Program
DX: Z11.59 Encounter for screening for other viral diseases (principal)
CPT/HCPCS: 36415; 86704; 86706; 86709; 86803; 87340

== ENCOUNTER 2024-06-05 17:06 | Outpatient (AMB) | payer OTHER, SELFPAY ==
[2024-06-05 17:08] VITALS: BP 136/70; BMI 52.9
--- NOTE | 2024-06-05 17:08 | MHC.PC.OV ---
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 Required: No Accompanied by: Son Allergies abatacept [From Orencia] Adverse Reaction (Severe, Verified 06/05/24 17:21) Palpitations tocilizumab [From Actemra] Adverse Reaction (Intermediate, Verified 06/05/24 17:21) Transaminitis doxycycline Adverse Reaction (Mild, Verified 06/05/24 17:21) Palpitations Medication List - Last Reconciled 06/05/24 by Ryann Angel MD acetaminophen (Tylenol Extra Strength) 500 mg PO BID PRN alprazolam 1 mg (2 x 0.5 mg) PO DAILY 1 day aspirin 81 mg PO DAILY 30 days atorvastatin 20 mg PO BEDTIME 90 days blood pressure monitor As directed blood sugar diagnostic (FreeStyle Lite Strips) Use 1 test strip once a day blood-glucose meter (FreeStyle Lite Meter kit) As directed cane As directed cholecalciferol (vitamin D3) (Vitamin D3) 25 mcg PO DAILY 90 days [cock up splint wear on each wrist at night. ] diltiazem HCl CD 240 mg PO DAILY ferrous sulfate 325 mg PO .once a week 30 days fluticasone propionate 50 mcg/actuation (Flonase Allergy Relief) 1 spray intranasal DAILY 30 days folic acid 1 mg PO DAILY [grab bars As directed] hydrochlorothiazide 12.5 mg PO QAM 90 days lancets (FreeStyle Lancets) Use 1 lancet once a day losartan 100 mg PO DAILY 90 days meclizine 25 mg PO TID PRN 30 days nitrofurantoin macrocrystal 100 mg PO BID 5 days semaglutide (Ozempic) 1 mg (0.75 mL) subcut QWEEK 4 weeks Shower Chair As directed solifenacin (Vesicare) 5 mg PO DAILY 90 days walker heavy duty rollator [wheelchair heavy duty As directed] Tobacco use date assessed: 07/16/23 Dental Screening Dental Screen Date: 06/05/24 Did you have a dental visit in the last 12 months?: No Did you have a dental problem in the last 6 months where you did not have access to dental care?: No Was dental information given to patient?: Patient has dentist HPI HPI Comments History of Present Illness Details The patient is a 49-year-old female presenting with multiple chronic conditions and a recent fall injury. She has a history of Type 2 Diabetes Mellitus with last recorded Hemoglobin A1c of 5.9, indicating good glycemic control. The patient reports prior use of iron supplementation daily for iron deficiency anemia, which was adjusted to weekly due to high levels. More recently, anemia levels dropped, prompting a return to daily supplementation. She notes compliance with a hypoglycemic management plan under endocrinology guidance, aiming for daily carb intake moderation and protein supplementation. The patient is also treated for hyperlipidemia with atorvastatin, achieving an LDL level of 73. Additionally, she recently developed a urinary tract infection, but the antibiotic prescription was unintentionally not processed initially. Symptoms resolved with later filled nitrofurantoin. The patient experienced a fall down three steps of her stairs, reporting impact primarily on her right knee and hip. She has pre-existing surgical hardware from a 16-year-old right hip operation, and currently experiences mild discomfort without significant deformity or functional limitation. A history of allergic rhinitis is present, controlled with nasal sprays and folic acid supplementation. She also complaints of insomnia and I will start her on Zolpidem. Patient is aware that it can cause addiction, sedation and sonambulism. She is accompanied today by son. Her rheumatoid arthritis is follow by rheumatology and complaints of diffuse joint pain due to lack of medication because previous medication was given her side effects. She is super super obese with BMI of 52.9 and is follow by stopperer assembler following a diet and has lost a few pounds since last office visit. [facility] Medical History Rheumatoid arthritis SVT (supraventricular tachycardia) Osteoarthritis of knees, bilateral LARRY (generalized anxiety disorder) Hypovitaminosis D Pure hypercholesterolemia Morbid obesity due to excess calories Iron deficiency anemia Anxiety Super obese Vertigo Morbid obesity Seronegative rheumatoid arthritis Thrombophlebitis Fibromyalgia MAXIMINO (obstructive sleep apnea) Hypertension Diabetes Surgical History History of tubal ligation History of History of hip surgery Family History Father Prostate cancer Mother Uterine cancer Social History Housing: Apartment Alcohol intake: never Patient Tobacco Use Status: Never used Tobacco e-Cigarette/Vaping Use: Never Used Second Hand Smoke Exposure: No service: No Current occupational status: disabled 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 Stephen French, Nai Suarez, Jayson Barajas and colleagues, with an educational tiera from [employer]. Review of Systems Const All systems reviewed & are unremarkable except as noted in HPI and below Reports urinary urgency Musc Reports arthralgias Psych Reports abnormal sleep pattern Physical exam (Primary Care) Vital Signs: Last Vital Signs BP 136/70 06/05/24 17:08 BMI result Body Mass Index 52.9 BMI Assessment/Plan discussion: High BMI High, discussed plan: lifestyle, weight reduction, dietary and physical activity Tobacco/Smoking Status: Tobacco use Status Tobacco use date assessed 07/16/23 06/05/24 17:15 Patient Tobacco Use Status Never used Tobacco 06/05/24 17:15 e-Cigarette/Vaping Use Never Used 06/05/24 17:15 Thrive Assessment: Date of Thrive Assessment Date Thrive assessed 07/16/23 06/05/24 17:15 Const Other: General: No confusion Respiratory: Normal respiratory effort, clear to auscultation bilaterally Cardiovascular: No jugular venous distension, regular rate, regular rhythm, S1 normal heart sound present and S2 normal heart sound present Skin: No rashes or lesions noted Extremities: Full ROM, right knee and right hip with swelling, no deformity noted, slight discomfort on movement Psychology: Grossly normal Limitations: ambulation with cane Office Procedures Flu Questionnaire Does the patient have a severe egg allergy?: No Does the patient have severe life threatening allergies?: No Does the patient have a fever or illness today?: No Has the patient ever had Guillain-[place] Syndrome?: No Has the patient ever had any past reaction to a flu shot?: No Immunizations Fluarix Triv [id number] (PF) 45 mcg (15 mcg x 3)/0.5 mL IM syringe Performing Provider: Ryann Angel MD Performing Location: [facility] Administered by: HEATH Evans on 06/05/24 17:39 Dose Route Admin Location Dispensed Lot Number Expiration Date NDC Liquor Rectifier 0.5 mL IM Right Deltoid 0.5 mL [id number] 12/22/24 [id number] VIS Given Date VIS Provided VIS Publication Date 06/05/24 Single Vaccine 21 Eligibility Eligibility Date Funding Source Not [facility] Eligible 06/05/24 Private Coding Level of Care Code Est Pt Level 4 (35142) Complex EM visit Add On G2211 Diagnoses Type 2 diabetes mellitus, without long-term current use of insulin E11.9 Right knee pain M25.561 Right hip pain M25.551 Morbid obesity with BMI of 50.0-59.9, adult E66.01; Z68.43 Hyperlipidemia LDL goal <70 E78.5 Iron deficiency anemia D50.9 Seronegative rheumatoid arthritis M06.00 Insomnia G47.00 Time Spent (min) 25 Assessment & Plan Assessment & Plan (1) Type 2 diabetes mellitus, without long-term current use of insulin: Code(s): E11.9 - Type 2 diabetes mellitus without complications Category: Medical (2) Right knee pain: Code(s): M25.561 - Pain in right knee Category: Medical (3) Right hip pain: Code(s): M25.551 - Pain in right hip Category: Medical (4) Morbid obesity with BMI of 50.0-59.9, adult: Code(s): E66.01 - Morbid (severe) obesity due to excess calories; Z68.43 - Body mass index [BMI] 50.0-59.9, adult Category: Medical (5) Hyperlipidemia LDL goal <70: Code(s): E78.5 - Hyperlipidemia, unspecified Category: Medical (6) Iron deficiency anemia: Code(s): D50.9 - Iron deficiency anemia, unspecified Category: Medical (7) Seronegative rheumatoid arthritis: Comment: Seronegative dx 03/2019 in [place] MTX: 08/2019- 08/2021 dyspnea Prednisone Humira: September 2021- 12/2022 incomplete response Actemra 01/2023 partially effective advanced to weekly 03/2023 effective DC 12/2023 d.t transminitis Orencia 01/2024 DC 04/2024 could not be tolerated Code(s): M06.00 - Rheumatoid arthritis without rheumatoid factor, unspecified site Category: Medical (8) Insomnia: Code(s): G47.00 - Insomnia, unspecified Category: Medical Plan - Adjust iron supplementation to daily due to low hemoglobin levels, retest in four months. - Monitor glycemic control, advised dietary modifications to support current A1c results. - Continue atorvastatin and review lipid panel in follow-up. - Prescribe nitrofurantoin for urinary tract infection as initial prescription was not filled. - Order imaging of right hip and knee to assess post-fall injuries. - Advise follow-up with urology, endocrinology, and rheumatology. Patient was informed and verbally consented to the use of an ambient scribe for clinic note documentation during this visit. During the visit, I discussed with the patient her recent lab results, emphasizing the successful management of her diabetes, with an A1c of 5.9. The cholesterol management regimen, including atorvastatin, was reviewed, noting the LDL level of 73 falls near her target goal. We touched upon her need for adjusted iron intake due to recurrent anemia, advising a return to daily supplementation with follow-up labs in four months. I elaborated on the importance of completing the prescribed nitrofurantoin to address the urinary tract infection. We reviewed possible side effects with increased Ozempic dosage due to past adverse reactions. A fall assessment concerning her right knee and hip (subsequent to her past hip surgery) was deliberated, explaining the necessity for imaging. I also re-emphasized an active follow-up with specialists managing her conditions. Orders: Orders Influenza [id number] Immunization 06/05/24 Z23 - Encounter for immunization XR knee RT 2V 06/05/24 M25.561 - Pain in right knee Complete Blood Count Auto Diff 4 Months D64.9 - Anemia, unspecified Vitamin B12 and Folate 4 Months E53.8 - Deficiency of other specified B group vitamins AMB Hemoglobin A1c 06/05/24 E11.9 - Type 2 diabetes mellitus without complications XR hip RT min 2V 06/05/24 M25.551 - Pain in right hip Lipid Panel 4 Months E78.5 - Hyperlipidemia, unspecified Vitamin D 25-OH Total 4 Months E55.9 - Vitamin D deficiency, unspecified IRON PROFILE 4 Months D64.9 - Anemia, unspecified Comprehensive [place]. Panel Fast 4 Months E11.9 - Type 2 diabetes mellitus without complications Medications: New zolpidem 10 mg PO BEDTIME PRN 30 tabs 0RF sleep 30 days semaglutide (Ozempic) 2 mg (0.75 mL) subcut QWEEK 3 mL 0RF 4 weeks E11.9 - Type 2 diabetes mellitus without complications Changed From ferrous sulfate 325 mg PO .once a week 30 days 4 tabs 6RF To ferrous sulfate 325 mg PO .once a day 90 tabs 3RF 90 days Discontinued semaglutide (Ozempic) Discontinued Reason: Patient Completed Course 1 mg (0.75 mL) subcut QWEEK 4 weeks 3 mL 3RF Patient Instructions: - Increase iron supplementation to one tablet daily. - Adhere to dietary recommendations for Type 2 Diabetes management. - Complete the prescribed course of nitrofurantoin for the urinary tract infection. - Schedule follow-up appointments with urologist, card writer hand, and beauty culturist apprentice. - Await instructions on imaging and rest affected knee and hip as needed. - Contact the office if experiencing worsening symptoms or adverse reactions. - Discuss protein shake coverage with your insurance provider for dietary planning.
== END 2024-06-05 17:23 | disposition home or self-care (01) ==
LOC: HO.HMCH 17:06
PROVIDERS: PCP Internal Medicine; Visit Provider Internal Medicine
DX: Z23 Encounter for immunization (principal)

== ENCOUNTER → 2024-06-05 17:06 | Outpatient (BNVA) | payer OTHER, SELFPAY | PROVIDERS: PCP Internal Medicine; Visit Provider Internal Medicine | DX: E11.9 Type 2 diabetes mellitus without complications (principal); M25.561 Pain in right knee; M25.551 Pain in right hip; E66.01 Morbid (severe) obesity due to excess calories; Z68.43 Body mass index [BMI] 50.0-59.9, adult; E78.5 Hyperlipidemia, unspecified; D50.9 Iron deficiency anemia, unspecified; M06.00 Rheumatoid arthritis without rheumatoid factor, unspecified site | CPT/HCPCS: 90471; 90656; 99212 ==

== ENCOUNTER 2024-06-12 14:28 | Outpatient (AMB) | payer OTHER, SELFPAY ==
[2024-06-12 14:38] VITALS: BP 122/77; PULSE 91; O2SAT 96; BMI 53.4
--- NOTE | 2024-06-12 14:38 | A.OFFVIS_ITS ---
Vital Signs 06/12/24 14:38 Height 5 ft 5 in Weight 321 lb BMI 53.4 BP 122/77 Blood Pressure Location Lt radial Position Sitting Pulse 91 Pulse Source Doppler Pulse Oximetry (%) 96 Oxygen Delivery Method Room Air Intake Visit Reasons: Obstructive sleep apnea Drier And Grinder Tender Required: Yes Drier And Grinder Tender Name: Jeaneth Rose Crystal Allergies abatacept [From Orencia] Adverse Reaction (Severe, Verified 06/05/24 17:21) Palpitations tocilizumab [From Actemra] Adverse Reaction (Intermediate, Verified 06/05/24 17:21) Transaminitis doxycycline Adverse Reaction (Mild, Verified 06/05/24 17:21) Palpitations HPI HPI Obstructive sleep apnea: Details: 48-year-old lady with underlying morbid obesity followed for severe obstructive sleep apnea.? She continues to CPAP with excellent control of her underlying sleep apnea symptoms.? Patient is no longer on methotrexate for underlying rheumatoid arthritis.? Today she has complain of sinusitis symptoms resulting in productive cough. [facility] Medical History Rheumatoid arthritis SVT (supraventricular tachycardia) Osteoarthritis of knees, bilateral LARRY (generalized anxiety disorder) Hypovitaminosis D Pure hypercholesterolemia Morbid obesity due to excess calories Iron deficiency anemia Anxiety Super obese Vertigo Morbid obesity Seronegative rheumatoid arthritis Thrombophlebitis Fibromyalgia MAXIMINO (obstructive sleep apnea) Hypertension Diabetes Surgical History History of tubal ligation History of History of hip surgery Family History Father Prostate cancer Mother Uterine cancer Social History Housing: Apartment Alcohol intake: never Patient Tobacco Use Status: Never used Tobacco e-Cigarette/Vaping Use: Never Used Second Hand Smoke Exposure: No service: No Current occupational status: disabled 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 Cognitive needs: Yes Hearing needs: No Vision needs: No Female Reproductive History Menstrual Age of Menarche: 16 Review of Systems Const Denies daytime sleepiness, Denies excessive sweating, Denies fatigue, Denies fever(s), Denies lethargy, Denies malaise, Denies night sweats, Denies snoring and Denies weight loss Eyes Denies blurry vision and Denies itchy eyes ENT Reports nasal congestion, Reports post nasal drip, Denies sinus pain, Reports sinus pressure and Denies other ( Thrush) Card Denies chest pain, Denies pedal edema, Denies dyspnea, Denies orthopnea and Denies paroxysmal nocturnal dyspnea Resp Reports cough, Denies hemoptysis, Reports excessive phlegm production, Denies dyspnea, Denies snoring and Denies wheezing GI Denies abdominal pain and Denies heartburn Musc Denies myalgias, Denies arthralgias and Denies joint swelling Skin/Breast Denies rash Neuro Denies memory loss and Denies seizure-like activity Psych Denies abnormal sleep pattern, Denies anxiety and Denies memory loss Endo Denies excessive sweating, Denies fatigue and Denies heat intolerance Boni/Lymph Denies easy bruising Aller/Immun Denies itchy eyes, Denies seasonal rhinorrhea and Denies wheezing Physical Exam Vital Signs: Last Vital Signs Pulse 91 06/12/24 14:38 BP 122/77 06/12/24 14:38 Pulse Ox 96 06/12/24 14:38 Oxygen Delivery Method Room Air 06/12/24 14:38 BMI result Body Mass Index 53.4 Const General: no acute distress and alert Nutritional Appearance: obese Orientation/consciousness: Other orientation findings ( oriented) HEENT Head: Yes atraumatic Eyes General: appearance normal, both eyes and all related structures Sclerae: sclerae normal EOM: EOMs intact bilaterally Neck Neck: Yes supple Lymphatic: no lymphadenopathy noted Resp Effort & Inspection: normal respiratory effort and no use of accessory muscles Auscultation: clear to auscultation bilaterally Cardio Rate: regular rate Rhythm: regular rhythm Heart sounds: no gallops, no murmurs and no rubs Skin General skin exam: other ( warm) Extrem General: No clubbing, No cyanosis and No edema Assessment & Plan Assessment & Plan (1) MAXIMINO on CPAP: Code(s): G47.33 - Obstructive sleep apnea (adult) (pediatric); Z99.89 - Dependence on other enabling machines and devices Category: Medical Plan: Well controlled current CPAP therapy. Continue CPAP therapy. (2) Sinusitis: Code(s): J32.9 - Chronic sinusitis, unspecified Category: Medical Plan: Will treat with a course of Augmentin. Medications: New amoxicillin-pot clavulanate 875-125 mg 1 tab PO BID 20 tabs 0RF Coding Level of Care Code Est Pt Level 4 (99716) Diagnoses MAXIMINO on CPAP G47.33; Z99.89 Sinusitis J32.9
== END 2024-06-12 14:55 | disposition home or self-care (01) ==
PROVIDERS: PCP Internal Medicine; Visit Provider Internal Medicine Pulmonary Disease
DX: G47.33 Obstructive sleep apnea (adult) (pediatric) (principal); Z99.89 Dependence on other enabling machines and devices; J32.9 Chronic sinusitis, unspecified
CPT/HCPCS: 99214

== ENCOUNTER → 2024-06-12 14:28 | Outpatient (BNVA) | payer OTHER, SELFPAY | PROVIDERS: PCP Internal Medicine; Visit Provider Internal Medicine Pulmonary Disease | DX: G47.33 Obstructive sleep apnea (adult) (pediatric) (principal); J32.9 Chronic sinusitis, unspecified; E66.01 Morbid (severe) obesity due to excess calories; Z68.43 Body mass index [BMI] 50.0-59.9, adult; Z99.89 Dependence on other enabling machines and devices | CPT/HCPCS: 99212 ==

== ENCOUNTER 2024-06-15 11:45 | Emergency (ER) | payer OTHER, SELFPAY ==
--- NOTE | 2024-06-15 11:59 | ED.GENADULT ---
HPI - General Adult General Chief complaint: Upper Respiratory Symptoms Stated complaint: cold Time Seen by Provider: 06/15/24 12:09 Source: patient Mode of arrival: ambulatory Limitations: no limitations History of Present Illness ED Provider: Niranjan Beltran HPI narrative: 49-year-old female history of insomnia, diabetes, tension presents to ED for URI symptoms. Patient is on antibiotics. Patient denies any chest pain or shortness of breath. Patient denies any leg swelling, coughing up blood Related Data Home Medications ?Medication ?Instructions ?Recorded ?Confirmed acetaminophen 500 mg tablet 500 mg PO BID PRN 09/14/21 06/05/24 (Tylenol Extra Strength) Previous Rx's ?Medication ?Instructions ?Recorded cane #1 ea 07/02/20 grab bars #1 ea 11/29/20 Shower Chair #1 ea 12/07/20 blood-glucose meter (FreeStyle #1 ea 12/08/21 Lite Meter kit) lancets 28 gauge (FreeStyle #100 ea 12/08/21 Lancets) cock up splint #2 ea 01/12/22 blood pressure monitor #1 ea 02/19/23 diltiazem HCl 240 mg 240 mg PO DAILY #90 caps 08/06/23 capsule,extended release 24 hr meclizine 25 mg tablet 25 mg PO TID PRN dizziness 30 days 08/06/23 #90 tabs solifenacin 5 mg tablet (Vesicare) 5 mg PO DAILY 90 days #90 tabs 09/05/23 hydrochlorothiazide 12.5 mg tablet 12.5 mg PO QAM 90 days #90 tabs 09/09/23 blood sugar diagnostic (FreeStyle #100 ea 09/12/23 Lite Strips) atorvastatin 20 mg tablet 20 mg PO BEDTIME 90 days #90 tabs 09/24/23 alprazolam 0.5 mg tablet 1 mg (2 x 0.5 mg) PO DAILY 1 day 11/15/23 #2 tabs walker #1 ea 12/23/23 wheelchair heavy duty #1 ea 01/22/24 aspirin 81 mg tablet,delayed 81 mg PO DAILY 30 days #30 tabs 04/29/24 release fluticasone propionate 50 1 spray intranasal DAILY 30 days 04/29/24 mcg/actuation nasal #16 grams spray,suspension (Flonase Allergy Relief) cholecalciferol (vitamin D3) 25 25 mcg PO DAILY 90 days #90 caps 05/22/24 mcg (1,000 unit) capsule (Vitamin D3) losartan 100 mg tablet 100 mg PO DAILY 90 days #90 tabs 05/27/24 nitrofurantoin macrocrystal 100 mg 100 mg PO BID 5 days #10 caps 06/04/24 capsule ferrous sulfate 325 mg (65 mg 325 mg PO .once a day 90 days #90 06/05/24 iron) tablet tabs semaglutide 2 mg/dose (8 mg/3 mL) 2 mg (0.75 mL) subcut QWEEK 4 06/05/24 subcutaneous pen injector (Ozempic) weeks #3 mL zolpidem 10 mg tablet 10 mg PO BEDTIME PRN sleep 30 days 06/05/24 #30 tabs Enbrel SureClick 50 mg/mL (1 mL) 50 mg subcut QWEEK #4 mL 06/09/24 subcutaneous pen injector (etanercept) folic acid 1 mg tablet 1 mg PO DAILY #90 tabs 06/11/24 amoxicillin 875 mg-potassium 1 tab PO BID #20 tabs 06/15/24 clavulanate 125 mg tablet Allergies Allergy/AdvReac Type Severity Reaction Status Date / Time abatacept [From Orencia] AdvReac Severe Palpitation Verified 06/15/24 12:01 s tocilizumab [From Actemra] AdvReac Intermediate Transaminit Verified 06/15/24 12:01 is doxycycline AdvReac Mild Palpitation Verified 06/15/24 12:01 s Review of Systems Review of Systems: Nasal congestion coughing Yes all other systems are reviewed and are negative PMFSH Past Medical History Medical History Rheumatoid arthritis SVT (supraventricular tachycardia) Osteoarthritis of knees, bilateral LARRY (generalized anxiety disorder) Hypovitaminosis D Pure hypercholesterolemia Morbid obesity due to excess calories Iron deficiency anemia Anxiety Super obese Vertigo Morbid obesity Seronegative rheumatoid arthritis Thrombophlebitis Fibromyalgia MAXIMINO (obstructive sleep apnea) Hypertension Diabetes Surgical History History of tubal ligation History of History of hip surgery Family History Family History Father Prostate cancer Mother Uterine cancer Social History Social History Housing: Apartment Alcohol intake: never Patient Tobacco Use Status: Never used Tobacco e-Cigarette/Vaping Use: Never Used Second Hand Smoke Exposure: No Advance Directives: No Advance Directives Information Provided: No Do you have a plan to hurt others: No Plan service: No Current occupational status: disabled 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 Cognitive needs: Yes Hearing needs: No Vision needs: No Physical Exam ED Vital Signs: Vital Signs - 24 hr 06/15/24 12:01 06/15/24 14:28 Temperature 98 F 98 F Pulse Rate 83 83 Respiratory Rate 18 18 Blood Pressure 123/84 123/84 Pulse Oximetry 98 98 BMI result Body Mass Index 52.9 Const General: cooperative, healthy appearing, comfortable, no acute distress, well developed, alert and awake Orientation/consciousness: patient oriented x3 HENMT Head: Yes normal to inspection, Yes No palpable skull fracture present, Yes normocephalic and Yes atraumatic Throat: Yes posterior oropharynx normal, Yes tonsils normal and Yes uvula midline Eyes General: appearance normal, both eyes and all related structures Neck Neck: Yes normal visual inspection, Yes full ROM, Yes no lymphadenopathy, Yes no meningeal signs, Yes trachea midline, Yes supple, No anterior neck swelling and No tender Chest Chest palpation & inspection: normal inspection of the chest and normal palpation of entire chest wall Resp Effort & Inspection: normal respiratory effort and able to speak in complete sentences Auscultation: clear to auscultation bilaterally Cardio Jugular venous distension: no JVD Heart sounds: S1 normal heart sound present and S2 normal heart sound present GI Inspection: Yes normal to inspection Palpation (GI): Soft to palpation, not firm, nontender, no guarding and not rigid General: Yes no CVA tenderness Back/Spine/Pelvis Back: no CVA tenderness and No back tenderness Skin General skin exam: no rashes or lesions noted, elasticity normal and turgor normal Neuro General: patient oriented x3, gait normal, tone normal, moves all extremities, Normal light touch and pain sensation, no meningeal signs, no focal motor deficits, CN's II-XI intact bilaterally and normal sensation to monofilament Extrem General: Yes normal to inspection, Yes full ROM and Yes capillary refill normal Psych Appearance: grossly normal, well kempt and not disheveled Course Course Course Narrative: This is a rapid medical exam performed by Frank Combs NP: Additional HPI, ROS, PE not included below will be deferred to primary provider. Patient is a 49-year-old French speaking female with history of T2DM, HTN, anemia presenting with complaint of congestion, was placed on abx by her PCP without improvement. Plan: strep and viral serology Medical Decision Making Medical Decision Making MDM Narrative: 49-year-old female presents to ED for URI symptoms. Patient is positive for RSV. Patient denied any distress lungs are clear. Patient explained worrisome signs informed to return to the ED immediately. Not suspecting PE, IN myocarditis, myocardial infarction problem of pericarditis, respiratory failure, pericarditits, cardiac tamponade, CHF, or any other concerning symptoms. Differential Diagnosis Differential Diagnoses: The differential diagnosis associated with the presentation includes (COVID, influenza, strep) Admission/Observation Consideration of admission/observation: Escalation of care including admission/observation considered Lab Data MDM Lab Attestation statement: I reviewed the patient's lab results. Labs: Lab Results 06/15/24 Range/Units 12:06 Influenza Type A (PCR) NEGATIVE (Negative) Influenza Type B (PCR) NEGATIVE (Negative) RSV RNA Qual (PCR) POSITIVE A (Negative) SARS-CoV-2 RNA (RT-PCR) NEGATIVE (Negative) S. pyogenes GrpA EMILE Negative (Negative) Independent Historian Clinical information obtained from an independent historian. History obtained from or confirmed by: Other (Patient) External Record Review External record reviewed: Other (Prior visit) Discharge Plan Discharge Clinical Impression: Respiratory syncytial virus (RSV) Patient Disposition: Home, Self-Care Instructions: Respiratory Syncytial Virus (ED) Additional Instructions: You tested positive for RSV. Recommend follow-up with your primary care provider. Return to the ED immediately for any chest pain, shortness of breath, weakness, dizziness, coughing up blood, leg swelling, shortness of breath on exertion, or any other concerning symptoms. Prescriptions: No Action (DME) grab bars See Rx Instructions .Route .MEDSUPPLY Qty: 1 0RF Rx Instructions: As directed (DME) Shower Chair Misc See Rx Instructions .ROUTE .MEDSUPPLY Qty: 1 0RF Rx Instructions: As directed (DME) blood pressure monitor Kit See Rx Instructions .Route Qty: 1 0RF Rx Instructions: As directed meclizine 25 mg tablet 25 mg PO TID PRN (Reason: dizziness) 30 Days Qty: 90 1RF diltiazem HCl 240 mg capsule,extended release 24hr 240 mg PO DAILY Qty: 90 3RF solifenacin [Vesicare] 5 mg tablet 5 mg PO DAILY 90 Days Qty: 90 1RF hydrochlorothiazide 12.5 mg tablet 12.5 mg PO QAM 90 Days Qty: 90 3RF (DME) FreeStyle Lite Strips Strip See Rx Instructions .Route Qty: 100 3RF Rx Instructions: Use 1 test strip once a day atorvastatin 20 mg tablet 20 mg PO BEDTIME 90 Days Qty: 90 1RF (DME) walker [facility] [place] See Rx Instructions .Route Qty: 1 0RF Rx Instructions: heavy duty rollator aspirin 81 mg tablet,delayed release (DR/EC) 81 mg PO DAILY 30 Days Qty: 30 11RF fluticasone propionate [Flonase Allergy Relief] 50 mcg/actuation spray,suspension 1 spray intranasal DAILY 30 Days Qty: 16 1RF Rx Instructions: administer into each nostril cholecalciferol (vitamin D3) [Vitamin D3] 25 mcg (1,000 unit) capsule 25 mcg PO DAILY 90 Days Qty: 90 1RF losartan 100 mg tablet 100 mg PO DAILY 90 Days Qty: 90 3RF nitrofurantoin macrocrystal 100 mg capsule 100 mg PO BID 5 Days Qty: 10 0RF Rx Instructions: must administer with a meal/food folic acid 1 mg tablet 1 mg PO DAILY Qty: 90 1RF amoxicillin-pot clavulanate 875-125 mg tablet 1 tab PO BID Qty: 20 0RF (DME) blood-glucose meter [FreeStyle Lite Meter] Kit See Rx Instructions .Route Qty: 1 0RF Rx Instructions: As directed (DME) lancets [FreeStyle Lancets] 28 gauge misc See Rx Instructions .Route Qty: 100 3RF Rx Instructions: Use 1 lancet once a day alprazolam 0.5 mg tablet 1 mg PO DAILY 1 Days Qty: 2 0RF Rx Instructions: Take 1 to 2 tabs 30 to 45 minutes before study (DME) wheelchair heavy duty See Rx Instructions .Route .MEDSUPPLY Qty: 1 0RF Rx Instructions: As directed (DME) cane Device See Rx Instructions .ROUTE .MEDSUPPLY Qty: 1 0RF Rx Instructions: As directed acetaminophen [Tylenol Extra Strength] 500 mg tablet 500 mg PO BID PRN (DME) cock up splint See Rx Instructions .Route .MEDSUPPLY Qty: 2 0RF Rx Instructions: wear on each wrist at night. zolpidem 10 mg tablet 10 mg PO BEDTIME PRN (Reason: sleep) 30 Days Qty: 30 0RF ferrous sulfate 325 mg (65 mg iron) tablet 325 mg PO .once a day 90 Days Qty: 90 3RF Ozempic 2 mg/dose (8 mg/3 mL) pen injector 2 mg subcut QWEEK 28 Days Qty: 3 0RF Enbrel SureClick 50 mg/mL (1 mL) pen injector 50 mg subcut QWEEK Qty: 4 2RF Stand Alone Forms: Work/School Release Interventions: ED Discharge Assessment Last Done: 06/15/24 14:28 Discharge Date/Time: 06/15/24 14:28 Print Language: French
[2024-06-15 12:01] VITALS: BP 123/84; PULSE 83; RESP 18; TEMP 36.6; O2SAT 98; BMI 52.9
[2024-06-15 12:22] LABS: IDNOW Serial# 58CA691E; Strep A Nucleic Acid Negative (Negative)
[2024-06-15 12:48] LABS: Influenza A PCR NEGATIVE (Negative); Influenza B PCR NEGATIVE (Negative); Resp Syncy Virus RNA Qual PCR POSITIVE (Negative); SARS COV2 PCR INHOUSE NEGATIVE (Negative)
[2024-06-15 14:28] VITALS: BP 123/84; PULSE 83; RESP 18; TEMP 36.6; O2SAT 98
== END 2024-06-15 14:28 | disposition home or self-care (01) ==
PROVIDERS: Registered Nurse Emergency; Emergency Provider Emergency Medicine Emergency Medical Services; PCP Internal Medicine
DX: J22 Unspecified acute lower respiratory infection (principal); B97.4 Respiratory syncytial virus as the cause of diseases classified elsewhere; Z03.818 Encounter for observation for suspected exposure to other biological agents ruled out
CPT/HCPCS: 0241U; 87651; 99282; 99283

== ENCOUNTER 2024-06-27 10:54 | Outpatient (AMB) | payer OTHER, SELFPAY ==
[2024-06-27 11:01] VITALS: BP 102/62; PULSE 86; O2SAT 98; BMI 53.1
--- NOTE | 2024-06-27 11:01 | MHC.OFFVIS ---
Vital Signs 06/27/24 11:01 Height 5 ft 5 in Weight 319 lb BMI 53.1 BP 102/62 Blood Pressure Location Rt radial Position Sitting Pulse 86 Pulse Source Doppler Pulse Oximetry (%) 98 Oxygen Delivery Method Room Air Intake Visit Reasons: persistent cough Oracle Ebs Architect Required: Yes Oracle Ebs Architect Name: Jeaneth Rose Crystal Allergies abatacept [From Orencia] Adverse Reaction (Severe, Verified 06/15/24 12:01) Palpitations tocilizumab [From Actemra] Adverse Reaction (Intermediate, Verified 06/15/24 12:01) Transaminitis doxycycline Adverse Reaction (Mild, Verified 06/15/24 12:01) Palpitations HPI HPI persistent cough: Details: 49-year-old lady with underlying morbid obesity followed for severe obstructive sleep apnea.? She continues to CPAP with excellent control of her underlying sleep apnea symptoms.? Patient is no longer on methotrexate for underlying rheumatoid arthritis.? Today she continues to complain of in ascites symptoms resultant productive cough and feeling like she can not expectorate. PENDING SALE TO [facility] Medical History Rheumatoid arthritis SVT (supraventricular tachycardia) Osteoarthritis of knees, bilateral LARRY (generalized anxiety disorder) Hypovitaminosis D Pure hypercholesterolemia Morbid obesity due to excess calories Iron deficiency anemia Anxiety Super obese Vertigo Morbid obesity Seronegative rheumatoid arthritis Thrombophlebitis Fibromyalgia MAXIMINO (obstructive sleep apnea) Hypertension Diabetes Surgical History History of tubal ligation History of History of hip surgery Family History Father Prostate cancer Mother Uterine cancer Social History Housing: Apartment Alcohol intake: never Patient Tobacco Use Status: Never used Tobacco e-Cigarette/Vaping Use: Never Used Second Hand Smoke Exposure: No service: No Current occupational status: disabled 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 Cognitive needs: Yes Hearing needs: No Vision needs: No Female Reproductive History Menstrual Age of Menarche: 16 Review of Systems Const Denies daytime sleepiness, Denies excessive sweating, Denies fatigue, Denies fever(s), Denies lethargy, Denies malaise, Denies night sweats, Denies snoring and Denies weight loss Eyes Denies blurry vision and Denies itchy eyes ENT Denies nasal congestion, Reports post nasal drip, Denies sinus pain, Reports sinus pressure and Denies other ( Thrush) Card Denies chest pain, Denies pedal edema, Denies dyspnea, Denies orthopnea and Denies paroxysmal nocturnal dyspnea Resp Reports cough, Denies hemoptysis, Denies excessive phlegm production, Denies dyspnea, Denies snoring and Denies wheezing GI Denies abdominal pain and Denies heartburn Musc Denies myalgias, Denies arthralgias and Denies joint swelling Skin/Breast Denies rash Neuro Denies memory loss and Denies seizure-like activity Psych Denies abnormal sleep pattern, Denies anxiety and Denies memory loss Endo Denies excessive sweating, Denies fatigue and Denies heat intolerance Boni/Lymph Denies easy bruising Aller/Immun Denies itchy eyes, Denies seasonal rhinorrhea and Denies wheezing Physical Exam Vital Signs: Last Vital Signs Pulse 86 06/27/24 11:01 BP 102/62 06/27/24 11:01 Pulse Ox 98 06/27/24 11:01 Oxygen Delivery Method Room Air 06/27/24 11:01 BMI result Body Mass Index 53.1 Const General: no acute distress and alert Nutritional Appearance: obese Orientation/consciousness: Other orientation findings ( oriented) HEENT Head: Yes atraumatic Eyes General: appearance normal, both eyes and all related structures Sclerae: sclerae normal EOM: EOMs intact bilaterally Neck Neck: Yes supple Lymphatic: no lymphadenopathy noted Resp Effort & Inspection: normal respiratory effort and no use of accessory muscles Auscultation: clear to auscultation bilaterally Cardio Rate: regular rate Rhythm: regular rhythm Heart sounds: no gallops, no murmurs and no rubs Skin General skin exam: other ( warm) Extrem General: No clubbing, No cyanosis and No edema Assessment & Plan Assessment & Plan (1) MAXIMINO on CPAP: Code(s): G47.33 - Obstructive sleep apnea (adult) (pediatric); Z99.89 - Dependence on other enabling machines and devices Category: Medical Plan: Well controlled on CPAP therapy. Continue CPAP therapy. (2) Cough: Code(s): R05.9 - Cough, unspecified Category: Medical Plan: On a background of sinusitis with difficulties expectorating. Poor response to Augmentin. Will treat with a course of Levaquin and guaifenesin for symptomatic relief. Medications: New guaifenesin ER 600 mg PO BID 30 tabs 0RF levofloxacin 750 mg PO DAILY 10 tabs 0RF Discontinued nitrofurantoin macrocrystal must administer with a meal/food Discontinued Reason: Doctor's Order 100 mg PO BID 5 days 10 caps 0RF amoxicillin-pot clavulanate 875-125 mg Discontinued Reason: Doctor's Order 1 tab PO BID 20 tabs 0RF prednisone Discontinued Reason: Doctor's Order 40 mg (2 x 20 mg) PO DAILY 10 tabs 0RF Coding Level of Care Code Est Pt Level 4 (07206) Diagnoses MAXIMINO on CPAP G47.33; Z99.89 Cough R05.9
== END 2024-06-27 11:42 | disposition home or self-care (01) ==
PROVIDERS: PCP Internal Medicine; Visit Provider Internal Medicine Pulmonary Disease
DX: G47.33 Obstructive sleep apnea (adult) (pediatric) (principal); Z99.89 Dependence on other enabling machines and devices; R05.9 Cough, unspecified
CPT/HCPCS: 99214

== ENCOUNTER → 2024-06-27 10:54 | Outpatient (BNVA) | payer OTHER, SELFPAY | PROVIDERS: PCP Internal Medicine; Visit Provider Internal Medicine Pulmonary Disease | DX: G47.33 Obstructive sleep apnea (adult) (pediatric) (principal); R05.9 Cough, unspecified; Z99.89 Dependence on other enabling machines and devices | CPT/HCPCS: 99212 ==

== ENCOUNTER 2024-07-07 13:25 | Outpatient (AMB) | payer OTHER, SELFPAY ==
[2024-07-07 13:33] VITALS: BMI 52.5
--- NOTE | 2024-07-07 13:33 | A.OFFVIS_ITS ---
VS Expanded 07/07/24 13:33 Height 5 ft 5 in Weight 315 lb 4.176 oz BMI 52.5 Intake Visit Reasons: T2DM Allergies abatacept [From Orencia] Adverse Reaction (Severe, Verified 06/15/24 12:01) Palpitations tocilizumab [From Actemra] Adverse Reaction (Intermediate, Verified 06/15/24 12:01) Transaminitis doxycycline Adverse Reaction (Mild, Verified 06/15/24 12:01) Palpitations Nutrition Presentation Details: Pt presents for MNT f/u for obesity with T2DM Pt reports working on diet modifications, feels more comfortable reading food labels and choosing foods lower in sugar Est protein intake : 60 g /day (combination of protein shake, starting to include non starchy vegetables and lean protein foods (beef/chicken/eggs) Pt is on ozempic 2mg per week. Pt reports reduce appetite with the medication, denies vomiting food frequency fluid intake : water, low sugar beverages,milk, about 40 oz/d fiber rich foods: beans - not including, non starchy veg 1 cup/d fruit 0-1/d, starchy veg 1-2 c/d BS Monitoring Most Recent Diabetes Results: Microalb/Creat Ratio 12.1 ug/mg cr (<30) 05/31/24 Cholesterol 125 mg/dL (<200) 05/31/24 HDL Cholesterol 42 mg/dL (>40) 05/31/24 Triglycerides 54 mg/dL (<150) 05/31/24 Creatinine 0.62 mg/dL (0.5-1.4) 05/31/24 Blood Urea Nitrogen 15 mg/dL (9-16) 05/31/24 Sodium 138 mmol/L (135-145) 05/31/24 Potassium 4.1 mmol/L (3.3-5.1) 05/31/24 Chloride 106 mmol/L (96-108) 05/31/24 Carbon Dioxide 25 mmol/L (22-29) 05/31/24 Calcium 9.3 mg/dL (8.4-10.2) 05/31/24 AST 23 U/L (5-31) 05/31/24 ALT 14 U/L (0-31) 05/31/24 Total Protein 8.1 g/dL (6.5-8.0) H 05/31/24 Albumin 3.8 g/dL (3.5-5.0) 05/31/24 [facility] Medical History Rheumatoid arthritis SVT (supraventricular tachycardia) Osteoarthritis of knees, bilateral LARRY (generalized anxiety disorder) Hypovitaminosis D Pure hypercholesterolemia Morbid obesity due to excess calories Iron deficiency anemia Anxiety Super obese Vertigo Morbid obesity Seronegative rheumatoid arthritis Thrombophlebitis Fibromyalgia MAXIMINO (obstructive sleep apnea) Hypertension Diabetes Surgical History History of tubal ligation History of History of hip surgery Family History Father Prostate cancer Mother Uterine cancer Social History Housing: Apartment Alcohol intake: never Patient Tobacco Use Status: Never used Tobacco e-Cigarette/Vaping Use: Never Used Second Hand Smoke Exposure: No service: No Current occupational status: disabled 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 Cognitive needs: Yes Hearing needs: No Vision needs: No Female Reproductive History Menstrual Age of Menarche: 16 Assessment & Plan Assessment & Plan (1) Type 2 diabetes mellitus, without long-term current use of insulin: Code(s): E11.9 - Type 2 diabetes mellitus without complications Category: Medical Plan: Wt: 149 Kg ( 02/2024 ), 143 kg (07/19) Est kcal needs as per MSJ: 2500 (40% carb, 30% protein/fat) Est fluid needs as per 30 ml/d: 4400 Est prot per day as per 1 g/kg bw: 149 Recommend fiber intake : 8-10 g per day and gradually increase to 25-28 g per day for women and 35-38 g for men or as tolerated Recommend sodium intake per day : less than 2300 mg Educated patient on: ( R = reviewed V = verbalizes understanding N/R = needs review N/A = not applicable * Food sources of carbohydrate, adequate serving sizes and its role in various health conditions: R * Differences between complex carbohydrates a simple carbohydrates, role of fiber in diet: R * Lean protein sources of foods: R * Differences between types of fats and role in diet (mono on saturated fat fatty acids, saturated fatty acids, trans fats): R * Food sources of sodium in salt and healthy modifications for heart health in kidney health: R * Vitamins and minerals via foods: R * Healthy plate method concept: R * Physical activity: Benefits a precaution: R V N/R * Hypoglycemia protocol (rule of 15): R V N/R * Dietary prevention of Hyperglycemia: R Patient Instructions: Continue working on including fiber rich foods (spinach lentil, beans , carrots ,[place] sprouts, mixed vegetables, fruit/veg shakes) gradually, include 2 cups daily Increase water/low sugar beverages as you continue to increase in fiber intake Coding Level of Care Code Nutr Indiv Subseq (84991) Diagnoses Type 2 diabetes mellitus, without long-term current use of insulin E11.9 Time Spent (min) 30
== END 2024-07-07 14:15 | disposition home or self-care (01) ==
PROVIDERS: PCP Internal Medicine; Visit Provider Dietitian, Registered
DX: E11.9 Type 2 diabetes mellitus without complications (principal)

== ENCOUNTER → 2024-07-07 13:25 | Outpatient (BNVA) | payer OTHER, SELFPAY | PROVIDERS: PCP Internal Medicine; Visit Provider Dietitian, Registered | DX: E11.9 Type 2 diabetes mellitus without complications (principal); E66.89 Other obesity not elsewhere classified; Z68.43 Body mass index [BMI] 50.0-59.9, adult | CPT/HCPCS: 97803 ==

== ENCOUNTER 2024-08-23 07:56 | Outpatient (REF) | payer OTHER, SELFPAY ==
[2024-08-23 08:16] LABS: MANUAL DIFF FLAG NO
[2024-08-23 08:34] LABS: Basophils Percent Auto 0.3 % (0-2); Eosinophils Absolute Auto 0.2 X10*3/uL (0.0-0.4); Eosinophils Percent Auto 2.6 % (0-4); Imm Gran Abs Auto 0.03 X10*3/uL (0.00-0.03); Imm Gran Pct Auto 0.3 % (0.0-0.4); Lymphocytes Absolute Auto 2.8 X10*3/uL (1.2-4.9); Lymphocytes Percent Auto 32.6 % (20-40); Mean Corpuscular HGB Conc 30.6 g/dl (31.0-35.0); Mean Corpuscular Hemoglobin 22.7 pg (27.0-33.0); Mean Corpuscular Volume 74.4 fL (80.0-98.0); Mean Platelet Volume 9.7 fL (9.4-12.3); Monocytes Absolute Auto 0.8 X10*3/uL (0.1-1.2); Neutrophils Absolute Auto 4.8 x10*3/uL (2.0-8.3); Neutrophils Percent Auto 55.2 % (45-73); Platelet Count 339 X10*3/uL (160-400); Red Blood Count 4.84 X10*6/uL (4.20-5.50); Red Cell Distribution Width 15.6 % (11.0-16.0); White Blood Count 8.7 X10*3/uL (4.8-10.8)
[2024-08-23 09:04] LABS: Alanine Aminotransferase 13 U/L (0-31); Albumin Level 3.9 g/dL (3.5-5.0); Alkaline Phosphatase 96 U/L (39-117); Anion Gap 15 (12-20); Aspartate Amino Transferase 16 U/L (5-31); Bilirubin Total 0.3 mg/dL (0.0-1.0); Blood Urea Nitrogen 16 mg/dL (9-16); Calcium 9.4 mg/dL (8.4-10.2); Carbon Dioxide 21 mmol/L (22-29); Chloride 106 mmol/L (96-108); Cholesterol 133 mg/dL (<200); Estimated Glomerular Filt Rate > 60; Glucose Fasting 133 mg/dL (60-99); HDL Cholesterol 42 mg/dL (>40); Iron 34 mcg/dL (30-160); LDL Cholesterol Calculated 71 mg/dL (<100); Percent Iron Saturation 10 % (15-50); Potassium 4.1 mmol/L (3.3-5.1); Sodium 138 mmol/L (135-145); Total Iron Binding Capacity 339 mcg/dL (228-428); Total Protein 8.7 g/dL (6.5-8.0); Triglycerides 101 mg/dL (<150); Unsaturated Iron Binding 305 ug/dL
[2024-08-23 09:24] LABS: Vitamin D 25-OH Total 34.8 ng/mL (>30)
[2024-08-23 09:29] LABS: Folate 13.5 ng/mL (> or = 4.0); Vitamin B12 274 pg/mL (200-900)
== END 2024-08-23 07:57 | disposition home or self-care (01) ==
LOC: HO.LAB 07:56
PROVIDERS: PCP Internal Medicine; Visit Provider Student in an Organized Health Care Education/Training Program
DX: D64.9 Anemia, unspecified (principal); E53.8 Deficiency of other specified B group vitamins; E11.9 Type 2 diabetes mellitus without complications; E78.5 Hyperlipidemia, unspecified; E55.9 Vitamin D deficiency, unspecified
CPT/HCPCS: 36415; 80053; 80061; 82306; 82607; 82746; 83540; 85025

== ENCOUNTER 2024-08-27 13:58 | Outpatient (AMB) | payer OTHER, SELFPAY ==
--- NOTE | 2024-08-27 14:13 | A.OFFVIS_ITS ---
Vital Signs 08/27/24 14:17 Height 5 ft 5 in Weight 314 lb 2.539 oz BMI 52.3 BP 115/64 Blood Pressure Location Lt radial Position Sitting Pulse 97 Pulse Source Pulse Oximeter Pulse Oximetry (%) 98 Oxygen Delivery Method Room Air Intake Visit Reasons: RA Intake Note: Patient presents for RA. 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 Services: Glassware Selector Present Glassware Selector Name: Soledad [id number] Information Interpreted: non-clinical & clinical Allergies abatacept [From Orencia] Adverse Reaction (Severe, Verified 08/27/24 14:16) Palpitations tocilizumab [From Actemra] Adverse Reaction (Intermediate, Verified 08/27/24 14:16) Transaminitis doxycycline Adverse Reaction (Mild, Verified 08/27/24 14:16) Palpitations Medication List - Last Reconciled 08/27/24 by Arianna Pascal MD acetaminophen (Tylenol Extra Strength) 500 mg PO BID PRN albuterol sulfate 90 mcg/actuation 2 puffs inhalation 6XD PRN alprazolam 1 mg (2 x 0.5 mg) PO DAILY 1 day aspirin 81 mg PO DAILY 30 days atorvastatin 20 mg PO BEDTIME 90 days blood pressure monitor As directed blood sugar diagnostic (FreeStyle Lite Strips) Use 1 test strip once a day blood-glucose meter (FreeStyle Lite Meter kit) As directed cane As directed cholecalciferol (vitamin D3) (Vitamin D3) 25 mcg PO DAILY 90 days [cock up splint wear on each wrist at night. ] diltiazem HCl CD 240 mg PO DAILY Enbrel SureClick (etanercept) 50 mg subcut QWEEK NS ferrous sulfate 325 mg PO .once a day 90 days fluticasone propionate 50 mcg/actuation (Flonase Allergy Relief) 1 spray int ranasal DAILY 30 days folic acid 1 mg PO DAILY [grab bars As directed] guaifenesin ER 600 mg PO BID hydrochlorothiazide 12.5 mg PO QAM 90 days lancets (FreeStyle Lancets) Use 1 lancet once a day levofloxacin 750 mg PO DAILY losartan 100 mg PO DAILY 90 days meclizine 25 mg PO TID PRN 30 days semaglutide (Ozempic) 1 mg (0.75 mL) subcut QWEEK 4 weeks Shower Chair As directed solifenacin (Vesicare) 5 mg PO DAILY 90 days walker heavy duty rollator [wheelchair heavy duty As directed] zolpidem 10 mg PO BEDTIME PRN 30 days HPI Comments Details: Patient is a 49-year-old female with hyperlipidemia, diabetes, hypertension and seronegative rheumatoid arthritis here today for follow up Interval History: Patient last seen 05/27/[address] Linn. At that visit she had stopped her Orencia due to intractable headaches and palpitations and on exam she had active synovitis. She was switched to Simponi Aria infusions. This was not started because her insurance required her to try Enbrel first prior to getting infusions She started the Enbrel 2 months ago and she has not had any improvement in her joint pain. She only noticed that she gets headaches that same day and it last through to the next day. Still complaining of prolonged AM stiffness and swelling to her hands, wrists, elbow and even shoulders Rheumatologic History: Seronegative rheumatoid arthritis Seronegative dx 03/2019 in [place] MTX: 08/2019- 08/2021 dyspnea Prednisone Humira: September 2021- 12/2022 incomplete response Actemra 01/2023 partially effective advanced to weekly 03/2023 effective DC 12/2023 d.t transminitis Orencia 01/2024 DC 04/2024 could not be tolerated Simponi Aria infusions Current Rheumatology Medication(s): Enbrel 50mg SC weekly PFSH Medical History Rheumatoid arthritis SVT (supraventricular tachycardia) Osteoarthritis of knees, bilateral LARRY (generalized anxiety disorder) Hypovitaminosis D Pure hypercholesterolemia Morbid obesity due to excess calories Iron deficiency anemia Anxiety Super obese Vertigo Morbid obesity Seronegative rheumatoid arthritis Thrombophlebitis Fibromyalgia MAXIMINO (obstructive sleep apnea) Hypertension Diabetes Surgical History History of tubal ligation History of History of hip surgery Family History Father Prostate cancer Mother Uterine cancer Social History Housing: Apartment Alcohol intake: never Patient Tobacco Use Status: Never used Tobacco e-Cigarette/Vaping Use: Never Used Second Hand Smoke Exposure: No service: No Current occupational status: disabled 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 Cognitive needs: Yes Hearing needs: No Vision needs: No Female Reproductive History Menstrual Age of Menarche: 16 Review of Systems Const Details: Review of Systems Constitutional: Denies fever, chills, weight loss ENT: Denies vision changes, eye pain or eye redness, dental caries, dry mouth GI: Denies nausea, vomiting, diarrhea, abdominal pain, change in BM Pulm: Denies SOB, BOTELLO, hemoptysis, wheezing Cards: Denies chest pain, palpitations Skin: Denies Raynaud's, rash, nail changes, photosensitivity, APPLICATIONS PROJECT MANAGER: Denies headaches, weakness, paresthesias, recurrent falls MSK: as per HPI All other systems reviewed and are unremarkable except noted above Physical Exam Vital Signs: Last Vital Signs Pulse 97 08/27/24 14:17 BP 115/64 08/27/24 14:17 Pulse Ox 98 08/27/24 14:17 Oxygen Delivery Method Room Air 08/27/24 14:17 BMI result Body Mass Index 52.3 Vital signs reviewed Physical Examination CONSTITUITIONAL Patient alert and cooperative. Well appearing and in no apparent painful distress HEENT Conjunctiva and sclera clear. ?Pupils equal round and reactive to light. ?No lymphadenopathy. ? CHEST/RESPIRATORY SYSTEM Normal respiratory effort and able to speak in complete sentences. ?Clear to auscultation bilaterally. ?No crackles, rales, rhonchi, wheezes heard. CARDIAC SYSTEM Regular rate and rhythm. ?S1 and S2 heard no murmurs. 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 No deformities noted. To palpation of the 2nd MCP on the right hand. And tenderness to palpation of the 3rd MCP and the left hand. Wrists: ?Full range of motion at the wrists without pain. ?No tenderness to palpation or synovitis noted to the wrists. Elbows: Full range of motion without pain. Tenderness to palpation of the lateral epicondyle of the left hand with pain location exacerbated by resisted wrist extension. Shoulders: Full active range of motion bilaterally. Does note extreme of range with mild pain to left shoulder. Hips: Full range of motion without pain. Hip bursa: Tenderness to palpation Knees: ?Full range of motion. ?No tenderness, swelling, increased warmth or e rythema.?No effusion or crepitations Ankles: Full range of motion. ?No tenderness, swelling, increased warmth or erythema.? Feet: ?Negative squeeze test. ?No tenderness to palpation or swelling of the MTPs. Tender points:?No tenderness to palpation of the bilateral trapezius, supraspinatus, anterior costochondral junctions, bilateral gluteal areas, bilateral suboccipital muscle insertions SKIN Skin intact without rashes. Results Reviewed Results Reviewed: Laboratory Tests 05/31/24 08/23/24 09:09 08:14 WBC 8.7 RBC 4.84 Hgb 11.0 L Hct 36.0 L Plt Count 339 ESR 51 H Sodium 138 Potassium 4.1 Chloride 106 Carbon Dioxide 21 L BUN 16 Creatinine 0.63 AST 16 ALT 13 Alkaline Phosphatase 96 C-Reactive Protein 2.12 H Total Protein 8.7 H 25-OH Vitamin D Total 34.8 Laboratory Tests 01/29/20 08:10 Rheumatoid Factor < 15.0 Cycl Citrul Peptide IgG <16 RYANN Screen Negative Laboratory Tests 03/21/23 06/02/24 08:01 11:01 Hepatitis A IgM Ab Nonreactive Hep Bs Antigen Negative Hep Bs Antibody NONREACTIVE Hep B Core Total Ab Nonreactive Hepatitis C Ab (EIA) Nonreactive TB Test (T-Spot) Com Negative Assessment & Plan Assessment & Plan (1) Seronegative rheumatoid arthritis: Comment: Seronegative dx 03/2019 in [place] MTX: 08/2019- 08/2021 dyspnea Prednisone Humira: September 2021- 12/2022 incomplete response Actemra 01/2023 partially effective advanced to weekly 03/2023 effective DC 12/2023 d.t transminitis Orencia 01/2024 DC 04/2024 could not be tolerated Simponi Aria infusion denied by insurance Enbrel started 06/2024 Code(s): M06.00 - Rheumatoid arthritis without rheumatoid factor, unspecified site Category: Medical Plan: #Seronegative RA Patient with seronegative rheumatoid arthritis currently receiving Enbrel injections weekly. Based on my examination she does not have any significant synovitis to her hands or any of her joints. She has mild tenderness to palpation of the MCPs but overall her exam is pretty okay. I think we should gives the Enbrel some more time to see if it we will reach full efficacy. Her current pain complaints are not related to her rheumatoid arthritis and maybe due to fibromyalgia/mechanical reasons. We will give her topical diclofenac for her left elbow epicondylitis and her left shoulder. Plan - Continue Enbrel 50mg SC - Topical diclofenac 1% to apply to elbow and shoulder 4 times a day - OTC ibuprofen: take 2 tablets prior to Enbrel injection to anticipate the headache - RTC 3 months - Labs before visit: CBC, CMP, ESR, CRP, hepatitis panel, T spot (2) Fibromyalgia: Code(s): M79.7 - Fibromyalgia Category: Medical Plan: #Fibromyalgia Patient also has fibromyalgia which is likely complicating the picture. I think that some of her pains maybe due to fibromyalgia. Let us control her rheumatoid arthritis and then we can consider medications such as gabapentin and amitriptyline for her fibromyalgia (3) Encounter for monitoring of etanercept therapy: Code(s): Z51.81 - Encounter for therapeutic drug level monitoring; Z79.620 - residential (current) use of immunosuppressive biologic Plan: #Long-term Use of TNF Inhibitors: Etanercept Discussed with the patient the benefits and risks of TNF inhibitors for the management of the rheumatic condition Benefits include reduce pain, maintenance of remission and reduction of flares as well as ?progression of the disease Risks include injection sites/infusion reactions, serious infections (such as bacterial infections, opportunistic infections), malignancy, delaminating syndromes, autoimmune phenomena, CHF exacerbations, palmar plantar psoriasis and cytopenias Recommended rotating injection sites, and holding medication during and for up to 1 week after resolution of a febrile illness or open skin wound Plan I spent 37 minutes reviewing the record and labs, taking a history, examining the patient, discussing the treatment plan and documenting in the medical record Orders: Orders C Reactive Protein 3 Months M06.00 - Rheumatoid arthritis without rheumatoid factor, unspecified site Complete Blood Count Auto Diff 3 Months M06.00 - Rheumatoid arthritis without rheumatoid factor, unspecified site Comprehensive Met. Panel 3 Months M06.00 - Rheumatoid arthritis without rheumatoid factor, unspecified site Erythrocyte Sedimentation Rate 3 Months M06.00 - Rheumatoid arthritis without rheumatoid factor, unspecified site Hepatitis A,B,C Profile 3 Months M06.00 - Rheumatoid arthritis without rheumatoid factor, unspecified site Medications: New diclofenac sodium 1% apply to lateral left elbow and shoulder 4 times a day 4 grams topical QID 100 grams 5RF M77.10 - Lateral epicondylitis, unspecified elbow Refilled Enbrel SureClick (etanercept) 50 mg subcut QWEEK 4 mL 4RF NS M06.00 - Rheumatoid arthritis without rheumatoid factor, unspecified site Coding Level of Care Code Est Pt Level 4 (21140) Complex EM visit Add On G2211 Diagnoses Seronegative rheumatoid arthritis M06.00 Fibromyalgia M79.7 Encounter for monitoring of etanercept therapy Z51.81; Z79.620
[2024-08-27 14:17] VITALS: BP 115/64; PULSE 97; O2SAT 98; BMI 52.3
== END 2024-08-27 14:49 | disposition home or self-care (01) ==
PROVIDERS: PCP Internal Medicine; Visit Provider Student in an Organized Health Care Education/Training Program
DX: M06.00 Rheumatoid arthritis without rheumatoid factor, unspecified site (principal); M79.7 Fibromyalgia; Z51.81 Encounter for therapeutic drug level monitoring; Z79.620 Long term (current) use of immunosuppressive biologic
CPT/HCPCS: 99214; G2211

== ENCOUNTER → 2024-08-27 13:58 | Outpatient (BNVA) | payer OTHER, SELFPAY | PROVIDERS: PCP Internal Medicine; Visit Provider Student in an Organized Health Care Education/Training Program | DX: M06.00 Rheumatoid arthritis without rheumatoid factor, unspecified site (principal); M79.7 Fibromyalgia; M77.10 Lateral epicondylitis, unspecified elbow; Z51.81 Encounter for therapeutic drug level monitoring; Z79.620 Long term (current) use of immunosuppressive biologic | CPT/HCPCS: 99212 ==

== ENCOUNTER 2024-08-28 12:52 | Outpatient (AMB) | payer OTHER, SELFPAY ==
--- NOTE | 2024-08-28 13:19 | A.OFFVIS_ITS ---
VS Expanded 08/28/24 13:22 Height 5 ft 5 in Weight 314 lb 2 oz BMI 52.3 Intake Visit Reasons: obesity Allergies abatacept [From Orencia] Adverse Reaction (Severe, Verified 08/27/24 14:16) Palpitations tocilizumab [From Actemra] Adverse Reaction (Intermediate, Verified 08/27/24 14:16) Transaminitis doxycycline Adverse Reaction (Mild, Verified 08/27/24 14:16) Palpitations Nutrition Presentation Details: Pt presents for MNT f/u for obesity with T2DM Pt has hx of anemia on iron supplements Pt reports having constipation, sometimes >3 day without having BM Pt reports having 3 meals/d working on following healthy plate method and watching portion sizes of total carbs Pt reports consuming beans/legumes 2 times /wk 1/2 c to 1 c/d including fruits 1-2 a day in a vegetable smoothie has one meal replacement, 30 g protein shake, once a day fluids: 16-30 oz/d BS Monitoring Most Recent Diabetes Results: Cholesterol 133 mg/dL (<200) 08/23/24 HDL Cholesterol 42 mg/dL (>40) 08/23/24 Triglycerides 101 mg/dL (<150) 08/23/24 Creatinine 0.63 mg/dL (0.5-1.4) 08/23/24 Blood Urea Nitrogen 16 mg/dL (9-16) 08/23/24 Sodium 138 mmol/L (135-145) 08/23/24 Potassium 4.1 mmol/L (3.3-5.1) 08/23/24 Chloride 106 mmol/L (96-108) 08/23/24 Carbon Dioxide 21 mmol/L (22-29) L 08/23/24 Calcium 9.4 mg/dL (8.4-10.2) 08/23/24 AST 16 U/L (5-31) 08/23/24 ALT 13 U/L (0-31) 08/23/24 Total Protein 8.7 g/dL (6.5-8.0) H 08/23/24 Albumin 3.9 g/dL (3.5-5.0) 08/23/24 [facility] Medical History Rheumatoid arthritis SVT (supraventricular tachycardia) Osteoarthritis of knees, bilateral LARRY (generalized anxiety disorder) Hypovitaminosis D Pure hypercholesterolemia Morbid obesity due to excess calories Iron deficiency anemia Anxiety Super obese Vertigo Morbid obesity Seronegative rheumatoid arthritis Thrombophlebitis Fibromyalgia MAXIMINO (obstructive sleep apnea) Hypertension Diabetes Surgical History History of tubal ligation History of History of hip surgery Family History Father Prostate cancer Mother Uterine cancer Social History Housing: Apartment Alcohol intake: never Patient Tobacco Use Status: Never used Tobacco e-Cigarette/Vaping Use: Never Used Second Hand Smoke Exposure: No service: No Current occupational status: disabled 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 Cognitive needs: Yes Hearing needs: No Vision needs: No Female Reproductive History Menstrual Age of Menarche: 16 Assessment & Plan Assessment & Plan (1) Type 2 diabetes mellitus, without long-term current use of insulin: Code(s): E11.9 - Type 2 diabetes mellitus without complications Category: Medical Plan: Wt: 149 Kg ( 02/2024 ), 143 kg (07/19), 142 kg (09/16) Est kcal needs as per MSJ: 2500 (40% carb, 30% protein/fat) Est fluid needs as per 30 ml/d: 4260 Est prot per day as per 1 g/kg bw: 142 Recommend fiber intake : 8-10 g per day and gradually increase to 25-28 g per day for women and 35-38 g for men or as tolerated Recommend sodium intake per day : less than 2300 mg Educated patient on: ( R = reviewed V = verbalizes understanding N/R = needs review N/A = not applicable * Food sources of carbohydrate, adequate serving sizes and its role in various health conditions: R * Differences between complex carbohydrates a simple carbohydrates, role of fiber in diet: R * Lean protein sources of foods: R * Differences between types of fats and role in diet (mono on saturated fat fatty acids, saturated fatty acids, trans fats): R * Food sources of sodium in salt and healthy modifications for heart health in kidney health: R * Vitamins and minerals via foods: R * Healthy plate method concept: R * Physical activity: Benefits a precaution: R V N/R * Hypoglycemia protocol (rule of 15): R V N/R * Dietary prevention of Hyperglycemia: R * increasing water/fluid intake related to constipation: R Medications: Discontinued levofloxacin Discontinued Reason: Patient Completed Course 750 mg PO DAILY 10 tabs 0RF Patient Instructions: Must increase water/fluid intake as you include fiber rich foods in your diet (oatmeal, lentils ) Aim at 10 -18 cups of fluid per day (water, prune juice, broth as examples ) Consult with your doctor if continuing to have difficulties with constipation for greater than 3 days Coding Level of Care Code Nutr Indiv Subseq (61573) Diagnoses Type 2 diabetes mellitus, without long-term current use of insulin E11.9 Time Spent (min) 20
[2024-08-28 13:22] VITALS: BMI 52.3
== END 2024-08-28 13:44 | disposition home or self-care (01) ==
PROVIDERS: PCP Internal Medicine; Visit Provider Dietitian, Registered
DX: E11.9 Type 2 diabetes mellitus without complications (principal)

== ENCOUNTER → 2024-08-28 12:52 | Outpatient (BNVA) | payer OTHER, SELFPAY | PROVIDERS: PCP Internal Medicine; Visit Provider Dietitian, Registered | DX: E66.9 Obesity, unspecified (principal); E11.9 Type 2 diabetes mellitus without complications; Z71.3 Dietary counseling and surveillance; Z68.43 Body mass index [BMI] 50.0-59.9, adult | CPT/HCPCS: 97803 ==

== ENCOUNTER 2024-08-30 10:38 | Outpatient (REF) | payer OTHER, SELFPAY ==
[2024-08-30 11:45] LABS: Bacteria Urine 4+ (None Seen); Hyaline Casts Urine 0-2 /LPF (0-2); RBC Urine >20 /HPF (0-2); WBC Urine >50 /HPF (0-5)
[2024-08-30 11:46] LABS: Appearance Urine Hazy; Color Urine Dark Yellow; Glucose Urine UA Negative (Negative); PH 5.5 (5.0-9.0); Urine Blood Large (3+) (Negative)
[2024-08-30 11:47] LABS: Leukocyte Esterase Urine Moderate (2+) (Negative); Nitrite Urine Positive (Negative); Specific Gravity - Urine > 1.030 (1.005-1.025); UACC Culture Trigger YES; UMIC TRIGGER UA YES; UMIC TRIGGER UACC YES; Urine Ketones Negative (Negative); Urine Protein 100 (2+) mg/dL (Neg-Trace)
== END 2024-08-30 10:39 | disposition home or self-care (01) ==
LOC: HO.LAB 10:38
PROVIDERS: PCP Internal Medicine; Visit Provider Nurse Practitioner Family
DX: N39.0 Urinary tract infection, site not specified (principal); R30.0 Dysuria; R35.0 Frequency of micturition
CPT/HCPCS: 81001; 87086; 87088; 87186

== ENCOUNTER 2024-09-09 18:45 | Emergency (ER) | payer OTHER, SELFPAY ==
--- NOTE | ~2024-09-09 | US_ITS ---
CLINICAL HISTORY: dysfunctional uterine bleeding US pelvis transvaginal Comparison: US/IA/SR - US PELVIC COMPLETE - 08/17/23 13:16 EST Findings: Transvaginal scanning performed. The uterus is 10.3 cm length. 12 mm fibroid, otherwise normal myometrium. No endometrial lesion, 7 mm thickness. Right ovary: Not well-visualized. Left ovary 4.4 x 3.6 x 5.0 cm with a 4.3 cm minimally complex cyst. Normal color Doppler of both ovaries. No free fluid. IMPRESSION: There is a 4.3 cm minimally complex left adnexal cyst. Three-month follow-up ultrasound recommended. The right ovary is not seen. Limited study in general This document has been electronically signed by: Romel Ventura MD on 09/09/2024 20:41:55
--- NOTE | ~2024-09-09 | CT_ITS ---
CLINICAL HISTORY: left flank pain CT abdomen and pelvis without contrast Comparison: US/TX - US PELVIC AND TRANSVAGINAL - 09/09/24 19:35 EDT Findings: Motion artifact limits interpretation. The liver, spleen, adrenal glands and pancreas are unremarkable. The gallbladder is absent. No definite urinary calculus or obstructive uropathy. The bladder is partially distended. No bowel obstruction or free air. No evidence of pneumatosis, free fluid or abscess. There is a cystic mass within the cervix, suggestive of a large nabothian cyst. This measures approximately 4.2 cm. No acute osseous finding. Impression: No evidence of urinary calculus or obstructive uropathy. Evaluation is somewhat limited by artifact. The cystic structure thought to possibly reflect left adnexa on the ultrasound in fact relates to a large cystic lesion within the cervix. Suspect large nabothian cyst. This document has been electronically signed by: Romel Ventura MD on 09/09/2024 22:48:17
[2024-09-09 19:08] VITALS: BP 124/69; PULSE 85; RESP 20; TEMP 36.7; O2SAT 100; BMI 52.0
--- NOTE | 2024-09-09 19:15 | ED.GENADULT ---
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 Monae HPI narrative: The patient is a 49-year-old female who is morbidly obese, with a history of diabetes, hypertension, abnormal periods, iron deficiency anemia, hyperlipidemia, arthritis, who presents from urgent care with a multiple complaints. Patient was had heavy vaginal bleeding over the past 2 days, Had to use for pads all day today, no dizziness, no lightheadedness, no CP, no SOB. She has also had bilateral flank pain with hematuria. Related Data Home Medications ?Medication ?Instructions ?Recorded ?Confirmed acetaminophen 500 mg tablet 500 mg PO BID PRN 09/14/21 08/27/24 (Tylenol Extra Strength) Previous Rx's ?Medication ?Instructions ?Recorded cane #1 ea 07/02/20 grab bars #1 ea 11/29/20 Shower Chair #1 ea 12/07/20 blood-glucose meter (FreeStyle #1 ea 12/08/21 Lite Meter kit) lancets 28 gauge (FreeStyle #100 ea 12/08/21 Lancets) cock up splint #2 ea 01/12/22 blood pressure monitor #1 ea 02/19/23 meclizine 25 mg tablet 25 mg PO TID PRN dizziness 30 days 08/06/23 #90 tabs solifenacin 5 mg tablet (Vesicare) 5 mg PO DAILY 90 days #90 tabs 09/05/23 blood sugar diagnostic (FreeStyle #100 ea 09/12/23 Lite Strips) alprazolam 0.5 mg tablet 1 mg (2 x 0.5 mg) PO DAILY 1 day 11/15/23 #2 tabs walker #1 ea 12/23/23 wheelchair heavy duty #1 ea 01/22/24 aspirin 81 mg tablet,delayed 81 mg PO DAILY 30 days #30 tabs 04/29/24 release cholecalciferol (vitamin D3) 25 25 mcg PO DAILY 90 days #90 caps 05/22/24 mcg (1,000 unit) capsule (Vitamin D3) losartan 100 mg tablet 100 mg PO DAILY 90 days #90 tabs 05/27/24 zolpidem 10 mg tablet 10 mg PO BEDTIME PRN sleep 30 days 06/05/24 #30 tabs folic acid 1 mg tablet 1 mg PO DAILY #90 tabs 06/11/24 albuterol sulfate 90 mcg/actuation 2 puff inhalation 6XD PRN 06/16/24 aerosol inhaler shortness of breath or wheezing #1 ea guaifenesin 600 mg tablet, 600 mg PO BID #30 tabs 06/27/24 extended release 12 hr atorvastatin 20 mg tablet 20 mg PO BEDTIME 90 days #90 tabs 07/10/24 ferrous sulfate 325 mg (65 mg 325 mg PO .once a day 90 days #90 07/10/24 iron) tablet tabs diltiazem HCl 240 mg 240 mg PO DAILY #90 caps 07/11/24 capsule,extended release 24 hr semaglutide 1 mg/dose (4 mg/3 mL) 1 mg (0.75 mL) subcut QWEEK 4 08/18/24 subcutaneous pen injector (Ozempic) weeks #3 mL Enbrel SureClick 50 mg/mL (1 mL) 50 mg subcut QWEEK #4 mL 08/27/24 subcutaneous pen injector (etanercept) diclofenac sodium 1 % topical gel 4 g topical QID #100 grams 08/27/24 fluticasone propionate 50 1 spray intranasal DAILY 30 days 08/30/24 mcg/actuation nasal #16 grams spray,suspension (Flonase Allergy Relief) hydrochlorothiazide 12.5 mg tablet 12.5 mg PO QAM 90 days #90 tabs 08/30/24 nitrofurantoin 100 mg PO Q12H 7 days #14 caps 08/31/24 monohydrate/macrocrystals 100 mg capsule (Macrobid) Allergies Allergy/AdvReac Type Severity Reaction Status Date / Time abatacept [From Orencia] AdvReac Severe Palpitation Verified 09/09/24 19:09 s tocilizumab [From Actemra] AdvReac Intermediate Transaminit Verified 09/09/24 19:09 is doxycycline AdvReac Mild Palpitation Verified 09/09/24 19:09 s Review of Systems Review of Systems: All other systems are reviewed and are negative Constitutional: Reports as per HPI and Reports no additional constitutional complaints Eyes: Reports as per HPI and Reports no additional eye complaints Reports system reviewed and no additional complaints, except as documented Cardiovascular: Reports as per HPI and Reports no additional cardiovascular complaints Respiratory: Reports as per HPI and Reports no additional respiratory complaints Gastrointestinal: Reports as per HPI and Reports no additional gastrointestinal complaints Genitourinary: Reports no additional female genitourinary complaints Musculoskeletal: Reports no additional musculoskeletal complaints Skin/Breast: Reports system reviewed and no additional complaints, except as docu Psychiatric: Reports no additional psychiatric complaints Endocrine: Reports no additional endocrine complaints Hematologic/Lymphatic: Reports no additional hematologic/lymphatic complaints Allergic/Immunologic: Reports no additional allergic/immunologic complaints Reports system reviewed and no additional complaints, except as documented and Reports Abnormal speech present [facility] Past Medical History Medical History Rheumatoid arthritis SVT (supraventricular tachycardia) Osteoarthritis of knees, bilateral LARRY (generalized anxiety disorder) Hypovitaminosis D Pure hypercholesterolemia Morbid obesity due to excess calories Iron deficiency anemia Anxiety Super obese Vertigo Morbid obesity Seronegative rheumatoid arthritis Thrombophlebitis Fibromyalgia MAXIMINO (obstructive sleep apnea) Hypertension Diabetes Surgical History History of tubal ligation History of History of hip surgery Family History Family History Father Prostate cancer Mother Uterine cancer Social History Social History Housing: Apartment Alcohol intake: never Patient Tobacco Use Status: Never used Tobacco e-Cigarette/Vaping Use: Never Used Second Hand Smoke Exposure: No Advance Directives: No Advance Directives Information Provided: No Do you have a plan to hurt others: No Plan service: No Current occupational status: disabled 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 Blood pressure elevated. Heart rate normal. Respiratory rate normal. Temperature normal. Oxygen saturation normal. Unremarkable orthostatic vital signs. Appearance: Alert. Oriented X3. No acute distress. Head: Normal external exam. Normocephalic. Atraumatic. No Chu signs noted. No raccoon eyes noted Eyes: PERRLA. EOMI. Conjunctiva and sclera normal. Eyelids normal. ENT: TM's Normal. Pharynx normal. Uvula midline. Moist mucous membranes. No trismus noted. No drooling noted. No muffled voice noted. Neck: Normal inspection. Neck supple. FROM. No adenopathy. Thyroid Normal. No meningeal signs. No neck mass noted. CVS: Normal heart rate and rhythm. Heart sound normal. No murmurs noted. Pulses normal throughout. Respiratory: No respiratory distress. Painless inspiration. Breath sounds normal. No wheezes/rales/rhonchi noted. Chest nontender. No accessory muscle usage noted or decreased air movement noted. Abdomen: Soft and nontender. Bowel sounds normal in all 4 quadrants. No distention noted. No organomegaly noted. No visible injury noted. Pelvic exam: Patient declined. Back: No CVA tenderness. Full range of motion noted. Skin: Skin warm and dry. Normal skin color. Normal skin turgor. No rashes/lesions/lacerations noted. Extremities: No lower extremity edema. Extremities exhibit normal range of motion. Extremities nontender. Neuro: Oriented X 3. Cranial nerve exam: II-XII are grossly intact No motor deficit. No sensory deficit. Reflexes normal. Course Course Course Narrative: This is a rapid medical exam performed by Myrtle Sadler PA-C. We will be screening basic labs, a urinalysis, , obtaining a transvaginal ultrasound and CT scan. The patient is stable and can return to the waiting room pending her full medical assessment. Reevaluation(s) Reevaluation #1: hemodynamically stable, VSS, no orthostatic hypotension, patient is asymptomatic, used 4 pads yesterday and patient declined pelvic exam, CT of the abdomen pelvis show no acute intra-abdominal pathology. Ultrasound revealed 4 cm complex left adnexal cyst with no evidence of torsion, patient has no pelvic pain, negative test. Will discharge to follow-up with Dr. Scott Time: 23:32 Medical Decision Making Differential Diagnosis Differential Diagnoses: The differential diagnosis associated with the presentation includes ( fibroids, , abnormal , severe anemia, hemodynamically unstable, ureteric stone, pyelonephritis, UTI.) Admission/Observation Consideration of admission/observation: Escalation of care including admission/observation considered Lab Data MDM Lab Attestation statement: I reviewed the patient's lab results. 09/09/24 21:37 09/09/24 21:37 Labs: Lab Results 09/09/24 09/09/24 Range/Units 21:37 22:40 WBC 11.0 H (4.8-10.8) X10*3/uL RBC 5.03 (4.20-5.50) X10*6/uL Hgb 11.4 L (12.0-16.0) g/dl Hct 36.8 L (37.0-47.0) % MCV 73.2 L (80.0-98.0) fL MCH 22.7 L (27.0-33.0) pg MCHC 31.0 (31.0-35.0) g/dl RDW 16.2 H (11.0-16.0) % Plt Count 295 (160-400) X10*3/uL MPV 9.2 L (9.4-12.3) fL Immature Gran % (Auto) 0.2 (0.0-0.4) % Neut % (Auto) 70.1 (45-73) % Lymph % (Auto) 21.1 (20-40) % [place] % (Auto) 7.4 (2-11) % Eos % (Auto) 0.9 (0-4) % Baso % (Auto) 0.3 (0-2) % Lymph # (Auto) 2.3 (1.2-4.9) X10*3/uL [place] # (Auto) 0.8 (0.1-1.2) X10*3/uL Eos # (Auto) 0.1 (0.0-0.4) X10*3/uL Baso # (Auto) 0.0 (0.0-0.2) X10*3/uL Abs Immat Gran (auto) 0.02 (0.00-0.03) X10*3/uL Absolute Neuts (auto) 7.7 (2.0-8.3) x10*3/uL Absolute Nucleated RBC 0.000 (0.0-0.012) X10*3/uL Nucleated RBC % (auto) 0.0 (0.0-0.2) /100WBC Sodium 139 (135-145) mmol/L Potassium 3.7 (3.3-5.1) mmol/L Chloride 106 (96-108) mmol/L Carbon Dioxide 25 (22-29) mmol/L Anion Gap 12 (12-20) BUN 10 (9-16) mg/dL Creatinine 0.61 (0.5-1.4) mg/dL Estim Creat Clear Calc 161.8 Estimated GFR > 60 Random Glucose 101 (60-115) mg/dL Calcium 9.3 (8.4-10.2) mg/dL Magnesium 1.9 (1.6-2.6) mg/dL Total Bilirubin 0.3 (0.0-1.0) mg/dL AST 20 (5-31) U/L ALT 12 (0-31) U/L Alkaline Phosphatase 85 (39-117) U/L Total Protein 8.9 H (6.5-8.0) g/dL Albumin 4.0 (3.5-5.0) g/dL Beta HCG, Quant < 2 mIU/mL Urine Color Yellow Urine Appearance Clear Urine pH 5.5 (5.0-9.0) Ur Specific [place] 1.015 (1.005-1.025) Urine Protein Trace (Neg-Trace) mg/dL Urine Glucose (UA) Negative (Negative) mg/dL Urine Ketones Negative (Negative) mg/dL Urine Blood Large (3+) H (Negative) Urine Nitrite Negative (Negative) Ur Leukocyte Esterase Trace H (Negative) Urine RBC >20 H (0-2) /HPF Urine WBC 0-5 (0-5) /HPF Ur Squamous Epith Cells 0-2 (0-2) /HPF Urine Bacteria None Seen (None Seen) Hyaline Casts 0-2 (0-2) /LPF Independent Interpretation I performed an independent interpretation of an: Ultrasound ( pelvic ultrasound:There is a 4.3 cm minimally complex left adnexal cyst. Three-month follow-up ultrasound recommended. The right ovary is not seen. Limited study in general) Radiology Impression Discussion of test interpretation with radiology: I have reviewed the radiologist's reading. Discharge Plan Discharge Clinical Impression: Cyst of left ovary, Abnormal uterine bleeding Patient Disposition: Home, Self-Care Instructions: Ovarian Cyst (ED), Dysfunctional Uterine Bleeding (ED) Prescriptions: No Action (DME) grab bars See Rx Instructions .Route .MEDSUPPLY Qty: 1 0RF Rx Instructions: As directed (DME) Shower Chair Misc See Rx Instructions .ROUTE .MEDSUPPLY Qty: 1 0RF Rx Instructions: As directed (DME) blood pressure monitor Kit See Rx Instructions .Route Qty: 1 0RF Rx Instructions: As directed meclizine 25 mg tablet 25 mg PO TID PRN (Reason: dizziness) 30 Days Qty: 90 1RF solifenacin [Vesicare] 5 mg tablet 5 mg PO DAILY 90 Days Qty: 90 1RF (DME) FreeStyle Lite Strips Strip See Rx Instructions .Route Qty: 100 3RF Rx Instructions: Use 1 test strip once a day (DME) walker Misc See Rx Instructions .Route Qty: 1 0RF Rx Instructions: heavy duty rollator aspirin 81 mg tablet,delayed release (DR/EC) 81 mg PO DAILY 30 Days Qty: 30 11RF cholecalciferol (vitamin D3) [Vitamin D3] 25 mcg (1,000 unit) capsule 25 mcg PO DAILY 90 Days Qty: 90 1RF losartan 100 mg tablet 100 mg PO DAILY 90 Days Qty: 90 3RF folic acid 1 mg tablet 1 mg PO DAILY Qty: 90 1RF albuterol sulfate 90 mcg/actuation HFA aerosol inhaler 2 puff inhalation 6XD PRN (Reason: shortness of breath or wheezing) Qty: 1 6RF atorvastatin 20 mg tablet 20 mg PO BEDTIME 90 Days Qty: 90 1RF ferrous sulfate 325 mg (65 mg iron) tablet 325 mg PO .once a day 90 Days Qty: 90 2RF diltiazem HCl 240 mg capsule,extended release 24hr 240 mg PO DAILY Qty: 90 3RF Ozempic 1 mg/dose (4 mg/3 mL) pen injector 1 mg subcut QWEEK 28 Days Qty: 3 0RF hydrochlorothiazide 12.5 mg tablet 12.5 mg PO QAM 90 Days Qty: 90 3RF fluticasone propionate [Flonase Allergy Relief] 50 mcg/actuation spray,suspension 1 spray intranasal DAILY 30 Days Qty: 16 1RF Rx Instructions: administer into each nostril nitrofurantoin monohyd/m-cryst [Macrobid] 100 mg capsule 100 mg PO Q12H 7 Days Qty: 14 0RF Rx Instructions: must administer with a meal/food (DME) blood-glucose meter [FreeStyle Lite Meter] Kit See Rx Instructions .Route Qty: 1 0RF Rx Instructions: As directed (DME) lancets [FreeStyle Lancets] 28 gauge misc See Rx Instructions .Route Qty: 100 3RF Rx Instructions: Use 1 lancet once a day alprazolam 0.5 mg tablet 1 mg PO DAILY 1 Days Qty: 2 0RF Rx Instructions: Take 1 to 2 tabs 30 to 45 minutes before study (DME) wheelchair heavy duty See Rx Instructions .Route .MEDSUPPLY Qty: 1 0RF Rx Instructions: As directed (DME) cane Device See Rx Instructions .ROUTE .MEDSUPPLY Qty: 1 0RF Rx Instructions: As directed acetaminophen [Tylenol Extra Strength] 500 mg tablet 500 mg PO BID PRN (DME) cock up splint See Rx Instructions .Route .MEDSUPPLY Qty: 2 0RF Rx Instructions: wear on each wrist at night. zolpidem 10 mg tablet 10 mg PO BEDTIME PRN (Reason: sleep) 30 Days Qty: 30 0RF diclofenac sodium 1 % gel 4 g topical QID Qty: 100 5RF Rx Instructions: apply to lateral left elbow and shoulder 4 times a day Enbrel SureClick 50 mg/mL (1 mL) pen injector 50 mg subcut QWEEK Qty: 4 4RF guaifenesin 600 mg tablet extended release 12hr 600 mg PO BID Qty: 30 0RF Referrals: Ryann Guzmán MD [Primary Care Provider] - Ranjeet Scott MD [Physician] - Print Language: Albanian
[2024-09-09 21:38] VITALS: BP 141/76; PULSE 85; RESP 16; TEMP 36.7; O2SAT 100
[2024-09-09 21:40] LABS: MANUAL DIFF FLAG NO
[2024-09-09 21:42] LABS: Basophils Percent Auto 0.3 % (0-2); Eosinophils Absolute Auto 0.1 X10*3/uL (0.0-0.4); Eosinophils Percent Auto 0.9 % (0-4); Hematocrit 36.8 % (37.0-47.0); Hemoglobin 11.4 g/dl (12.0-16.0); Imm Gran Abs Auto 0.02 X10*3/uL (0.00-0.03); Imm Gran Pct Auto 0.2 % (0.0-0.4); Lymphocytes Absolute Auto 2.3 X10*3/uL (1.2-4.9); Lymphocytes Percent Auto 21.1 % (20-40); Mean Corpuscular Hemoglobin 22.7 pg (27.0-33.0); Mean Corpuscular Volume 73.2 fL (80.0-98.0); Mean Platelet Volume 9.2 fL (9.4-12.3); Monocytes Absolute Auto 0.8 X10*3/uL (0.1-1.2); Monocytes Percent Auto 7.4 % (2-11); Neutrophils Absolute Auto 7.7 x10*3/uL (2.0-8.3); Neutrophils Percent Auto 70.1 % (45-73); Platelet Count 295 X10*3/uL (160-400); Red Blood Count 5.03 X10*6/uL (4.20-5.50); Red Cell Distribution Width 16.2 % (11.0-16.0)
[2024-09-09 22:03] LABS: Alanine Aminotransferase 12 U/L (0-31); Alkaline Phosphatase 85 U/L (39-117); Anion Gap 12 (12-20); Aspartate Amino Transferase 20 U/L (5-31); Bilirubin Total 0.3 mg/dL (0.0-1.0); Blood Urea Nitrogen 10 mg/dL (9-16); Calcium 9.3 mg/dL (8.4-10.2); Carbon Dioxide 25 mmol/L (22-29); Chloride 106 mmol/L (96-108); Creatinine Clr Calc Pharmacy 161.8; Estimated Glomerular Filt Rate > 60; Glucose Random 101 mg/dL (60-115); HCG Quantitative < 2 mIU/mL; Magnesium 1.9 mg/dL (1.6-2.6); Potassium 3.7 mmol/L (3.3-5.1); Sodium 139 mmol/L (135-145); Total Protein 8.9 g/dL (6.5-8.0)
[2024-09-09 22:31] VITALS: BP 159/63; PULSE 88
[2024-09-09 22:32] VITALS: BP 130/74; BP 142/86; PULSE 89; PULSE 96
[2024-09-09 22:49] LABS: Appearance Urine Clear; Color Urine Yellow; Glucose Urine UA Negative (Negative); Leukocyte Esterase Urine Trace (Negative); Nitrite Urine Negative (Negative); PH 5.5 (5.0-9.0); Specific Gravity - Urine 1.015 (1.005-1.025); UMIC TRIGGER UACC YES; Urine Blood Large (3+) (Negative); Urine Ketones Negative (Negative); Urine Protein Trace mg/dL (Neg-Trace)
[2024-09-09 22:55] LABS: Bacteria Urine None Seen (None Seen); Hyaline Casts Urine 0-2 /LPF (0-2); RBC Urine >20 /HPF (0-2); Squamous Epithelial Cell Urine 0-2 /HPF (0-2); WBC Urine 0-5 /HPF (0-5)
[2024-09-10 00:04] VITALS: BP 124/56; PULSE 78; RESP 16; TEMP 36.8; O2SAT 98
== END 2024-09-10 00:10 | disposition home or self-care (01) ==
PROVIDERS: Physician Assistant Medical; Emergency Provider Emergency Medicine; PCP Internal Medicine
DX: N93.8 Other specified abnormal uterine and vaginal bleeding (principal); N83.202 Unspecified ovarian cyst, left side; E11.9 Type 2 diabetes mellitus without complications; I10 Essential (primary) hypertension; E78.5 Hyperlipidemia, unspecified; E66.01 Morbid (severe) obesity due to excess calories; Z68.43 Body mass index [BMI] 50.0-59.9, adult
CPT/HCPCS: 36415; 74176; 76830; 76856; 80053; 81001; 83735; 84702; 85025; 99284

== ENCOUNTER → 2024-09-09 19:12 | Outpatient (BNV) | payer OTHER, SELFPAY | PROVIDERS: PCP Internal Medicine; Visit Provider Radiology Vascular & Interventional Radiology | DX: N83.292 Other ovarian cyst, left side (principal) | CPT/HCPCS: 76830; 76856 ==

== ENCOUNTER 2024-09-18 13:24 | Outpatient (AMB) | payer OTHER, SELFPAY ==
--- NOTE | 2024-09-18 13:34 | A.OFFVIS_ITS ---
Vital Signs 09/18/24 13:35 Height 5 ft 5 in Weight 309 lb 8.464 oz BMI 51.5 BP 112/0 L Blood Pressure Location Lt radial Position Sitting Pulse 87 Pulse Source Monitor Intake Visit Reasons: 7 month follow up rs from 04/24/24 Supervisor Nutritional Yeast Required: Yes Supervisor Nutritional Yeast Language: Trains Service Conductor Name: voice hawkins [id number] Science Job Titles: Science Job Titles Present Allergies abatacept [From Orencia] Adverse Reaction (Severe, Verified 09/18/24 13:40) Palpitations tocilizumab [From Actemra] Adverse Reaction (Intermediate, Verified 09/18/24 13:40) Transaminitis doxycycline Adverse Reaction (Mild, Verified 09/18/24 13:40) Palpitations Medication List - Last Reconciled 09/18/24 by YUMIKO Osman acetaminophen (Tylenol Extra Strength) 500 mg PO BID PRN albuterol sulfate 90 mcg/actuation 2 puffs inhalation 6XD PRN alprazolam 1 mg (2 x 0.5 mg) PO DAILY 1 day aspirin 81 mg PO DAILY 30 days atorvastatin 20 mg PO BEDTIME 90 days blood pressure monitor As directed blood sugar diagnostic (FreeStyle Lite Strips) Use 1 test strip once a day blood-glucose meter (FreeStyle Lite Meter kit) As directed cane As directed cholecalciferol (vitamin D3) (Vitamin D3) 25 mcg PO DAILY 90 days [cock up splint wear on each wrist at night. ] diclofenac sodium 1% 4 grams topical QID diltiazem HCl CD 240 mg PO DAILY Enbrel SureClick (etanercept) 50 mg subcut QWEEK NS ferrous sulfate 325 mg PO .once a day 90 days fluticasone propionate 50 mcg/actuation (Flonase Allergy Relief) 1 spray intranasal DAILY 30 days folic acid 1 mg PO DAILY [grab bars As directed] guaifenesin ER 600 mg PO BID hydrochlorothiazide 12.5 mg PO QAM 90 days lancets (FreeStyle Lancets) Use 1 lancet once a day losartan 100 mg PO DAILY 90 days meclizine 25 mg PO TID PRN 30 days nitrofurantoin monohyd/m-cryst 100 mg (Macrobid) 100 mg PO Q12H 7 days semaglutide (Ozempic) 1 mg (0.75 mL) subcut QWEEK 4 weeks Shower Chair As directed solifenacin (Vesicare) 5 mg PO DAILY 90 days walker heavy duty rollator [wheelchair heavy duty As directed] zolpidem 10 mg PO BEDTIME PRN 30 days HPI HPI 7 month follow up rs from 04/24/24: Details: Sol is a 49-year-old female past medical history of hypertension, hyperlipidemia, diabetes, morbid obesity, sleep apnea with CPAP use who was followed for heart palpitations / brief SVT. Today she reports that she does get some heart palpitations at times but they have not been overly bothersome. Episodes typically last only sec. she has not had any, shortness of breath, lightheadedness, falls. She is compliant with her CPAP mask she is working on weight loss. Compliant with meds family member present. Certified counseling director used. [facility] Medical History Rheumatoid arthritis SVT (supraventricular tachycardia) Osteoarthritis of knees, bilateral LARRY (generalized anxiety disorder) Hypovitaminosis D Pure hypercholesterolemia Morbid obesity due to excess calories Iron deficiency anemia Anxiety Super obese Vertigo Morbid obesity Seronegative rheumatoid arthritis Thrombophlebitis Fibromyalgia MAXIMINO (obstructive sleep apnea) Hypertension Diabetes Surgical History History of tubal ligation History of History of hip surgery Family History Father Prostate cancer Mother Uterine cancer Social History Housing: Apartment Alcohol intake: never Patient Tobacco Use Status: Never used Tobacco e-Cigarette/Vaping Use: Never Used Second Hand Smoke Exposure: No service: No Current occupational status: disabled 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 Cognitive needs: Yes Hearing needs: No Vision needs: No Female Reproductive History Menstrual Age of Menarche: 16 Review of Systems Const All systems reviewed & are unremarkable except as noted in HPI and below ENT Denies dizziness Card Details: brief palpitations Denies chest pain, Denies chest pain at rest, Denies chest pain with activity, Denies rapid heart rate, Denies pedal edema, Denies edema, Denies leg edema, Denies lightheadedness, Denies palpitations, Denies dyspnea, Denies dyspnea on exertion and Denies orthopnea Resp Denies cough, Denies dyspnea and Denies dyspnea on exertion GI Denies hematochezia and Denies change in stool character Musc Reports abnormal gait (uses cane), Denies limited range of motion, Denies muscle cramps, Denies muscle weakness, Denies numbness, Denies radiating pain into limb, Denies stiffness and Denies tingling Neuro Reports abnormal gait (uses cane), Denies dizziness, Denies numbness and Denies tingling Endo Denies palpitations Physical Exam Vital Signs: Last Vital Signs Pulse 87 09/18/24 13:35 BMI result Body Mass Index 51.5 Const Other: morbidly obese General: cooperative, comfortable and no acute distress Orientation/consciousness: patient oriented x3 Resp Effort & Inspection: normal respiratory effort Auscultation: clear to auscultation bilaterally, no rales, no rhonchi and no wheezes Cardio Rate: regular rate Rhythm: regular rhythm Heart sounds: S1 normal heart sound present, S2 normal heart sound present, no murmurs and no rubs Neuro General: patient oriented x3 Extrem General: Yes normal to inspection Psych Appearance: grossly normal Mental Status: mental status grossly normal Speech and movement: Normal speech and movement present Office Procedures EKG Details: Today, read by me, Normal sinus rhythm, rate 87, Qtc 411ms [id number], Complete Assessment & Plan Assessment & Plan (1) Palpitations: Code(s): R00.2 - Palpitations Category: Medical Plan: History of heart palpitations. Holter monitor from 11/29/2021 did show a 110 beat run of SVT. Echocardiogram 03/23/2022 showed EF greater than 50%.. Last Holter monitor done 05/25/2023 for 14 days shows sinus rhythm with average heart rate 76, no significant arrhythmia. She continues on diltiazem for heart rate control. Continue current management. Emergency care if ever needed for sustained rapid heart palpitations. Cardiology follow-up 1 year., Sooner if needed (2) Hypertension: Code(s): I10 - Essential (primary) hypertension Category: Medical Qualifiers: Hypertension type: essential hypertension Qualified Code(s): I10 - Essential (primary) hypertension Plan: history of hypertension. [place] blood pressure goal less than 130/80. Blood pressure check today required the use of a Doppler. Systolic reading 112. Continue diltiazem, hydrochlorothiazide and losartan. No med changes made (3) MAXIMINO on CPAP: Code(s): G47.33 - Obstructive sleep apnea (adult) (pediatric); Z99.89 - Dependence on other enabling machines and devices Category: Medical Plan: She reports compliance with her CPAP. Coding Level of Care Code Est Pt Level 4 (29334) Complex EM visit Add On G2211 Diagnoses Palpitations R00.2 Essential hypertension I10 Hypertension type: essential hypertension MAXIMINO on CPAP G47.33; Z99.89 CPT Codes EKG - CPT: [id number], Complete ([id number]) Time Spent (min) 30
[2024-09-18 13:35] VITALS: BP 112/0; PULSE 87; BMI 51.5
== END 2024-09-18 14:10 | disposition home or self-care (01) ==
LOC: HO.HCS 13:24
PROVIDERS: PCP Internal Medicine; Visit Provider Nurse Practitioner Family
DX: R00.2 Palpitations (principal); I10 Essential (primary) hypertension; G47.33 Obstructive sleep apnea (adult) (pediatric); Z99.89 Dependence on other enabling machines and devices
CPT/HCPCS: 93010; 99214; G2211

== ENCOUNTER → 2024-09-18 13:24 | Outpatient (BNVA) | payer OTHER, SELFPAY | PROVIDERS: PCP Internal Medicine; Visit Provider Nurse Practitioner Family | DX: I10 Essential (primary) hypertension (principal); E78.5 Hyperlipidemia, unspecified; E11.9 Type 2 diabetes mellitus without complications; E66.01 Morbid (severe) obesity due to excess calories; G47.30 Sleep apnea, unspecified; R00.2 Palpitations; Z99.89 Dependence on other enabling machines and devices; Z68.43 Body mass index [BMI] 50.0-59.9, adult | CPT/HCPCS: 93005; 99212 ==

== ENCOUNTER 2024-09-24 12:58 | Outpatient (AMB) | payer OTHER, SELFPAY ==
--- NOTE | 2024-09-24 13:13 | MHC.OFFVIS ---
Vital Signs 09/24/24 13:14 Height 5 ft 5 in Weight 313 lb BMI 52.1 BP 118/60 Blood Pressure Location Rt radial Position Sitting Pulse 91 Pulse Source Doppler Pulse Oximetry (%) 97 Oxygen Delivery Method Room Air Intake Visit Reasons: Cough Allergies abatacept [From Orencia] Adverse Reaction (Severe, Verified 09/18/24 13:40) Palpitations tocilizumab [From Actemra] Adverse Reaction (Intermediate, Verified 09/18/24 13:40) Transaminitis doxycycline Adverse Reaction (Mild, Verified 09/18/24 13:40) Palpitations HPI HPI Cough: Details: 49-year-old lady with underlying morbid obesity followed for severe obstructive sleep apnea.? She has been using her CPAP with good control of her symptoms, until recently as her machine is no longer functioning well. Her machine is over 5 years old and her last sleep study has been over 5 years also. Patient is interested in continuation of her CPAP therapy. [facility] Medical History Rheumatoid arthritis SVT (supraventricular tachycardia) Osteoarthritis of knees, bilateral LARRY (generalized anxiety disorder) Hypovitaminosis D Pure hypercholesterolemia Morbid obesity due to excess calories Iron deficiency anemia Anxiety Super obese Vertigo Morbid obesity Seronegative rheumatoid arthritis Thrombophlebitis Fibromyalgia MAXIMINO (obstructive sleep apnea) Hypertension Diabetes Surgical History History of tubal ligation History of History of hip surgery Family History Father Prostate cancer Mother Uterine cancer Social History Housing: Apartment Alcohol intake: never Patient Tobacco Use Status: Never used Tobacco e-Cigarette/Vaping Use: Never Used Second Hand Smoke Exposure: No service: No Current occupational status: disabled 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 Cognitive needs: Yes Hearing needs: No Vision needs: No Female Reproductive History Menstrual Age of Menarche: 16 Review of Systems Const Denies daytime sleepiness, Denies excessive sweating, Denies fatigue, Denies fever(s), Denies lethargy, Denies malaise, Denies night sweats, Denies snoring and Denies weight loss Eyes Denies blurry vision and Denies itchy eyes ENT Denies nasal congestion, Denies post nasal drip, Denies sinus pain, Denies sinus pressure and Denies other ( Thrush) Card Denies chest pain, Denies pedal edema, Denies dyspnea, Denies orthopnea and Denies paroxysmal nocturnal dyspnea Resp Denies cough, Denies hemoptysis, Denies excessive phlegm production, Denies dyspnea, Denies snoring and Denies wheezing GI Denies abdominal pain and Denies heartburn Musc Denies myalgias, Denies arthralgias and Denies joint swelling Skin/Breast Denies rash Neuro Denies memory loss and Denies seizure-like activity Psych Denies abnormal sleep pattern, Denies anxiety and Denies memory loss Endo Denies excessive sweating, Denies fatigue and Denies heat intolerance Boni/Lymph Denies easy bruising Aller/Immun Denies itchy eyes, Denies seasonal rhinorrhea and Denies wheezing Physical Exam Vital Signs: Last Vital Signs Pulse 91 09/24/24 13:14 BP 118/60 09/24/24 13:14 Pulse Ox 97 09/24/24 13:14 Oxygen Delivery Method Room Air 09/24/24 13:14 BMI result Body Mass Index 52.1 Const General: no acute distress and alert Nutritional Appearance: obese Orientation/consciousness: Other orientation findings ( oriented) HEENT Head: Yes atraumatic Eyes General: appearance normal, both eyes and all related structures Sclerae: sclerae normal EOM: EOMs intact bilaterally Neck Neck: Yes supple Lymphatic: no lymphadenopathy noted Resp Effort & Inspection: normal respiratory effort and no use of accessory muscles Auscultation: clear to auscultation bilaterally Cardio Rate: regular rate Rhythm: regular rhythm Heart sounds: no gallops, no murmurs and no rubs Skin General skin exam: other ( warm) Extrem General: No clubbing, No cyanosis and No edema Assessment & Plan Assessment & Plan (1) MAXIMINO (obstructive sleep apnea): Code(s): G47.33 - Obstructive sleep apnea (adult) (pediatric) Category: Medical Plan: Previously controlled on CPAP therapy, now her machine is over 10 years old in no longer functioning well. His sleep study is also over 10 years old, will obtain new home sleep study. Orders: Orders RT home sleep study Today G47.33 - Obstructive sleep apnea (adult) (pediatric), Z99.89 - Dependence on other enabling machines and devices Coding Level of Care Code Est Pt Level 3 (57132) Diagnoses MAXIMINO (obstructive sleep apnea) G47.33
[2024-09-24 13:14] VITALS: BP 118/60; PULSE 91; O2SAT 97; BMI 52.1
== END 2024-09-24 13:32 | disposition home or self-care (01) ==
LOC: HO.HPS 12:58
PROVIDERS: PCP Internal Medicine; Visit Provider Internal Medicine Pulmonary Disease
DX: G47.33 Obstructive sleep apnea (adult) (pediatric) (principal)
CPT/HCPCS: 99213

== ENCOUNTER → 2024-09-24 12:58 | Outpatient (BNVA) | payer OTHER, SELFPAY | PROVIDERS: PCP Internal Medicine; Visit Provider Internal Medicine Pulmonary Disease | DX: G47.33 Obstructive sleep apnea (adult) (pediatric) (principal) | CPT/HCPCS: 99212 ==

== ENCOUNTER 2024-09-25 08:18 | Outpatient (AMB) | payer OTHER, SELFPAY ==
--- NOTE | 2024-09-25 08:23 | A.OFFVIS_ITS ---
Intake Visit Reasons: 6m/PVR Intake Note: Patient presents today for follow up on: incontinence, cystitis, and hematuria Urology Medications: Solifenacin Blood Thinner: Aspirin ALLERGIES: DOXYCYCLINE PVR: 0ml's Six Horse Hitch Driver Required: Yes Six Horse Hitch Driver Name: [id number] Accompanied by: Son Allergies abatacept [From Orencia] Adverse Reaction (Severe, Verified 09/25/24 08:57) Palpitations tocilizumab [From Actemra] Adverse Reaction (Intermediate, Verified 09/25/24 08:57) Transaminitis doxycycline Adverse Reaction (Mild, Verified 09/25/24 08:57) Palpitations Medication List - Last Reconciled 09/25/24 by JAZMIN Castro acetaminophen (Tylenol Extra Strength) 500 mg PO BID PRN albuterol sulfate 90 mcg/actuation 2 puffs inhalation 6XD PRN alprazolam 1 mg (2 x 0.5 mg) PO DAILY 1 day aspirin 81 mg PO DAILY 30 days atorvastatin 20 mg PO BEDTIME 90 days blood pressure monitor As directed blood sugar diagnostic (FreeStyle Lite Strips) Use 1 test strip once a day blood-glucose meter (FreeStyle Lite Meter kit) As directed cane As directed cholecalciferol (vitamin D3) (Vitamin D3) 25 mcg PO DAILY 90 days [cock up splint wear on each wrist at night. ] diclofenac sodium 1% 4 grams topical QID diltiazem HCl CD 240 mg PO DAILY Enbrel SureClick (etanercept) 50 mg subcut QWEEK NS ferrous sulfate 325 mg PO .once a day 90 days fluticasone propionate 50 mcg/actuation (Flonase Allergy Relief) 1 spray intranasal DAILY 30 days folic acid 1 mg PO DAILY [grab bars As directed] hydrochlorothiazide 12.5 mg PO QAM 90 days lancets (FreeStyle Lancets) Use 1 lancet once a day losartan 100 mg PO DAILY 90 days meclizine 25 mg PO TID PRN 30 days semaglutide (Ozempic) 1 mg (0.75 mL) subcut QWEEK 4 weeks Shower Chair As directed solifenacin (Vesicare) 5 mg PO DAILY 90 days walker heavy duty rollator [wheelchair heavy duty As directed] zolpidem 10 mg PO BEDTIME PRN 30 days HPI Comments Details: Sol is a 49-year-old Czech-speaking female patient of Dr. Madrid who was acco mpanied by her child at today's office visit. She has a past medical history of anxiety, diabetes, fibromyalgia, anxiety, hypertension, iron deficiency anemia, morbid obesity, obstructive sleep apnea, hypercholesteremia, rheumatoid arthritis and vertigo. She presents to the office today for a follow up of her lower urinary tract symptoms and recent urinary tract infection. In discussion with the patient today she reports to be doing and feeling well. She reports having had one urinary tract infections since her last office visit here 3 months ago. In review of patient's chart it appears urine cultures are as follows: 09/13 E coli, 09/13 E coli, 01/14 group B & E coli, 03/17 E coli, 06/16 Klebsiella ozaenae, 12/16 Klebsiella pneumoniae, 12/16 Klebsiella pneumoniae, 06/17 Klebsiella pneumoniae, 09/16 E coli She reports having completed antibiotic therapy as prescribed. She currently denies any bothersome urinary issues or concerns. She denies any UTI like symptoms. Of note, patient underwent an office cystoscopy with Dr. Gunnar Camilo 12/16 noting mild erythematous changes consistent with cystitis no suspicious bladder lesions visualized changes consistent with cystitis. Patient reports having seeked emergency room care for ongoing left-sided flank pain she had been experiencing and has had a recent CT that notes no evidence of urinary calculus or obstructive uropathy. Evaluation is somewhat limited by artifact. The bladder is partially distended. Suspected large nabothian cyst. She reports to be following up with director of labor and delivery tomorrow. We discussed initiation of methenamine and vitamin-C for suppression. She does report regular menses. When asked she does report constipation and has recently started MiraLax and feels this has been helpful. When asked she denies urinary urgency, urinary frequency, incontinence, nocturia, hematuria, dysuria, foul smelling urine, changes to urinary stream, flank pain, fever, and or chills. She is happy with her current voiding parameters. She otherwise offers no other issues or concerns at this time. 11/15 Urine: Negative for high-grade urothelial carcinoma. COUNT INCLUDES THE [facility] Medical History Rheumatoid arthritis SVT (supraventricular tachycardia) Osteoarthritis of knees, bilateral LARRY (generalized anxiety disorder) Hypovitaminosis D Pure hypercholesterolemia Morbid obesity due to excess calories Iron deficiency anemia Anxiety Super obese Vertigo Morbid obesity Seronegative rheumatoid arthritis Thrombophlebitis Fibromyalgia MAXIMINO (obstructive sleep apnea) Hypertension Diabetes Surgical History History of tubal ligation History of History of hip surgery Family History Father Prostate cancer Mother Uterine cancer Social History Housing: Apartment Alcohol intake: never Patient Tobacco Use Status: Never used Tobacco e-Cigarette/Vaping Use: Never Used Second Hand Smoke Exposure: No service: No Current occupational status: disabled 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 Cognitive needs: Yes Hearing needs: No Vision needs: No Female Reproductive History Menstrual Age of Menarche: 16 Review of Systems Const Reports as per HPI Eyes Reports no additional complaints ENT Reports no additional complaints Card Reports as per HPI Resp Reports as per HPI GI Reports no additional complaints Reports as per HPI Musc Reports as per HPI Neuro Reports as per HPI Psych Reports as per HPI Endo Reports as per HPI Physical Exam Const General: cooperative, healthy appearing, comfortable, no acute distress, well developed, alert and awake Nutritional Appearance: obese Orientation/consciousness: patient oriented x3 Limitations: no limitations HEENT Head: Yes normal to inspection, Yes normocephalic and Yes atraumatic Ears: hearing grossly normal bilaterally Eyes General: appearance normal, both eyes and all related structures Neck Neck: Yes normal visual inspection and Yes trachea midline Chest Chest palpation & inspection: normal inspection of the chest Resp Effort & Inspection: normal respiratory effort and able to speak in complete sentences Cardio Rate: regular rate GI Inspection: Yes normal to inspection General: Yes no CVA tenderness Back/Spine/Pelvis Back: no CVA tenderness Skin General skin exam: no rashes or lesions noted Neuro General: patient oriented x3 Extrem General: Yes normal to inspection Psych Appearance: grossly normal and well kempt Mental Status: mental status grossly normal Speech and movement: Normal speech and movement present and Clear speech present Affect: normal affect Attitude: cooperative Thought process: Normal thought process present Thought content: Normal thought content present Insight: Fair insight present (Psych) Judgement: Fair judgement present (Psych) Office Procedures Post Void Residual Post Residual Void Post Void Residual (PVR): 0 [id number] Void Residual by ultrasound Results AMB Urinalysis, Automated UA Leukoctes 15 Mauro/uL Last Edit by Emeritaalbina Marcanoemy on 09/25/24 08:49 UA Nitrite Last Edit by Blue Rooster Krysemy on 09/25/24 08:49 UA Urobilinogen 0.2 mg/dL Last Edit by Milaemy on 09/25/24 08:49 UA Protein 30 mg/dL Last Edit by Milaemy on 09/25/24 08:49 UA pH 6.0 Last Edit by Milaemy on 09/25/24 08:49 UA Blood 0 Robert/uL Last Edit by Milaemy on 09/25/24 08:49 UA Specific [place] 1.025 Last Edit by Milaemy on 09/25/24 08:49 UA Ketone Last Edit by Milaemy on 09/25/24 08:49 UA Bilirubin 1 mg/dL Last Edit by [email or web address] on 09/25/24 08:49 UA Glucose 0 mg/dL Last Edit by [email or web address] on 09/25/24 08:49 Results Reviewed Results Reviewed: Laboratory Last Values Urine pH (Auto) 6.0 09/25/24 08:33 Specific [place] (Auto) 1.025 09/25/24 08:33 Urine Protein (Auto) 30 mg/dL 09/25/24 08:33 Glucose (UA)(Auto) 0 mg/dL 09/25/24 08:33 Urine Blood (Auto) 0 Robert/uL 09/25/24 08:33 Urine Bilirubin (Auto) 1 mg/dL 09/25/24 08:33 Urine Urobilinogen (Auto) 0.2 mg/dL 09/25/24 08:33 Leukocyte Esterase (Auto) 15 Mauro/uL 09/25/24 08:33 Assessment & Plan Assessment & Plan (1) Mixed incontinence urge and stress: Code(s): N39.46 - Mixed incontinence Category: Medical (2) Frequent UTI: Code(s): N39.0 - Urinary tract infection, site not specified Category: Medical Plan In office urinalysis results reviewed with the patient today; as noted above. PVR 0 mL. She currently denies any bothersome urinary issues or concerns. She reports be happy with current voiding parameters. Continue VESIcare. We discussed initiation of methenamine and vitamin-C; patient will think about this. We discussed correlation of constipation with recurrent urinary tract infections. Discussed UTI prevention with D mannose supplement, vitamin-C, increasing fluid intake, behavioral therapy with timed voiding, perineal hygiene and postcoital voiding, and management of constipation with stool softeners and increased fiber intake. Follow-up in 3 months with PVR; or sooner with any issues, concerns, and or questions. Orders: Orders AMB Urinalysis Automated Today Z13.9 - Encounter for screening, unspecified AMB Post Void Residual by ultrasound Today N39.0 - Urinary tract infection, site not specified Patient Instructions: The patient had an opportunity to ask questions regarding the treatment plan. All questions were answered. Physical exam, labs, and imaging were discussed and reviewed in detail. As well as risks, benefits, and discussion of treatment choices. No major barriers to understanding were identified. The patient expressed understanding and agreement with the above treatment plan. The patient was made aware they should contact our office by phone for worsening of their current condition, the appearance of new symptoms, or with any questions or concerns. Compliance is encouraged with any medications and follow up testing that is ordered. It is a privilege to be allowed the opportunity to participate in? your urological care.? Again, if you have any questions or concerns If you have any questions or concerns please do not hesitate to contact me. The office is [phone]. This note is constructed using voice recognition software. While every effort has been made to ensure accuracy chain pegger errors may have been included. Yours sincerely, JAZMIN Castro Coding Level of Care Code Est Pt Level 4 (02522) Complex EM visit Add On G2211 Diagnoses Mixed incontinence urge and stress N39.46 Frequent UTI N39.0 CPT Codes Post Residual Void - PVR CPT Code: 38161-[id number] Void Residual by ultrasound ([id number]) Time Spent (min) 30
== END 2024-09-25 08:56 | disposition home or self-care (01) ==
LOC: HO.HUSH 08:18
PROVIDERS: PCP Internal Medicine; Visit Provider Nurse Practitioner Family
DX: N39.46 Mixed incontinence (principal); N39.0 Urinary tract infection, site not specified; Z13.9 Encounter for screening, unspecified
CPT/HCPCS: 99214; G2211

== ENCOUNTER → 2024-09-25 08:18 | Outpatient (BNVA) | payer OTHER, SELFPAY | PROVIDERS: PCP Internal Medicine; Visit Provider Nurse Practitioner Family | DX: N39.0 Urinary tract infection, site not specified (principal); N39.46 Mixed incontinence | CPT/HCPCS: 51798; 81003; 99212 ==

== ENCOUNTER 2024-09-26 09:34 | Outpatient (AMB) | payer OTHER, SELFPAY ==
--- NOTE | 2024-09-26 09:36 | A.OFFVIS_ITS ---
Intake Visit Reasons: Complex ovarian cyst Accompanied by: Son Allergies abatacept [From Orencia] Adverse Reaction (Severe, Verified 09/26/24 09:39) Palpitations tocilizumab [From Actemra] Adverse Reaction (Intermediate, Verified 09/26/24 09:39) Transaminitis doxycycline Adverse Reaction (Mild, Verified 09/26/24 09:39) Palpitations HPI Comments Details: Presenting referred for complex ovarian cyst on pelvic ultrasound. The patient went to the emergency room on 09/09/2024 with abnormal uterine bleeding. The following workup was done: H&H 11.4/36.8 HCG less than 2 Pelvic ultrasound showed the following: IMPRESSION: There is a 4.3 cm minimally complex left adnexal cyst. Three-month follow-up ultrasound recommended. The right ovary is not seen. Limited study in general Last mammogram in 06/17 was BI-RADS 1 Last co testing? [facility] Medical History Rheumatoid arthritis SVT (supraventricular tachycardia) Osteoarthritis of knees, bilateral LARRY (generalized anxiety disorder) Hypovitaminosis D Pure hypercholesterolemia Morbid obesity due to excess calories Iron deficiency anemia Anxiety Super obese Vertigo Morbid obesity Seronegative rheumatoid arthritis Thrombophlebitis Fibromyalgia MAXIMINO (obstructive sleep apnea) Hypertension Diabetes Surgical History History of tubal ligation History of History of hip surgery Family History Father Prostate cancer Mother Uterine cancer Social History Housing: Apartment Alcohol intake: never Patient Tobacco Use Status: Never used Tobacco e-Cigarette/Vaping Use: Never Used Second Hand Smoke Exposure: No service: No Current occupational status: disabled 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 Cognitive needs: Yes Hearing needs: No Vision needs: No Female Reproductive History Menstrual Age of Menarche: 16 Review of Systems Const All systems reviewed & are unremarkable except as noted in HPI and below Card Reports as per HPI Resp Reports as per HPI GI Reports as per HPI and Reports no additional complaints Reports as per HPI Physical Exam Const General: cooperative, healthy appearing and comfortable Chest Chest palpation & inspection: normal inspection of the chest and normal palpation of entire chest wall Breast/axilla inspection: normal inspection of the breasts and normal inspection of the axillae Breast/axilla palpation: normal palpation of the breasts, normal palpation of the axillae and no axillary lymphadenopathy Resp Effort & Inspection: normal respiratory effort Auscultation: clear to auscultation bilaterally Percussion: percussion normal Cardio Palpation: normal PMI Rate: regular rate Rhythm: regular rhythm Heart sounds: no murmurs and no rubs Peripheral pulses: Peripheral pulses 2+ throughout GI Inspection: Yes normal to inspection Palpation (GI): Soft to palpation, nontender, no guarding, not rigid and No hepatosplenomegaly present Percussion: Yes normal to percussion Auscultation: normal bowel sounds Rectal Exam - Female: deferred General: Yes bladder normal to palpation External Female Exam: No lesion Speculum Exam - Vagina: normal appearance of the vagina, normal palpation, normal vaginal discharge and not erythematous Speculum Exam - Cervix: normal appearance of the cervix and normal palpation Bimanual exam- vagina & uterus: normal bimanual exam, normal palpation, uterine size normal, bladder normal to palpation, consistency normal and normal palpation Bimanual Exam- Adnexa, other: normal adnexae, no masses and no tenderness Assessment & Plan Assessment & Plan (1) Abnormal uterine bleeding: Comment: Rheumatoid arthritis Code(s): N93.9 - Abnormal uterine and vaginal bleeding, unspecified Category: Medical Plan: Co testing done, GC and chlamydia taken CBC, TSH, HCG , FSH/LH ordered. Discussed with the patient the different causes of abnormal bleeding including thyroid disorders, uterine and ovarian pathology, endometrial hyperplasia, carcinoma and other potential causes. Discussed with the patient the work up including CBC (to r/o anemia), TSH, FSH/LH, endometrial biopsy to r/o endometrial pathology. All questions answered and the patient verbalized understanding. Instructed the patient to schedule an appointment for an endometrial biopsy in 2 weeks. (2) Complex ovarian cyst: Code(s): N83.299 - Other ovarian cyst, unspecified side Category: Medical Plan: Discussed with the patient the complex ovarian cyst by ultrasound. Discussed with the patient the Ultrasound findings, the main limitation of transvaginal ultrasonography alone as a diagnostic tool to distinguish benign from malignant masses relates to its lack of specificity and low positive predictive value for cancer. The differential diagnosis discussed with the patient includes the following but not limited to: benign and malignant gynecological and non-gynecological causes. Laboratory evaluation include UPT and GC/CT , serum tumor marker CA 125 . Discussed with the patient that CA 125 is a protein associated with epithelial ovarian malignancies, but also frequently expressed at lower levels by nonmalignant tissue. Elevation of CA 125 levels may occur in nonmalignant gynecologic conditions, and in non-gynecologic cancers, It is most useful in postmenopausal women and in identifying non mucinous epithelial cancer. The CA 125 level is elevated in 80% of patients with epithelial ovarian cancer but in only 50% of patients with stage I disease. The overall sensitivity of CA 125 testing in distinguishing benign from malignant adnexal masses reportedly ranges from 61% to 90%; discussed with the patient the specificity, positive predictive value and negative predictive value. Discussed with the patient options of treatment , in case CA 125 is not elevated, including laparoscopy ovarian cystectomy/oophorectomy vs. expectant management with repeat US in repeating pelvic US in 6-12 weeks from previous US. If the ovarian complex cyst is persistent larger and / or more complex looking, or higher CA 125 will refer to gynecologic Oncology. All pros, cons, risks and benefits of each approach were discussed with the patient including but not limited to a delay in the diagnosis and treatment of ovarian cancer affecting the prognosis; The patient decided to go ahead with expectant management. Instructions given the patient to schedule a 3 months follow-up ultrasound appointment. All questions were answered & the patient verbalized understanding and agreed with the plan. Orders: Orders HCG Quantitative Today N93.9 - Abnormal uterine and vaginal bleeding, unspecified Complete Blood Count no Diff Today N93.9 - Abnormal uterine and vaginal bleeding, unspecified Lutenizing Hormone Today N93.9 - Abnormal uterine and vaginal bleeding, unspecified CA-125 Today N83.299 - Other ovarian cyst, unspecified side TSH reflex Free T4 Today N93.9 - Abnormal uterine and vaginal bleeding, unspecified Follicle Stimulating Hormone Today N93.9 - Abnormal uterine and vaginal bleeding, unspecified US pelvic and transvaginal 3 Months N83.299 - Other ovarian cyst, unspecified side Coding Level of Care Code New Pt Level 3 (81436) Diagnoses Abnormal uterine bleeding N93.9 Complex ovarian cyst N83.299
== END 2024-09-26 10:41 | disposition home or self-care (01) ==
PROVIDERS: PCP Internal Medicine; Visit Provider Obstetrics & Gynecology
DX: N93.9 Abnormal uterine and vaginal bleeding, unspecified (principal); N83.299 Other ovarian cyst, unspecified side
CPT/HCPCS: 99203

== ENCOUNTER 2024-09-26 09:34 | Outpatient (REF) | payer OTHER, SELFPAY ==
[2024-09-26 11:29] LABS: Hematocrit 35.9 % (37.0-47.0); Mean Corpuscular HGB Conc 30.6 g/dl (31.0-35.0); Mean Corpuscular Hemoglobin 23.1 pg (27.0-33.0); Mean Corpuscular Volume 75.4 fL (80.0-98.0); Mean Platelet Volume 9.5 fL (9.4-12.3); Platelet Count 351 X10*3/uL (160-400); Red Blood Count 4.76 X10*6/uL (4.20-5.50); Red Cell Distribution Width 16.1 % (11.0-16.0); White Blood Count 7.1 X10*3/uL (4.8-10.8)
[2024-09-26 13:28] LABS: HCG Quantitative < 2 mIU/mL
[2024-09-29 04:18] LABS: Follicle Stimulating Hormone 10.7 mIU/mL
[2024-09-30 10:04] LABS: CA-125 6 U/mL (<35)
== END 2024-09-26 09:35 | disposition home or self-care (01) ==
LOC: HO.LAB 09:34
PROVIDERS: PCP Internal Medicine; Visit Provider Obstetrics & Gynecology
DX: N93.9 Abnormal uterine and vaginal bleeding, unspecified (principal); N83.299 Other ovarian cyst, unspecified side
CPT/HCPCS: 36415; 83001; 83002; 84443; 84702; 85027; 86304; 99202

== ENCOUNTER 2024-09-26 12:10 | Outpatient (REF) | payer OTHER, SELFPAY ==
[2024-09-26 16:42] LABS: CT PCR NOT DETECTED (Not Detect.); NG PCR NOT DETECTED (Not Detect.)
[2024-10-02 10:38] LABS: HPV Genotype 16 Negative (Negative); HPV Genotype 18 Negative (Negative); HPV High Risk Negative (Negative)
== END 2024-09-26 12:11 | disposition home or self-care (01) ==
LOC: HO.LNP 12:10
PROVIDERS: Visit Provider Obstetrics & Gynecology
DX: N92.6 Irregular menstruation, unspecified (principal)
CPT/HCPCS: 87491; 87591; 87626; 88175

== ENCOUNTER 2024-10-22 15:46 | Outpatient (AMB) | payer OTHER, SELFPAY ==
[2024-10-22 15:54] VITALS: BP 118/84; BMI 52.7
--- NOTE | 2024-10-22 15:54 | MHC.PC.OV ---
Vital Signs 10/22/24 15:54 Height 5 ft 5 in Weight 317 lb BMI 52.7 BP 118/84 Blood Pressure Location Lt brachial Position Sitting Intake Visit Reasons: follow up 4 months DM Intake Note: Patient here for a follow up DM Septic Tank Setter Required: No Accompanied by: Son Allergies abatacept [From Orencia] Adverse Reaction (Severe, Verified 10/22/24 16:19) Palpitations tocilizumab [From Actemra] Adverse Reaction (Intermediate, Verified 10/22/24 16:19) Transaminitis doxycycline Adverse Reaction (Mild, Verified 10/22/24 16:19) Palpitations Medication List - Last Reconciled 10/22/24 by Ryann Angel MD acetaminophen (Tylenol Extra Strength) 500 mg PO BID PRN albuterol sulfate 90 mcg/actuation 2 puffs inhalation 6XD PRN alprazolam 1 mg (2 x 0.5 mg) PO DAILY 1 day aspirin 81 mg PO DAILY 30 days atorvastatin 20 mg PO BEDTIME 90 days blood pressure monitor As directed blood sugar diagnostic (FreeStyle Lite Strips) Use 1 test strip once a day blood-glucose meter (FreeStyle Lite Meter kit) As directed cane As directed cholecalciferol (vitamin D3) (Vitamin D3) 25 mcg PO DAILY 90 days [cock up splint wear on each wrist at night. ] diclofenac sodium 1% 4 grams topical QID diltiazem HCl CD 240 mg PO DAILY Enbrel SureClick (etanercept) 50 mg subcut QWEEK NS ferrous sulfate 325 mg PO .once a day 90 days fluticasone propionate 50 mcg/actuation (Flonase Allergy Relief) 1 spray intranasal DAILY 30 days folic acid 1 mg PO DAILY [grab bars As directed] hydrochlorothiazide 12.5 mg PO QAM 90 days lancets (FreeStyle Lancets) Use 1 lancet once a day losartan 100 mg PO DAILY 90 days meclizine 25 mg PO TID PRN 30 days semaglutide (Ozempic) 1 mg (0.75 mL) subcut QWEEK 4 weeks Shower Chair As directed solifenacin (Vesicare) 5 mg PO DAILY 90 days walker heavy duty rollator [wheelchair heavy duty As directed] zolpidem 10 mg PO BEDTIME PRN 30 days Tobacco use date assessed: 10/22/24 Dental Screening Dental Screen Date: 10/22/24 Did you have a dental visit in the last 12 months?: Yes Did you have a dental problem in the last 6 months where you did not have access to dental care?: No Was dental information given to patient?: Patient has dentist HPI HPI Comments History of Present Illness Details The patient is a 49-year-old female presenting for management of Type 2 Diabetes Mellitus, Obesity, and associated conditions, including anxiety due to upcoming procedures. Her diabetes is controlled with an A1c at 5.9%, but weight loss remains challenging. She deals with constipation potentially linked to her medications and a recent change in her routine bowel habits. She reports severe abdominal and back pain and abnormal uterine bleeding, prompting an endometrial biopsy to explore possible endometrial abnormalities. Her rheumatoid arthritis is managed with medications causing liver enzyme elevation and palpitations. [facility] Medical History Rheumatoid arthritis SVT (supraventricular tachycardia) Osteoarthritis of knees, bilateral LARRY (generalized anxiety disorder) Hypovitaminosis D Pure hypercholesterolemia Morbid obesity due to excess calories Iron deficiency anemia Anxiety Super obese Vertigo Morbid obesity Seronegative rheumatoid arthritis Thrombophlebitis Fibromyalgia MAXIMINO (obstructive sleep apnea) Hypertension Diabetes Surgical History History of tubal ligation History of History of hip surgery Family History Father Prostate cancer Mother Uterine cancer Social History Housing: Apartment Alcohol intake: never Patient Tobacco Use Status: Never used Tobacco e-Cigarette/Vaping Use: Never Used Second Hand Smoke Exposure: No service: No Current occupational status: disabled 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 1. Little interest or pleasure in doing things: not at all 2. Feeling down, depressed, or hopeless: not at all 3. Trouble falling or staying asleep, or sleeping too much: not at all 4. Feeling tired or having little energy: not at all 5. Poor appetite or overeating: not at all 6. Feeling bad about yourself - or that you are a failure or have let yourself or your family down: not at all 7. Trouble concentrating on things, such as reading the newspaper or watching television: not at all 8. Moving or speaking so slowly that other people could have noticed. Or the opposite - being so fidgety or restless that you have been moving around a lot more than usual: not at all 9. Thoughts that you would be better off or of hurting yourself in some way: not at all Total score: 0 Depression Screening Interpretation: Negative Depression Screening Done: Yes 28683 - PHQ-9 Billing: Yes Source: Developed by Drs. Stephen French, Nai Suarez, Jayson Barajas and colleagues, with an educational tiera from [employer]. Thrive Questionnaire Date Thrive assessed: 10/22/24 I am a: Parent/Caregiver What is your living situation today?: I have a steady place to live Within the past 12 months, did the food you bought not last and you didn't have the money to get more?: Never true Within the past 12 months, did you worry whether your food would run out before you got money to buy more?: Never true Do you have trouble paying for medicines?: No Do you have trouble getting transportation to medical appointments?: No Do you have trouble paying your heating and electricity bill?: No Do you have trouble taking care of your child, family member or friend?: No Do you have trouble with day-to-day activities such as bathing, preparing meals, shopping, managing finances, etc.?: No Are you currently unemployed and looking for a job?: No Are you interested in more education?: No Please select the resources that you would like help with: None Currently or been in a relationship where the following occur: I choose not to answer THRIVE Score: 0 AUDIT C Alcohol Use Questionnaire (AUDIT-C) 1. How often do you have a drink containing alcohol?: Never Total Score: 0 Score Reviewed/Action Taken: No LARRY-7 AMB Questionnaire LARRY-7 Date LARRY - 7 assessed: 10/22/24 Feeling nervous, anxious, or on edge: 0 = Not at all Not being able to stop or control worryin = Not at all Worrying too much about different things: 0 = Not at all Trouble relaxin = Not at all Being so restless that it is hard to sit still: 0 = Not at all Becoming easily annoyed or irritable: 0 = Not at all Feeling afraid as if something awful might happen: 0 = Not at all Total LARRY-7 score (0-4 normal; 5-9 mild; 10-14 moderate; 15-21 severe): 0 Source: Developed by Drs. Stephen French, Nai Suarez, Jayson Barajas and colleagues, with an educational tiera from [employer]. LARRY-7 Assessment Billing LARRY-7 Assessment Tool: LARRY-7 Assessment 32783 Review of Systems Const All systems reviewed & are unremarkable except as noted in HPI and below Card Denies chest pain at rest, Denies chest pain with activity, Denies edema, Denies irregular heart rhythm, Denies claudication, Denies dyspnea, Denies dyspnea on exertion, Denies orthopnea, Denies paroxysmal nocturnal dyspnea and Denies slow heart rate Resp Denies cough, Denies dyspnea and Denies dyspnea on exertion Physical exam (Primary Care) Vital Signs: Last Vital Signs BP 118/84 10/22/24 15:54 BMI result Body Mass Index 52.7 BMI Assessment/Plan discussion: High BMI High, discussed plan: lifestyle, weight reduction, dietary and physical activity Tobacco/Smoking Status: Tobacco use Status Tobacco use date assessed 10/22/24 10/22/24 15:59 Patient Tobacco Use Status Never used Tobacco 10/22/24 15:56 e-Cigarette/Vaping Use Never Used 10/22/24 15:56 PHQ-9: PHQ-9 Score PHQ-9: Total score 0 10/22/24 17:14 Depression Screening Interpretation: Negative Thrive Assessment: Date of Thrive Assessment Date Thrive assessed 10/22/24 10/22/24 15:59 Currently or been in a relationship where the following occur: I choose not to answer Resp Effort & Inspection: normal respiratory effort Auscultation: clear to auscultation bilaterally Cardio Jugular venous distension: no JVD Rate: regular rate Rhythm: regular rhythm Heart sounds: S1 normal heart sound present and S2 normal heart sound present Extrem General: Yes full ROM Results AMB Hemoglobin A1c AMB Hemoglobin A1c 5.9 % Last Edit by HEATH Evans on 10/22/24 16:09 Results Reviewed Results Reviewed: Laboratory Last Values Hgb A1c (Clinic) 5.9 % (4.0-6.0) 10/22/24 16:04 Coding Level of Care Code Est Pt Level 4 (57146) Complex EM visit Add On G2211 Diagnoses Type 2 diabetes mellitus, without long-term current use of insulin E11.9 Essential hypertension I10 Morbid obesity with BMI of 50.0-59.9, adult E66.01; Z68.43 Hyperlipidemia LDL goal <70 E78.5 Seronegative rheumatoid arthritis M06.00 Type 2 diabetes mellitus without complication, without long-term current use of insulin E11.9 Diabetes mellitus complication status: without complication Diabetes mellitus custodial insulin use: without regional intermodal truck driver use Diabetes mellitus type: type 2 Additional Codes LARRY-7 Assessment Billing - LARRY-7 Assessment Tool: LARRY-7 Assessment [id number] ([id number]) PHQ-9 - 67628 - PHQ-9 Billing: Yes ([id number]) Time Spent (min) 23 Assessment & Plan Assessment & Plan (1) Type 2 diabetes mellitus, without long-term current use of insulin: Code(s): E11.9 - Type 2 diabetes mellitus without complications Category: Medical (2) Essential hypertension: Code(s): I10 - Essential (primary) hypertension Category: Medical (3) Morbid obesity with BMI of 50.0-59.9, adult: Code(s): E66.01 - Morbid (severe) obesity due to excess calories; Z68.43 - Body mass index [BMI] 50.0-59.9, adult Category: Medical (4) Hyperlipidemia LDL goal <70: Code(s): E78.5 - Hyperlipidemia, unspecified Category: Medical (5) Seronegative rheumatoid arthritis: Comment: Seronegative dx 03/2019 in [place]: 08/2019- 08/2021 dyspnea Prednisone Humira: September 2021- 12/2022 incomplete response Actemra 01/2023 partially effective advanced to weekly 03/2023 effective DC 12/2023 d.t transminitis Orencia 01/2024 DC 04/2024 could not be tolerated Simponi Aria infusion denied by insurance Enbrel started 06/2024 Code(s): M06.00 - Rheumatoid arthritis without rheumatoid factor, unspecified site Category: Medical (6) Diabetes: Code(s): E11.9 - Type 2 diabetes mellitus without complications Category: Medical Qualifiers: Diabetes mellitus complication status: without complication Diabetes mellitus regional intermodal truck driver insulin use: without custodial use Diabetes mellitus type: type 2 Qualified Code(s): E11.9 - Type 2 diabetes mellitus without complications Plan Continuation of Ozempic for Diabetes Type 2 management with follow-up on its efficacy regarding weight loss through endocrinology. Address constipation with appropriate remedies and continued monitoring. An endometrial biopsy is scheduled to investigate abnormal bleeding. Address anxiety by refilling zolpidem. Monitor liver enzyme levels due to rheumatoid arthritis medication effects. Follow up with endocrinology is planned. Patient was informed and verbally consented to the use of an ambient scribe for clinic note documentation during this visit. I discussed with the patient the current management of her diabetes, including the benefits and limitations of Ozempic in controlling blood sugar but not aiding weight loss. We explored options for addressing her constipation and discussed her upcoming endometrial biopsy, explaining the procedure and its importance given her symptoms. We addressed her anxiety by arranging a zolpidem refill and explained the necessity of monitoring liver enzymes due to her medication regimen. Follow-up with endocrinology was emphasized for evaluating obesity management strategies and her diabetic care plan. Orders: Orders AMB Hemoglobin A1c Today E11.9 - Type 2 diabetes mellitus without complications Medications: New docusate calcium 240 mg PO BEDTIME 90 caps 1RF 90 days Refilled zolpidem 10 mg PO BEDTIME PRN 30 tabs 0RF sleep 30 days Patient Instructions: - Continue taking Ozempic as prescribed. - Follow up with endocrinology for obesity management. - Take prescribed medication for constipation as directed. - Undergo the scheduled endometrial biopsy. - Monitor symptoms and liver enzyme levels as required. - Use zolpidem as needed for sleep difficulties. - Return for follow-up as advised.
== END 2024-10-22 16:38 | disposition home or self-care (01) ==
LOC: HO.HMCH 15:47
PROVIDERS: PCP Internal Medicine; Visit Provider Internal Medicine
DX: E11.69 Type 2 diabetes mellitus with other specified complication (principal); E66.01 Morbid (severe) obesity due to excess calories; Z68.43 Body mass index [BMI] 50.0-59.9, adult; M06.00 Rheumatoid arthritis without rheumatoid factor, unspecified site; I10 Essential (primary) hypertension; E78.5 Hyperlipidemia, unspecified

== ENCOUNTER → 2024-10-22 15:46 | Outpatient (BNVA) | payer OTHER, SELFPAY | PROVIDERS: PCP Internal Medicine; Visit Provider Internal Medicine | DX: E11.9 Type 2 diabetes mellitus without complications (principal); I10 Essential (primary) hypertension; E66.01 Morbid (severe) obesity due to excess calories; Z68.43 Body mass index [BMI] 50.0-59.9, adult; E78.5 Hyperlipidemia, unspecified; M06.00 Rheumatoid arthritis without rheumatoid factor, unspecified site | CPT/HCPCS: 83036; 96127; 99212 ==

== ENCOUNTER 2024-10-23 09:59 | Outpatient (AMB) | payer OTHER, SELFPAY ==
--- NOTE | 2024-10-23 10:25 | A.OFFVIS_ITS ---
Vital Signs 10/23/24 10:39 Height 5 ft 5 in Weight 317 lb BMI 52.7 Intake Visit Reasons: EMB/U/S results Packaging Line Operator Required: Yes Packaging Line Operator Language: Biometrics Experimentalist Services: Packaging Line Operator Present (in person) Packaging Line Operator Name: Edwige JOE Information Interpreted: non-clinical & clinical Geotechnician: Geotechnician Present (Edwige JOE) Accompanied by: Son Allergies abatacept [From Orencia] Adverse Reaction (Severe, Verified 10/22/24 16:19) Palpitations tocilizumab [From Actemra] Adverse Reaction (Intermediate, Verified 10/22/24 16:19) Transaminitis doxycycline Adverse Reaction (Mild, Verified 10/22/24 16:19) Palpitations HPI Comments Details: Presenting for EMB [facility] Medical History Rheumatoid arthritis SVT (supraventricular tachycardia) Osteoarthritis of knees, bilateral LARRY (generalized anxiety disorder) Hypovitaminosis D Pure hypercholesterolemia Morbid obesity due to excess calories Iron deficiency anemia Anxiety Super obese Vertigo Morbid obesity Seronegative rheumatoid arthritis Thrombophlebitis Fibromyalgia MAXIMINO (obstructive sleep apnea) Hypertension Diabetes Surgical History History of tubal ligation History of History of hip surgery Family History Father Prostate cancer Mother Uterine cancer Social History Housing: Apartment Alcohol intake: never Patient Tobacco Use Status: Never used Tobacco e-Cigarette/Vaping Use: Never Used Second Hand Smoke Exposure: No service: No Current occupational status: disabled 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 Cognitive needs: Yes Hearing needs: No Vision needs: No Female Reproductive History Menstrual Age of Menarche: 16 Review of Systems Const All systems reviewed & are unremarkable except as noted in HPI and below Reports as per HPI and Reports no additional complaints GI Reports no additional complaints Reports no additional complaints Physical Exam Vital Signs: BMI result Body Mass Index 52.7 Office Procedures Endometrial Biopsy Details: The patient was counseled regarding the indication and benefits of endometrial sampling to rule out endometrial pathology including not limited to endometrial hyperplasia or endometrial cancer and others; The alternatives (Either do nothing vs. hysteroscopy D&C) & the risks were discussed with the patient including but not limited: pain, uterine perforation, bleeding, infection, possible injury to bladder, bowel, ureter, possible need for blood transfusion with all its possible risks. The patient verbalized understanding all questions answered and signed consent. Urine test done in the office was negative The patient was placed into the dorsal lithotomy position; a speculum was inserted in the vagina. Using aseptic technique for the procedure, the cervix was cleansed with Betadine. The anterior lip of the cervix was grasped with a single tooth tenaculum. The uterus was sounded to 7 cm with a 4 mm Pipelle was used. Tissues samples were obtained and placed in formalin, in a patient labeled container and sent to the pathology department. At the end of the procedure, there was minimal bleeding noted The patient tolerated the procedure well and was discharged in good condition with the following instructions: Nothing in the vagina until the bleeding stops. No sex until the bleeding stops, to call if any of the following occurs: fever (>100.4), flu-like symptoms, abdominal pain, heavy bleeding, four smelling vaginal discharge. The patient was instructed to schedule a Follow up appointment in 2 weeks to discuss pathology results of the biopsy and treatment options. This note was generated with a voice recognition program. Some errors may have been overlooked during the review of this note. Sometimes these errors may affect the content or meaning of a given sentence. 71053-Uhhvryvqzku Biopsy Results AMB Test Urine AMB Test Urine Negative Last Edit by Edwige Escobedo CMA on 10:53 Assessment & Plan Assessment & Plan (1) Abnormal uterine bleeding: Comment: Rheumatoid arthritis Code(s): N93.9 - Abnormal uterine and vaginal bleeding, unspecified Category: Medical Plan: EMB done, see procedure note Orders: Orders AMB HCG Urine Test Today Z32.02 - Encounter for test, result negative AMB Endometrial Biopsy Today N93.9 - Abnormal uterine and vaginal bleeding, un specified Coding Level of Care Code Procedure Only Diagnoses Abnormal uterine bleeding N93.9 CPT Codes Endometrial Biopsy - CPT: 22802-[facility] Biopsy ([id number])
[2024-10-23 10:39] VITALS: BMI 52.7
== END 2024-10-23 11:03 | disposition home or self-care (01) ==
LOC: HO.HWS 09:59
PROVIDERS: PCP Internal Medicine; Visit Provider Obstetrics & Gynecology
DX: N93.9 Abnormal uterine and vaginal bleeding, unspecified (principal); Z32.02 Encounter for pregnancy test, result negative
CPT/HCPCS: 58100

== ENCOUNTER 2024-10-23 09:59 | Outpatient (REF) | payer OTHER, SELFPAY | END 2024-10-23 10:00 | disposition home or self-care (01) | LOC: HO.LNP 09:59 | PROVIDERS: PCP Internal Medicine; Visit Provider Obstetrics & Gynecology | DX: N93.9 Abnormal uterine and vaginal bleeding, unspecified (principal); Z32.02 Encounter for pregnancy test, result negative | CPT/HCPCS: 58100; 81025; 88305 ==

== ENCOUNTER 2024-10-29 10:21 | Outpatient (AMB) | payer OTHER, SELFPAY ==
--- NOTE | 2024-10-29 10:24 | A.OFFVIS_ITS ---
Vital Signs 10/29/24 10:33 Height 5 ft 5 in Weight 317 lb BMI 52.7 BP 132/70 Intake Visit Reasons: pre op Molder Helper Required: Yes Molder Helper Language: Android Ui Developer Services: Molder Helper Present (in person) Molder Helper Name: Edwige JOE Information Interpreted: non-clinical & clinical Accompanied by: Son Allergies abatacept [From Orencia] Adverse Reaction (Severe, Verified 10/29/24 10:24) Palpitations tocilizumab [From Actemra] Adverse Reaction (Intermediate, Verified 10/29/24 10:24) Transaminitis doxycycline Adverse Reaction (Mild, Verified 10/29/24 10:24) Palpitations Is last menstrual period known: Yes Last menstrual period: 04/22/20 Post menopausal: No Patient : No Do you need a note to return to daycare/school/sports/work: Yes (for surgery on sunday) HPI Comments Details: The patient is presenting for follow-up. The following workup was done for abnormal uterine bleeding: H&H= /35.9 TSH within normal FSH/LH 10.7/4 CA 125=6 10/17 co testing negative 05/18 mammogram was BI-RADS 1 EMB pathology report showed the following: Endometrial intraepithelial neoplasia 09/09 pelvic ultrasound showed the following: Findings: Transvaginal scanning performed. The uterus is 10.3 cm length. 12 mm fibroid, otherwise normal myometrium. No endometrial lesion, 7 mm thickness. Right ovary: Not well-visualized. Left ovary 4.4 x 3.6 x 5.0 cm with a 4.3 cm minimally complex cyst. Normal color Doppler of both ovaries. No free fluid. CT scan of abdomen and pelvis showed the following: Impression: No evidence of urinary calculus or obstructive uropathy. Evaluation is somewhat limited by artifact. The cystic structure thought to possibly reflect left adnexa on the ultrasound in fact relates to a large cystic lesion within the cervix. Suspect large nabothian cyst [facility] Medical History Rheumatoid arthritis SVT (supraventricular tachycardia) Osteoarthritis of knees, bilateral LARRY (generalized anxiety disorder) Hypovitaminosis D Pure hypercholesterolemia Morbid obesity due to excess calories Iron deficiency anemia Anxiety Super obese Vertigo Morbid obesity Seronegative rheumatoid arthritis Thrombophlebitis Fibromyalgia MAXIMINO (obstructive sleep apnea) Hypertension Diabetes Surgical History History of tubal ligation History of History of hip surgery Family History Father Prostate cancer Mother Uterine cancer Social History Housing: Apartment Alcohol intake: never Patient Tobacco Use Status: Never used Tobacco e-Cigarette/Vaping Use: Never Used Second Hand Smoke Exposure: No service: No Current occupational status: disabled 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 Cognitive needs: Yes Hearing needs: No Vision needs: No Female Reproductive History Menstrual Age of Menarche: 16 Date of last menstrual period: 04/22/20 Total pregnancies: 2 Full term: 2 Review of Systems Const All systems reviewed & are unremarkable except as noted in HPI and below Reports as per HPI and Reports no additional complaints Card Reports as per HPI and Reports no additional complaints Resp Reports as per HPI and Reports no additional complaints GI Reports as per HPI and Reports no additional complaints Reports as per HPI Assessment & Plan Assessment & Plan (1) EIN (endometrial intraepithelial neoplasia): Code(s): N85.02 - Endometrial intraepithelial neoplasia [EIN] Category: Medical Plan: Discussed with the patient the pathology of endometrial biopsy showing endometrial intraepithelial neoplasia, endometrial hyperplasia with atypia. Discussed with the patient the following: -If untreated the risk of progression of EIN to endometrial carcinoma is 83 percent, -Coexistent endometrial carcinoma may be present in up to 40 percent of patients with EH with atypia -Given the high risk of concurrent, or progression to, endometrial carcinoma, for most postmenopausal patients and premenopausal patients who have completed childbearing, hysterectomy for treatment of EH with atypia is the preferred treatment. Will refer to [facility] Gyne Onc for further management (2) Complex ovarian cyst: Code(s): N83.299 - Other ovarian cyst, unspecified side Category: Medical Plan: Discussed with the patient the complex ovarian cyst by ultrasound. Discussed with the patient the Ultrasound findings, the main limitation of transvaginal ultrasonography alone as a diagnostic tool to distinguish benign from malignant masses relates to its lack of specificity and low positive predictive value for cancer. The differential diagnosis discussed with the patient includes the following but not limited to: benign and malignant gynecological and non-gynecological causes. CA 19-9 and CEA ordered, refer to [facility] certified recreational therapist Oncology for further management. Appointment as scheduled Dr. Barroso [facility] certified recreational therapist Oncology on 11/10 at 10:20, the patient is aware Orders: Orders Carbohydrate Antigen 19-9 Today N83.299 - Other ovarian cyst, unspecified side Carcinoembryonic Antigen Today N83.299 - Other ovarian cyst, unspecified side Coding Level of Care Code Est Pt Level 3 (57527) Diagnoses EIN (endometrial intraepithelial neoplasia) N85.02 Complex ovarian cyst N83.299
[2024-10-29 10:33] VITALS: BP 132/70; BMI 52.7
== END 2024-10-29 11:11 | disposition home or self-care (01) ==
LOC: HO.HWS 10:21
PROVIDERS: PCP Internal Medicine; Visit Provider Obstetrics & Gynecology
DX: N85.02 Endometrial intraepithelial neoplasia [EIN] (principal); N83.299 Other ovarian cyst, unspecified side
CPT/HCPCS: 99213

== ENCOUNTER 2024-10-29 10:21 | Outpatient (REF) | payer OTHER, SELFPAY ==
[2024-10-29 12:46] LABS: Carcinoembryonic Antigen < 1.73 ng/mL
[2024-11-01 12:59] LABS: Carbohydrate Antigen 19-9 18 U/mL (<34)
== END 2024-10-29 10:22 | disposition home or self-care (01) ==
LOC: HO.LAB 10:21
PROVIDERS: PCP Internal Medicine; Visit Provider Obstetrics & Gynecology
DX: Z01.818 Encounter for other preprocedural examination (principal); N85.02 Endometrial intraepithelial neoplasia [EIN]; N83.299 Other ovarian cyst, unspecified side
CPT/HCPCS: 36415; 82378; 86301; 99212

== ENCOUNTER 2024-10-30 12:56 | Outpatient (AMB) | payer OTHER, SELFPAY ==
[2024-10-30 13:07] VITALS: BMI 52.5
--- NOTE | 2024-10-30 13:07 | A.OFFVIS_ITS ---
VS Expanded 10/30/24 13:07 10/30/24 14:06 Height 5 ft 5 in 5 ft 5 in Weight 315 lb 4.176 oz 315 lb BMI 52.5 52.4 Intake Visit Reasons: Obesity Allergies abatacept [From Orencia] Adverse Reaction (Severe, Verified 10/29/24 10:24) Palpitations tocilizumab [From Actemra] Adverse Reaction (Intermediate, Verified 10/29/24 10:24) Transaminitis doxycycline Adverse Reaction (Mild, Verified 10/29/24 10:24) Palpitations Nutrition Presentation Details: Pt presents for MNT f/u for T2DM Pt continues to complain of constipation , 3 days without having bowel movements and having to push /painful when passing bowels. Message was sent to PCP as this may be a side effect related to ozempic Pt reports she is increasing in fiber intake, having fruits 2-3 /day , having tried prune juice and fiber supplements and increasing in water 30-32 oz without improvement. Noted most recent A1c at 5.9% on 09/2024 on ozempic 1 mg/wk Pt is not followed by brush or broom cutter. Message regarding constipation was sent to PCP as this may be a side effect related to ozempic wt on 02/2024 at 327lbs, today 10/2024 at 315 lbs Pt reports working on reducing portion sizes. BS Monitoring Most Recent Diabetes Results: No Data to Display VZO-Hmzhuco-Pn.Jeor Equation Height: 5 ft 5 in Weight: 315 lb Resting Metabolic Rate: 2062.10 Calculated Activity Level: Sedentary Calories Needed to Maintain Weight: 2474.52 [facility] Medical History Rheumatoid arthritis SVT (supraventricular tachycardia) Osteoarthritis of knees, bilateral LARRY (generalized anxiety disorder) Hypovitaminosis D Pure hypercholesterolemia Morbid obesity due to excess calories Iron deficiency anemia Anxiety Super obese Vertigo Morbid obesity Seronegative rheumatoid arthritis Thrombophlebitis Fibromyalgia MAXIMINO (obstructive sleep apnea) Hypertension Diabetes Surgical History History of tubal ligation History of History of hip surgery Family History Father Prostate cancer Mother Uterine cancer Social History Housing: Apartment Alcohol intake: never Patient Tobacco Use Status: Never used Tobacco e-Cigarette/Vaping Use: Never Used Second Hand Smoke Exposure: No service: No Current occupational status: disabled 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 Cognitive needs: Yes Hearing needs: No Vision needs: No Female Reproductive History Menstrual Age of Menarche: 16 Assessment & Plan Assessment & Plan (1) Type 2 diabetes mellitus, without long-term current use of insulin: Code(s): E11.9 - Type 2 diabetes mellitus without complications Category: Medical Plan: Wt: 149 Kg ( 02/2024 ), 143 kg (07/19), 142 kg (09/16), 143 kg (11/16) Est kcal needs as per MSJ: 2500 (40% carb, 30% protein/fat) Est fluid needs as per 30 ml/d: 4260 Est prot per day as per 1 g/kg bw: 142 Recommend fiber intake : 8-10 g per day and gradually increase to 25-28 g per day for women and 35-38 g for men or as tolerated Recommend sodium intake per day : less than 2300 mg Educated patient on: ( R = reviewed V = verbalizes understanding N/R = needs review N/A = not applicable * Food sources of carbohydrate, adequate serving sizes and its role in various health conditions: R * Differences between complex carbohydrates a simple carbohydrates, role of fiber in diet: R * Lean protein sources of foods: R * Differences between types of fats and role in diet (mono on saturated fat fatty acids, saturated fatty acids, trans fats): R * Food sources of sodium in salt and healthy modifications for heart health in kidney health: R * Vitamins and minerals via foods: R * Healthy plate method concept: R * Physical activity: Benefits a precaution: R V N/R * Hypoglycemia protocol (rule of 15): R V N/R * Dietary prevention of Hyperglycemia: R * increasing water/fluid intake related to constipation: R Medications: Discontinued semaglutide (Ozempic) Discontinued Reason: Patient Completed Course 1 mg (0.75 mL) subcut QWEEK 4 weeks 3 mL 0RF Patient Instructions: Continue working on reducing amount of fat in the diet, fried foods/removing skins, amount of butter, oils added ot the foods, be cautious with hidden fats continue increasing fluids, choosing low sugar fluids 12-17 c/d Practice mindful eating Coding Level of Care Code Nutr Indiv Subseq (75666) Diagnoses Type 2 diabetes mellitus, without long-term current use of insulin E11.9 Time Spent (min) 20
[2024-11-03 20:52] VITALS: BMI 52.4
== END 2024-10-30 13:36 | disposition home or self-care (01) ==
LOC: HO.ENCR 12:57
PROVIDERS: PCP Internal Medicine; Visit Provider Dietitian, Registered
DX: E11.9 Type 2 diabetes mellitus without complications (principal)

== ENCOUNTER → 2024-10-30 12:56 | Outpatient (BNVA) | payer OTHER, SELFPAY | PROVIDERS: PCP Internal Medicine; Visit Provider Dietitian, Registered | DX: E11.9 Type 2 diabetes mellitus without complications (principal) | CPT/HCPCS: 97803 ==

== ENCOUNTER 2024-11-07 12:17 | Outpatient (REF) | payer OTHER, SELFPAY ==
[2024-11-07 12:31] LABS: MANUAL DIFF FLAG NO
[2024-11-07 13:16] LABS: Basophils Percent Auto 0.5 % (0-2); Eosinophils Absolute Auto 0.2 X10*3/uL (0.0-0.4); Eosinophils Percent Auto 2.6 % (0-4); Hematocrit 36.1 % (37.0-47.0); Hemoglobin 11.2 g/dl (12.0-16.0); Imm Gran Abs Auto 0.01 X10*3/uL (0.00-0.03); Imm Gran Pct Auto 0.1 % (0.0-0.4); Lymphocytes Absolute Auto 2.4 X10*3/uL (1.2-4.9); Lymphocytes Percent Auto 32.4 % (20-40); Mean Corpuscular Volume 74.3 fL (80.0-98.0); Mean Platelet Volume 9.4 fL (9.4-12.3); Monocytes Absolute Auto 0.6 X10*3/uL (0.1-1.2); Monocytes Percent Auto 7.9 % (2-11); Neutrophils Absolute Auto 4.1 x10*3/uL (2.0-8.3); Neutrophils Percent Auto 56.5 % (45-73); Platelet Count 322 X10*3/uL (160-400); Red Blood Count 4.86 X10*6/uL (4.20-5.50); Red Cell Distribution Width 16.1 % (11.0-16.0); White Blood Count 7.3 X10*3/uL (4.8-10.8)
[2024-11-07 13:56] LABS: Alanine Aminotransferase 13 U/L (0-31); Alkaline Phosphatase 90 U/L (39-117); Anion Gap 12 (12-20); Aspartate Amino Transferase 17 U/L (5-31); Bilirubin Total 0.2 mg/dL (0.0-1.0); Blood Urea Nitrogen 14 mg/dL (9-16); C Reactive Protein 1.99 mg/dL (< or = 0.50); Calcium 9.6 mg/dL (8.4-10.2); Carbon Dioxide 26 mmol/L (22-29); Chloride 105 mmol/L (96-108); Estimated Glomerular Filt Rate > 60; Glucose Random 114 mg/dL (60-115); Potassium 4.5 mmol/L (3.3-5.1); Sodium 138 mmol/L (135-145); Total Protein 8.4 g/dL (6.5-8.0)
[2024-11-07 13:57] LABS: Appearance Urine Hazy; Color Urine Yellow; Glucose Urine UA Negative (Negative); Leukocyte Esterase Urine Moderate (2+) (Negative); Nitrite Urine Positive (Negative); Specific Gravity - Urine >= 1.030 (1.005-1.025); UMIC TRIGGER UA YES; Urine Blood Large (3+) (Negative); Urine Ketones Negative (Negative); Urine Protein 30 (1+) mg/dL (Neg-Trace)
[2024-11-07 14:06] LABS: Bacteria Urine 4+ (None Seen); Hyaline Casts Urine 0-2 /LPF (0-2)
[2024-11-07 14:13] LABS: Erythrocyte Sedimentation Rate 38 MM/HR (0-20)
[2024-11-08 07:35] LABS: Hepatitis A Antibody IgM 0.19 Index (0-0.79); ~Hepatitis A Antibody IgM Nonreactive (Nonreactive)
[2024-11-08 08:05] LABS: HBS Num1 0.82 mIU/mL (0-7.99); Hepatitis B Core Antibody Nonreactive (Nonreactive); Hepatitis B Surface Antigen Negative (Negative); ~HepC Num1 0.12 S/CO (0.00-0.79); ~Hepatitis B Surface Antibody NONREACTIVE (Nonreactive); ~Hepatitis C Antibody Nonreactive (Nonreactive)
== END 2024-11-07 12:18 | disposition home or self-care (01) ==
LOC: HO.LAB 12:17
PROVIDERS: Student in an Organized Health Care Education/Training Program; PCP Internal Medicine; Visit Provider Nurse Practitioner Family
DX: M06.00 Rheumatoid arthritis without rheumatoid factor, unspecified site (principal); N39.0 Urinary tract infection, site not specified
CPT/HCPCS: 36415; 80053; 81001; 85025; 85652; 86140; 86704; 86706; 86709; 86803; 87086; 87340

== ENCOUNTER 2024-11-13 14:40 | Outpatient (AMB) | payer OTHER, SELFPAY ==
--- NOTE | 2024-11-13 14:41 | A.OFFVIS_ITS ---
Vital Signs 11/13/24 14:42 Height 5 ft 5 in Weight 315 lb 4.176 oz BMI 52.5 BP 124/60 Blood Pressure Location Lt brachial Position Sitting Pulse 98 Pulse Source Pulse Oximeter Pulse Oximetry (%) 98 Oxygen Delivery Method Room Air Intake Visit Reasons: productive cough, wheeze Allergies abatacept [From Orencia] Adverse Reaction (Severe, Verified 11/13/24 14:45) Palpitations tocilizumab [From Actemra] Adverse Reaction (Intermediate, Verified 11/13/24 14:45) Transaminitis doxycycline Adverse Reaction (Mild, Verified 11/13/24 14:45) Palpitations HPI HPI productive cough, wheeze: Details: 49-year-old lady with underlying morbid obesity followed for severe obstructive sleep apnea and restrictive lung disease.? She has been using her CPAP with good control of her symptoms, until recently as her machine is no longer functioning well. Her machine is over 5 years old and her last sleep study has been over 5 years also. Patient is interested in continuation of her CPAP therapy. Today she complains of acute bronchitic symptoms. She was started on amoxicillin this morning by her primary care provider. She continues on Enbrel for underlying rheumatoid arthritis. [facility] Medical History Rheumatoid arthritis SVT (supraventricular tachycardia) Osteoarthritis of knees, bilateral LARRY (generalized anxiety disorder) Hypovitaminosis D Pure hypercholesterolemia Morbid obesity due to excess calories Iron deficiency anemia Anxiety Super obese Vertigo Morbid obesity Seronegative rheumatoid arthritis Thrombophlebitis Fibromyalgia MAXIMINO (obstructive sleep apnea) Hypertension Diabetes Surgical History History of tubal ligation History of History of hip surgery Family History Father Prostate cancer Mother Uterine cancer Social History Housing: Apartment Alcohol intake: never Patient Tobacco Use Status: Never used Tobacco e-Cigarette/Vaping Use: Never Used Second Hand Smoke Exposure: No service: No Current occupational status: disabled 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 Cognitive needs: Yes Hearing needs: No Vision needs: No Female Reproductive History Menstrual Age of Menarche: 16 Review of Systems Const Denies chills, Denies fatigue, Denies fever(s), Denies weight gain and Denies weight loss Eyes Denies blurry vision and Denies itchy eyes ENT Denies dizziness Card Denies chest pain, Denies leg edema, Denies lightheadedness, Denies palpitations, Denies dyspnea on exertion, Denies orthopnea and Denies other Resp Reports cough, Denies dyspnea on exertion and Denies wheezing GI Denies hematochezia and Denies change in stool character Musc Denies abnormal gait, Denies muscle weakness, Denies numbness, Denies radiating pain into limb and Denies tingling Skin/Breast Denies rash Neuro Denies abnormal gait, Denies dizziness, Denies memory loss, Denies numbness and Denies tingling Psych Denies abnormal sleep pattern, Denies anxiety and Denies memory loss Endo Denies fatigue and Denies palpitations Boni/Lymph Denies easy bruising Aller/Immun Denies itchy eyes, Denies seasonal rhinorrhea and Denies wheezing Physical Exam Vital Signs: Last Vital Signs Pulse 98 11/13/24 14:42 BP 124/60 11/13/24 14:42 Pulse Ox 98 11/13/24 14:42 Oxygen Delivery Method Room Air 11/13/24 14:42 BMI result Body Mass Index 52.5 Const General: no acute distress and alert Nutritional Appearance: obese Orientation/consciousness: Other orientation findings ( oriented) HEENT Head: Yes atraumatic Eyes General: appearance normal, both eyes and all related structures Sclerae: sclerae normal EOM: EOMs intact bilaterally Neck Neck: Yes supple Lymphatic: no lymphadenopathy noted Resp Effort & Inspection: normal respiratory effort and no use of accessory muscles Auscultation: clear to auscultation bilaterally Cardio Rate: regular rate Rhythm: regular rhythm Heart sounds: no gallops, no murmurs and no rubs Skin General skin exam: other ( warm) Extrem General: No clubbing, No cyanosis and No edema Assessment & Plan Assessment & Plan (1) MAXIMINO (obstructive sleep apnea): Code(s): G47.33 - Obstructive sleep apnea (adult) (pediatric) Category: Medical Plan: Controlled on current CPAP therapy. Continue CPAP therapy. (2) Bronchitis: Code(s): J40 - Bronchitis, not specified as acute or chronic Category: Medical Plan: Bronchitic symptoms, patient has been started on amoxicillin by her primary care provider. Expect to improve with an several days. (3) Restrictive lung disease: Code(s): J98.4 - Other disorders of lung Category: Medical Plan: Secondary to underlying rheumatoid arthritis and obesity. 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 Coding Level of Care Code Est Pt Level 4 (17893) Complex EM visit Add On G2211 Diagnoses MAXIMINO (obstructive sleep apnea) G47.33 Bronchitis J40 Restrictive lung disease J98.4
[2024-11-13 14:42] VITALS: BP 124/60; PULSE 98; O2SAT 98; BMI 52.5
== END 2024-11-13 14:58 | disposition home or self-care (01) ==
LOC: HO.HPS 14:41
PROVIDERS: PCP Internal Medicine; Visit Provider Internal Medicine Pulmonary Disease
DX: G47.33 Obstructive sleep apnea (adult) (pediatric) (principal); J40 Bronchitis, not specified as acute or chronic; J98.4 Other disorders of lung
CPT/HCPCS: 99214; G2211

== ENCOUNTER → 2024-11-13 14:40 | Outpatient (BNVA) | payer OTHER, SELFPAY | PROVIDERS: PCP Internal Medicine; Visit Provider Internal Medicine Pulmonary Disease | DX: J40 Bronchitis, not specified as acute or chronic (principal); J98.4 Other disorders of lung; G47.33 Obstructive sleep apnea (adult) (pediatric); E66.01 Morbid (severe) obesity due to excess calories; Z99.89 Dependence on other enabling machines and devices; Z68.43 Body mass index [BMI] 50.0-59.9, adult | CPT/HCPCS: 99212 ==

== ENCOUNTER → 2024-11-24 13:57 | Outpatient (REF) | payer OTHER, SELFPAY | LOC: HO.SL 13:57 | PROVIDERS: PCP Internal Medicine; Visit Provider Internal Medicine Pulmonary Disease | DX: G47.33 Obstructive sleep apnea (adult) (pediatric) (principal); Z99.89 Dependence on other enabling machines and devices | CPT/HCPCS: 95806 ==

== ENCOUNTER → 2024-11-24 14:08 | Outpatient (BNV) | payer OTHER, SELFPAY | PROVIDERS: PCP Internal Medicine; Visit Provider Internal Medicine | DX: G47.33 Obstructive sleep apnea (adult) (pediatric) (principal) | CPT/HCPCS: 95806 ==

== ENCOUNTER 2024-11-26 13:23 | Outpatient (AMB) | payer OTHER, SELFPAY ==
[2024-11-26 13:34] VITALS: BP 122/74; PULSE 79; O2SAT 97; BMI 53.3
--- NOTE | 2024-11-26 13:34 | MHC.OFFVIS ---
Vital Signs 11/26/24 13:34 Height 5 ft 5 in Weight 320 lb 5.306 oz BMI 53.3 BP 122/74 Blood Pressure Location Lt brachial Position Sitting Pulse 79 Pulse Source Pulse Oximeter Pulse Oximetry (%) 97 Oxygen Delivery Method Room Air Intake Visit Reasons: RA Intake Note: Patient presents for follow up on RA and labs. Sodium Methylate Operator Required: Yes Sodium Methylate Operator Services: Sodium Methylate Operator Present Sodium Methylate Operator Name: Kateryna moe Accompanied by: Son Allergies abatacept [From Orencia] Adverse Reaction (Severe, Verified 11/26/24 13:42) Palpitations tocilizumab [From Actemra] Adverse Reaction (Intermediate, Verified 11/26/24 13:42) Transaminitis doxycycline Adverse Reaction (Mild, Verified 11/26/24 13:42) Palpitations HPI Comments Details: Patient is a 49-year-old female with hyperlipidemia, diabetes, hypertension and seronegative rheumatoid arthritis here today for follow up Interval History: Patient last seen 08/27/2024 with me. She had started Enbrel 2 months prior but had not noticed any improvement in her joints and continued to complain of joint pain and prolonged morning stiffness. She had only been on the Enbrel for a few months we decided to continue the Enbrel and monitor for response Today, Patient's arthritis is better on the ENbrel However continues to complain of widespread pain Rheumatologic History: Seronegative rheumatoid arthritis Seronegative dx 03/2019 in [place]: 08/2019- 08/2021 dyspnea Prednisone Humira: September 2021- 12/2022 incomplete response Actemra 01/2023 partially effective advanced to weekly 03/2023 effective DC 12/2023 d.t transminitis Orencia 01/2024 DC 04/2024 could not be tolerated Simponi Aria infusions Current Rheumatology Medication(s): Enbrel 50mg SC weekly [facility] Medical History Rheumatoid arthritis SVT (supraventricular tachycardia) Osteoarthritis of knees, bilateral LARRY (generalized anxiety disorder) Hypovitaminosis D Pure hypercholesterolemia Morbid obesity due to excess calories Iron deficiency anemia Anxiety Super obese Vertigo Morbid obesity Seronegative rheumatoid arthritis Thrombophlebitis Fibromyalgia MAXIMINO (obstructive sleep apnea) Hypertension Diabetes Surgical History History of tubal ligation History of History of hip surgery Family History Father Prostate cancer Mother Uterine cancer Social History Housing: Apartment Alcohol intake: never Patient Tobacco Use Status: Never used Tobacco e-Cigarette/Vaping Use: Never Used Second Hand Smoke Exposure: No service: No Current occupational status: disabled 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 Cognitive needs: Yes Hearing needs: No Vision needs: No Female Reproductive History Menstrual Age of Menarche: 16 Review of Systems Const Details: Review of Systems Constitutional: Denies fever, chills, weight loss ENT: Denies vision changes, eye pain or eye redness, dental caries, dry mouth GI: Denies nausea, vomiting, diarrhea, abdominal pain, change in BM Pulm: Denies SOB, BOTELLO, hemoptysis, wheezing Cards: Denies chest pain, palpitations Skin: Denies Raynaud's, rash, nail changes, photosensitivity, ENGRAVER [employer]: Denies headaches, weakness, paresthesias, recurrent falls MSK: as per HPI All other systems reviewed and are unremarkable except noted above Physical Exam Vital Signs: Last Vital Signs Pulse 79 11/26/24 13:34 BP 122/74 11/26/24 13:34 Pulse Ox 97 11/26/24 13:34 Oxygen Delivery Method Room Air 11/26/24 13:34 BMI result Body Mass Index 53.3 Vital signs reviewed Physical Examination CONSTITUITIONAL Patient alert and cooperative. Well appearing and in no apparent painful distress HEENT Conjunctiva and sclera clear. ?Pupils equal round and reactive to light. ?No lymphadenopathy. ? CHEST/RESPIRATORY SYSTEM Normal respiratory effort and able to speak in complete sentences. ?Clear to auscultation bilaterally. ?No crackles, rales, rhonchi, wheezes heard. CARDIAC SYSTEM Regular rate and rhythm. ?S1 and S2 heard no murmurs. ?Radial pulses intact bilaterally MSK Hands: ?Good search consultant strength bilaterally. No deformities noted. No tenderness to palpation of the MCPs or PIPs bilaterally. Wrists: ?Full range of motion at the wrists without pain. ?No tenderness to palpation or synovitis noted to the wrists. Elbows: Full range of motion without pain. Tenderness to palpation of the lateral epicondyle of the left hand with pain location exacerbated by resisted wrist extension. Shoulders: Full active range of motion bilaterally. Does note extreme of range with mild pain to left shoulder. Knees: ?Decreased range of motion bilaterally due to patient's body habitus. Tenderness to palpation of bilateral pes anserinus bursa. Ankles: Full range of motion. ?No tenderness, swelling, increased warmth or erythema.? Feet: ?Negative squeeze test. ?No tenderness to palpation or swelling of the MTPs. Tender points: Tenderness to palpation of the bilateral trapezius, supraspinatus, anterior costochondral junctions, bilateral gluteal areas, bilateral suboccipital muscle insertions SKIN Skin intact without rashes. Results Reviewed Results Reviewed: Laboratory Tests 05/31/24 11/07/24 09:09 12:30 WBC 7.3 RBC 4.86 Hgb 11.2 L Hct 36.1 L Plt Count 322 ESR 38 H Sodium 138 Potassium 4.5 D Chloride 105 Carbon Dioxide 26 BUN 14 Creatinine 0.61 C-Reactive Protein 2.12 H 1.99 H Total Protein 8.4 H Albumin 4.0 Laboratory Tests 01/29/20 08:10 Rheumatoid Factor < 15.0 Cycl Citrul Peptide IgG <16 SOLIS Screen Negative Laboratory Tests 03/21/23 06/02/24 08:01 11:01 Hepatitis A IgM Ab Nonreactive Hep Bs Antigen Negative Hep Bs Antibody NONREACTIVE Hep B Core Total Ab Nonreactive Hepatitis C Ab (EIA) Nonreactive TB Test (T-Spot) Com Negative Assessment & Plan Assessment & Plan (1) Seronegative rheumatoid arthritis: Comment: Seronegative dx 03/2019 in [place]: 08/2019- 08/2021 dyspnea Prednisone Humira: September 2021- 12/2022 incomplete response Actemra 01/2023 partially effective advanced to weekly 03/2023 effective DC 12/2023 d.t transminitis Orencia 01/2024 DC 04/2024 could not be tolerated Simponi Aria infusion denied by insurance Enbrel started 06/2024 Code(s): M06.00 - Rheumatoid arthritis without rheumatoid factor, unspecified site Category: Medical Plan: #Seronegative RA Patient is a 49-year-old female with seronegative rheumatoid arthritis here today for follow up. Currently on Enbrel injections weekly. No evidence of synovitis on examination today. Her pain is likely from her underlying fibromyalgia. Had a long discussion with patient and son about the nonpharmacologic management to fibromyalgia including exercise and stretching. She has a surgery coming up in 2 weeks for a precancerous lesion in her uterus and she will be holding her Enbrel during this time. I discussed that after the procedure she is to formulate an exercise plan. Plan - Continue Enbrel 50mg SC - RTC 4 months - Labs before visit: CBC, CMP, ESR, CRP (2) Fibromyalgia: Code(s): M79.7 - Fibromyalgia Category: Medical Plan: #Fibromyalgia Patient definitely has uncontrolled fibromyalgia. She is already on gabapentin who is still really. I discussed doing exercises to assist with her pain management. 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 Plan: #Long-term Use of TNF Inhibitors: Etanercept Discussed with the patient the benefits and risks of TNF inhibitors for the management of the rheumatic condition Benefits include reduce pain, maintenance of remission and reduction of flares as well as ?progression of the disease Risks include injection sites/infusion reactions, serious infections (such as bacterial infections, opportunistic infections), malignancy, delaminating syndromes, autoimmune phenomena, CHF exacerbations, palmar plantar psoriasis and cytopenias Recommended rotating injection sites, and holding medication during and for up to 1 week after resolution of a febrile illness or open skin wound Plan I spent 35 minutes reviewing the record and labs, taking a history, examining the patient, discussing the treatment plan and documenting in the medical record Coding Level of Care Code Est Pt Level 4 (21087) Complex EM visit Add On G2211 Diagnoses Seronegative rheumatoid arthritis M06.00 Fibromyalgia M79.7 Encounter for monitoring of etanercept therapy Z51.81; Z79.620
== END 2024-11-26 14:16 | disposition home or self-care (01) ==
PROVIDERS: PCP Internal Medicine; Visit Provider Student in an Organized Health Care Education/Training Program
DX: M06.00 Rheumatoid arthritis without rheumatoid factor, unspecified site (principal); M79.7 Fibromyalgia; Z51.81 Encounter for therapeutic drug level monitoring; Z79.620 Long term (current) use of immunosuppressive biologic
CPT/HCPCS: 99214; G2211

== ENCOUNTER → 2024-11-26 13:23 | Outpatient (BNVA) | payer OTHER, SELFPAY | PROVIDERS: PCP Internal Medicine; Visit Provider Student in an Organized Health Care Education/Training Program | DX: M06.00 Rheumatoid arthritis without rheumatoid factor, unspecified site (principal); M79.7 Fibromyalgia; Z51.81 Encounter for therapeutic drug level monitoring; Z79.620 Long term (current) use of immunosuppressive biologic | CPT/HCPCS: 99212 ==

== ENCOUNTER 2024-12-24 13:28 | Outpatient (REF) | payer OTHER, SELFPAY | END 2024-12-24 13:29 | disposition home or self-care (01) | LOC: HO.LAB 13:28 | PROVIDERS: PCP Internal Medicine; Visit Provider Nurse Practitioner Family | DX: N39.0 Urinary tract infection, site not specified (principal); R31.29 Other microscopic hematuria; N39.46 Mixed incontinence; R30.0 Dysuria; R35.0 Frequency of micturition; Z13.9 Encounter for screening, unspecified | CPT/HCPCS: 51798; 81003; 87086; 87088; 87186; 99212 ==

== ENCOUNTER 2024-12-24 13:28 | Outpatient (AMB) | payer OTHER, SELFPAY ==
--- NOTE | 2024-12-24 13:32 | MHC.OFFVIS ---
Intake Visit Reasons: 3m/PVR Intake Note: Patient presents for follow up on: Frequent UTI and Incontinence Urology Medications: Solifenacin (not currently taking due to surgery) Blood Thinner: Aspirin ALLERGIES: DOXYCYCLINE PVR: 44ml's Silk Presser Required: Yes Silk Presser Services: Silk Presser Present Silk Presser Name: michele [id number] Accompanied by: Son Allergies abatacept (From Orencia) Adverse Reaction (Severe, Verified 12/24/24 14:19) Palpitations tocilizumab (From Actemra) Adverse Reaction (Intermediate, Verified 12/24/24 14:19) Transaminitis doxycycline Adverse Reaction (Mild, Verified 12/24/24 14:19) Palpitations Medication List - Last Reconciled 12/24/24 by JAZMIN Castro acetaminophen (Tylenol Extra Strength) 500 mg PO BID PRN albuterol sulfate 90 mcg/actuation 2 puffs inhalation 6XD PRN alprazolam 1 mg (2 x 0.5 mg) PO DAILY 1 day aspirin 81 mg PO DAILY 30 days atorvastatin 20 mg PO BEDTIME 90 days blood pressure monitor As directed blood sugar diagnostic (FreeStyle Lite Strips) Use 1 test strip once a day blood-glucose meter (FreeStyle Lite Meter kit) As directed cane As directed cholecalciferol (vitamin D3) (Vitamin D3) 25 mcg PO DAILY 90 days [cock up splint wear on each wrist at night. ] diclofenac sodium 1% 4 grams topical QID diltiazem HCl CD 240 mg PO DAILY docusate calcium 240 mg PO BEDTIME 90 days dulaglutide (Trulicity) 0.75 mg (0.5 mL) subcut QWEEK 4 weeks Enbrel SureClick (etanercept) 50 mg subcut QWEEK NS ferrous sulfate 325 mg PO .once a day 90 days fluticasone propionate 50 mcg/actuation (Flonase Allergy Relief) 1 spray intranasal DAILY 30 days folic acid 1 mg PO DAILY [grab bars As directed] hydrochlorothiazide 12.5 mg PO QAM 90 days lancets (FreeStyle Lancets) Use 1 lancet once a day losartan 100 mg PO DAILY 90 days meclizine 25 mg PO TID PRN 30 days Shower Chair As directed solifenacin (Vesicare) 5 mg PO DAILY 90 days tirzepatide (Mounjaro) 2.5 mg (0.5 mL) subcut QWEEK 4 weeks walker heavy duty rollator [wheelchair heavy duty As directed] zolpidem 10 mg PO BEDTIME PRN 30 days HPI Comments Details: Sol is a 49-year-old Congolese-speaking female patient of Dr. Madrid who was accompanied by her child at today's office visit. She has a past medical history of anxiety, diabetes, fibromyalgia, anxiety, hypertension, iron deficiency anemia, morbid obesity, obstructive sleep apnea, hypercholesteremia, rheumatoid arthritis and vertigo. She presents to the office today for a follow up of her lower urinary tract symptoms and recent urinary tract infection. 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 She reports having stopped VESIcare as recommended by surgical provider and has noted increased episodes of lower urinary tract symptoms. She also reports noting intermittent episodes of dysuria. In office urinalysis results reviewed with the patient today 1+ leukocytes 3+ microscopic hematuria otherwise within normal limits. In review of patient's chart it appears urine cultures are as follows: 09/13 E coli, 09/13 E coli, 01/14 group B & E coli, 03/17 E coli, 06/16 Klebsiella ozaenae, 12/16 Klebsiella pneumoniae, 12/16 Klebsiella pneumoniae, 06/17 Klebsiella pneumoniae, 09/16 E coli Previous workup has included an office cystoscopy with Dr. Gunnar Camilo 12/16 noting mild erythematous changes consistent with cystitis no suspicious bladder lesions visualized changes consistent with cystitis. CT of the abdomen and pelvis 09/16 no definite urine calculus or obstructive uropathy. The bladder is partially distended. The cystic structure thought to possibly reflect left adnexa on the ultrasound in fact relates to a large cystic lesion within the cervix.Suspect large nabothian cyst. We did discussed potential causes of lower urinary tract symptoms patient is experiencing. She does report ongoing issues with abnormal bleeding and constipation. She denies gross/visible hematuria, foul smelling urine, changes to urinary stream, flank pain, fever, and or chills. She is happy with her current voiding parameters. She otherwise offers no other issues or concerns at this time. 11/15 Urine: Negative for high-grade urothelial carcinoma. [facility] Medical History Rheumatoid arthritis SVT (supraventricular tachycardia) Osteoarthritis of knees, bilateral LARRY (generalized anxiety disorder) Hypovitaminosis D Pure hypercholesterolemia Morbid obesity due to excess calories Iron deficiency anemia Anxiety Super obese Vertigo Morbid obesity Seronegative rheumatoid arthritis Thrombophlebitis Fibromyalgia MAXIMINO (obstructive sleep apnea) Hypertension Diabetes Surgical History History of tubal ligation History of History of hip surgery Family History Father Prostate cancer Mother Uterine cancer Social History Housing: Apartment Alcohol intake: never Patient Tobacco Use Status: Never used Tobacco e-Cigarette/Vaping Use: Never Used Second Hand Smoke Exposure: No service: No Current occupational status: disabled 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 Cognitive needs: Yes Hearing needs: No Vision needs: No Female Reproductive History Menstrual Age of Menarche: 16 Review of Systems Const Reports as per HPI Eyes Reports no additional complaints ENT Reports no additional complaints Card Reports as per HPI Resp Reports as per HPI GI Reports no additional complaints Reports as per HPI Musc Reports as per HPI Neuro Reports as per HPI Psych Reports as per HPI Endo Reports as per HPI Physical Exam Const General: cooperative, healthy appearing, comfortable, no acute distress, well developed, alert and awake Nutritional Appearance: obese Orientation/consciousness: patient oriented x3 Limitations: ambulation with cane HEENT Head: Yes normal to inspection, Yes normocephalic and Yes atraumatic Ears: hearing grossly normal bilaterally Eyes General: appearance normal, both eyes and all related structures Neck Neck: Yes normal visual inspection and Yes trachea midline Chest Chest palpation & inspection: normal inspection of the chest Resp Effort & Inspection: normal respiratory effort and able to speak in complete sentences Cardio Rate: regular rate GI Inspection: Yes normal to inspection General: Yes no CVA tenderness Back/Spine/Pelvis Back: no CVA tenderness Skin General skin exam: no rashes or lesions noted Neuro General: patient oriented x3 Extrem General: Yes normal to inspection Psych Appearance: grossly normal and well kempt Mental Status: mental status grossly normal Speech and movement: Normal speech and movement present and Clear speech present Affect: normal affect Attitude: cooperative Thought process: Normal thought process present Thought content: Normal thought content present Insight: Fair insight present (Psych) Judgement: Fair judgement present (Psych) Office Procedures Post Void Residual Post Residual Void Post Void Residual (PVR): 44 [id number] Void Residual by ultrasound Results AMB Urinalysis, Automated UA Leukoctes 70 Mauro/uL Last Edit by Heaven Ware, [facility] on 12/24/24 14:02 UA Nitrite Last Edit by Kalenalbina Marcano, [facility] on 12/24/24 14:02 UA Urobilinogen 0.2 mg/dL Last Edit by [facility], [facility] on 12/24/24 14:02 UA Protein 30 mg/dL Last Edit by [facility], [facility] on 12/24/24 14:02 UA pH 6.0 Last Edit by [facility], [facility] on 12/24/24 14:02 UA Blood 200 Robert/uL Last Edit by [facility], [facility] on 12/24/24 14:02 UA Specific [place] 1.030 Last Edit by [facility], [facility] on 12/24/24 14:02 UA Ketone Last Edit by [facility], [facility] on 12/24/24 14:02 UA Bilirubin 1 mg/dL Last Edit by [facility], [facility] on 12/24/24 14:02 UA Glucose 0 mg/dL Last Edit by [facility], [facility] on 12/24/24 14:02 Results Reviewed Results Reviewed: Laboratory Last Values Urine pH (Auto) 6.0 12/24/24 13:42 Specific [place] (Auto) 1.030 12/24/24 13:42 Urine Protein (Auto) 30 mg/dL 12/24/24 13:42 Glucose (UA)(Auto) 0 mg/dL 12/24/24 13:42 Urine Blood (Auto) 200 Robert/uL 12/24/24 13:42 Urine Bilirubin (Auto) 1 mg/dL 12/24/24 13:42 Urine Urobilinogen (Auto) 0.2 mg/dL 12/24/24 13:42 Leukocyte Esterase (Auto) 70 Mauro/uL 12/24/24 13:42 Assessment & Plan Assessment & Plan (1) Microhematuria: Code(s): R31.29 - Other microscopic hematuria Category: Medical (2) Dysuria: Code(s): R30.0 - Dysuria Category: Medical (3) Urinary frequency: Code(s): R35.0 - Frequency of micturition Category: Medical (4) Mixed incontinence urge and stress: Code(s): N39.46 - Mixed incontinence Category: Medical (5) Frequent UTI: Code(s): N39.0 - Urinary tract infection, site not specified Category: Medical (6) Cystitis: Code(s): N30.90 - Cystitis, unspecified without hematuria Category: Medical Plan In office urinalysis results with the patient today; as noted above will send for urine culture; will await results for potential treatment PVR 44 mL. Restart/ Continue VESIcare as discussed and prescribed; refill provided Discussed UTI prevention with D mannose supplement, vitamin-C, increasing fluid intake, behavioral therapy with timed voiding, perineal hygiene and postcoital voiding, and management of constipation with stool softeners and increased fiber intake. We discussed potential causes of lower urinary tract symptoms in relation to history of recurrent urinary tract infections as well as cystitis. We discussed bladder triggers and irritants. We did discuss further treatment options with for benefits of these treatment options Will continue with surveillance monitoring per patient request Follow-up in 3-6 months with PVR; or sooner with any issues, concerns, and or questions. Orders: Orders Urine Cytology Today R31.29 - Other microscopic hematuria AMB Urinalysis Automated Today Z13.9 - Encounter for screening, unspecified AMB Post Void Residual by ultrasound Today N39.46 - Mixed incontinence Urine Culture Today N39.0 - Urinary tract infection, site not specified Medications: Refilled solifenacin (Vesicare) 5 mg PO DAILY 90 tabs 3RF 90 days N39.46 - Mixed incontinence, R35.0 - Frequency of micturition Patient Instructions: The patient had an opportunity to ask questions regarding the treatment plan. All questions were answered. Physical exam, labs, and imaging were discussed and reviewed in detail. As well as risks, benefits, and discussion of treatment choices. No major barriers to understanding were identified. The patient expressed understanding and agreement with the above treatment plan. The patient was made aware they should contact our office by phone for worsening of their current condition, the appearance of new symptoms, or with any questions or concerns. Compliance is encouraged with any medications and follow up testing that is ordered. It is a privilege to be allowed the opportunity to participate in? your urological care.? Again, if you have any questions or concerns If you have any questions or concerns please do not hesitate to contact me. The office is [phone]. This note is constructed using voice recognition software. While every effort has been made to ensure accuracy human resources operations coordinator errors may have been included. Yours sincerely, THEO Castro-ERNIE Coding Level of Care Code Est Pt Level 3 (73220) Complex EM visit Add On G2211 Diagnoses Microhematuria R31.29 Dysuria R30.0 Urinary frequency R35.0 Mixed incontinence urge and stress N39.46 Frequent UTI N39.0 Cystitis N30.90 CPT Codes Post Residual Void - PVR CPT Code: 18296-Geyu Void Residual by ultrasound ([id number])
== END 2024-12-24 14:08 | disposition home or self-care (01) ==
LOC: HO.HUSH 13:29
PROVIDERS: PCP Internal Medicine; Visit Provider Nurse Practitioner Family
DX: R31.29 Other microscopic hematuria (principal); R30.0 Dysuria; R35.0 Frequency of micturition; N39.46 Mixed incontinence; N39.0 Urinary tract infection, site not specified; N30.90 Cystitis, unspecified without hematuria; Z13.9 Encounter for screening, unspecified
CPT/HCPCS: 99213; G2211

== ENCOUNTER 2025-01-06 13:00 | Outpatient (AMB) | payer OTHER, SELFPAY ==
[2025-01-06 13:01] VITALS: BP 112/64; PULSE 93; O2SAT 97; BMI 52.8
--- NOTE | 2025-01-06 13:01 | MHC.OFFVIS ---
Vital Signs 01/06/25 13:01 Height 5 ft 5 in Weight 317 lb 7.45 oz BMI 52.8 BP 112/64 Blood Pressure Location Lt femoral Position Sitting Pulse 93 Pulse Source Pulse Oximeter Pulse Oximetry (%) 97 Oxygen Delivery Method Room Air Intake Visit Reasons: Obstructive sleep apnea Allergies abatacept (From Orencia) Adverse Reaction (Severe, Verified 01/06/25 13:05) Palpitations tocilizumab (From Actemra) Adverse Reaction (Intermediate, Verified 01/06/25 13:05) Transaminitis doxycycline Adverse Reaction (Mild, Verified 01/06/25 13:05) Palpitations HPI HPI Obstructive sleep apnea: Details: 49-year-old lady with underlying morbid obesity followed for severe obstructive sleep apnea and restrictive lung disease.? After the last office visit he has been restarted on CPAP therapy, however she had difficulties adjusting to new mask. Her bronchitic symptoms resolved. [facility] Medical History Rheumatoid arthritis SVT (supraventricular tachycardia) Osteoarthritis of knees, bilateral LARRY (generalized anxiety disorder) Hypovitaminosis D Pure hypercholesterolemia Morbid obesity due to excess calories Iron deficiency anemia Anxiety Super obese Vertigo Morbid obesity Seronegative rheumatoid arthritis Thrombophlebitis Fibromyalgia MAXIMINO (obstructive sleep apnea) Hypertension Diabetes Surgical History History of tubal ligation History of History of hip surgery Family History Father Prostate cancer Mother Uterine cancer Social History Housing: Apartment Alcohol intake: never Patient Tobacco Use Status: Never used Tobacco e-Cigarette/Vaping Use: Never Used Second Hand Smoke Exposure: No service: No Current occupational status: disabled 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 Cognitive needs: Yes Hearing needs: No Vision needs: No Female Reproductive History Menstrual Age of Menarche: 16 Review of Systems Const Denies daytime sleepiness, Denies excessive sweating, Denies fatigue, Denies fever(s), Denies lethargy, Denies malaise, Denies night sweats, Denies snoring and Denies weight loss Eyes Denies blurry vision and Denies itchy eyes ENT Denies nasal congestion, Denies post nasal drip, Denies sinus pain, Denies sinus pressure and Denies other ( Thrush) Card Denies chest pain, Denies pedal edema, Denies dyspnea, Denies orthopnea and Denies paroxysmal nocturnal dyspnea Resp Denies cough, Denies hemoptysis, Denies excessive phlegm production, Denies dyspnea, Denies snoring and Denies wheezing GI Denies abdominal pain and Denies heartburn Musc Denies myalgias, Denies arthralgias and Denies joint swelling Skin/Breast Denies rash Neuro Denies memory loss and Denies seizure-like activity Psych Denies abnormal sleep pattern, Denies anxiety and Denies memory loss Endo Denies excessive sweating, Denies fatigue and Denies heat intolerance Boni/Lymph Denies easy bruising Aller/Immun Denies itchy eyes, Denies seasonal rhinorrhea and Denies wheezing Physical Exam Vital Signs: Last Vital Signs Pulse 93 01/06/25 13:01 BP 112/64 01/06/25 13:01 Pulse Ox 97 01/06/25 13:01 Oxygen Delivery Method Room Air 01/06/25 13:01 BMI result Body Mass Index 52.8 Const General: no acute distress and alert Nutritional Appearance: obese Orientation/consciousness: Other orientation findings ( oriented) HEENT Head: Yes atraumatic Eyes General: appearance normal, both eyes and all related structures Sclerae: sclerae normal EOM: EOMs intact bilaterally Neck Neck: Yes supple Lymphatic: no lymphadenopathy noted Resp Effort & Inspection: normal respiratory effort and no use of accessory muscles Auscultation: clear to auscultation bilaterally Cardio Rate: regular rate Rhythm: regular rhythm Heart sounds: no gallops, no murmurs and no rubs Skin General skin exam: other ( warm) Extrem General: No clubbing, No cyanosis and No edema Assessment & Plan Assessment & Plan (1) MAXIMINO on CPAP: Code(s): G47.33 - Obstructive sleep apnea (adult) (pediatric); Z99.89 - Dependence on other enabling machines and devices Category: Medical Plan: Suboptimal control as patient has difficulties adjusting to new mask. Patient has been advised to be more compliant with her CPAP therapy. (2) Restrictive lung disease: Code(s): J98.4 - Other disorders of lung Category: Medical Plan: Secondary to underlying body habitus. Continue to monitor clinically. Coding Level of Care Code Est Pt Level 4 (64393) Diagnoses MAXIMINO on CPAP G47.33; Z99.89 Restrictive lung disease J98.4
== END 2025-01-06 13:21 | disposition home or self-care (01) ==
LOC: HO.HPS 13:00
PROVIDERS: PCP Internal Medicine; Visit Provider Internal Medicine Pulmonary Disease
DX: G47.33 Obstructive sleep apnea (adult) (pediatric) (principal); Z99.89 Dependence on other enabling machines and devices; J98.4 Other disorders of lung
CPT/HCPCS: 99214

== ENCOUNTER → 2025-01-06 13:00 | Outpatient (BNVA) | payer OTHER, SELFPAY | PROVIDERS: PCP Internal Medicine; Visit Provider Internal Medicine Pulmonary Disease | DX: G47.33 Obstructive sleep apnea (adult) (pediatric) (principal); J98.4 Other disorders of lung | CPT/HCPCS: 99212 ==

== ENCOUNTER 2025-01-27 15:49 | Outpatient (AMB) | payer OTHER, SELFPAY ==
--- NOTE | 2025-01-27 16:02 | A.OFFPC_ITS ---
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 Accompanied by: Son Allergies abatacept (From Orencia) Adverse Reaction (Severe, Verified 01/27/25 16:17) Palpitations tocilizumab (From Actemra) Adverse Reaction (Intermediate, Verified 01/27/25 16:17) Transaminitis doxycycline Adverse Reaction (Mild, Verified 01/27/25 16:17) Palpitations Medication List - Last Reconciled 01/27/25 by Ryann Angel MD acetaminophen (Tylenol Extra Strength) 500 mg PO BID PRN albuterol sulfate 90 mcg/actuation 2 puffs inhalation 6XD PRN alprazolam 1 mg (2 x 0.5 mg) PO DAILY 1 day aspirin 81 mg PO DAILY 30 days atorvastatin 20 mg PO BEDTIME 90 days blood pressure monitor As directed blood sugar diagnostic (FreeStyle Lite Strips) Use 1 test strip once a day blood-glucose meter (FreeStyle Lite Meter kit) As directed cane As directed cholecalciferol (vitamin D3) (Vitamin D3) 25 mcg PO DAILY 90 days [cock up splint wear on each wrist at night. ] diclofenac sodium 1% 4 grams topical QID diltiazem HCl CD 240 mg PO DAILY dulaglutide (Trulicity) 0.75 mg (0.5 mL) subcut QWEEK 4 weeks Enbrel SureClick (etanercept) 50 mg subcut QWEEK NS ferrous sulfate 325 mg PO .once a day 90 days fluticasone propionate 50 mcg/actuation (Flonase Allergy Relief) 1 spray intranasal DAILY 30 days folic acid 1 mg PO DAILY [grab bars As directed] hydrochlorothiazide 12.5 mg PO QAM 90 days lancets (FreeStyle Lancets) Use 1 lancet once a day losartan 100 mg PO DAILY 90 days meclizine 25 mg PO TID PRN 30 days Shower Chair As directed solifenacin (Vesicare) 5 mg PO DAILY 90 days walker heavy duty rollator [wheelchair heavy duty As directed] Tobacco use date assessed: 10/22/24 Dental Screening Dental Screen Date: 10/22/24 HPI HPI Comments History of Present Illness Details The patient is a 50-year-old female presenting for a physical examination. She has a history of endometrial intraepithelial neoplasia, diagnosed following a biopsy. The patient is HPV negative, which was confirmed during her Pap smear. The patient has Type 2 Diabetes Mellitus, with a current A1c of 6.9%. She underwent a diabetic eye exam in July, which showed no diabetic retinopathy. She has a pre-cancerous breast condition and is scheduled for a follow-up biopsy in December. The patient has a history of hypertension and vitamin D deficiency. She is currently on medications including Diltiazem and Trulicity, which she started recently. Her family history is significant for prostate cancer in her father and uterine cancer in her mother. REPLACED BY [facility] Medical History (Updated 01/27/25 @ 16:31 by Ryann Angel MD) Rheumatoid arthritis SVT (supraventricular tachycardia) Osteoarthritis of knees, bilateral LARRY (generalized anxiety disorder) Hypovitaminosis D Pure hypercholesterolemia Morbid obesity due to excess calories Iron deficiency anemia Anxiety Super obese Vertigo Morbid obesity Seronegative rheumatoid arthritis Thrombophlebitis Fibromyalgia MAXIMINO (obstructive sleep apnea) Hypertension Diabetes Surgical History History of tubal ligation History of History of hip surgery Family History Father Prostate cancer Mother Uterine cancer Social History Housing: Apartment Alcohol intake: never Patient Tobacco Use Status: Never used Tobacco e-Cigarette/Vaping Use: Never Used Second Hand Smoke Exposure: No service: No Current occupational status: disabled 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 Cognitive needs: Yes Hearing needs: No Vision needs: No Female Reproductive History Menstrual Age of Menarche: 16 Questionnaire Thrive Questionnaire Date Thrive assessed: 10/22/24 I am a: Parent/Caregiver What is your living situation today?: I have a steady place to live Within the past 12 months, did the food you bought not last and you didn't have the money to get more?: Never true Within the past 12 months, did you worry whether your food would run out before you got money to buy more?: Never true Do you have trouble paying for medicines?: No Do you have trouble getting transportation to medical appointments?: No Do you have trouble paying your heating and electricity bill?: No Do you have trouble taking care of your child, family member or friend?: No Do you have trouble with day-to-day activities such as bathing, preparing meals, shopping, managing finances, etc.?: No Are you currently unemployed and looking for a job?: No Are you interested in more education?: No Please select the resources that you would like help with: None Currently or been in a relationship where the following occur: I choose not to answer THRIVE Score: 0 LARRY-7 AMB Questionnaire LARRY-7 Date LARRY - 7 assessed: 10/22/24 Source: Developed by Drs. Stephen French, Nai Suarez, Jayson Barajas and colleagues, with an educational tiera from [employer]. Review of Systems Const All systems reviewed & are unremarkable except as noted in HPI and below Card Denies chest pain at rest, Denies chest pain with activity, Denies edema, Denies irregular heart rhythm, Denies claudication, Denies dyspnea, Denies dyspnea on exertion, Denies orthopnea, Denies paroxysmal nocturnal dyspnea and Denies slow heart rate Resp Denies cough, Denies dyspnea and Denies dyspnea on exertion Skin/Breast Denies bleeding lesions, Denies changing lesions and Denies rash Neuro Denies lack of coordination Physical exam (Primary Care) Vital Signs: Last Vital Signs BP 128/82 01/27/25 16:07 BMI result Body Mass Index 52.7 BMI Assessment/Plan discussion: High BMI High, discussed plan: lifestyle, weight reduction, dietary and physical activity Tobacco/Smoking Status: Tobacco use Status Tobacco use date assessed 10/22/24 01/27/25 16:03 Patient Tobacco Use Status Never used Tobacco 01/27/25 16:03 e-Cigarette/Vaping Use Never Used 01/27/25 16:03 Thrive Assessment: Date of Thrive Assessment Date Thrive assessed 10/22/24 01/27/25 16:03 Currently or been in a relationship where the following occur: I choose not to answer HENMN Head: Yes normal to inspection, Yes normocephalic and Yes atraumatic Ears: external ears normal Eyes General: appearance normal, both eyes and all related structures Eyelids: Yes eyelids normal Conjunctivae: conjunctivae normal Neck Neck: Yes normal visual inspection and Yes supple Resp Effort & Inspection: normal respiratory effort Auscultation: clear to auscultation bilaterally Cardio Jugular venous distension: no JVD Rate: regular rate Rhythm: regular rhythm Heart sounds: S1 normal heart sound present and S2 normal heart sound present GI Inspection: Yes normal to inspection Palpation (GI): Soft to palpation and nontender Auscultation: normal bowel sounds Skin General skin exam: no rashes or lesions noted Neuro General: no focal motor deficits Extrem General: Yes full ROM Psych Appearance: grossly normal Results AMB Hemoglobin A1c AMB Hemoglobin A1c 6.9 % Last Edit by HEATH Evans on 01/27/25 16:1 3 Results Reviewed Results Reviewed: Laboratory Last Values Hgb A1c (Clinic) 6.9 % (4.0-6.0) H 01/27/25 16:01 Coding Level of Care Code Est Pt Level 3 (79038) Est Pt Prev Care 40-64y(38252) Diagnoses Physical exam Z00.00 Seronegative rheumatoid arthritis M06.00 Morbid obesity with BMI of 50.0-59.9, adult E66.01; Z68.43 Type 2 diabetes mellitus, without long-term current use of insulin E11.9 Left knee pain M25.562 Time Spent (min) 35 Assessment & Plan Assessment & Plan (1) Physical exam: Code(s): Z00.00 - Encounter for general adult medical examination without abnormal findings Category: Medical (2) Seronegative rheumatoid arthritis: Comment: Seronegative dx 03/2019 in [place]: 08/2019- 08/2021 dyspnea Prednisone Humira: September 2021- 12/2022 incomplete response Actemra 01/2023 partially effective advanced to weekly 03/2023 effective DC 12/2023 d.t transminitis Orencia 01/2024 DC 04/2024 could not be tolerated Simponi Aria infusion denied by insurance Enbrel started 06/2024 Code(s): M06.00 - Rheumatoid arthritis without rheumatoid factor, unspecified site Category: Medical (3) Morbid obesity with BMI of 50.0-59.9, adult: Code(s): E66.01 - Morbid (severe) obesity due to excess calories; Z68.43 - Body mass index [BMI] 50.0-59.9, adult Category: Medical (4) Type 2 diabetes mellitus, without long-term current use of insulin: Code(s): E11.9 - Type 2 diabetes mellitus without complications Category: Medical (5) Left knee pain: Code(s): M25.562 - Pain in left knee Category: Medical Plan The patient will continue with regular monitoring of her Type 2 Diabetes Mellitus, with an emphasis on maintaining her A1c levels. She is advised to continue her current medications, including Diltiazem and Trulicity, and to monitor for any side effects. For her endometrial intraepithelial neoplasia, follow-up with a repeat biopsy is scheduled for December to assess progression. The patient is encouraged to maintain regular screenings, including mammograms and Cologuard tests, as part of her preventative care. Given her family history of cancer, the patient is advised to remain vigilant for any new symptoms and to discuss any concerns with her healthcare provider. Patient was informed and verbally consented to the use of an ambient scribe for clinic note documentation during this visit. Orders: Orders AMB Hemoglobin A1c Today E11.9 - Type 2 diabetes mellitus without complications PT Evaluation and Treatment Today M25.562 - Pain in left knee Medications: New dulaglutide (Trulicity) 1.5 mg (0.5 mL) subcut QWEEK 2 mL 0RF 4 weeks E11.9 - Type 2 diabetes mellitus without complications Refilled meclizine 25 mg PO TID PRN 90 tabs 1RF dizziness 30 days Discontinued dulaglutide (Trulicity) Discontinued Reason: Patient Completed Course 0.75 mg (0.5 mL) subcut QWEEK 4 weeks 2 mL 6RF E11.9 - Type 2 diabetes mellitus without complications
[2025-01-27 16:07] VITALS: BP 128/82; BMI 52.7
== END 2025-01-27 16:34 | disposition home or self-care (01) ==
LOC: HO.HMCH 15:49
PROVIDERS: PCP Internal Medicine; Visit Provider Internal Medicine
DX: Z00.00 Encounter for general adult medical examination without abnormal findings (principal); M06.00 Rheumatoid arthritis without rheumatoid factor, unspecified site; E66.01 Morbid (severe) obesity due to excess calories; Z68.43 Body mass index [BMI] 50.0-59.9, adult; E11.9 Type 2 diabetes mellitus without complications; M25.562 Pain in left knee

== ENCOUNTER → 2025-01-27 15:49 | Outpatient (BNVA) | payer OTHER, SELFPAY | PROVIDERS: PCP Internal Medicine; Visit Provider Internal Medicine | DX: M06.00 Rheumatoid arthritis without rheumatoid factor, unspecified site (principal); E66.01 Morbid (severe) obesity due to excess calories; E11.9 Type 2 diabetes mellitus without complications; M25.562 Pain in left knee; Z80.9 Family history of malignant neoplasm, unspecified; Z68.43 Body mass index [BMI] 50.0-59.9, adult | CPT/HCPCS: 83036; 99396 ==

== ENCOUNTER 2025-03-31 09:07 | Outpatient (REF) | payer OTHER, SELFPAY ==
[2025-03-31 09:19] LABS: MANUAL DIFF FLAG NO
[2025-03-31 09:34] LABS: Hematocrit 39.5 % (37.0-47.0); Hemoglobin 11.9 g/dl (12.0-16.0); Imm Gran Abs Auto 0.02 X10*3/uL (0.00-0.03); Imm Gran Pct Auto 0.3 % (0.0-0.4); Lymphocytes Absolute Auto 3.0 X10*3/uL (1.2-4.9); Mean Corpuscular HGB Conc 30.1 g/dl (31.0-35.0); Mean Corpuscular Hemoglobin 23.1 pg (27.0-33.0); Mean Corpuscular Volume 76.6 fL (80.0-98.0); NRBC Abs Auto 0.000 X10*3/uL (0.0-0.012); NRBC Pct Auto 0.0 /100WBC (0.0-0.2); Platelet Count 300 X10*3/uL (160-400); Red Blood Count 5.16 X10*6/uL (4.20-5.50); White Blood Count 6.9 X10*3/uL (4.8-10.8)
[2025-03-31 10:04] LABS: Alanine Aminotransferase 11 U/L (0-31); Albumin Level 4.3 g/dL (3.5-5.0); Alkaline Phosphatase 96 U/L (39-117); Anion Gap 11 (12-20); Aspartate Amino Transferase 15 U/L (5-31); Blood Urea Nitrogen 12 mg/dL (9-16); Calcium 9.1 mg/dL (8.4-10.2); Carbon Dioxide 25 mmol/L (22-29); Chloride 108 mmol/L (96-108); Estimated Glomerular Filt Rate > 60; Potassium 4.1 mmol/L (3.3-5.1); Sodium 140 mmol/L (135-145); Total Protein 8.2 g/dL (6.5-8.0)
== END 2025-03-31 09:08 | disposition home or self-care (01) ==
LOC: HO.LAB 09:07
PROVIDERS: PCP Internal Medicine; Visit Provider Student in an Organized Health Care Education/Training Program
DX: N39.0 Urinary tract infection, site not specified (principal); R35.0 Frequency of micturition; N39.46 Mixed incontinence; Z13.89 Encounter for screening for other disorder; G47.33 Obstructive sleep apnea (adult) (pediatric); Z99.89 Dependence on other enabling machines and devices; J98.4 Other disorders of lung; M06.00 Rheumatoid arthritis without rheumatoid factor, unspecified site
CPT/HCPCS: 36415; 51798; 80053; 81003; 85025; 85652; 86140; 87086; 99212

== ENCOUNTER 2025-03-31 13:24 | Outpatient (AMB) | payer OTHER, SELFPAY ==
--- NOTE | 2025-03-31 13:34 | A.OFFVIS_ITS ---
Vital Signs 03/31/25 13:35 Height 5 ft 5 in Weight 330 lb 11.094 oz BMI 55.0 BP 120/68 Blood Pressure Location Lt brachial Position Sitting Pulse 97 Pulse Source Pulse Oximeter Pulse Oximetry (%) 97 Oxygen Delivery Method Room Air Intake Visit Reasons: maximino Accompanied by: Child Allergies abatacept (From Orencia) Adverse Reaction (Severe, Verified 03/31/25 13:39) Palpitations tocilizumab (From Actemra) Adverse Reaction (Intermediate, Verified 03/31/25 13:39) Transaminitis doxycycline Adverse Reaction (Mild, Verified 03/31/25 13:39) Palpitations HPI HPI maximino: Details: 50-year-old lady with underlying morbid obesity followed for severe obstructive sleep apnea and restrictive lung disease.? She continues on CPAP therapy with good control of her sleep apnea symptoms. [facility] Medical History Rheumatoid arthritis SVT (supraventricular tachycardia) Osteoarthritis of knees, bilateral LARRY (generalized anxiety disorder) Hypovitaminosis D Pure hypercholesterolemia Morbid obesity due to excess calories Iron deficiency anemia Anxiety Super obese Vertigo Morbid obesity Seronegative rheumatoid arthritis Thrombophlebitis Fibromyalgia MAXIMINO (obstructive sleep apnea) Hypertension Diabetes Surgical History History of tubal ligation History of History of hip surgery Family History Father Prostate cancer Mother Uterine cancer Social History Housing: Apartment Alcohol intake: never Patient Tobacco Use Status: Never used Tobacco e-Cigarette/Vaping Use: Never Used Second Hand Smoke Exposure: No service: No Current occupational status: disabled 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 Cognitive needs: Yes Hearing needs: No Vision needs: No Female Reproductive History Menstrual Age of Menarche: 16 Review of Systems Const Denies daytime sleepiness, Denies excessive sweating, Denies fatigue, Denies fever(s), Denies lethargy, Denies malaise, Denies night sweats, Denies snoring and Denies weight loss Eyes Denies blurry vision and Denies itchy eyes ENT Denies nasal congestion, Denies post nasal drip, Denies sinus pain, Denies sinus pressure and Denies other ( Thrush) Card Denies chest pain, Denies pedal edema, Denies dyspnea, Denies orthopnea and Denies paroxysmal nocturnal dyspnea Resp Denies cough, Denies hemoptysis, Denies excessive phlegm production, Denies dyspnea, Denies snoring and Denies wheezing GI Denies abdominal pain and Denies heartburn Musc Denies myalgias, Denies arthralgias and Denies joint swelling Skin/Breast Denies rash Neuro Denies memory loss and Denies seizure-like activity Psych Denies abnormal sleep pattern, Denies anxiety and Denies memory loss Endo Denies excessive sweating, Denies fatigue and Denies heat intolerance Boni/Lymph Denies easy bruising Aller/Immun Denies itchy eyes, Denies seasonal rhinorrhea and Denies wheezing Physical Exam Vital Signs: Last Vital Signs Pulse 97 03/31/25 13:35 BP 120/68 03/31/25 13:35 Pulse Ox 97 03/31/25 13:35 Oxygen Delivery Method Room Air 03/31/25 13:35 BMI result Body Mass Index 55.0 Const General: no acute distress and alert Nutritional Appearance: obese Orientation/consciousness: Other orientation findings ( oriented) HEENT Head: Yes atraumatic Eyes General: appearance normal, both eyes and all related structures Sclerae: sclerae normal EOM: EOMs intact bilaterally Neck Neck: Yes supple Lymphatic: no lymphadenopathy noted Resp Effort & Inspection: normal respiratory effort and no use of accessory muscles Auscultation: clear to auscultation bilaterally Cardio Rate: regular rate Rhythm: regular rhythm Heart sounds: no gallops, no murmurs and no rubs Skin General skin exam: other ( warm) Extrem General: No clubbing, No cyanosis and No edema Assessment & Plan Assessment & Plan (1) MAXIMINO on CPAP: Code(s): G47.33 - Obstructive sleep apnea (adult) (pediatric); Z99.89 - Dependence on other enabling machines and devices Category: Medical Plan: Well controlled on current CPAP therapy. Continue CPAP therapy. (2) Restrictive lung disease: Code(s): J98.4 - Other disorders of lung Category: Medical Plan: Secondary to body habitus. Continue to monitor clinically. Coding Level of Care Code Est Pt Level 3 (15931) Diagnoses MAXIMINO on CPAP G47.33; Z99.89 Restrictive lung disease J98.4
[2025-03-31 13:35] VITALS: BP 120/68; PULSE 97; O2SAT 97; BMI 55.0
== END 2025-03-31 13:53 | disposition home or self-care (01) ==
LOC: HO.HPS 13:25
PROVIDERS: PCP Internal Medicine; Visit Provider Internal Medicine Pulmonary Disease
DX: G47.33 Obstructive sleep apnea (adult) (pediatric) (principal); Z99.89 Dependence on other enabling machines and devices; J98.4 Other disorders of lung
CPT/HCPCS: 99213

== ENCOUNTER 2025-03-31 14:16 | Outpatient (AMB) | payer OTHER, SELFPAY ==
--- NOTE | 2025-03-31 14:23 | MHC.OFFVIS ---
Intake Visit Reasons: 3m/PVR Intake Note: Patient is present for 3M/PVR Urology Medication:SOLIFENACIN Antibiotic Allergy:DOXYCYCLINE Blood Thinner:ASPIRIN Last PVR:44ML'S Todays PVR:0ML'S Coil Tester Required: No Allergies abatacept (From Orencia) Adverse Reaction (Severe, Verified 03/31/25 21:33) Palpitations tocilizumab (From Actemra) Adverse Reaction (Intermediate, Verified 03/31/25 21:33) Transaminitis doxycycline Adverse Reaction (Mild, Verified 03/31/25 21:33) Palpitations Medication List - Last Reconciled 03/31/25 by JAZMIN Castro acetaminophen (Tylenol Extra Strength) 500 mg PO BID PRN albuterol sulfate 90 mcg/actuation 2 puffs inhalation 6XD PRN alprazolam 1 mg (2 x 0.5 mg) PO DAILY 1 day ascorbic acid (vitamin C) 1 g PO DAILY 90 days aspirin 81 mg PO DAILY 30 days atorvastatin 20 mg PO BEDTIME 90 days blood pressure monitor As directed blood sugar diagnostic (FreeStyle Lite Strips) Use 1 test strip once a day blood-glucose meter (FreeStyle Lite Meter kit) As directed cane As directed cholecalciferol (vitamin D3) (Vitamin D3) 25 mcg PO DAILY 90 days [cock up splint wear on each wrist at night. ] diclofenac sodium 1% 4 grams topical QID diltiazem HCl CD 240 mg PO DAILY dulaglutide (Trulicity) 1.5 mg (0.5 mL) subcut QWEEK 4 weeks Enbrel SureClick (etanercept) 50 mg subcut QWEEK NS ferrous sulfate 325 mg PO .once a day 90 days fluticasone propionate 50 mcg/actuation (Flonase Allergy Relief) 1 spray intranasal DAILY 30 days folic acid 1 mg PO DAILY [grab bars As directed] hydrochlorothiazide 12.5 mg PO QAM 90 days lancets (FreeStyle Lancets) Use 1 lancet once a day losartan 100 mg PO DAILY 90 days meclizine 25 mg PO TID PRN 30 days methenamine hippurate 1 g PO DAILY 90 days Shower Chair As directed solifenacin (Vesicare) 5 mg PO DAILY 90 days sulfamethoxazole-trimethoprim 800-160 mg (Bactrim DS) 1 tab PO BID 7 days walker heavy duty rollator [wheelchair heavy duty As directed] HPI Comments Details: Sol is a 50-year-old Danish-speaking female patient of Dr. Madrid who was accompanied by her child at today's office visit. She has a past medical history of anxiety, diabetes, fibromyalgia, anxiety, hypertension, iron deficiency anemia, morbid obesity, obstructive sleep apnea, hypercholesteremia, rheumatoid arthritis and vertigo. She presents to the office today for a follow up of her lower urinary tract symptoms and recent urinary tract infection. In discussion with the patient today she discusses having had recent surgical intervention with [facility] oncology for Endometrial intraepithelial neoplasia in his since undergone IUD insertion. She reports she is currently on her menses. She reports noting over the last 1-2 weeks she has been having foul-smelling urine. In office urinalysis results reviewed with the patient today. Positive nitrates. Previous urine cultures are as follows: 09/13 E coli, 09/13 E coli, 01/14 group B & E coli, 03/17 E coli, 06/16 Klebsiella ozaenae, 12/16 Klebsiella pneumoniae, 12/16 Klebsiella pneumoniae, 06/17 Klebsiella pneumoniae, 09/16 E coli, 01/16 Ecoli. Previous workup has included an office cystoscopy with Dr. Gunnar Camilo 12/16 noting mild erythematous changes consistent with cystitis no suspicious bladder lesions visualized changes consistent with cystitis. CT of the abdomen and pelvis 09/16 no definite urine calculus or obstructive uropathy. The bladder is partially distended. The cystic structure thought to possibly reflect left adnexa on the ultrasound in fact relates to a large cystic lesion within the cervix.Suspect large nabothian cyst. We did discussed potential causes of lower urinary tract symptoms patient is experiencing. She does report ongoing issues with abnormal bleeding and constipation. She discusses having followed up with pulmonology earlier today and has follow-up with Rheumatology tomorrow. She denies gross/visible hematuria, foul smelling urine, changes to urinary stream, flank pain, fever, and or chills. She otherwise offers no other issues or concerns at this time. 11/15 Urine: Negative for high-grade urothelial carcinoma. [facility] Medical History Rheumatoid arthritis SVT (supraventricular tachycardia) Osteoarthritis of knees, bilateral LARRY (generalized anxiety disorder) Hypovitaminosis D Pure hypercholesterolemia Morbid obesity due to excess calories Iron deficiency anemia Anxiety Super obese Vertigo Morbid obesity Seronegative rheumatoid arthritis Thrombophlebitis Fibromyalgia MAXIMINO (obstructive sleep apnea) Hypertension Diabetes Surgical History History of tubal ligation History of History of hip surgery Family History Father Prostate cancer Mother Uterine cancer Social History Housing: Apartment Alcohol intake: never Patient Tobacco Use Status: Never used Tobacco e-Cigarette/Vaping Use: Never Used Second Hand Smoke Exposure: No service: No Current occupational status: disabled 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 Cognitive needs: Yes Hearing needs: No Vision needs: No Female Reproductive History Menstrual Age of Menarche: 16 Review of Systems Const Reports as per HPI Eyes Reports no additional complaints ENT Reports no additional complaints Card Reports as per HPI Resp Reports as per HPI GI Reports no additional complaints Reports as per HPI Musc Reports as per HPI Neuro Reports as per HPI Psych Reports as per HPI Endo Reports as per HPI Physical Exam Const General: cooperative, healthy appearing, comfortable, no acute distress, well developed, alert and awake Nutritional Appearance: obese Orientation/consciousness: patient oriented x3 Limitations: ambulation with cane HEENT Head: Yes normal to inspection, Yes normocephalic and Yes atraumatic Ears: hearing grossly normal bilaterally Eyes General: appearance normal, both eyes and all related structures Neck Neck: Yes normal visual inspection and Yes trachea midline Chest Chest palpation & inspection: normal inspection of the chest Resp Effort & Inspection: normal respiratory effort and able to speak in complete sentences Cardio Rate: regular rate GI Inspection: Yes normal to inspection General: Yes no CVA tenderness Back/Spine/Pelvis Back: no CVA tenderness Skin General skin exam: no rashes or lesions noted Neuro General: patient oriented x3 Extrem General: Yes normal to inspection Psych Appearance: grossly normal and well kempt Mental Status: mental status grossly normal Speech and movement: Normal speech and movement present and Clear speech present Affect: normal affect Attitude: cooperative Thought process: Normal thought process present Thought content: Normal thought content present Insight: Fair insight present (Psych) Judgement: Fair judgement present (Psych) Office Procedures Post Void Residual Post Residual Void Post Void Residual (PVR): 0 [id number]-[id number] Void Residual by ultrasound Results AMB Urinalysis, Automated UA Leukoctes 500 Mauro/uL Last Edit by EDI Terry on 03/31/25 16:20 UA Nitrite Positive Last Edit by EDI Terry on 03/31/25 16:20 UA Urobilinogen 0.2 mg/dL Last Edit by EDI Terry on 03/31/25 16:20 UA Protein 300 mg/dL Last Edit by Kaylah Gomez [facility]CM on 03/31/25 16:20 UA pH 6.0 Last Edit by Kaylah Gomez [facility] on 03/31/25 16:20 UA Blood 200 Robert/uL Last Edit by Kaylah Gomez [facility] on 03/31/25 16:20 UA Specific [place] 1.030 Last Edit by Kaylah Gomez [facility]CM on 03/31/25 16:20 UA Ketone Positive Last Edit by EDI Terry on 03/31/25 16:20 UA Bilirubin 0 mg/dL Last Edit by Kaylah Gomez [facility] on 03/31/25 16:20 UA Glucose 0 mg/dL Last Edit by Kaylah Gomez [facility] on 03/31/25 16:20 Results Reviewed Results Reviewed: Laboratory Last Values Urine pH (Auto) 6.0 03/31/25 16:19 Specific [place] (Auto) 1.030 03/31/25 16:19 Urine Protein (Auto) 300 mg/dL 03/31/25 16:19 Glucose (UA)(Auto) 0 mg/dL 03/31/25 16:19 Urine Ketones (Auto) Positive 03/31/25 16:19 Urine Blood (Auto) 200 Robert/uL 03/31/25 16:19 Urine Nitrite (Auto) Positive 03/31/25 16:19 Urine Bilirubin (Auto) 0 mg/dL 03/31/25 16:19 Urine Urobilinogen (Auto) 0.2 mg/dL 03/31/25 16:19 Leukocyte Esterase (Auto) 500 Mauro/uL 03/31/25 16:19 Assessment & Plan Assessment & Plan (1) Frequent UTI: Code(s): N39.0 - Urinary tract infection, site not specified Category: Medical (2) Urinary frequency: Code(s): R35.0 - Frequency of micturition Category: Medical (3) Mixed incontinence urge and stress: Code(s): N39.46 - Mixed incontinence Category: Medical (4) Sensation of pressure in bladder area: Code(s): R39.89 - Other symptoms and signs involving the genitourinary system Category: Medical (5) UTI (urinary tract infection): Code(s): N39.0 - Urinary tract infection, site not specified Category: Medical Plan In office urinalysis results with the patient today; as noted above; will send for urine culture. PVR 0 mLs. Start Bactrim as discussed and prescribed. We did discussed potential causes of recurrent urinary tract infections as well as further treatment options and risks and benefits of these treatment options. All questions were answered. We discussed initiation of methenamine and vitamin-C status post completion of antibiotic therapy. All questions were answered. Discussed UTI prevention with D mannose supplement, vitamin-C, increasing fluid intake, behavioral therapy with timed voiding, perineal hygiene and postcoital voiding, and management of constipation with stool softeners and increased fiber intake. Follow-up in 3 months with PVR; or sooner with any issues, concerns, and or questions. Orders: Orders Urine Culture Today N39.0 - Urinary tract infection, site not specified AMB Urinalysis Automated Today Z13.9 - Encounter for screening, unspecified Medications: New sulfamethoxazole-trimethoprim 800-160 mg (Bactrim DS) 1 tab PO BID 14 tabs 0RF 7 days N39.0 - Urinary tract infection, site not specified methenamine hippurate Start once completed with antibiotic therapy 1 g PO DAILY 90 tabs 1RF 90 days N39.0 - Urinary tract infection, site not specified ascorbic acid (vitamin C) 1 g PO DAILY 90 tabs 1RF 90 days N39.0 - Urinary tract infection, site not specified Patient Instructions: The patient had an opportunity to ask questions regarding the treatment plan. All questions were answered. Physical exam, labs, and imaging were discussed and reviewed in detail. As well as risks, benefits, and discussion of treatment choices. No major barriers to understanding were identified. The patient expressed understanding and agreement with the above treatment plan. The patient was made aware they should contact our office by phone for worsening of their current condition, the appearance of new symptoms, or with any questions or concerns. Compliance is encouraged with any medications and follow up testing that is ordered. It is a privilege to be allowed the opportunity to participate in? your urological care.? Again, if you have any questions or concerns If you have any questions or concerns please do not hesitate to contact me. The office is [phone]. This note is constructed using voice recognition software. While every effort has been made to ensure accuracy traveling freight agent errors may have been included. Yours sincerely, JAZMIN Castro Coding Level of Care Code Est Pt Level 4 (09648) Complex EM visit Add On G2211 Diagnoses Frequent UTI N39.0 Urinary frequency R35.0 Mixed incontinence urge and stress N39.46 Sensation of pressure in bladder area R39.89 UTI (urinary tract infection) N39.0 CPT Codes Post Residual Void - PVR CPT Code: 61893-Clpk Void Residual by ultrasound ([id number])
== END 2025-03-31 15:17 | disposition home or self-care (01) ==
LOC: HO.HUSH 14:17
PROVIDERS: PCP Internal Medicine; Visit Provider Nurse Practitioner Family
DX: N39.0 Urinary tract infection, site not specified (principal); R35.0 Frequency of micturition; N39.46 Mixed incontinence; R39.89 Other symptoms and signs involving the genitourinary system; Z13.9 Encounter for screening, unspecified
CPT/HCPCS: 99214

== ENCOUNTER 2025-04-01 13:37 | Outpatient (AMB) | payer OTHER, SELFPAY ==
--- NOTE | 2025-04-01 13:40 | A.OFFVIS_ITS ---
Vital Signs 04/01/25 13:49 Height 5 ft 5 in Weight 331 lb 12.731 oz BMI 55.2 BP 124/72 Blood Pressure Location Lt radial Position Sitting Pulse 100 Pulse Source Pulse Oximeter Pulse Oximetry (%) 98 Oxygen Delivery Method Room Air Intake Visit Reasons: RA Intake Note: Crysthel [id number] Automation Technician Required: Yes Automation Technician Language: Professor Of Sport Management Services: Automation Technician Present Information Interpreted: non-clinical & clinical Allergies abatacept (From Orencia) Adverse Reaction (Severe, Verified 04/01/25 13:47) Palpitations tocilizumab (From Actemra) Adverse Reaction (Intermediate, Verified 04/01/25 13:47) Transaminitis doxycycline Adverse Reaction (Mild, Verified 04/01/25 13:47) Palpitations Medication List - Last Reconciled 04/01/25 by Arianna Pascal MD acetaminophen (Tylenol Extra Strength) 500 mg PO BID PRN albuterol sulfate 90 mcg/actuation 2 puffs inhalation 6XD PRN alprazolam 1 mg (2 x 0.5 mg) PO DAILY 1 day ascorbic acid (vitamin C) 1 g PO DAILY 90 days aspirin 81 mg PO DAILY 30 days atorvastatin 20 mg PO BEDTIME 90 days blood pressure monitor As directed blood sugar diagnostic (FreeStyle Lite Strips) Use 1 test strip once a day blood-glucose meter (FreeStyle Lite Meter kit) As directed cane As directed cholecalciferol (vitamin D3) (Vitamin D3) 25 mcg PO DAILY 90 days [cock up splint wear on each wrist at night. ] diclofenac sodium 1% 4 grams topical QID diltiazem HCl CD 240 mg PO DAILY dulaglutide (Trulicity) 1.5 mg (0.5 mL) subcut QWEEK 4 weeks Enbrel SureClick (etanercept) 50 mg subcut QWEEK NS ferrous sulfate 325 mg PO .once a day 90 days fluticasone propionate 50 mcg/actuation (Flonase Allergy Relief) 1 spray intranasal DAILY 30 days folic acid 1 mg PO DAILY [grab bars As directed] hydrochlorothiazide 12.5 mg PO QAM 90 days lancets (FreeStyle Lancets) Use 1 lancet once a day losartan 100 mg PO DAILY 90 days meclizine 25 mg PO TID PRN 30 days methenamine hippurate 1 g PO DAILY 90 days Shower Chair As directed solifenacin (Vesicare) 5 mg PO DAILY 90 days sulfamethoxazole-trimethoprim 800-160 mg (Bactrim DS) 1 tab PO BID 7 days walker heavy duty rollator [wheelchair heavy duty As directed] HPI Comments Details: Patient is a 50-year-old female with hyperlipidemia, diabetes, hypertension and seronegative rheumatoid arthritis here today for follow up Interval History: Patient last seen 11/26/24 with me - On Enbrel 50mg SC weekly - Patient's arthritis is better on the Enbrel - However continues to complain of widespread pain - no synovitis on examination - widespread pain attributed to her fibromyalgia and exercises recommended Today - On Enbrel 50mg SC weekly - Still feels pain all over - Currently being treated for a UTI Rheumatologic History: Seronegative rheumatoid arthritis Seronegative dx 03/2019 in [place]: 08/2019- 08/2021 dyspnea Prednisone Humira: September 2021- 12/2022 incomplete response Actemra 01/2023 partially effective advanced to weekly 03/2023 effective DC 12/2023 d.t transminitis Orencia 01/2024 DC 04/2024 could not be tolerated Simponi Aria infusions Current Rheumatology Medication(s): Enbrel 50mg SC weekly PFSH Medical History Rheumatoid arthritis SVT (supraventricular tachycardia) Osteoarthritis of knees, bilateral LARRY (generalized anxiety disorder) Hypovitaminosis D Pure hypercholesterolemia Morbid obesity due to excess calories Iron deficiency anemia Anxiety Super obese Vertigo Morbid obesity Seronegative rheumatoid arthritis Thrombophlebitis Fibromyalgia MAXIMINO (obstructive sleep apnea) Hypertension Diabetes Surgical History History of tubal ligation History of History of hip surgery Family History Father Prostate cancer Mother Uterine cancer Social History Housing: Apartment Alcohol intake: never Patient Tobacco Use Status: Never used Tobacco e-Cigarette/Vaping Use: Never Used Second Hand Smoke Exposure: No service: No Current occupational status: disabled 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 Cognitive needs: Yes Hearing needs: No Vision needs: No Female Reproductive History Menstrual Age of Menarche: 16 Review of Systems Const Details: Review of Systems Constitutional: Denies fever, chills, weight loss ENT: Denies vision changes, eye pain or eye redness, dental caries, dry mouth GI: Denies nausea, vomiting, diarrhea, abdominal pain, change in BM Pulm: Denies SOB, BOTELLO, hemoptysis, wheezing Cards: Denies chest pain, palpitations Skin: Denies Raynaud's, rash, nail changes, photosensitivity, ASSISTED LIVING ADMINISTRATOR: Denies headaches, weakness, paresthesias, recurrent falls MSK: as per HPI All other systems reviewed and are unremarkable except noted above Physical Exam Exam Exam: Vital signs reviewed Physical Examination CONSTITUITIONAL Patient alert and cooperative. Well appearing and in no apparent painful distress MSK Hands * Right Hand: Able to make a fist. No swelling or tenderness to palpation of the MCPs, PIPs or DIPs. * Left Hand: Able to make a fist. No swelling or tenderness to palpation of the MCPs, PIPs or DIPs. * Mild Herbedens nodes noted bilaterally Wrists * Right Wrist: Full ROM to flexion and extension. No swelling or TTP * Left Wrist: Full ROM to flexion and extension. No swelling or TTP Elbows * Right Elbow: Full ROM. No swelling or TTP. No TTP of the medial epicondyle. No TTP of the lateral epicondyle * Left Elbow: Full ROM. No swelling or TTP. No TTP of the medial epicondyle. No TTP of the lateral epicondyle Shoulders * Right shoulder: Full ROM. No swelling noted. No TTP of the AC joint. TTP of the subacromial bursa. No TTP of the posterior shoulder * Left shoulder: Full ROM. No swelling noted. No TTP of the AC joint. TTP of the subacromial bursa. No TTP of the posterior shoulder Knees * Right knee: Full ROM. No swelling noted. No TTP of the knee joint line. No TTP of pes anserine bursa * Left knee: Full ROM. No swelling noted. TTP of the knee joint line. No TTP of pes anserine bursa. * Crepitations felt bilaterally Ankles * Right ankle: Good ankle dorsiflexion and plantar flexion. No swelling. No TTP of the ankle joint * Left ankle: Good ankle dorsiflexion and plantar flexion. No swelling. No TTP of the ankle joint Feet * Right foot: Negative squeeze test * Left foot: Negative squeeze test Tender points? * No tenderness to palpation of the bilateral trapezius, supraspinatus, anterior costochondral junctions, bilateral suboccipital muscle insertions SKIN No rashes Vital Signs: Last Vital Signs Pulse 100 04/01/25 13:49 BP 124/72 04/01/25 13:49 Pulse Ox 98 04/01/25 13:49 Oxygen Delivery Method Room Air 04/01/25 13:49 BMI result Body Mass Index 55.2 Results Reviewed Results Reviewed: Laboratory Tests 11/07/24 03/31/25 12:30 09:17 WBC 6.9 RBC 5.16 Hgb 11.9 L Hct 39.5 Plt Count 300 ESR 32 H Sodium 140 Potassium 4.1 Chloride 108 Carbon Dioxide 25 BUN 12 Creatinine 0.56 AST 15 ALT 11 C-Reactive Protein 1.99 H 3.01 H Laboratory Tests 01/29/20 08:10 Rheumatoid Factor < 15.0 Cycl Citrul Peptide IgG <16 RYANN Screen Negative Laboratory Tests 11/07/24 12:30 Hepatitis A IgM Ab Nonreactive Hep Bs Antigen Negative Hep Bs Antibody NONREACTIVE Hep B Core Total Ab Nonreactive Hepatitis C Ab (EIA) Nonreactive XR Bilateral Knees 10/2022 FINDINGS: Right: There is tricompartment osteoarthritis, increased medial compartment since prior imaging 2021. No appreciable suprapatellar effusion on the slightly oblique views. No lateralization patella. No bony destructive process or visible erosive changes. Left: There is tricompartment osteoarthritis greatest medial compartment, narrowing slightly increased since 2021. No erosive change or chondrocalcinosis. No visible suprapatellar effusion. No destructive process. IMPRESSION: -Bilateral: Patient study limitations. Exam tailored to patient capabilities. - Right: Tricompartment osteoarthritis, increased medial compartment since prior imaging 2021. - Left: Tricompartment osteoarthritis greatest medial compartment, narrowing slightly increased since 2021. Assessment & Plan Assessment & Plan (1) Seronegative rheumatoid arthritis: Comment: Seronegative dx 03/2019 in [place]: 08/2019- 08/2021 dyspnea Prednisone Humira: September 2021- 12/2022 incomplete response Actemra 01/2023 partially effective advanced to weekly 03/2023 effective DC 12/2023 d.t transminitis Orencia 01/2024 DC 04/2024 could not be tolerated Simponi Aria infusion denied by insurance Enbrel started 06/2024 Code(s): M06.00 - Rheumatoid arthritis without rheumatoid factor, unspecified site Category: Medical Plan: #Seronegative RA Patient is a 50-year-old female with seronegative rheumatoid arthritis here today for follow up. Currently on Enbrel injections weekly. No evidence of synovitis on examination today. Her pain is likely from her underlying fibromyalgia. Had a long discussion with patient and son about the nonpharmac ologic management to fibromyalgia including exercise and stretching. Patient requesting referral to pain management Elevated inflammatory markers in the setting of her UTI. 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 of immunosuppressive biologic Plan: #Long-term Use of TNF Inhibitors: Etanercept Discussed with the patient the benefits and risks of TNF inhibitors for the management of the rheumatic condition Benefits include reduce pain, maintenance of remission and reduction of flares as well as ?progression of the disease Risks include injection sites/infusion reactions, serious infections (such as bacterial infections, opportunistic infections), malignancy, delaminating syndromes, autoimmune phenomena, CHF exacerbations, palmar plantar psoriasis and cytopenias Recommended rotating injection sites, and holding medication during and for up to 1 week after resolution of a febrile illness or open skin wound Plan Using the asl interpreter I spent 30 minutes reviewing the record and labs, taking a history, examining the patient, discussing the treatment plan and documenting in the medical record Orders: Orders Comprehensive Met. Panel 6 Months Z79.899 - Other [facility] (current) drug therapy C Reactive Protein 6 Months Z79.899 - Other terminal operator (current) drug therapy Erythrocyte Sedimentation Rate 6 Months Z79.899 - Other [facility] (current) drug therapy Complete Blood Count Auto Diff 6 Months Z79.899 - Other terminal operator (current) drug therapy Hepatitis B,C Profile 6 Months Z79.899 - Other terminal operator (current) drug therapy T Spot TB 6 Months Z79.899 - Other [facility] (current) drug therapy Referrals Pain Management Referral M79.7 - Fibromyalgia Orthopedics Referral M17.0 - Bilateral primary osteoarthritis of knee Coding Level of Care Code Est Pt Level 4 (34990) Complex EM visit Add On G2211 Diagnoses Seronegative rheumatoid arthritis M06.00 Fibromyalgia M79.7 Encounter for monitoring of etanercept therapy Z51.81; Z79.620
[2025-04-01 13:49] VITALS: BP 124/72; PULSE 100; O2SAT 98; BMI 55.2
== END 2025-04-01 14:21 | disposition home or self-care (01) ==
LOC: HO.RHES 13:38
PROVIDERS: PCP Internal Medicine; Visit Provider Student in an Organized Health Care Education/Training Program
DX: M06.00 Rheumatoid arthritis without rheumatoid factor, unspecified site (principal); M79.7 Fibromyalgia; Z51.81 Encounter for therapeutic drug level monitoring; Z79.620 Long term (current) use of immunosuppressive biologic
CPT/HCPCS: 99214

== ENCOUNTER → 2025-04-01 13:37 | Outpatient (BNVA) | payer OTHER, SELFPAY | PROVIDERS: PCP Internal Medicine; Visit Provider Student in an Organized Health Care Education/Training Program | DX: M06.09 Rheumatoid arthritis without rheumatoid factor, multiple sites (principal); M79.7 Fibromyalgia; Z51.81 Encounter for therapeutic drug level monitoring; Z79.620 Long term (current) use of immunosuppressive biologic | CPT/HCPCS: 99212 ==

== ENCOUNTER 2025-04-28 15:30 | Outpatient (AMB) | payer OTHER, SELFPAY ==
--- NOTE | 2025-04-28 15:32 | A.OFFVIS_ITS ---
Vital Signs 04/28/25 15:40 Height 5 ft 5 in Weight 335 lb 2 oz BMI 55.8 BP 165/85 H Blood Pressure Location Lt radial Position Sitting Pulse 92 Pulse Source Pulse Oximeter Intake Visit Reasons: Fibromyalgia Intake Note: Pain today in knees 02/01, shoulders 12/02 Cylinder Tester Required: Yes Cylinder Tester Language: Watch Parts Grinder Services: Cylinder Tester Offered & Declined Accompanied by: Family/Other Allergies abatacept (From Orencia) Adverse Reaction (Severe, Verified 04/28/25 15:40) Palpitations tocilizumab (From Actemra) Adverse Reaction (Intermediate, Verified 04/28/25 15:40) Transaminitis doxycycline Adverse Reaction (Mild, Verified 04/28/25 15:40) Palpitations HPI Comments Details: The patient is a 50-year-old female presenting with widespread body pain attributed to fibromyalgia. She reports a history of morbid obesity with a BMI above 55, diabetes mellitus, and seronegative rheumatoid arthritis. The patient describes her pain as widespread, affecting her bilateral shoulders, knees, and legs, with a chronic duration of many years. Pain is more severe in both knees, right knee worse than worse. The pain is characterized as constant, with qualities of pinching, stabbing, crushing, sharp and aching, exacerbated by movements, walking, lifting, and cold weather changes. She has attempted management with Tylenol, gabapentin, and physical therapy, all without relief. Her most recent hemoglobin A1c was 6.9, indicating suboptimal glycemic control. Patient reports she was referred to [facility] 2 years ago but was not able to schedule appointment due to long waiting period. The patient has been advised by her Track Supervisor to engage in exercises, and she has been referred to pain management for further evaluation. She has not been consistent with physical therapy appointments and has expressed reluctance to continue. The patient also reports circulatory issues in her lower leg and feet, with discoloration present for more than two years. She uses a walker for mobility and cane. - Onset: Chronic, present for many years - Quality: Pinching, stabbing, crushing, aching, pinching, stabbing, crushing - Location: Bilateral shoulders, knees, legs - Exacerbating factors: Movements, walking, lifting, cold weather changes - Relieving factors: None identified - Affect: Pain impacts daily activities and mobility, requiring the use of a walker. - Analgesia: Current medications include Tylenol and gabapentin, both ineffective. - Adverse Effects: None reported from current medications. - Activities of Daily Living: Pain limits mobility and daily functioning. - Aberrant Drug Related Behaviors: None reported. [facility] Medical History Rheumatoid arthritis SVT (supraventricular tachycardia) Osteoarthritis of knees, bilateral LARRY (generalized anxiety disorder) Hypovitaminosis D Pure hypercholesterolemia Morbid obesity due to excess calories Iron deficiency anemia Anxiety Super obese Vertigo Morbid obesity Seronegative rheumatoid arthritis Thrombophlebitis Fibromyalgia MAXIMINO (obstructive sleep apnea) Hypertension Diabetes Surgical History History of tubal ligation History of History of hip surgery Family History Father Prostate cancer Mother Uterine cancer Social History Housing: Apartment Alcohol intake: never Patient Tobacco Use Status: Never used Tobacco e-Cigarette/Vaping Use: Never Used Second Hand Smoke Exposure: No service: No Current occupational status: disabled 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 - Endocrine: Reports diabetes mellitus with recent A1c of 6.9. - Vascular: Reports foot discoloration due to circulatory issues for more than two years. All systems reviewed & are unremarkable except as noted in HPI and below Physical Exam Vital Signs: Last Vital Signs Pulse 92 04/28/25 15:40 BP 165/85 H 04/28/25 15:40 BMI result Body Mass Index 55.8 General: Appears afebrile. Alert and oriented. Mood and affect appropriate. Follows and participates in conversation appropriately. Respiratory effort is unlabored. No cough. Able to transition from sit to stand unassisted. Ambulates with slow, antalgic gait. Reports using cane at home. Multiple widespread TTPs 16/16 bilaterally, including upper and lower extremities. Back/Spine/Pelvis Cervical Spine: cervical ROM normal, cervical muscular tenderness and No Cervical spine tenderness Thoracic/Lumbar Spine: thoracic and lumbar spine normal to inspection, No Thoracic/lumbar spine scar(s), Lasegue's sign negative, straight leg raise negative bilaterally, No thoracic spinal tenderness and lumbar spinal tenderness at L4 and at L5 Extrem General: Yes capillary refill normal, Yes no calf tenderness and Yes pedal edema (nonpitting) Right lower extremity: knee (Limited ROM due to pain) Details: normal to inspection, tenderness Location: of the patella, of the medial joint line and of the lateral joint line and crepitus; no ecchymosis and no unusual warmth Left lower extremity: knee (Limited ROM due to pain) Details: tenderness Location: of the patella, of the medial joint line and of the lateral joint line and crepitus; no swelling, no ecchymosis and no unusual warmth Results Reviewed Results Reviewed: XR KNEES, STANDING AP BILATERAL XR KNEE, RIGHT XR KNEE, LEFT 11/19/22 CLINICAL INFORMATION: Knee pain. COMPARISON: Bilateral knee radiographs 01/30/2022 FINDINGS: Right: There is tricompartment osteoarthritis, increased medial compartment since prior imaging 2021. No appreciable suprapatellar effusion on the slightly oblique views. No lateralization patella. No bony destructive process or visible erosive changes. Left: There is tricompartment osteoarthritis greatest medial compartment, narrowing slightly increased since 2021. No erosive change or chondrocalcinosis. No visible suprapatellar effusion. No destructive process. IMPRESSION: -Bilateral: Patient study limitations. Exam tailored to patient capabilities. - Right: Tricompartment osteoarthritis, increased medial compartment since prior imaging 2021. - Left: Tricompartment osteoarthritis greatest medial compartment, narrowing slightly increased since 2021. Assessment & Plan Assessment & Plan (1) Diabetes: Code(s): E11.9 - Type 2 diabetes mellitus without complications Category: Medical Qualifiers: Diabetes mellitus complication status: without complication Diabetes mellitus continuous churn buttermaker insulin use: without continuous churn buttermaker use Diabetes mellitus type: type 2 Qualified Code(s): E11.9 - Type 2 diabetes mellitus without complications (2) Primary osteoarthritis of knees, bilateral: Code(s): M17.0 - Bilateral primary osteoarthritis of knee Category: Medical (3) Morbid obesity with BMI of 50.0-59.9, adult: Code(s): E66.01 - Morbid (severe) obesity due to excess calories; Z68.43 - Body mass index [BMI] 50.0-59.9, adult Category: Medical (4) Chronic knee pain: Code(s): M25.569 - Pain in unspecified knee; G89.29 - Other chronic pain Category: Medical Plan The patient is advised to engage in weight management and physical therapy as initial steps in managing her fibromyalgia and associated pain. Due to her BMI being above 55, she does not qualify for certain interventional procedures such as Sprint PNS trial until her BMI significantly reduced. Physical therapy is recommended to improve mobility and reduce pain. Once physical therapy is completed, genicular diagnostic blocks and nerve ablation may be considered for further pain management. The patient is encouraged to work with a burlapper to address dietary habits contributing to her obesity.. Weight loss is emphasized as a critical component in reducing inflammation, stress on joints and improving overall health, particularly in relation to fibromyalgia and joint osteoarthritis. All questions and concerns have been answered and patient agreed with the treatment plan. Follow up after PT and sooner as needed. Patient was informed and verbally consented to the use of an ambient scribe for clinic note documentation during this visit. Orders: Orders XR Knee Mike 3V 04/28/25 E66.01 - Morbid (severe) obesity due to excess calories, G89.29 - Other chronic pain, M17.0 - Bilateral primary osteoarthritis of knee, M25.569 - Pain in unspecified knee, Z68.43 - Body mass index [BMI] 50.0-59.9, adult Referrals Medical Weight Management Referral E11.9 - Type 2 diabetes mellitus without complications, E66.01 - Morbid (severe) obesity due to excess calories, G89.29 - Other chronic pain, M17.0 - Bilateral primary osteoarthritis of knee, M25.569 - Pain in unspecified knee, Z68.43 - Body mass index [BMI] 50.0-59.9, adult Coding Level of Care Code New Pt Level 4 (26339) Diagnoses Type 2 diabetes mellitus without complication, without long-term current use of insulin E11.9 Diabetes mellitus complication status: without complication Diabetes mellitus mcfp insulin use: without continuous churn buttermaker use Diabetes mellitus type: type 2 Primary osteoarthritis of knees, bilateral M17.0 Morbid obesity with BMI of 50.0-59.9, adult E66.01; Z68.43 Chronic knee pain M25.569; G89.29
[2025-04-28 15:40] VITALS: BP 165/85; PULSE 92; BMI 55.8
== END 2025-04-28 16:13 | disposition home or self-care (01) ==
LOC: HO.PMC 15:31
PROVIDERS: PCP Internal Medicine; Visit Provider Nurse Practitioner Family
DX: E11.9 Type 2 diabetes mellitus without complications (principal); M17.0 Bilateral primary osteoarthritis of knee; E66.01 Morbid (severe) obesity due to excess calories; Z68.43 Body mass index [BMI] 50.0-59.9, adult; M25.569 Pain in unspecified knee; G89.29 Other chronic pain
CPT/HCPCS: 99204

== ENCOUNTER → 2025-04-28 15:30 | Outpatient (BNVA) | payer OTHER, SELFPAY | PROVIDERS: PCP Internal Medicine; Visit Provider Nurse Practitioner Family | DX: M79.7 Fibromyalgia (principal); M25.561 Pain in right knee; M25.562 Pain in left knee; G89.29 Other chronic pain; M17.0 Bilateral primary osteoarthritis of knee; E11.9 Type 2 diabetes mellitus without complications; E66.01 Morbid (severe) obesity due to excess calories; Z68.43 Body mass index [BMI] 50.0-59.9, adult | CPT/HCPCS: 99202 ==

== ENCOUNTER 2025-05-19 19:42 | Emergency (ER) | payer OTHER, SELFPAY ==
[2025-05-19 19:45] VITALS: BP 170/72; PULSE 101; RESP 20; TEMP 36.8; O2SAT 96; BMI 55.4
--- NOTE | 2025-05-19 19:47 | ED_ITS ---
HPI - General Adult General Chief complaint: Dizziness Stated complaint: High Blood Pressure Time Seen by Provider: 05/19/25 20:25 Source: patient Limitations: language barrier History of Present Illness ED Provider: Myrtle Sadler PA-C HPI narrative: 50-year-old female with a history of hyperlipidemia, diabetes, hypertension, seronegative rheumatoid arthritis ,severe obstructive sleep apnea and restrictive lung disease., recent diagnosis of endometrial intraepithelial neoplasia currently amidst assessment by [facility] On[facility], recurrent urinary tract infection followed by Urology, fibromyalgia, chronic pain followed by pain management, vertigo, anxiety and morbid obesity who presents with dizziness. Patient states her dizziness began this morning, she took 25 mg of meclizine however her symptoms have persisted. Associated chest tightness. Patient states she has numerous psychosocial stressors in regard to her underlying precancerous diagnosis, and her anxiety has been exacerbated. Denies recent cough or cold symptoms, congestion, ear pressure, shortness of breath. Denies diaphoresis nausea vomiting. Related Data Home Medications ?Medication ?Instructions ?Recorded ?Confirmed acetaminophen 500 mg tablet 500 mg PO BID PRN 09/14/21 04/01/25 (Tylenol Extra Strength) Previous Rx's ?Medication ?Instructions ?Recorded cane #1 ea 07/02/20 grab bars #1 ea 11/29/20 Shower Chair #1 ea 12/07/20 blood-glucose meter (FreeStyle #1 ea 12/08/21 Lite Meter kit) lancets 28 gauge (FreeStyle #100 ea 12/08/21 Lancets) cock up splint #2 ea 01/12/22 blood pressure monitor #1 ea 02/19/23 alprazolam 0.5 mg tablet 1 mg (2 x 0.5 mg) PO DAILY 1 day 11/15/23 #2 tabs walker #1 ea 12/23/23 wheelchair heavy duty #1 ea 01/22/24 aspirin 81 mg tablet,delayed 81 mg PO DAILY 30 days #3 0 tabs 04/29/24 release ferrous sulfate 325 mg (65 mg 325 mg PO .once a day 90 days #90 07/10/24 iron) tablet tabs diltiazem HCl 240 mg 240 mg PO DAILY #90 caps capsule,extended release 24 hr diclofenac sodium 1 % topical gel 4 g topical QID #100 grams 08/27/24 hydrochlorothiazide 12.5 mg tablet 12.5 mg PO QAM 90 d ays #90 tabs 08/30/24 blood sugar diagnostic (FreeStyle #100 ea 09/14/24 Lite Strips) solifenacin 5 mg tablet (Vesicare) 5 mg PO DAILY 90 da ys #90 tabs 12/24/24 folic acid 1 mg tablet 1 mg PO DAILY #90 tabs 12/30 atorvastatin 20 mg tablet 20 mg PO BEDTIME 90 days #90 tabs 01/10/25 meclizine 25 mg tablet 25 mg PO TID PRN dizziness 3 0 days 01/27/25 #90 tabs fluticasone propionate 50 1 spray intranasal DAILY 30 days 01/28/25 mcg/actuation nasal #16 grams spray,suspension (Flonase Allergy Relief) Enbrel SureClick 50 mg/mL (1 mL) 50 mg subcut QWEEK #4 mL 02/11/25 subcutaneous pen injector (etanercept) albuterol sulfate 90 mcg/actuation 2 puff inhalation 6 XD PRN 03/09/25 aerosol inhaler shortness of breath or wheez ing #1 ea ascorbic acid (vitamin C) 1,000 mg 1 g PO DAILY 90 day s #90 tabs 03/31/25 tablet methenamine hippurate 1 gram tablet 1 g PO DAILY 90 da ys #90 tabs 03/31/25 sulfamethoxazole 800 1 tab PO BID 7 days #14 tabs 03/31/25 mg-trimethoprim 160 mg tablet (Bactrim DS) cholecalciferol (vitamin D3) 25 25 mcg PO DAILY 90 day s #90 caps 05/12/25 mcg (1,000 unit) capsule (Vitamin D3) dulaglutide 1.5 mg/0.5 mL 1.5 mg (0.5 mL) subcut QWEEK 4 05/12/25 subcutaneous pen injector weeks #2 mL (Trulicity) losartan 100 mg tablet 100 mg PO DAILY 90 days #90 tabs 05/12/25 levofloxacin 250 mg tablet 250 mg PO DAILY #9 tabs Allergies Allergy/AdvReac Type Severity Reaction Status Date / Time abatacept (From Orencia) AdvReac Severe Palpitation Verified 05/19/25 19:50 s tocilizumab (From Actemra) AdvReac Intermediate Transaminit Verified 05/19/25 19:50 is doxycycline AdvReac Mild Palpitation Verified 05/19/25 19:50 s Review of Systems 2 Review of Systems: Yes all other systems are reviewed and are negative Constitutional: Constitutional: Denies fatigue, Denies fever(s) and Denies headache(s) ENT: Reports vertigo, Denies otalgia, Denies headache(s) and Denies nasal congestion Cardiovascular: Cardiovascular: Reports chest pain and Denies dyspnea Respiratory: Respiratory: Denies cough and Denies dyspnea Gastrointestinal: Gastrointestinal: Denies nausea and Denies vomiting Neurologic: Reports vertigo and Denies headache(s) Psychiatric: Psychiatric: Reports anxiety Endocrine: Endocrine: Denies fatigue PMFSH Past Medical History Attestation statement: The following information was validated with the patient. Medical History Rheumatoid arthritis SVT (supraventricular tachycardia) Osteoarthritis of knees, bilateral LARRY (generalized anxiety disorder) Hypovitaminosis D Pure hypercholesterolemia Morbid obesity due to excess calories Iron deficiency anemia Anxiety Super obese Vertigo Morbid obesity Seronegative rheumatoid arthritis Thrombophlebitis Fibromyalgia MAXIMINO (obstructive sleep apnea) Hypertension Diabetes Surgical History History of tubal ligation History of History of hip surgery Family History Family History Father Prostate cancer Mother Uterine cancer Social History Social History Housing: Apartment Alcohol intake: never Patient Tobacco Use Status: Never used Tobacco Smoked in Last 30 Days: No e-Cigarette/Vaping Use: Never Used Second Hand Smoke Exposure: No Use of substances other than those prescribed or required for medical reasons: No Advance Directives: No Advance Directives Information Provided: No service: No Current occupational status: disabled 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 Cognitive needs: Yes Hearing needs: No Vision needs: No Physical Exam ED Vital Signs: Vital Signs - 24 hr 05/19/25 19:45 05/19/25 21:28 05/19/25 21:28 Temperature 98.2 F Pulse Rate 101 H 89 95 Respiratory Rate 20 Blood Pressure 170/72 H 135/72 146/72 H Pulse Oximetry 96 Oxygen Delivery Method Room Air 05/19/25 21:29 05/19/25 22:06 Temperature 98.1 F Pulse Rate 100 86 Respiratory Rate 20 Blood Pressure 135/78 139/64 Pulse Oximetry 98 Oxygen Delivery Method Room Air BMI result Body Mass Index 55.4 Const Other: Alert, appears older than stated age Orientation/consciousness: patient oriented x3 HENMT Other: Bilateral TMs are dull, can visualize fluid, no overlying erythema, no tragal tenderness Eyes Other: No nystagmus on exam, however extraocular eye movements induced his dizziness Resp Effort & Inspection: normal respiratory effort Cardio Other: Normal peripheral perfusion Skin Other: Warm dry no rash Neuro Other: No ataxia General: patient oriented x3, gait normal, no focal motor deficits and CN's II- XI intact bilaterally Psych Other: Cooperative, tearful at times Course Course Course Narrative: This is a rapid medical exam performed by Frank Combs NP: Additional HPI, ROS, PE not included below will be deferred to primary provider. Patient is a 50y/o Norwegian speaking female presenting to the ED with complaint of dizziness and elevated blood pressure since this morning. BP at home was 144/91. History of vertigo, states this felt different. Associated chest pain. Took meclizine at 2pm. Plan: EKG, lab Medications Administered Discontinued Medications Generic Name Dose Route Start Last Admin Trade Name Owenq PRN Reason Stop Dose Admin Levofloxacin 250 mg 05/19/25 21:27 05/19/25 21:57 Levofloxacin 250 Mg Tablet PO 05/19/25 21:28 250 mg ONCE ONE Administration Loratadine 10 mg 05/19/25 21:17 05/19/25 21:25 Loratadine 10 Mg Tablet PO 05/19/25 21:18 10 mg ONCE ONE Administration Meclizine HCl 50 mg 05/19/25 21:17 05/19/25 21:25 Meclizine Hcl 25 Mg Tablet PO 05/19/25 21:18 50 mg ONCE ONE Administration Medical Decision Making Medical Decision Making MDM Narrative: 50-year-old female with a history of hyperlipidemia, diabetes, hypertension, seronegative rheumatoid arthritis ,severe obstructive sleep apnea and restrictive lung disease., recent diagnosis of endometrial intraepithelial neoplasia currently amidst assessment by [facility]ne On[facility], recurrent urinary tract infection followed by Urology, fibromyalgia, chronic pain followed by pain management, vertigo, anxiety and morbid obesity who presents with dizziness. Patient states her dizziness began this morning, she took 25 mg of meclizine however her symptoms have persisted. Associated chest tightness. Patient states she has numerous psychosocial stressors in regard to her underlying precancerous diagnosis, and her anxiety has been exacerbated. Denies recent cough or cold symptoms, congestion, ear pressure, shortness of breath. Denies diaphoresis nausea vomiting. Problem: Extensive medical history History: Per patient I have considered the following differential diagnoses: Vertigo, labyrinthitis, posterior circulation CVA, serous otitis, otitis media, anxiety, panic attack, ACS, anemia, dehydration, electrolyte abnormality, new arrhythmia Plan: In regard to the dizziness, the patient has vertigo, I advised the patient that she can escalate her dose of meclizine at home if need be, giving additional here in the emergency room. She does have evidence of serous otitis on exam, this is the likely trigger for her dizziness. Giving a dose of Claritin. Thought about posterior circulation CVA, however the patient does not have objective ataxia, despite her risk factors for vascular disease, and she has a diagnosis of vertigo, her symptoms are vertiginous in nature. In regard to the chest discomfort, again ACS was considered, the patient does have risk factors for coronary artery disease, screening labs EKG and troponin obtained. Her symptoms are not consistent with a ACS, I do feel her anxiety has been provoked by her underlying precancerous diagnosis. She has became tearful while talking about this topic. I have independently reviewed the following tests: Labs: No leukocytosis, not anemic, no electrolyte abnormality, urine is infected, troponin less than 2.7, not In regard to the UTI, I reviewed prior culture and sensitivity, the best choice would be a fluoroquinolone, we will start on Levaquin EKG: Normal sinus rhythm, rate of 93, no ischemic changes no ectopy, study improved from prior study, QTC 417 Differential Diagnosis Differential Diagnoses: The differential diagnosis associated with the presentation includes See medical decision-making Admission/Observation Consideration of admission/observation: Escalation of care including admission/observation considered Not applicable Lab Data MDM Lab Attestation statement: I reviewed the patient's lab results. 05/19/25 20:10 05/19/25 20:10 Labs: Lab Results 05/19/25 05/19/25 05/19/25 Range/Units 20:06 20:10 21:00 WBC 9.7 (4.8-10.8) X10*3/uL RBC 5.17 (4.20-5.50) X10*6/uL Hgb 12.2 (12.0-16.0) g/dl Hct 39.6 (37.0-47.0) % MCV 76.6 L (80.0-98.0) fL MCH 23.6 L (27.0-33.0) pg MCHC 30.8 L (31.0-35.0) g/dl RDW 15.6 (11.0-16.0) % Plt Count 300 (160-400) X10*3/uL MPV 9.3 L (9.4-12.3) fL Immature Gran % (Auto) 0.2 (0.0-0.4) % Neut % (Auto) 58.9 (45-73) % Lymph % (Auto) 30.1 (20-40) % Crook % (Auto) 8.7 (2-11) % Eos % (Auto) 1.7 (0-4) % Baso % (Auto) 0.4 (0-2) % Lymph # (Auto) 2.9 (1.2-4.9) X10*3/uL Crook # (Auto) 0.9 (0.1-1.2) X10*3/uL Eos # (Auto) 0.2 (0.0-0.4) X10*3/uL Baso # (Auto) 0.0 (0.0-0.2) X10*3/uL Abs Immat Gran (auto) 0.02 (0.00-0.03) X10*3/uL Absolute Neuts (auto) 5.7 (2.0-8.3) x10*3/uL Absolute Nucleated RBC 0.000 (0.0-0.012) X10*3/uL Nucleated RBC % (auto) 0.0 (0.0-0.2) /100WBC PT 12.7 (11.2-13.5) SEC INR 1.0 (0.9-1.1) Sodium 138 (135-145) mmol/L Potassium 3.9 (3.3-5.1) mmol/L Chloride 106 (96-108) mmol/L Carbon Dioxide 24 (22-29) mmol/L Anion Gap 12 (12-20) BUN 13 (9-16) mg/dL Creatinine 0.58 (0.5-1.4) mg/dL Estim Creat Clear Calc 175.2 Estimated GFR > 60 Random Glucose 142 H (60-115) mg/dL Calcium 9.7 D (8.4-10.2) mg/dL Total Bilirubin 0.3 (0.0-1.0) mg/dL AST 21 (5-31) U/L ALT 15 (0-31) U/L Alkaline Phosphatase 88 (39-117) U/L Troponin I High Sens < 2.7 (<3.5-17.0) ng/L Total Protein 8.4 H (6.5-8.0) g/dL Albumin 4.3 (3.5-5.0) g/dL Beta HCG, Quant < 2 mIU/mL Urine Color Yellow Urine Appearance Hazy Urine pH 6.5 (5.0-9.0) Ur Specific [place] 1.010 (1.005-1.025) Urine Protein Negative (Neg-Trace) mg/dL Urine Glucose (UA) Negative (Negative) mg/dL Urine Ketones Negative (Negative) mg/dL Urine Blood Negative (Negative) Urine Nitrite Positive H (Negative) Ur Leukocyte Esterase Moderate (2+) H (Negative) Urine RBC 0-2 (0-2) /HPF Urine WBC 21-50 H (0-5) /HPF Ur Squamous Epith Cells 0-2 (0-2) /HPF Urine Bacteria 4+ (None Seen) Hyaline Casts 0-2 (0-2) /LPF Influenza Type A (PCR) NEGATIVE (Negative) Influenza Type B (PCR) NEGATIVE (Negative) RSV RNA Qual (PCR) NEGATIVE (Negative) SARS-CoV-2 RNA (RT-PCR) NEGATIVE (Negative) Independent Interpretation I performed an independent interpretation of an: EKG Discharge Plan Discharge Clinical Impression: Vertigo, Anxiety Urinary tract infection Qualifiers: Urinary tract infection type: acute cystitis Hematuria presence: without hematuria Qualified Code(s): N30.00 - Acute cystitis without hematuria Serous otitis media Qualifiers: Chronicity: unspecified Laterality: bilateral Qualified Code(s): H65.93 - Unspecified nonsuppurative otitis media, bilateral Patient Disposition: Home, Self-Care Instructions: Urinary Tract Infection in Women (ED), Dizziness (ED), Anxiety (ED), Fluid In The Ear (Serous Otitis Media) (ED) Additional Instructions: In regard to the dizziness, your symptoms are consistent with your vertigo, it is likely triggered by the fluid that you have in the inner ears. See home care instructions. Take [id number] Claritin daily for several weeks. This will help alleviate the congestion in the inner ears. You can take the meclizine you are prescribed 3 times a day. I am providing you with outpatient resources to seek counseling and therapy for your anxiety related to your numerous emotional stressors. You also were found to have an acute urinary tract infection, based on your last urine culture, we are treating it with Levaquin. Take it as directed. It will not interfere with the other medication that you take that was prescribed by Urology. Continue to follow up with Urology and your primary care provider. The remainder of your screening labs including a cardiac enzymes were normal, you do not have any concerning changes on the EKG. Prescriptions: New levofloxacin 250 mg tablet 250 mg PO DAILY Qty: 9 0RF No Action (DME) grab bars See Rx Instructions .Route .MEDSUPPLY Qty: 1 0RF Rx Instructions: As directed (DME) Shower Chair Misc See Rx Instructions .ROUTE .MEDSUPPLY Qty: 1 0RF Rx Instructions: As directed (DME) blood pressure monitor Kit See Rx Instructions .Route Qty: 1 0RF Rx Instructions: As directed (DME) walker Misc See Rx Instructions .Route Qty: 1 0RF Rx Instructions: heavy duty rollator aspirin 81 mg tablet,delayed release (DR/EC) 81 mg PO DAILY 30 Days Qty: 30 11RF ferrous sulfate 325 mg (65 mg iron) tablet 325 mg PO .once a day 90 Days Qty: 90 2RF diltiazem HCl 240 mg capsule,extended release 24hr 240 mg PO DAILY Qty: 90 3RF hydrochlorothiazide 12.5 mg tablet 12.5 mg PO QAM 90 Days Qty: 90 3RF (DME) FreeStyle Lite Strips Strip See Rx Instructions .Route Qty: 100 3RF Rx Instructions: Use 1 test strip once a day folic acid 1 mg tablet 1 mg PO DAILY Qty: 90 1RF atorvastatin 20 mg tablet 20 mg PO BEDTIME 90 Days Qty: 90 1RF fluticasone propionate [Flonase Allergy Relief] 50 mcg/actuation spray,suspension 1 spray intranasal DAILY 30 Days Qty: 16 1RF Rx Instructions: administer into each nostril Enbrel SureClick 50 mg/mL (1 mL) pen injector 50 mg subcut QWEEK Qty: 4 4RF albuterol sulfate 90 mcg/actuation HFA aerosol inhaler 2 puff inhalation 6XD PRN (Reason: shortness of breath or wheezing) Qty: 1 6RF cholecalciferol (vitamin D3) [Vitamin D3] 25 mcg (1,000 unit) capsule 25 mcg PO DAILY 90 Days Qty: 90 1RF Trulicity 1.5 mg/0.5 mL pen injector 1.5 mg subcut QWEEK 28 Days Qty: 2 0RF losartan 100 mg tablet 100 mg PO DAILY 90 Days Qty: 90 3RF (DME) blood-glucose meter [FreeStyle Lite Meter] Kit See Rx Instructions .Route Qty: 1 0RF Rx Instructions: As directed (DME) lancets [FreeStyle Lancets] 28 gauge misc See Rx Instructions .Route Qty: 100 3RF Rx Instructions: Use 1 lancet once a day alprazolam 0.5 mg tablet 1 mg PO DAILY 1 Days Qty: 2 0RF Rx Instructions: Take 1 to 2 tabs 30 to 45 minutes before study (DME) wheelchair heavy duty See Rx Instructions .Route .MEDSUPPLY Qty: 1 0RF Rx Instructions: As directed (DME) cane Device See Rx Instructions .ROUTE .MEDSUPPLY Qty: 1 0RF Rx Instructions: As directed acetaminophen [Tylenol Extra Strength] 500 mg tablet 500 mg PO BID PRN (DME) cock up splint See Rx Instructions .Route .MEDSUPPLY Qty: 2 0RF Rx Instructions: wear on each wrist at night. meclizine 25 mg tablet 25 mg PO TID PRN (Reason: dizziness) 30 Days Qty: 90 1RF solifenacin [Vesicare] 5 mg tablet 5 mg PO DAILY 90 Days Qty: 90 3RF diclofenac sodium 1 % gel 4 g topical QID Qty: 100 5RF Rx Instructions: apply to lateral left elbow and shoulder 4 times a day sulfamethoxazole-trimethoprim [Bactrim DS] 800-160 mg tablet 1 tab PO BID 7 Days Qty: 14 0RF ascorbic acid (vitamin C) 1,000 mg tablet 1 g PO DAILY 90 Days Qty: 90 1RF methenamine hippurate 1 gram tablet 1 g PO DAILY 90 Days Qty: 90 1RF Rx Instructions: Start once completed with antibiotic therapy Interventions: ED Discharge Assessment Last Done: 05/19/25 22:06 Discharge Date/Time: 05/19/25 22:07 Print Language: Norwegian
--- NOTE | 2025-05-19 19:49 | ECG_ITS ---
Test Reason : DIZINESS Blood Pressure : */* mmHG Vent. Rate : 93 BPM Atrial Rate : 93 BPM P-R Int : 184 ms QRS Dur : 74 ms QT Int : 336 ms P-R-T Axes : 42 3 40 degrees QTcB Int : 417 ms Normal sinus rhythm Normal ECG When compared with ECG of 11-Mar-2022 17:48, Nonspecific T wave abnormality, improved in Inferior leads Nonspecific T wave abnormality no longer evident in Lateral leads Referred By: Nelda Combs Electronically Signed By: Dane Coates
[2025-05-19 20:14] LABS: MANUAL DIFF FLAG NO
[2025-05-19 20:15] LABS: Hematocrit 39.6 % (37.0-47.0); Hemoglobin 12.2 g/dl (12.0-16.0); Imm Gran Abs Auto 0.02 X10*3/uL (0.00-0.03); Imm Gran Pct Auto 0.2 % (0.0-0.4); Lymphocytes Absolute Auto 2.9 X10*3/uL (1.2-4.9); Mean Corpuscular HGB Conc 30.8 g/dl (31.0-35.0); Mean Corpuscular Hemoglobin 23.6 pg (27.0-33.0); Mean Corpuscular Volume 76.6 fL (80.0-98.0); NRBC Abs Auto 0.000 X10*3/uL (0.0-0.012); NRBC Pct Auto 0.0 /100WBC (0.0-0.2); Platelet Count 300 X10*3/uL (160-400); Red Blood Count 5.17 X10*6/uL (4.20-5.50); White Blood Count 9.7 X10*3/uL (4.8-10.8)
[2025-05-19 20:23] LABS: INTERNATIONAL NORM RATIO 1.0 (0.9-1.1); Prothrombin Time 12.7 SEC (11.2-13.5)
[2025-05-19 20:31] LABS: Alanine Aminotransferase 15 U/L (0-31); Albumin Level 4.3 g/dL (3.5-5.0); Alkaline Phosphatase 88 U/L (39-117); Anion Gap 12 (12-20); Aspartate Amino Transferase 21 U/L (5-31); Blood Urea Nitrogen 13 mg/dL (9-16); Calcium 9.7 mg/dL (8.4-10.2); Carbon Dioxide 24 mmol/L (22-29); Chloride 106 mmol/L (96-108); Creatinine Clr Calc Pharmacy 175.2; Estimated Glomerular Filt Rate > 60; Potassium 3.9 mmol/L (3.3-5.1); Sodium 138 mmol/L (135-145); Total Protein 8.4 g/dL (6.5-8.0)
[2025-05-19 20:36] LABS: Troponin-I High Sensitivity < 2.7 ng/L (<3.5-17.0)
[2025-05-19 20:53] LABS: Resp Syncy Virus RNA Qual PCR NEGATIVE (Negative); SARS COV2 PCR INHOUSE NEGATIVE (Negative)
[2025-05-19 21:24] LABS: Appearance Urine Hazy; Glucose Urine UA Negative (Negative); PH 6.5 (5.0-9.0); Specific Gravity - Urine 1.010 (1.005-1.025); UMIC TRIGGER UACC YES
[2025-05-19 21:28] VITALS: BP 135/72; BP 146/72; PULSE 89; PULSE 95
[2025-05-19 21:29] VITALS: BP 135/78; PULSE 100
[2025-05-19 21:31] LABS: UACC Culture Trigger YES
[2025-05-19 22:06] VITALS: BP 139/64; PULSE 86; RESP 20; TEMP 36.7; O2SAT 98
== END 2025-05-19 22:07 | disposition home or self-care (01) ==
PROVIDERS: Physician Assistant Medical; Registered Nurse Emergency; Emergency Provider Emergency Medicine; PCP Internal Medicine
DX: N30.00 Acute cystitis without hematuria (principal); H65.93 Unspecified nonsuppurative otitis media, bilateral; F41.9 Anxiety disorder, unspecified; R42 Dizziness and giddiness; I10 Essential (primary) hypertension; E11.9 Type 2 diabetes mellitus without complications; R07.89 Other chest pain; Z03.818 Encounter for observation for suspected exposure to other biological agents ruled out
CPT/HCPCS: 80053; 81001; 84484; 84702; 85025; 85610; 87086; 87637; 93005; 99283; 99284

== ENCOUNTER → 2025-05-19 19:49 | Outpatient (BNV) | payer OTHER, SELFPAY | PROVIDERS: Emergency Provider Emergency Medicine; PCP Internal Medicine; Visit Provider Internal Medicine Cardiovascular Disease | DX: R42 Dizziness and giddiness (principal) | CPT/HCPCS: 93010 ==

== ENCOUNTER 2025-05-22 16:25 | Inpatient (IN) | payer OTHER, SELFPAY ==
--- NOTE | 2025-05-22 | ECG_ITS ---
Test Reason : long pause Blood Pressure : */* mmHG Vent. Rate : 104 BPM Atrial Rate : 104 BPM P-R Int : 170 ms QRS Dur : 76 ms QT Int : 308 ms P-R-T Axes : 93 -23 86 degrees QTcB Int : 405 ms Sinus tachycardia Possible Left atrial enlargement Inferior infarct (cited on or before 22-May-2025) Abnormal ECG When compared with ECG of 22-May-2025 17:00, Nonspecific T wave abnormality now evident in Inferior leads Referred By: Elis Cain Electronically Signed By: DUNG GALO
--- NOTE | ~2025-05-22 | CT_ITS ---
CLINICAL HISTORY: dizziness CT head without contrast Comparison: None provided Findings: No intra-axial mass, midline shift, hydrocephalus, or acute hemorrhage. No significant atrophy-like change or white matter disease. There is no sinus or mastoid fluid. The orbits are within normal limits. No skull fracture. IMPRESSION: 1. No acute intracranial findings. This document has been electronically signed by: Arnel Valentine MD on 05/22/2025 18:36:38
[2025-05-22 16:52] VITALS: BP 151/71; PULSE 83; RESP 18; TEMP 36.1; O2SAT 99; BMI 57.3
--- NOTE | 2025-05-22 16:53 | ED.GENADULT ---
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 The patient was seen here 3 days ago for similar complaint She had a workup that included labs, EKG and was ultimately discharged home with a diagnosis of vertigo. She was felt to have serous otitis media and was also started on Levaquin which she has been taking The patient reports that she took Tylenol prior to coming in and has no pain whatsoever She does endorse multiple psychosocial stressors Patient's family, the patient has also had 5 episodes where she would be staring off into space and nonresponsive for about 30 seconds. Her family reports that her whole body was shaking while this was happening Related Data Home Medications ?Medication ?Instructions ?Recorded ?Confirmed acetaminophen 500 mg tablet 500 mg PO BID PRN Pain (Scale 09/14/21 05/22/25 (Tylenol Extra Strength) Score 1-3) dulaglutide 1.5 mg/0.5 mL 1.5 mg subcut MO@0900 05/22/25 05/22/25 subcutaneous pen injector (Trulicity) etanercept 50 mg/mL (1 mL) 50 mg subcut FR@0900 05/22/25 05/22/25 subcutaneous pen injector (Enbrel SureClick) ferrous sulfate 325 mg (65 mg 325 mg PO DAILY 05/22/25 05/22/25 iron) tablet fluticasone propionate 50 1 spray intranasal DAILY PRN 05/22/25 05/22/25 mcg/actuation nasal ALLERGIES spray,suspension (Flonase Allergy Relief) hydrochlorothiazide 12.5 mg tablet 12.5 mg PO DAILY 05/22/25 05/22/25 Previous Rx's ?Medication ?Instructions ?Recorded cane #1 ea 07/02/20 grab bars #1 ea 11/29/20 Shower Chair #1 ea 12/07/20 blood-glucose meter (FreeStyle #1 ea 12/08/21 Lite Meter kit) lancets 28 gauge (FreeStyle #100 ea 12/08/21 Lancets) cock up splint #2 ea 01/12/22 blood pressure monitor #1 ea 02/19/23 walker #1 ea 12/23/23 wheelchair heavy duty #1 ea 01/22/24 aspirin 81 mg tablet,delayed 81 mg PO DAILY 30 days #30 tabs 04/29/24 release diltiazem HCl 240 mg 240 mg PO DAILY #90 caps 07/11/24 capsule,extended release 24 hr blood sugar diagnostic (FreeStyle #100 ea 09/14/24 Lite Strips) folic acid 1 mg tablet 1 mg PO DAILY #90 tabs 12/30/24 atorvastatin 20 mg tablet 20 mg PO BEDTIME 90 days #90 tabs 01/10/25 meclizine 25 mg tablet 25 mg PO TID PRN dizziness 30 days 01/27/25 #90 tabs albuterol sulfate 90 mcg/actuation 2 puff inhalation 6XD PRN 03/09/25 aerosol inhaler shortness of breath or wheezing #1 ea ascorbic acid (vitamin C) 1,000 mg 1 g PO DAILY 90 days #90 tabs 03/31/25 tablet methenamine hippurate 1 gram tablet 1 g PO DAILY 90 days #90 tabs 03/31/25 cholecalciferol (vitamin D3) 25 25 mcg PO DAILY 90 days #90 caps 05/12/25 mcg (1,000 unit) capsule (Vitamin D3) losartan 100 mg tablet 100 mg PO DAILY 90 days #90 tabs 05/12/25 levofloxacin 250 mg tablet 250 mg PO DAILY #9 tabs 05/19/25 Allergies Allergy/AdvReac Type Severity Reaction Status Date / Time abatacept (From Orencia) AdvReac Severe Palpitation Verified 05/22/25 16:53 s tocilizumab (From Actemra) AdvReac Intermediate Transaminit Verified 05/22/25 16:53 is doxycycline AdvReac Mild Palpitation Verified 05/22/25 16:53 s Review of Systems Constitutional: Constitutional: Denies body ache(s), Denies chills, Denies fever(s) and Denies headache(s) Eyes: Eyes: Denies blurry vision and Denies exophthalmos ENT: Reports vertigo, Reports dizziness and Denies headache(s) Cardiovascular: Cardiovascular: Reports chest pain, Reports chest pain at rest and Denies dyspnea on exertion Respiratory: Respiratory: Denies cough and Denies dyspnea on exertion Gastrointestinal: Gastrointestinal: Denies abdominal pain, Denies nausea and Denies vomiting Musculoskeletal: Musculoskeletal: Denies back pain Integumentary/Breasts: Skin/Breast: Denies rash Neurologic: Reports vertigo, Reports dizziness and Denies headache(s) Psychiatric: Psychiatric: Reports anxiety and Denies suicidal ideation [facility] Past Medical History Medical History Rheumatoid arthritis SVT (supraventricular tachycardia) Osteoarthritis of knees, bilateral LARRY (generalized anxiety disorder) Hypovitaminosis D Pure hypercholesterolemia Morbid obesity due to excess calories Iron deficiency anemia Anxiety Super obese Vertigo Morbid obesity Seronegative rheumatoid arthritis Thrombophlebitis Fibromyalgia MAXIMINO (obstructive sleep apnea) Hypertension Diabetes Surgical History History of tubal ligation History of History of hip surgery Family History Family History Father Prostate cancer Mother Uterine cancer Social History Social History Household Members: Family Housing: House Do you presently have visiting nurse or other home services: No Alcohol intake: never Patient Tobacco Use Status: Never used Tobacco e-Cigarette/Vaping Use: Never Used Second Hand Smoke Exposure: No service: No Current occupational status: disabled 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 Cognitive needs: Yes Hearing needs: No Vision needs: No Physical Exam ED Vital Signs: Vital Signs - 24 hr 05/22/25 16:52 05/22/25 20:04 Temperature 97 F 97.8 F Pulse Rate 83 104 H Respiratory Rate 18 16 Blood Pressure 151/71 H 136/66 Pulse Oximetry 99 97 Oxygen Delivery Method Room Air Room Air BMI result Body Mass Index 57.3 Const General: healthy appearing, comfortable, no acute distress, alert and awake Nutritional Appearance: well nourished Orientation/consciousness: patient oriented x3 HENMT Head: Yes normocephalic and Yes atraumatic Eyes Eyelids: Yes eyelids normal Conjunctivae: conjunctivae normal Sclerae: sclerae normal Corneas: corneas normal Pupils: Equal, round and reactive pupils present EOM: EOMs intact bilaterally Neck Neck: Yes full ROM Resp Effort & Inspection: normal respiratory effort, able to speak in complete sentences and not labored Cardio Rate: regular rate Rhythm: regular rhythm GI Inspection: No distended Palpation (GI): Soft to palpation, not firm, nontender, no guarding and not rigid Skin General skin exam: elasticity normal Neuro General: patient oriented x3 Cranial nerves: Yes CN's II-XII intact bilaterally, Yes Equal, round and reactive pupils present and Yes Bilaterally intact EOM present Cognition (Neuro): normal cognition Gait exam (Neuro): Normal gait present Motor exam (neuro): 5/5 motor strength present throughout, Pronator motor function not present, no tremor noted, no asterixis and Motor fasciculations not present Coordination: [id number] test normal, [id number] test normal and Romberg test negative Romberg Test: Negative Extrem Other: Moving all extremities well without any obvious deformities Course Course Course Narrative: Rapid medical examination performed in triage by Christal William PA-C: Patient is a 50 year old assigned female at presenting to the emergency department with a headache, dizziness, and ear congestion. Detailed physical exam and review of systems are deferred to the computer art instructor. EKG and labs ordered. Patient placed back in the waiting room pending room availability and results. Reevaluation(s) Reevaluation #1: The patient re-evaluated, she reports that she still feels but disoriented and dizzy. She is answering questions appropriately, she remains with an NIH stroke score of 0. While I was discussing the patient's workup with her, she had another episode of unresponsiveness. She was blinking but was not answering questions this lasted about 8 seconds. Plan to discuss with the hospitalist for admission Time: 19:56 Medications Administered Generic Name Dose Route Start Last Admin Trade Name Freq PRN Reason Stop Dose Admin Atorvastatin Calcium 20 mg 05/22/25 21:00 05/22/25 22:06 Atorvastatin Calcium 20 Mg Tablet PO 20 mg BEDTIME JAYNA Administration Ceftriaxone Sodium 1 gm/ 50 mls @ 100 mls/hr 05/22/25 21:00 05/22/25 22:38 Sodium Chloride IV Infused Q24H JAYNA Infusion Insulin Human Lispro 0 unit 05/22/25 21:00 05/22/25 22:11 Insulin Lispro 100 Unit/Ml 3 Ml Vial SUBCUT Not Given QIDACHS [facility] Protocol Sodium Chloride 3 ml 05/23/25 00:00 05/22/25 22:09 0.9 % Sodium Chloride Flush 3 Ml Syringe IVFLUSH 3 ml QSHIFT JAYNA Administration Discontinued Medications Generic Name Dose Route Start Last Admin Trade Name Johan PRN Reason Stop Dose Admin Diphenhydramine HCl 25 mg 05/22/25 17:55 05/22/25 18:19 Diphenhydramine Hcl 50 Mg/Ml Vial IVPUSH 05/22/25 17:56 25 mg ONCE ONE Administration Sodium Chloride 1,000 mls @ 999 mls/hr 05/22/25 18:00 05/22/25 21:31 Ns IV 05/22/25 19:00 Infused .Q1H1M JAYNA Infusion Meclizine HCl 25 mg 05/22/25 17:55 05/22/25 18:19 Meclizine Hcl 25 Mg Tablet PO 05/22/25 17:56 25 mg ONCE ONE Administration Metoclopramide HCl 10 mg 05/22/25 17:55 05/22/25 18:20 Metoclopramide Hcl 10 Mg/2 Ml Vial IVPUSH 05/22/25 17:56 10 mg ONCE ONE Administration Medical Decision Making Medical Decision Making MDM Narrative: 50-year-old female past medical history as above presents for evaluation of continued dizziness and chest pain. I reviewed her workup from 3 days ago. She had a repeat workup that included labs, EKG. Her troponin remains negative. During my interview with the patient did have a brief episode of about 10 seconds where she was staring straight and not responding. There was no postictal state afterwards and the patient is able to get up for neurologic testing. She performed a Romberg immediately after this episode. Given that the patient had no objective neuro deficits, there was no postictal state I do not feel this was a seizure but may a more psychosomatic in nature. I did order a CT scan of the brain as the patient reports that she has never had this performed. Differential Diagnosis Differential Diagnoses: The differential diagnosis associated with the presentation includes Headache Vertigo CVA Seizure disorder Pseudo-seizure Admission/Observation Consideration of admission/observation: Escalation of care including admission/observation considered Lab Data MDM Lab Attestation statement: I reviewed the patient's lab results. No leukocytosis or significant anemia. Normal platelet count. No electrolyte abnormalities warranting dimension. The patient has known diabetes in her glucose is elevated to 158. No evidence of DKA 05/22/25 17:10 05/22/25 17:10 Labs: Lab Results 05/22/25 Range/Units 17:10 WBC 10.4 (4.8-10.8) X10*3/uL RBC 5.19 (4.20-5.50) X10*6/uL Hgb 12.3 (12.0-16.0) g/dl Hct 40.2 (37.0-47.0) % MCV 77.5 L (80.0-98.0) fL MCH 23.7 L (27.0-33.0) pg MCHC 30.6 L (31.0-35.0) g/dl RDW 15.6 (11.0-16.0) % Plt Count 295 (160-400) X10*3/uL MPV 9.9 (9.4-12.3) fL Immature Gran % (Auto) 0.9 H (0.0-0.4) % Neut % (Auto) 66.3 (45-73) % Lymph % (Auto) 23.8 (20-40) % [place] % (Auto) 7.2 (2-11) % Eos % (Auto) 1.5 (0-4) % Baso % (Auto) 0.3 (0-2) % Lymph # (Auto) 2.5 (1.2-4.9) X10*3/uL [place] # (Auto) 0.8 (0.1-1.2) X10*3/uL Eos # (Auto) 0.2 (0.0-0.4) X10*3/uL Baso # (Auto) 0.0 (0.0-0.2) X10*3/uL Abs Immat Gran (auto) 0.09 H (0.00-0.03) X10*3/uL Absolute Neuts (auto) 6.9 (2.0-8.3) x10*3/uL Absolute Nucleated RBC 0.000 (0.0-0.012) X10*3/uL Nucleated RBC % (auto) 0.0 (0.0-0.2) /100WBC Sodium 139 (135-145) mmol/L Potassium 3.7 (3.3-5.1) mmol/L Chloride 107 (96-108) mmol/L Carbon Dioxide 23 (22-29) mmol/L Anion Gap 13 (12-20) BUN 17 H (9-16) mg/dL Creatinine 0.72 (0.5-1.4) mg/dL Estim Creat Clear Calc 139.3 Estimated GFR > 60 Random Glucose 158 H (60-115) mg/dL Calcium 9.4 (8.4-10.2) mg/dL Magnesium 1.8 (1.6-2.6) mg/dL Total Bilirubin 0.3 (0.0-1.0) mg/dL AST 19 (5-31) U/L ALT 15 (0-31) U/L Alkaline Phosphatase 99 (39-117) U/L Total Creatine Kinase 66 (26-140) U/L Troponin I High Sens < 2.7 (<3.5-17.0) ng/L Total Protein 8.7 H (6.5-8.0) g/dL Albumin 4.5 (3.5-5.0) g/dL TSH 2.56 (0.32-4.0) uIU/mL Urine Color Yellow Urine Appearance Cloudy Urine pH 6.5 (5.0-9.0) Ur Specific [place] 1.015 (1.005-1.025) Urine Protein Trace (Neg-Trace) mg/dL Urine Glucose (UA) Negative (Negative) mg/dL Urine Ketones Negative (Negative) mg/dL Urine Blood Trace H (Negative) Urine Nitrite Negative (Negative) Ur Leukocyte Esterase Moderate (2+) H (Negative) Urine RBC 6-10 H (0-2) /HPF Urine WBC 21-50 H (0-5) /HPF Ur Squamous Epith Cells 6-10 (0-2) /HPF Urine Bacteria Trace (None Seen) Hyaline Casts 0-2 (0-2) /LPF Influenza Type A (PCR) NEGATIVE (Negative) Influenza Type B (PCR) NEGATIVE (Negative) RSV RNA Qual (PCR) NEGATIVE (Negative) SARS-CoV-2 RNA (RT-PCR) NEGATIVE (Negative) Discharge Plan Discharge Clinical Impression: Dizziness Patient Disposition: Admitted As Inpatient Interventions: Admission Worksheet (ED) Last Done: 05/22/25 21:35 Discharge Date/Time: 05/22/25 21:36
--- NOTE | 2025-05-22 16:55 | ECG_ITS ---
Test Reason : weakness Blood Pressure : */* mmHG Vent. Rate : 102 BPM Atrial Rate : 102 BPM P-R Int : 184 ms QRS Dur : 78 ms QT Int : 324 ms P-R-T Axes : 47 4 44 degrees QTcB Int : 422 ms Sinus tachycardia Cannot rule out Inferior infarct , age undetermined Abnormal ECG When compared with ECG of 19-May-2025 20:03, No significant change was found Referred By: Christal William Electronically Signed By: DUNG GALO
[2025-05-22 17:19] LABS: MANUAL DIFF FLAG NO
[2025-05-22 17:27] LABS: Appearance Urine Cloudy; Glucose Urine UA Negative (Negative); PH 6.5 (5.0-9.0); Specific Gravity - Urine 1.015 (1.005-1.025); UMIC TRIGGER UACC YES
[2025-05-22 17:38] LABS: UACC Culture Trigger YES
[2025-05-22 17:50] LABS: Hematocrit 40.2 % (37.0-47.0); Hemoglobin 12.3 g/dl (12.0-16.0); Imm Gran Abs Auto 0.09 X10*3/uL (0.00-0.03); Imm Gran Pct Auto 0.9 % (0.0-0.4); Lymphocytes Absolute Auto 2.5 X10*3/uL (1.2-4.9); Mean Corpuscular HGB Conc 30.6 g/dl (31.0-35.0); Mean Corpuscular Hemoglobin 23.7 pg (27.0-33.0); Mean Corpuscular Volume 77.5 fL (80.0-98.0); NRBC Abs Auto 0.000 X10*3/uL (0.0-0.012); NRBC Pct Auto 0.0 /100WBC (0.0-0.2); Platelet Count 295 X10*3/uL (160-400); Red Blood Count 5.19 X10*6/uL (4.20-5.50); White Blood Count 10.4 X10*3/uL (4.8-10.8)
[2025-05-22 17:52] LABS: Alanine Aminotransferase 15 U/L (0-31); Albumin Level 4.5 g/dL (3.5-5.0); Alkaline Phosphatase 99 U/L (39-117); Anion Gap 13 (12-20); Aspartate Amino Transferase 19 U/L (5-31); Blood Urea Nitrogen 17 mg/dL (9-16); Calcium 9.4 mg/dL (8.4-10.2); Carbon Dioxide 23 mmol/L (22-29); Chloride 107 mmol/L (96-108); Creatinine Clr Calc Pharmacy 139.3; Estimated Glomerular Filt Rate > 60; Magnesium 1.8 mg/dL (1.6-2.6); Potassium 3.7 mmol/L (3.3-5.1); Sodium 139 mmol/L (135-145); Total Protein 8.7 g/dL (6.5-8.0)
[2025-05-22 17:57] LABS: Resp Syncy Virus RNA Qual PCR NEGATIVE (Negative); SARS COV2 PCR INHOUSE NEGATIVE (Negative)
[2025-05-22 18:09] LABS: Troponin-I High Sensitivity < 2.7 ng/L (<3.5-17.0)
[2025-05-22 20:04] VITALS: BP 136/66; PULSE 104; RESP 16; TEMP 36.6; O2SAT 97
--- NOTE | 2025-05-22 20:33 | PM.IMHP ---
History of Present Illness Date of Service: 05/22/25 Attending physician on admission: Elis Cain Chief Complaint: Shakiness and dizziness Sol Brown is a 50 years old woman with complex past medical history including morbid obesity, MAXIMINO on CPAP, anxiety, fibromyalgia, restrictive lung disease, vertigo, diabetes mellitus not on insulin, essential hypertension, recurrent UTIs and essential hypertension presents to the emergency department for the 2nd time due to ongoing dizziness and episodes of shakiness and loss of consciousness associated with palpitations. She denied any headaches, focal weakness, speech difficulty, chest pain, shortness on breath, abdominal pain, nausea, vomiting, constipation or diarrhea. She has been taking methenamine for recurrent UTIs. Son mentioned that she was recently diagnosed with a precancerous lesion in the uterus (she has a device) and since then she has been very anxious. There is no history of epilepsy. Patient takes meclizine for vertigo/dizziness without improvement of symptoms. In the ED, she was found to have stable vital signs except for mild tachycardia. Blood workup showed no leukocytosis. Hemoglobin is 12.3 and platelets 295. There are no electrolyte imbalances. LFTs are normal. test done yesterday. Urinalysis consistent with UTI and microscopic hematuria. Viral testing for COVID-19, influenza and RSV is negative. Head CT scan without contrast showed no acute intracranial findings. ECG is consistent with sinus tachycardia, heart rate 102 beats per minute. ED Tx: Antivert 25 mg p.o., NS 1 L bolus, Reglan 10 mg IV, Benadryl 25 mg IV Review of Systems Review of Systems: All 12 systems were reviewed and normal except as noted in HPI. [facility] Medical History Rheumatoid arthritis SVT (supraventricular tachycardia) Osteoarthritis of knees, bilateral LARRY (generalized anxiety disorder) Hypovitaminosis D Pure hypercholesterolemia Morbid obesity due to excess calories Iron deficiency anemia Anxiety Super obese Vertigo Morbid obesity Seronegative rheumatoid arthritis Thrombophlebitis Fibromyalgia MAXIMINO (obstructive sleep apnea) Hypertension Diabetes Family History Father Prostate cancer Mother Uterine cancer Surgical History History of tubal ligation History of History of hip surgery Social History Housing: Apartment Alcohol intake: never Patient Tobacco Use Status: Never used Tobacco Smoked in Last 30 Days: No e-Cigarette/Vaping Use: Never Used Second Hand Smoke Exposure: No Use of substances other than those prescribed or required for medical reasons: No Advance Directives: No Advance Directives Information Provided: No Patient : No service: No Current occupational status: disabled 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 Cognitive needs: Yes Hearing needs: No Vision needs: No Meds Allergies Allergy/AdvReac Type Severity Reaction Status Date / Time abatacept (From Orencia) AdvReac Severe Palpitation Verified 05/22/25 16:53 s tocilizumab (From Actemra) AdvReac Intermediate Transaminit Verified 05/22/25 16:53 is doxycycline AdvReac Mild Palpitation Verified 05/22/25 16:53 s Active Medications: Current Medications Acetaminophen (Acetaminophen 325 Mg Tablet) 975 mg PO Q6H PRN PRN Reason: Pain, Mild 1-3,fever,headache Enoxaparin Sodium (Enoxaparin Sodium 40 Mg/0.4 Ml Syringe) 40 mg SUBCUT Q12H JAYNA Sodium Chloride (0.9 % Sodium Chloride Flush 3 Ml Syringe) 3 ml IVFLUSH QSHIFT [facility] Home Medications ?Medication ?Instructions ?Recorded ?Confirmed ?Last Taken ?Type acetaminophen 500 mg tablet 500 mg PO BID PRN 09/14/21 04/01/25 Unknown History (Tylenol Extra Strength) dulaglutide 1.5 mg/0.5 mL 1.5 mg subcut MO@0900 05/22/25 05/22/25 05/18/25 History subcutaneous pen injector (Trulicity) etanercept 50 mg/mL (1 mL) 50 mg subcut FR@0900 05/22/25 05/22/25 Unknown History subcutaneous pen injector (Enbrel SureClick) ferrous sulfate 325 mg (65 mg 325 mg PO DAILY 05/22/25 05/22/25 05/22/25 History iron) tablet fluticasone propionate 50 1 spray intranasal DAILY PRN 05/22/25 05/22/25 Unknown History mcg/actuation nasal ALLERGIES spray,suspension (Flonase Allergy Relief) hydrochlorothiazide 12.5 mg tablet 12.5 mg PO DAILY 05/22/25 05/22/25 05/22/25 History Physical Exam Vital Signs and Narrative: Vital Signs: Last Vital Signs Temp 97.8 F 05/22/25 20:04 Pulse 104 H 05/22/25 20:04 Resp 16 05/22/25 20:04 BP 136/66 05/22/25 20:04 Pulse Ox 97 05/22/25 20:04 O2 Del Method Room Air 05/22/25 20:04 BMI result Body Mass Index 57.3 General: Alert, oriented, in no acute distress. Cooperative. Morbid obesity. Afebrile. HEENT: Head normocephalic, atraumatic. PERRL, EOMI. Sclerae anicteric, conjunctiva clear. Oropharynx without erythema or exudate. Mucous membranes moist. Neck: Supple, no lymphadenopathy, or JVD. Heart: RRR, no murmurs, rubs or gallops. Lungs: Clear to auscultation bilaterally. No wheezes, rales, or rhonchi. Normal respiratory effort. Abdomen: Soft, non tenderness, nondistended, normoactive bowel sounds. No hepatosplenomegaly, masses or masses. Extremities: No calf tenderness bilaterally, no swelling Musculoskeletal: Full range of motion. No joint swelling, deformity, or tenderness. Normal muscle tone and strength. Skin: Warm/Dry. No pallor. No jaundice. Neurologic: Alert & oriented x4. Moving all extremities spontaneously. Normal speech. Psychological: Anxious mood and affect. Thought process coherent. Results Labs 05/22/25 17:10 05/22/25 17:10 Labs: Laboratory Results - last 24 hr 05/22/25 17:10 MCV 77.5 L MCH 23.7 L MCHC 30.6 L RDW 15.6 Plt Count 295 MPV 9.9 Immature Gran % (Auto) 0.9 H Neut % (Auto) 66.3 Lymph % (Auto) 23.8 [place] % (Auto) 7.2 Eos % (Auto) 1.5 Baso % (Auto) 0.3 Lymph # (Auto) 2.5 [place] # (Auto) 0.8 Eos # (Auto) 0.2 Baso # (Auto) 0.0 Abs Immat Gran (auto) 0.09 H Absolute Neuts (auto) 6.9 Absolute Nucleated RBC 0.000 Nucleated RBC % (auto) 0.0 Anion Gap 13 Estim Creat Clear Calc 139.3 Estimated GFR > 60 Random Glucose 158 H Calcium 9.4 Magnesium 1.8 Total Bilirubin 0.3 AST 19 ALT 15 Alkaline Phosphatase 99 Total Creatine Kinase 66 Troponin I High Sens < 2.7 Total Protein 8.7 H Albumin 4.5 Urine Color Yellow Urine Appearance Cloudy Urine pH 6.5 Ur Specific [place] 1.015 Urine Protein Trace Urine Glucose (UA) Negative Urine Ketones Negative Urine Blood Trace H Urine Nitrite Negative Ur Leukocyte Esterase Moderate (2+) H Urine RBC 6-10 H Urine WBC 21-50 H Ur Squamous Epith Cells 6-10 Urine Bacteria Trace Hyaline Casts 0-2 Influenza Type A (PCR) NEGATIVE Influenza Type B (PCR) NEGATIVE RSV RNA Qual (PCR) NEGATIVE SARS-CoV-2 RNA (RT-PCR) NEGATIVE Assessment and Plan (1) Shakiness: Status: Acute (2) Loss of consciousness: Status: Acute Plan Sol Brown is a 50 y/o woman with PMHx significant for anxiety and fibromyalgia, who presents with: Episodes of shakiness and loss of consciousness w/o postictal confusion. ?Absent seizures. Telemetry. Neuro checks. Check EEG and brain MRI. Neurology consult. Fall precautions. Palpitations, mild tachycardic, possible secondary to anxiety. Check TSH. Obtain echocardiogram. Patient takes alprazolam as needed. Urinary tract infection. Hx of recurrent UTIs on methenamine. Ceftriaxone IV. Urine culture obtained will follow results. Type 2 diabetes mellitus. On Trulicity. BG checks before meals at bedtime. Insulin sliding scale. Diabetic diet. Check hemoglobin A1c. Essential hypertension. Continue diltiazem, losartan and hydrochlorothiazide. Hyperlipidemia. Continue atorvastatin. RA. On Enbrel subcut per Rheumatology. Chronic anemia. Continue ferrous sulfate. Restrictive lung disease. Continue home meds. Hx vertigo. Continue meclizine. MAXIMINO. Nocturnal CPAP. Code status: Full DVT prophylaxis: Lovenox Patient will need hospitalization for at least 2 midnights for evaluation of episode of shakiness and loss of consciousness concerning for abscess seizures; she will need close monitoring of symptoms and further evaluation with brain MRI, EEG and evaluation by specialists. This documentation was generated using dictation software; minor spreading or reimbursement specialist errors may be present. Quality Stroke Does the patient have a stroke diagnosis?: No VTE Prior VTE?: No VTE Risk Level:: Medical - moderate - high VTE Device Contraindication: Treatment Not Indicated VTE Drug Contraindication: N/A - Med Ordered
--- NOTE | 2025-05-22 20:38 | HO.NURTONUR ---
Pt here w/ c/o h/a, dizziness, and head congestion x 4 days. Pt was recently dx'd w/ otitis media and was on Levaquin. Per reprt from PA during assessment, pt noted to have episodes of where she will space out present as an absent seizure and shows no post-ictal signs. Pt being admitted for poss MRI tomorrow. Pt is sp. speaking only, ambulates w/ cane. Pt is now pain free.
--- NOTE | 2025-05-22 20:50 | PHA.MEDREC ---
Pharmacy Consult ? Medication Reconciliation Pharmacy has completed the medication reconciliation.Med rec complete, patient's son spoke to me and helped to translate. Patient was recently started on Levofloxacin and has take a couple of doses. The son said his mom stopped the vitaman c and methenamine while taking levofloxacin
[2025-05-22 21:20] LABS: Thyroid Stimulating Hormone 2.56 uIU/mL (0.32-4.0)
[2025-05-22 21:41] LABS: Glucose, Whole Blood 126 mg/dL (60-115)
[2025-05-22 21:48] VITALS: BMI 59.4
[2025-05-22] MEDS: 0.9 % Sodium Chloride Flush 3 ML SYRINGE IVFLUSH (22:09)
[2025-05-22 23:02] VITALS: BP 140/70; PULSE 99; RESP 18; TEMP 36.6; O2SAT 96
[2025-05-23] VITALS: BP 143/66; PULSE 107; RESP 16; TEMP 37.2; O2SAT 96
--- NOTE | 2025-05-23 00:14 | PM.DS ---
DS: Providers Provider Date of Service: 05/22/25 Date of admission: 05/22/25 20:09 Date of discharge: 05/23/25 Primary care physician: Unknown Physician Admitting clinician: Elis Cain Attending physician on admission: Elis Cain Consults: 05/22/25 20:30 Consult to Neurology Routine Consulting Provider: [facility] Reason for consultation: ? Absence seizures Has provider been notified: No 05/22/25 23:10 Consult to Cardiology Stat Consulting Provider: [facility] Reason for consultation: 4 sec pauses here for absent seizures Has provider been notified: No Attending physician on discharge: Elis Cain Discharging clinician: Elis Cain DS: Transfer Hospital Acceptance Reason for Transfer: High-grade AV block Name of Facility: [facility] DS: Diagnosis Discharge Diagnosis (1) Shakiness: Status: Acute (2) Loss of consciousness: Status: Acute (3) High-grade atrioventricular block: Status: Acute DS: Summary Hospital Course Hospital Course: Chief Complaint: Shakiness and dizziness Sol Brown is a 50 years old woman with complex past medical history including morbid obesity, MAXIMINO on CPAP, anxiety, fibromyalgia, restrictive lung disease, vertigo, diabetes mellitus not on insulin, essential hypertension, recurrent UTIs and essential hypertension presents to the emergency department for the 2nd time due to ongoing dizziness and episodes of shakiness and loss of consciousness associated with palpitations. She denied any headaches, focal weakness, speech difficulty, chest pain, shortness on breath, abdominal pain, nausea, vomiting, constipation or diarrhea. She has been taking methenamine for recurrent UTIs. Son mentioned that she was recently diagnosed with a precancerous lesion in the uterus (she has a device) and since then she has been very anxious. There is no history of epilepsy. Patient takes meclizine for vertigo/dizziness without improvement of symptoms. In the ED, she was found to have stable vital signs except for mild tachycardia. Blood workup showed no leukocytosis. Hemoglobin is 12.3 and platelets 295. There are no electrolyte imbalances. LFTs are normal. Troponin < 2.7. test done yesterday. Urinalysis consistent with UTI and microscopic hematuria. Viral testing for COVID-19, influenza and RSV is negative. Head CT scan without contrast showed no acute intracranial findings. ECG is consistent with sinus tachycardia, heart rate 102 beats per minute. ED Tx: Antivert 25 mg p.o., NS 1 L bolus, Reglan 10 mg IV, Benadryl 25 mg IV Hospital Course: Patient was admitted to [facility] and landscape specialist. TTE, EEG and brain MRI ordered; neurology consult was initially requested. Her home medications were continued. During the interim of this admission the patient was noted to have intermittent episodes of high-grade AV block. Diltiazem was discontinued which she uses daily. Tick-borne disease was ordered. Atropine at bedside ordered. Cardiology, on-call, Dr. Coates contacted and recommended transfer patient to [facility] for pacemaker implantation. Case has been discussed with Dr. Joaquim Mittal, health care consultant at [facility], and accepted patient. Time spent discussing smoking cessation with patient: more than 10 minutes Time Attestation Discharge Coordination Time (in mins): 65 mins Quality: Safe Use of Opioids Does Pt have an Active Cancer Diagnosis on the Problem List?: No Quality: Stroke Does the patient have a stroke diagnosis?: No Physical Exam Exam: Exam: General: Alert, oriented, in no acute distress. Cooperative. Morbid obesity. Afebrile. HEENT: Head normocephalic, atraumatic. PERRL, EOMI. Sclerae anicteric, conjunctiva clear. Oropharynx without erythema or exudate. Mucous membranes moist. Neck: Supple, no lymphadenopathy, or JVD. Heart: RRR, no murmurs, rubs or gallops. Lungs: Clear to auscultation bilaterally. No wheezes, rales, or rhonchi. Normal respiratory effort. Abdomen: Soft, non tenderness, nondistended, normoactive bowel sounds. No hepatosplenomegaly, masses or masses. Extremities: No calf tenderness bilaterally, no swelling Musculoskeletal: Full range of motion. No joint swelling, deformity, or tenderness. Normal muscle tone and strength. Skin: Warm/Dry. No pallor. No jaundice. Neurologic: Alert & oriented x4. Moving all extremities spontaneously. Normal speech. Psychological: Anxious mood and affect. Thought process coherent. Vital Signs: Vital Signs: Last Vital Signs Temp 97.8 F 05/22/25 23:02 Pulse 99 05/22/25 23:02 Resp 18 05/22/25 23:02 BP 140/70 H 05/22/25 23:02 Pulse Ox 96 05/22/25 23:02 O2 Del Method Room Air 05/22/25 23:02 BMI result Body Mass Index 59.4 DS: Data Data Completed and Pending Labs on day of discharge: Laboratory Results - last 24 hr 05/22/25 05/22/25 17:10 21:36 WBC 10.4 RBC 5.19 Hgb 12.3 Hct 40.2 MCV 77.5 L MCH 23.7 L MCHC 30.6 L RDW 15.6 Plt Count 295 MPV 9.9 Immature Gran % (Auto) 0.9 H Neut % (Auto) 66.3 Lymph % (Auto) 23.8 Hitchcock % (Auto) 7.2 Eos % (Auto) 1.5 Baso % (Auto) 0.3 Lymph # (Auto) 2.5 Hitchcock # (Auto) 0.8 Eos # (Auto) 0.2 Baso # (Auto) 0.0 Abs Immat Gran (auto) 0.09 H Absolute Neuts (auto) 6.9 Absolute Nucleated RBC 0.000 Nucleated RBC % (auto) 0.0 Sodium 139 Potassium 3.7 Chloride 107 Carbon Dioxide 23 Anion Gap 13 BUN 17 H Creatinine 0.72 Estim Creat Clear Calc 139.3 Estimated GFR > 60 POC Glucose 126 H Random Glucose 158 H Calcium 9.4 Magnesium 1.8 Total Bilirubin 0.3 AST 19 ALT 15 Alkaline Phosphatase 99 Total Creatine Kinase 66 Troponin I High Sens < 2.7 Total Protein 8.7 H Albumin 4.5 TSH 2.56 Urine Color Yellow Urine Appearance Cloudy Urine pH 6.5 Ur Specific Branch 1.015 Urine Protein Trace Urine Glucose (UA) Negative Urine Ketones Negative Urine Blood Trace H Urine Nitrite Negative Ur Leukocyte Esterase Moderate (2+) H Urine RBC 6-10 H Urine WBC 21-50 H Ur Squamous Epith Cells 6-10 Urine Bacteria Trace Hyaline Casts 0-2 Influenza Type A (PCR) NEGATIVE Influenza Type B (PCR) NEGATIVE RSV RNA Qual (PCR) NEGATIVE SARS-CoV-2 RNA (RT-PCR) NEGATIVE Discharge Plan Discharge Anticipated Discharge Date/Time: 05/23/25 00:17 Patient Disposition: Xfer Acute Care Hospital Discharge Diagnosis: High-grade AV block Referrals: Physician,Unknown J [Primary Care Provider, Medical] - 1 Week Discharge Medications: Continued (DME) grab bars See Rx Instructions .Route .MEDSUPPLY Qty: 1 0RF Rx Instructions: As directed (DME) Shower Chair Misc See Rx Instructions .ROUTE .MEDSUPPLY Qty: 1 0RF Rx Instructions: As directed (DME) blood pressure monitor Kit See Rx Instructions .Route Qty: 1 0RF Rx Instructions: As directed (DME) walker Misc See Rx Instructions .Route Qty: 1 0RF Rx Instructions: heavy duty rollator aspirin 81 mg tablet,delayed release (DR/EC) 81 mg PO DAILY 30 Days Qty: 30 11RF (DME) FreeStyle Lite Strips Strip See Rx Instructions .Route Qty: 100 3RF Rx Instructions: Use 1 test strip once a day folic acid 1 mg tablet 1 mg PO DAILY Qty: 90 1RF atorvastatin 20 mg tablet 20 mg PO BEDTIME 90 Days Qty: 90 1RF albuterol sulfate 90 mcg/actuation HFA aerosol inhaler 2 puff inhalation 6XD PRN (Reason: shortness of breath or wheezing) Qty: 1 6RF cholecalciferol (vitamin D3) [Vitamin D3] 25 mcg (1,000 unit) capsule 25 mcg PO DAILY 90 Days Qty: 90 1RF losartan 100 mg tablet 100 mg PO DAILY 90 Days Qty: 90 3RF ferrous sulfate 325 mg (65 mg iron) tablet 325 mg PO DAILY fluticasone propionate [Flonase Allergy Relief] 50 mcg/actuation spray,suspension 1 spray intranasal DAILY PRN (Reason: ALLERGIES) Rx Instructions: administer into each nostril Trulicity 1.5 mg/0.5 mL pen injector 1.5 mg subcut MO@0900 hydrochlorothiazide 12.5 mg tablet 12.5 mg PO DAILY Enbrel SureClick 50 mg/mL (1 mL) pen injector 50 mg subcut FR@0900 (DME) blood-glucose meter [FreeStyle Lite Meter] Kit See Rx Instructions .Route Qty: 1 0RF Rx Instructions: As directed (DME) lancets [FreeStyle Lancets] 28 gauge misc See Rx Instructions .Route Qty: 100 3RF Rx Instructions: Use 1 lancet once a day (DME) wheelchair heavy duty See Rx Instructions .Route .MEDSUPPLY Qty: 1 0RF Rx Instructions: As directed (DME) cane Device See Rx Instructions .ROUTE .MEDSUPPLY Qty: 1 0RF Rx Instructions: As directed acetaminophen [Tylenol Extra Strength] 500 mg tablet 500 mg PO BID PRN (Reason: Pain (Scale Score 1-3)) (DME) cock up splint See Rx Instructions .Route .MEDSUPPLY Qty: 2 0RF Rx Instructions: wear on each wrist at night. meclizine 25 mg tablet 25 mg PO TID PRN (Reason: dizziness) 30 Days Qty: 90 1RF ascorbic acid (vitamin C) 1,000 mg tablet 1 g PO DAILY 90 Days Qty: 90 1RF Discontinued diltiazem HCl 240 mg capsule,extended release 24hr 240 mg PO DAILY Qty: 90 3RF levofloxacin 250 mg tablet 250 mg PO DAILY Qty: 9 0RF methenamine hippurate 1 gram tablet 1 g PO DAILY 90 Days Qty: 90 1RF Rx Instructions: Start once completed with antibiotic therapy Discharge Orders: Discharge Order (Routine); Ordered 05/23/25 Ordered By: Elis Cain Diet: Advance to usual diet Activity on Discharge: As tolerated Stand Alone Forms: Patient Portal Discharge page Print Language: Turkmen Care Plan Goals: Transferred to [facility] Health Concerns: Transferred to [facility] Plan of Treatment: Transferred to [facility] Assessment: High-grade AV block, possible requiring pacemaker implantation
--- NOTE | 2025-05-23 00:31 | ECG_ITS ---
Test Reason : tachycardia Blood Pressure : */* mmHG Vent. Rate : 94 BPM Atrial Rate : 94 BPM P-R Int : 184 ms QRS Dur : 78 ms QT Int : 320 ms P-R-T Axes : 48 -4 37 degrees QTcB Int : 400 ms Sinus rhythm with transient AV block Abnormal ECG When compared with ECG of 22-May-2025 23:17, Heart block noted Referred By: Elis Cain Electronically Signed By: DUNG GALO
[2025-05-23 00:58] LABS: Troponin-I High Sensitivity 6.8 ng/L (<3.5-17.0)
--- NOTE | 2025-05-23 01:27 | PC.NURSE ---
Patient transferred from Med Surg to [facility] Tele at approximately 00:00 for symptomatic pauses, pending transfer to [facility]. Patient is uzbek speaking only, float remover utilized for initial assessment- patient A+Ox4, follows commands, COPELAND. Afebrile. On RA, SpO2 >95% on RA, denies any SOB. Patient sinus rhythm/sinus tachycardic on tele, HR 90-110s with intermittent symptomatic pauses. Patient is able to verbalize when a pause is occurring and states she feels dizzy with palpitations and ?electricity? in her chest during the pause. EKG obtained, Dr Benavidez aware. SBP 140s. Pt accepted to [place] [id number] room 12. Patient and updated on plan of care. Patients has patient belongings. RN to RN report given to [place] [id number]. Pt transported by [facility] at approximately 01:20.
== END 2025-05-23 01:20 | disposition short-term general hospital (02) | DRG 201 ==
LOC: HO.ED 20:01 → HO.EDOVER 20:15 → HO.S3 20:31 → HO.IMC 23:41
PROVIDERS: Physician Assistant; Physician Assistant Medical; Admitting Provider Internal Medicine; Emergency Provider Student in an Organized Health Care Education/Training Program; Visit Provider Internal Medicine
DX: I44.30 Unspecified atrioventricular block (principal); Z68.43 Body mass index [BMI] 50.0-59.9, adult; E11.9 Type 2 diabetes mellitus without complications; E78.5 Hyperlipidemia, unspecified; G47.33 Obstructive sleep apnea (adult) (pediatric); D64.9 Anemia, unspecified; Z20.822 Contact with and (suspected) exposure to COVID-19; E66.01 Morbid (severe) obesity due to excess calories; N39.0 Urinary tract infection, site not specified; Z87.440 Personal history of urinary (tract) infections; I10 Essential (primary) hypertension; M06.9 Rheumatoid arthritis, unspecified; Z79.899 Other long term (current) drug therapy
CPT/HCPCS: 36415; 70450; 80053; 81001; 82550; 82947; 83735; 84443; 84484; 85025; 87086; 87468; 87469; 87484; 87637; 87798; 93005; 99285; J0696; J1200; J2765

== ENCOUNTER → 2025-05-22 16:55 | Outpatient (BNV) | payer OTHER, SELFPAY | PROVIDERS: Admitting Provider Internal Medicine; Emergency Provider Student in an Organized Health Care Education/Training Program; Visit Provider Internal Medicine | DX: R00.0 Tachycardia, unspecified (principal); I21.19 ST elevation (STEMI) myocardial infarction involving other coronary artery of inferior wall | CPT/HCPCS: 93010 ==

== ENCOUNTER → 2025-05-22 17:55 | Outpatient (BNV) | payer OTHER, SELFPAY | PROVIDERS: Visit Provider Radiology Diagnostic Radiology | DX: R42 Dizziness and giddiness (principal) | CPT/HCPCS: 70450 ==

== ENCOUNTER 2025-05-22 20:09 | Outpatient (BNV) | payer OTHER, SELFPAY | END 2025-05-23 00:31 | PROVIDERS: Admitting Provider Internal Medicine; Emergency Provider Student in an Organized Health Care Education/Training Program; Visit Provider Internal Medicine | DX: I44.0 Atrioventricular block, first degree (principal) | CPT/HCPCS: 93010 ==

== ENCOUNTER → 2025-05-22 20:09 | Outpatient (BNV) | payer OTHER, SELFPAY | PROVIDERS: Admitting Provider Internal Medicine; Emergency Provider Student in an Organized Health Care Education/Training Program; Visit Provider Internal Medicine | DX: R25.1 Tremor, unspecified (principal); R40.20 Unspecified coma | CPT/HCPCS: 99223 ==

== ENCOUNTER 2025-06-02 13:29 | Outpatient (AMB) | payer OTHER, SELFPAY ==
[2025-06-02 13:57] VITALS: BP 130/82; PULSE 89; RESP 18; O2SAT 97; BMI 56.0
--- NOTE | 2025-06-02 13:57 | A.OFFPC_ITS ---
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: dm Molder Bench Required: No Accompanied by: Self / Same As Patient Allergies abatacept (From Orencia) Adverse Reaction (Severe, Verified 06/02/25 14:14) Palpitations tocilizumab (From Actemra) Adverse Reaction (Intermediate, Verified 06/02/25 14:14) Transaminitis doxycycline Adverse Reaction (Mild, Verified 06/02/25 14:14) Palpitations Medication List - Last Reconciled 06/02/25 by Ryann Angel MD acetaminophen (Tylenol Extra Strength) 500 mg PO BID PRN albuterol sulfate 90 mcg/actuation 2 puffs inhalation 6XD PRN ascorbic acid (vitamin C) 1 g PO DAILY 90 days aspirin 81 mg PO DAILY 30 days atorvastatin 20 mg PO BEDTIME 90 days blood pressure monitor As directed blood sugar diagnostic (FreeStyle Lite Strips) Use 1 test strip once a day blood-glucose meter (FreeStyle Lite Meter kit) As directed cane As directed cholecalciferol (vitamin D3) (Vitamin D3) 25 mcg PO DAILY 90 days [cock up splint wear on each wrist at night. ] diltiazem HCl CD 240 mg PO DAILY dulaglutide (Trulicity) 1.5 mg subcut MO@0900 etanercept (Enbrel SureClick) 50 mg subcut FR@0900 ferrous sulfate 325 mg PO DAILY fluticasone propionate 50 mcg/actuation (Flonase Allergy Relief) 1 spray intranasal DAILY PRN folic acid 1 mg PO DAILY [grab bars As directed] hydrochlorothiazide 12.5 mg PO DAILY lancets (FreeStyle Lancets) Use 1 lancet once a day levofloxacin 250 mg PO DAILY losartan 100 mg PO DAILY 90 days meclizine 25 mg PO TID PRN 30 days methenamine hippurate 1 g PO DAILY 90 days Shower Chair As directed walker heavy duty rollator [wheelchair heavy duty As directed] Tobacco use date assessed: 06/02/25 Dental Screening Dental Screen Date: 06/02/25 Did you have a dental visit in the last 12 months?: Yes Did you have a dental problem in the last 6 months where you did not have access to dental care?: No Was dental information given to patient?: Patient has dentist HPI HPI Comments History of Present Illness Details The patient is a 50-year-old female presenting for follow-up of her chronic conditions, including type 2 diabetes mellitus. Her recent HbA1c was 7.1%, which is an increase from her previous value of 6.3%. Her medications for diabetes include Trulicity, and she was previously on metformin. The patient has a history of high-degree AV block for which a pacemaker was placed during a recent hospitalization. The hospitalization was prompted by worsening dizziness, initially diagnosed as an ear infection, followed by episodes of unresponsiveness. During that admission, diltiazem was discontinued due to its effect on her heart rate but then it was resume. She has a follow-up appointment with a dicer machine operator on June 09 and an appointment with her local dicer machine operator in August for pacemaker management. Her current medication list includes atorvastatin 20 mg, vitamin C, aspirin, diltiazem 240 mg, levofloxacin for a recent stomach issue, iron, folic acid, hydrochlorothiazide, and losartan. The patient's blood pressure is noted to be well-controlled. She is also morbidly obese with a BMI of 56 and was advised to do diet and exercise to reach BMI goal less than 30. She walks with a walker for gait stability due to chronic low back pain. She also has rheumatoid arthritis follow by Rheumatology. [facility] Medical History Rheumatoid arthritis SVT (supraventricular tachycardia) Osteoarthritis of knees, bilateral LARRY (generalized anxiety disorder) Hypovitaminosis D Pure hypercholesterolemia Morbid obesity due to excess calories Iron deficiency anemia Anxiety Super obese Vertigo Morbid obesity Seronegative rheumatoid arthritis Thrombophlebitis Fibromyalgia MAXIMINO (obstructive sleep apnea) Hypertension Diabetes Surgical History History of tubal ligation History of History of hip surgery Family History Father Prostate cancer Mother Uterine cancer Social History Household Members: Family Housing: House Do you presently have visiting nurse or other home services: No Alcohol intake: never Patient Tobacco Use Status: Never used Tobacco e-Cigarette/Vaping Use: Never Used Second Hand Smoke Exposure: No service: No Current occupational status: disabled 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 Cognitive needs: Yes Hearing needs: No Vision needs: No Female Reproductive History Menstrual Age of Menarche: 16 Questionnaire Thrive Questionnaire Date Thrive assessed: 06/02/25 I am a: Parent/Caregiver What is your living situation today?: I have a steady place to live Within the past 12 months, did the food you bought not last and you didn't have the money to get more?: Never true Within the past 12 months, did you worry whether your food would run out before you got money to buy more?: Never true Do you have trouble paying for medicines?: No Do you have trouble getting transportation to medical appointments?: No Do you have trouble paying your heating and electricity bill?: No Do you have trouble taking care of your child, family member or friend?: No Do you have trouble with day-to-day activities such as bathing, preparing meals, shopping, managing finances, etc.?: No Are you currently unemployed and looking for a job?: No Are you interested in more education?: No Please select the resources that you would like help with: None Currently or been in a relationship where the following occur: I choose not to answer THRIVE Score: 0 LARRY-7 AMB Questionnaire LARRY-7 Date LARRY - 7 assessed: 10/22/24 Source: Developed by Drs. Stephen French, Nai Suarez, Jayson Barajas and colleagues, with an educational tiera from [employer]. Review of Systems Const All systems reviewed & are unremarkable except as noted in HPI and below Card Denies chest pain at rest, Denies chest pain with activity, Denies edema, Denies irregular heart rhythm, Denies claudication, Denies dyspnea, Denies dyspnea on exertion, Denies orthopnea, Denies paroxysmal nocturnal dyspnea and Denies slow heart rate Resp Denies cough, Denies dyspnea and Denies dyspnea on exertion Physical exam (Primary Care) Vital Signs: Last Vital Signs Pulse 89 06/02/25 13:57 Resp 18 06/02/25 13:57 BP 130/82 06/02/25 13:57 Pulse Ox 97 06/02/25 13:57 Oxygen Delivery Method Room Air 06/02/25 13:57 BMI result Body Mass Index 56.0 BMI Assessment/Plan discussion: High BMI High, discussed plan: lifestyle, weight reduction, dietary and physical activity Tobacco/Smoking Status: Tobacco use Status Tobacco use date assessed 06/02/25 06/02/25 14:05 Patient Tobacco Use Status Never used Tobacco 06/02/25 14:05 e-Cigarette/Vaping Use Never Used 06/02/25 14:05 Thrive Assessment: Date of Thrive Assessment Date Thrive assessed 06/02/25 06/02/25 14:05 Currently or been in a relationship where the following occur: I choose not to answer Resp Effort & Inspection: normal respiratory effort Auscultation: clear to auscultation bilaterally Cardio Jugular venous distension: no JVD Rate: regular rate Rhythm: regular rhythm Heart sounds: S1 normal heart sound present and S2 normal heart sound present Extrem General: Yes full ROM Results AMB Hemoglobin A1c AMB Hemoglobin A1c 7.1 % Last Edit by Enedelia Noe MA on 06/02/25 17:13 Results Reviewed Results Reviewed: Laboratory Last Values Hgb A1c (Clinic) 7.1 % (4.0-6.0) H 06/02/25 13:52 Coding Level of Care Code Complex visit Add On G2211 Diagnoses Essential hypertension I10 Hyperlipidemia LDL goal <70 E78.5 High-grade atrioventricular block I44.39 Type 2 diabetes mellitus without complication, without long-term current use of insulin E11.9 Diabetes mellitus complication status: without complication Diabetes mellitus assisted insulin use: without assisted use Diabetes mellitus type: type 2 Morbid obesity with BMI of 50.0-59.9, adult E66.01; Z68.43 Seronegative rheumatoid arthritis M06.00 Time Spent (min) 23 Assessment & Plan Assessment & Plan (1) Essential hypertension: Code(s): I10 - Essential (primary) hypertension Category: Medical (2) Hyperlipidemia LDL goal <70: Code(s): E78.5 - Hyperlipidemia, unspecified Category: Medical (3) High-grade atrioventricular block: Code(s): I44.39 - Other atrioventricular block Category: Medical (4) Diabetes: Code(s): E11.9 - Type 2 diabetes mellitus without complications Category: Medical Qualifiers: Diabetes mellitus complication status: without complication Diabetes mellitus cattle sorter insulin use: without assisted use Diabetes mellitus type: type 2 Qualified Code(s): E11.9 - Type 2 diabetes mellitus without complications (5) Morbid obesity with BMI of 50.0-59.9, adult: Code(s): E66.01 - Morbid (severe) obesity due to excess calories; Z68.43 - Body mass index [BMI] 50.0-59.9, adult Category: Medical (6) Seronegative rheumatoid arthritis: Comment: Seronegative dx 03/2019 in [place] MTX: 08/2019- 08/2021 dyspnea Prednisone Humira: September 2021- 12/2022 incomplete response Actemra 01/2023 partially effective advanced to weekly 03/2023 effective DC 12/2023 d.t transminitis Orencia 01/2024 DC 04/2024 could not be tolerated Simponi Aria infusion denied by insurance Enbrel started 06/2024 Code(s): M06.00 - Rheumatoid arthritis without rheumatoid factor, unspecified site Category: Medical Plan Plan 1. Type 2 Diabetes Mellitus The patient's HbA1c has increased to 7.1%. To improve glycemic control, the dosage of Trulicity will be increased to 3 mg. 2. Cardiac Pacemaker In Situ due to high-degree AV block The patient will continue diltiazem as per the dicer machine operator's note from May 26. She has a scheduled follow-up with the dicer machine operator on June 09 and an appointment in August for her pacemaker. 3. Hyperlipidemia The dose of atorvastatin will be increased. 4. Morbid obesity Start diet and exercise. BMI goal is less than 30. 5. Rheumatoid arthritis Follow-up with rheumatology. Orders: Orders AMB Hemoglobin A1c Today E11.9 - Type 2 diabetes mellitus without complications Medications: New dulaglutide (Trulicity) 3 mg (0.5 mL) subcut QWEEK 2 mL 3RF 4 weeks Discontinued levofloxacin Discontinued Reason: Patient Completed Course 250 mg PO DAILY 9 tabs 0RF
== END 2025-06-02 14:31 | disposition home or self-care (01) ==
LOC: HO.HMCH 13:30
PROVIDERS: PCP Internal Medicine; Visit Provider Internal Medicine
DX: I10 Essential (primary) hypertension (principal); E78.5 Hyperlipidemia, unspecified; I44.39 Other atrioventricular block; E11.9 Type 2 diabetes mellitus without complications; E66.01 Morbid (severe) obesity due to excess calories; Z68.43 Body mass index [BMI] 50.0-59.9, adult; M06.00 Rheumatoid arthritis without rheumatoid factor, unspecified site

== ENCOUNTER → 2025-06-02 13:29 | Outpatient (BNVA) | payer OTHER, SELFPAY | PROVIDERS: PCP Internal Medicine; Visit Provider Internal Medicine | DX: E11.9 Type 2 diabetes mellitus without complications (principal); E66.01 Morbid (severe) obesity due to excess calories; I10 Essential (primary) hypertension; E78.5 Hyperlipidemia, unspecified; I44.39 Other atrioventricular block; M06.00 Rheumatoid arthritis without rheumatoid factor, unspecified site; Z95.0 Presence of cardiac pacemaker; M06.9 Rheumatoid arthritis, unspecified; Z68.43 Body mass index [BMI] 50.0-59.9, adult; Z79.899 Other long term (current) drug therapy | CPT/HCPCS: 83036; 99212 ==